=== PATIENT | male | born 1935 | race Caucasian/White ===

== ENCOUNTER 2022-08-14 09:48 | Outpatient (OUT) | payer MEDICARE, SELFPAY ==
[2022-08-14 10:31] LABS: Anion Gap 13.4; BUN Creatinine Ratio 29.7; Calcium 10.1 mg/dL (8.5-10.1); Carbon Dioxide 24.6 mmol/L (21.0-32.0); Chloride 107 mmol/L (98-107); Estimated GFR (African America 59 (>=60); Estimated GFR (Non-African Ame 49 (>=60); Glucose 120 mg/dL (74-106); Sodium 140 mmol/L (136-145)
== END 2022-08-14 09:49 ==
LOC: LAB 09:49
PROVIDERS: PCP Family Medicine; Visit Provider Nurse Practitioner Family
DX: I50.22 Chronic systolic (congestive) heart failure (principal)
CPT/HCPCS: 36415; 80048

== ENCOUNTER 2022-08-29 10:11 | Outpatient (OUT) | payer MEDICARE, SELFPAY ==
[2022-08-29 10:31] LABS: Basophils Percent Auto 0.6 % (0.2-2.0); Eosinophils Absolute Auto 0.1 10^3/uL (0.0-0.7); Eosinophils Percent Auto 1.2 % (0.9-7.0); Hematocrit 44.7 % (42.0-54.0); Immature Granulocytes Abs Auto 0.01 10^3/uL (0.00-0.03); Immature Granulocytes Pct Auto 0.2 % (0.0-0.5); Lymphocytes Absolute Auto 1.3 10^3/uL (1.2-3.8); Lymphocytes Percent Auto 24.6 % (20.5-60.0); Mean Corpuscular HGB Conc 33.6 g/dL (29.9-35.2); Mean Corpuscular Hemoglobin 32.1 pg (25.9-34.0); Mean Corpuscular Volume 95.7 fL (80.0-94.0); Mean Platelet Volume 10.9 fL (9.5-13.5); Monocytes Absolute Auto 0.6 10^3/uL (0.3-0.8); Monocytes Percent Auto 10.6 % (1.7-12.0); Neutrophils Absolute Auto 3.3 10^3/uL (1.4-6.5); Neutrophils Percent Auto 62.8 % (43.0-75.0); Platelet Count 164 10^3/uL (150-450); Red Blood Count 4.67 10^6/uL (4.70-6.10); Red Cell Distribution Width 14.1 % (11.0-15.0); White Blood Count 5.2 10^3/uL (4.0-11.0)
[2022-08-29 12:41] LABS: Alanine Aminotransferase 36 U/L (16-63); Albumin Globulin Ratio 1.1; Albumin Level 3.6 g/dL (3.4-5.0); Alkaline Phosphatase 156 U/L (46-116); Anion Gap 14.7; Aspartate Amino Transferase 44 U/L (15-37); BUN Creatinine Ratio 24.4; Bilirubin Total 1.3 mg/dL (0.2-1.0); Calcium 9.7 mg/dL (8.5-10.1); Carbon Dioxide 24.9 mmol/L (21.0-32.0); Chloride 107 mmol/L (98-107); Estimated GFR (African America >60 (>=60); Estimated GFR (Non-African Ame 58 (>=60); Globulin 3.4 g/dL; Glucose 98 mg/dL (74-106); Potassium 4.6 mmol/L (3.5-5.1); Sodium 142 mmol/L (136-145)
[2022-08-29 12:54] LABS: Chol HDL Ratio 1.7; Cholesterol 132 mg/dL (<=200); HDL Cholesterol 76 mg/dL (40-60); Thyroid Stimulating Hormone 1.418 uIU/mL (0.358-3.740); Triglycerides 50 mg/dL (<=150)
== END 2022-08-29 10:12 | disposition home or self-care (01) ==
LOC: LAB 10:12
PROVIDERS: PCP Family Medicine; Visit Provider Nurse Practitioner Family
DX: Z00.00 Encounter for general adult medical examination without abnormal findings (principal); I50.22 Chronic systolic (congestive) heart failure; I25.10 Atherosclerotic heart disease of native coronary artery without angina pectoris; I48.92 Unspecified atrial flutter; E78.2 Mixed hyperlipidemia
CPT/HCPCS: 36415; 80053; 80061; 84443; 85025

== ENCOUNTER 2022-10-09 07:23 | Outpatient (OUT) | payer MEDICARE, SELFPAY ==
--- NOTE | 2022-10-09 08:23 | CA_ITS ---
Patient: DUKE ESCOBAR Exam Date: 10/09/2022 : 1935 Gender:M Ordering : FABOILA MENDIOLA Admission #: [id number] Family : Order #: [id number] CLICK HERE TO VIEW EXAM ECHOCARDIOGRAM REPORT PROCEDURE: CA ECHO DOPPLER COMPLETE INDICATIONS: Multiple vessel CAD, Ischemic congestive Cardiomyopathy COMPARISON: None. DESCRIPTION: COMPLETE ECHOCARDIOGRAM Real-time transthoracic echocardiography with 2D, M-mode, spectral and color flow Doppler performed. QUALITY: Technical quality was good. LEFT VENTRICLE: Normal chamber size. Severe concentric left ventricular hypertrophy. Systolic function is mildly to moderately reduced. LV EF: Mildly to moderately reduced left ventricular ejection fraction, (40-45%). DIASTOLIC: Not adequately assessed due to heart rhythm. ATRIAL SEPTUM: LEFT ATRIUM: Severe dilatation. RIGHT ATRIUM: Severe dilatation. RIGHT VENTRICLE: Mild dilatation. Mildly reduced right ventricular systolic function. TRICUSPID VALVE: Normal mobility and thickness. No stenosis with mild regurgitation. No evidence of pulmonary hypertension. RVSP 34 mmHg MITRAL VALVE: Normal mobility and thickness. No evidence of mitral valve stenosis. Mild mitral annular calcification. Mild to moderate mitral regurgitation. AORTIC VALVE: Normal trileaflet appearance. No visible sclerosis. Normal leaflet mobility. No evidence of aortic valve stenosis. No aortic regurgitation. AORTIC ROOT: Normal diameter and appearance. PULMONIC VALVE: Normal thickness and mobility. No stenosis. Mild regurgitation. PERICARDIUM: No evidence of pericardial effusion. IVC: Collapses with inspirations. Normal size. PLEURA: CONCLUSION: 1. 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 LVEF is 40 to 45%. 2. Mildly dilated right ventricle with mildly reduced systolic function. 3. Severe biatrial dilatation. 4. Mild to moderate mitral and mild tricuspid regurgitation. 5. Normal right-sided pressures. 6. Cardiac phenotype is suggestive of possible infiltrative cardiomyopathy such as amyloid heart disease. Adult Echocardiography Procedure Report Left Ventricle LVEDD (3.7 - 5.6 cm): 4.31 cm LVESD (2.2 - 4.0 cm): 3.67 cm LVIVS thickness (0.6 - 1.2 cm): 2.00 cm LVPW thickness (0.5 - 1.0 cm): 1.97 cm e': 0.06 m/s E - e': 13.11 LVOT Max Gradient: 2.89 mm[Hg] LVOT Area (cm2): 0.85 m/s Peak Velocity (LVOT): 0.85 m/s Mean Velocity (LVOT): 0.55 m/s LVOT Diameter 1.98 cm Left Ventricular Ejection Fraction: 40-45 % Left Atrium LA Volume Index (2D A2C): 94.44 ml/m2 Left Atrium Systolic Dimension: 5.23 cm Mitral Valve Mitral Valve E-Wave Peak Velocity: 0.81 m/s Right Ventricle RV Internal Diastolic Dimension: 4.05 cm Aorta AO Root Diam: 3.32 cm Ascending Ao Diam: 3.22 cm Aortic Valve AoV Area (Peak Adelso): 2.49 cm2, 2.49 cm2 AoV Area (VTI): 2.75 cm2, 2.75 cm2 Peak Velocity(Antegrade Flow): 1.05 m/s Peak Gradient(Antegrade Flow): 4.39 mm[Hg] Mean Velocity(Antegrade Flow): 0.74 m/s Mean Gradient(Antegrade Flow): 2.51 mm[Hg] Velocity Time Integral: 21.29 cm Tricuspid Valve Peak Velocity (Regurgitant Flow): 2.76 m/s, 2.62 m/s, 2.46 m/s, 2.76 m/s Pulmonic Valve Peak Velocity: 0.95 m/s Peak Gradient: 3.91 mm[Hg], 3.29 mm[Hg] Right Atrium Right Atrium Systolic Pressure: 116.47 ml, 116.47 ml Dictated by: Sebastian Moseley M.D. on 10/09/2022 at 19:19 Approved by: Sebastian Moseley M.D. on 10/09/2022 at 19:24
== END 2022-10-09 07:24 | disposition home or self-care (01) ==
LOC: CARD 07:23
PROVIDERS: PCP Family Medicine; Visit Provider Nurse Practitioner
DX: I25.10 Atherosclerotic heart disease of native coronary artery without angina pectoris (principal); I25.5 Ischemic cardiomyopathy
CPT/HCPCS: 93306

== ENCOUNTER 2023-05-23 09:37 | Outpatient (OUT) | payer MEDICARE, SELFPAY ==
[2023-05-23 11:08] LABS: Anion Gap 14.2; BUN Creatinine Ratio 22.8; Calcium 9.4 mg/dL (8.5-10.1); Carbon Dioxide 25.3 mmol/L (21.0-32.0); Chloride 108 mmol/L (98-107); Estimated GFR (African America >60 (>=60); Estimated GFR (Non-African Ame 50 (>=60); Glucose 98 mg/dL (74-106); Potassium 4.5 mmol/L (3.5-5.1); Sodium 143 mmol/L (136-145)
== END 2023-05-23 09:38 | disposition home or self-care (01) ==
LOC: LAB 09:39
PROVIDERS: PCP Family Medicine; Visit Provider Nurse Practitioner Family
DX: I11.0 Hypertensive heart disease with heart failure (principal)
CPT/HCPCS: 36415; 80048

== ENCOUNTER 2023-10-09 12:12 | Outpatient (OUT) | payer MEDICARE, SELFPAY ==
[2023-10-09 12:35] LABS: Basophils Percent Auto 0.7 % (0.2-2.0); Eosinophils Absolute Auto 0.1 10^3/uL (0.0-0.7); Hematocrit 42.9 % (42.0-54.0); Hemoglobin 14.6 g/dL (14.0-18.0); Immature Granulocytes Abs Auto 0.02 10^3/uL (0.00-0.03); Immature Granulocytes Pct Auto 0.3 % (0.0-0.5); Lymphocytes Absolute Auto 1.2 10^3/uL (1.2-3.8); Lymphocytes Percent Auto 20.9 % (20.5-60.0); Mean Corpuscular Hemoglobin 33.4 pg (25.9-34.0); Mean Corpuscular Volume 98.2 fL (80.0-94.0); Mean Platelet Volume 10.8 fL (9.5-13.5); Monocytes Absolute Auto 0.6 10^3/uL (0.3-0.8); Monocytes Percent Auto 9.6 % (1.7-12.0); Neutrophils Percent Auto 67.5 % (43.0-75.0); Platelet Count 150 10^3/uL (150-450); Red Blood Count 4.37 10^6/uL (4.70-6.10); Red Cell Distribution Width 13.6 % (11.0-15.0); White Blood Count 5.9 10^3/uL (4.0-11.0)
[2023-10-09 12:47] LABS: Estimated Average Glucose 105 mg/dL; Glycohemoglobin A1C 5.3 % (4.5-6.2)
[2023-10-09 12:51] LABS: Alanine Aminotransferase 37 U/L (16-63); Albumin Globulin Ratio 1.4; Albumin Level 3.8 g/dL (3.4-5.0); Alkaline Phosphatase 142 U/L (46-116); Anion Gap 14.3; Aspartate Amino Transferase 40 U/L (15-37); BUN Creatinine Ratio 29.2; Bilirubin Direct 0.4 mg/dL (0.0-0.2); Bilirubin Total 1.2 mg/dL (0.2-1.0); Calcium 9.5 mg/dL (8.5-10.1); Carbon Dioxide 25.2 mmol/L (21.0-32.0); Chloride 107 mmol/L (98-107); Chol HDL Ratio 1.8; Cholesterol 136 mg/dL (<=200); Estimated GFR (African America 56 (>=60); Estimated GFR (Non-African Ame 47 (>=60); Globulin 2.7 g/dL; Glucose 96 mg/dL (74-106); HDL Cholesterol 75 mg/dL (40-60); Potassium 4.5 mmol/L (3.5-5.1); Sodium 142 mmol/L (136-145); Total Protein 6.5 g/dL (6.4-8.2); Triglycerides 35 mg/dL (<=150)
== END 2023-10-09 12:13 | disposition home or self-care (01) ==
LOC: LAB 12:14
PROVIDERS: PCP Family Medicine; Visit Provider Family Medicine
DX: E78.5 Hyperlipidemia, unspecified (principal); R73.03 Prediabetes; Z79.899 Other long term (current) drug therapy
CPT/HCPCS: 36415; 80048; 80061; 80076; 83036; 85025

== ENCOUNTER 2024-02-28 13:20 | Outpatient (OUT) | payer MEDICARE, SELFPAY ==
--- OUTSIDE RECORDS SUMMARY | 2024-02-28 13:25 | XMS_ITS | CCD ---
Author Organization [facility] Care Team Providers Care Psychologist Military Personnel Name Role Phone MD Stefano Rivera Primary Care Provider MD Percy Swan Emergency Provider DO Venus Manjarrez Admit Provider DO Venus Manjarrez Attending Provider SHANA MCCORMICK Admitting Unavailable SHANA MCCORMICK Attending Unavailable KAYLEENERELawrence, DR STEFANO Love Primary Care Unavailable SHANA MCCORMICK Consulting Unavailable MICHELLE MENDOZA Admitting Unavailable MICHELLE MENDOZA Attending Unavailable NADERER, DR STEFANO Love Primary Care Unavailable ZIEBLISA, DR PRISCILA Bravo Consulting Unavailable MICHELLE MENDOZA Consulting Unavailable NINO POWELL Admitting Unavailable NINO POWELL Attending Unavailable NADERER, DR STEFANO Love Primary Care Unavailable NINO POWELL Consulting Unavailable NADERER, DR STEFANO Love Admitting Unavailable NADERER, DR STEFANO Love Attending Unavailable NADERER, DR STEFANO Love Primary Care Unavailable KAYLEENERER, DR STEFANO Love Primary Care Unavailable CACHORRO, DR VICENTE Crawley Admitting Unavailabl e REINECK, DR VICENTE Crawley Attending Unavailabl e REINECK, DR VICENTE Crawley Consulting Unavailabl e NADERER, DR STEFANO Love Primary Care Unavailable TAYLOR ALCANTARA Admitting Unavailable TAYLOR ALCANTARA Attending Unavailable TAYLOR ALCANTARA Consulting Unavailable MAYA MOODY Consulting Unavailable NADERER, DR STEFANO Love Primary Care Unavailable HOY ., DR ESPINOZA Consulting Unavailable NADERER, DR STEFANO Love Admitting Unavailable NADERELawrence, DR STEFANO Love Attending Unavailable NADERELawrence, DR STEFANO Love Consulting Unavailable WILBERT RIVERA Consulting Unavailable BO HURST Consulting Unavailable SHERRY, NINO Admitting Unavailable BARAZI, NINO Attending Unavailable DR STEFANO RIVERA Primary Care Unavailable MICHELLE MENDOZA Admitting Unavailable MICHELLE MENDOZA Attending Unavailable DR STEFANO RIVERA Primary Care Unavailable MICHELLE MENDOZA Consulting Unavailable STEFANO RIVERA Attending Unavailable ANOOP, ELLYN Referring Unavailable ANOOP, ELLYN Referring Unavailable AONOP, ELLYN Referring Unavailable ANOOP, ELLYN Referring Unavailable ANOOP, ELLYN Referring Unavailable ANOOP, ELLYN Referring Unavailable MICHELLE MENDOZA Attending Unavailable MICHELLE MENDOZA Attending Unavailable MISAEL GARCIA Attending Unavailable MICHELLE MENDOZA Attending Unavailable ANOOP, ELLYN Referring Unavailable ANOOP, ELLYN Referring Unavailable ANOOP, ELLYN Referring Unavailable ANOOP, ELLYN Referring Unavailable ANOOP, ELLYN Referring Unavailable ANOOP, ELLYN Referring Unavailable Allergies Allergy Classification Reported Allergen(s) Allergy Type Date of Onset Reaction(s) Facility (4 sources) Penicillins; Translations: [Penicillins] Allergy to substance 10-20-2013 [facility] Medications Current Medications Medication Drug Class(es) Dates Sig (Normalized) Sig (Original) apixaban 5 mg oral tablet (1 source) Factor Xa Inhibitor Start: 09-15-2021 take 1 tablet by mouth twice daily Apixaban (Eliquis) 5 mg Tablet Active 5 MG PO Twice daily September 15, 2021 2:08pm lisinopril 20 mg oral tablet (1 source) Angiotensin Converting Enzyme Inhibitor Start: 09-15-2021 take 20 mg by mouth once daily Lisinopril Active 20 MG PO Daily September 15, 2021 2:08pm Propoxyphene N-Acetaminophen (Darvocet-N 50) 50-325 mg Tablet (1 source) Start: 09-15-2021 Propoxyphene N-Acetaminophen (Darvocet-N 50) 50-325 mg Tablet Active 1 TAB PO Q6H September 15, 2021 2:08pm rosuvastatin calcium 20 mg oral tablet (1 source) HMG-CoA Reductase Inhibitor Start: 09-15-2021 take 1 tablet by mouth once daily Rosuvastatin (Crestor) 20 mg Tablet Active 20 MG PO Daily September 15, 2021 2:08pm traMADol hydrochloride 50 mg oral tablet (1 source) Opioid Agonist Start: 09-15-2021 take 1 tablet by mouth every six hours Tramadol (Ultram) 50 mg Tablet Active 50 MG PO Q6H September 15, 2021 2:08pm Problems Active Problems Problem Classification Problem Date Documented Date Episodic/Chronic Cardiac dysrhythmias (6 sources) Unspecified atrial fibrillation; Translations: [Paroxysmal atrial fibrillation] Onset: 09-14-2021 Chronic Chronic kidney disease (1 source) Chronic kidney disease, unspecified; Translations: [CHRONIC KIDNEY DISEASE UNSPECIFIED] Onset: 09-14-2021 Chronic Chronic kidney disease (3 sources) Chronic kidney disease; Translations: [CHRONIC KIDNEY DISEASE STAGE 3A] Onset: 09-14-2021 Congestive heart failure; nonhypertensive (5 sources) Acute on chronic combined systolic (congestive) and diastolic (congestive) heart failure; Translations: [Acute combined systolic (congestive) and diastolic (congestive) heart failure] Onset: 01-25-2022 Chronic Coronary atherosclerosis and other heart disease (13 sources) Atherosclerotic heart disease of [place] coronary artery without angina pectoris; Translations: [Ischemic cardiomyopathy] Onset: 09-14-2021 Chronic Disorders of lipid metabolism (4 sources) Hyperlipidemia, unspecified; Translations: [Mixed hyperlipidemia] Onset: 10-02-2022 Chronic Essential hypertension (7 sources) Essential (primary) hypertension; Translations: [ESSENTIAL PRIMARY HYPERTENSION] Onset: 07-19-2021 Chronic Heart valve disorders (1 source) Rheumatic disorders of both mitral and tricuspid valves; Translations: [RHEUMATIC D/O MITRAL TRICUSPID VALV] Onset: 11-04-2021 Chronic Hypertension with complications and secondary hypertension (2 sources) Hypertensive heart disease with heart failure; Translations: [Hypertensive heart disease with heart failure] Onset: 06-06-2023 Chronic Osteoarthritis (2 sources) Bilateral primary osteoarthritis of hip; Translations: [Unilateral primary osteoarthritis, right hip] Onset: 09-14-2021 Chronic Other nervous system disorders (1 source) Unable to walk; Translations: [Difficulty in walking, not elsewhere classified] 09-15-2021 Chronic Other nervous system disorders (1 source) Difficulty in walking, not elsewhere classified; Translations: [Difficulty in walking] Chronic Anitha-; endo-; and myocarditis; cardiomyopathy (except that caused by tuberculosis or sexually transmitted disease) (4 sources) Endocarditis, valve unspecified; Translations: [Dilated cardiomyopathy] Onset: 01-02-2022 Chronic Unclassified (1 source) CONTACT W/AND (SUSP) EXPOS COVID-19; Translations: [CONTACT W/AND (SUSP) EXPOS COVID-19] Onset: 09-14-2021 Unclassified (2 sources) Longstanding persistent atrial fibrillation; Translations: [Longstanding persistent atrial fibrillation] Onset: 02-22-2024 Unclassified (2 sources) Other persistent atrial fibrillation; Translations: [Other persistent atrial fibrillation] Onset: 01-02-2022 Past or Other Problems Problem Classification Problem Date Documented Da te Episodic/Chronic Calculus of urinary tract (1 source) Personal history of urinary calculi; Translations: [PERSONAL HISTORY OF URINARY CALCULI] Onset: 09-14-2021 Episodic Cardiac dysrhythmias (2 sources) Palpitations; Translations: [Palpitations] Onset: 08-13-2023 Episodic E Codes: Fall (1 source) Unspecified fall, initial encounter; Translations: [UNSPECIFIED FALL INITIAL ENCOUNTER] Onset: 09-14-2021 Episodic Other aftercare (1 source) Other longterm (current) drug therapy; Translations: [OTH SNF CURRENT DRUG THERAPY] Onset: 09-14-2021 Episodic Other aftercare (1 source) 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; 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 Maryjo [facility] 36 Pharmacy called needing a new scripted for patient Entresto. Patient stated he is taking 0.5mg twice a day, but the order says 4 times a month. Denise Sibley [facility] Office Visiton 12-20-2024 Follow-up visit [id number] Duke Matson 1935 M Date Provider Department Center 02/22/2024 [id number]-WZCKYLMISAEL GARCIA Family History Problem Relation Age of Onset Heart attack Other Family Status - Relation Status Age at Other Level of Service:88953 [place] OFFICE/OUTPATIENT ESTABLISHED MOD MDM 30 MIN Reason for Visit and Comments: Hypertension [687071] - Says BP has been higher than normal for him lately. Coronary Artery Disease [187] Congestive Heart Failure [127] Palpitations [856595] - Occasional palpitations Shortness of Breath [] - Says he can tell he's been having apneic episodes at night and wakes up and has to kick start his breathing again. Edema [[id number]] - He is up 14# since September 2023. Says he weighed 170# last week. Atrial Flutter [101] - Denies bleeding on Eliquis. [facility] 36on 10-17-2023 36 Well we can continue the Entresto if he can tolerate it. Otherwise we can switch it to valsartan. [facility] Office Visiton 09-25-2023 Follow-up visit [id number] Duke Matson 1935 M Date Provider Department Center 09/25/2023 166MICHELLE NUÑEZ Family History Problem Relation Age of Onset Heart attack Other Family Status - Relation Status Age at Other Level of Service:64849 [place] OFFICE/OUTPATIENT ESTABLISHED MOD MDM 30 MIN Reason for Visit and Comments: Congestive Heart Failure [127] [facility] Office Visiton 06-06-2023 Follow-up visit [id number] Duke Matson 1935 M Date Provider Department Center 06/06/2023 166-MICHELLE MENDOZA Family History Problem Relation Age of Onset Heart attack Other Family Status - Relation Status Age at Other Level of Service:27112 [place] OFFICE/OUTPATIENT ESTABLISHED LOW MDM 20 MIN Reason for Visit and Comments: Follow-up [335828] [facility] Office Visiton 03-08-2023 Follow-up visit [id number] Duke Matson 1935 M Date Provider Department Center 03/08/2023 MICHELLE PARKER [facility] Family History Problem Relation Age of Onset Heart attack Other Family Status - Relation Status Age at Other Level of Service:51101 [place] OFFICE/OUTPATIENT ESTABLISHED LOW MDM 20 MIN Reason for Visit and Comments: Coronary Artery Disease [187] Congestive Heart Failure [127] Hypertension [143515] Atrial Fibrillation [80] Normal [facility] PROF CHEM 8 (BAS METB)on Anion gap [Moles/Vol] 13.7 mmol/L Normal [facility] Comment on above: Performed By: #### B MP #### [facility] [address] [place] [address] Dr. Brennan Crooks Calcium [Mass/Vol] 10.0 mg/dL Normal 8.5-10.1 [facility] Comment on above: Performed By: #### B MP #### [facility] [address] [address] [address] Brennan Crooks Chloride [Moles/Vol] 109 mmol/L Critically high 98-107 [facility] Comment on above: Performed By: #### B MP #### [facility] [address] [address] [address] Brennan Crooks CO2 [Moles/Vol] 24.9 mmol/L Normal 21.0-32.0 [facility] Comment on above: Performed By: #### B MP #### [facility] [address] [address] [address] Brennan Crooks Creatinine [Mass/Vol] 1.13 mg/dL Normal 0.70-1.30 [facility] Comment on above: Performed By: #### B MP #### [facility] [address] [address] [address] Brennan Crooks EGFR-AF [place]TSERR[place] >60 Normal >=60 [facility] Comment on above: Performed By: #### B MP #### [facility] [address] [address] [address] Brennan Crooks EGFR-NON AF [place]ERR[place] >60 Normal >=60 [facility] Comment on above: Performed By: #### B MP #### [facility] [address] [address] [address] Brennan Crooks Glucose [Mass/Vol] 102 mg/dL Normal 74-106 [facility] Comment on above: Performed By: #### B MP #### [facility] [address] [place], [place] [address] Dr. Brennan Crooks Potassium [Moles/Vol] 4.6 mmol/L Normal 3.5-5.1 [facility] Comment on above: Performed By: #### B MP #### [facility] [address] [address] [address] Brennan Crooks Sodium [Moles/Vol] 143 mmol/L Normal 136-145 [facility] Comment on above: Performed By: #### B MP #### [facility] [address] [address] [address] Brennan Crooks Urea nitrogen [Mass/Vol] 35.0 mg/dL Critically high 7.0-18.0 [facility] Comment on above: Performed By: #### B MP #### [facility] [address] [address] [address] Brennan Crooks Urea nitrogen/Creatinine [Mass ratio] 31.0 mg/mg Normal [facility] Comment on above: Performed By: #### B MP #### [facility] [address] [address] [address] Brennan Crooks NM STRESS/REST MULTIon 01-23 NM STRESS/REST MULTI Patient: DUKE MATSON Exam Date: 01/23/2022 : 1935 Gender:M Ordering : MICHELLE MENDOZA [facility] Admission #: [id number] Family : Order #: [id number] CLICK HERE TO VIEW EXAM RADIOLOGY REPORT PROCEDURE: RADIONUCLIDE IMAGING STRESS/REST MULTI COMPARISON: NM STRESS/REST MULTI, 12/25/2018. INDICATIONS: Acute on chronic combined systolic and diastolic heart failure TECHNIQUE: Exam Description: Rest/Stress one day protocol gated SPECT Rest Imagin.1 mCi Tc-99m Cardiolite IV on 01/23/2022 Stress Imaging 30.1 mCi Tc-99m Cardiolite IV on 01/23/2022 Exercise Protocol: 0.4 mg Lexiscan given IV Heart Rate (bpm): Rest: 68 Max: 80 PMHR: 59 Blood Pressure: Rest: 140/92 Max: 146/88 Symptoms: Rest and peak stress ECG findings were normal and the exercise portion of the study was normal per attending physician Dr. Moseley . For more details please see separate cardiac stress test report. FINDINGS: QUALITY OF STUDY: Excellent. PERFUSION DEFECT: LOCATION: Basal inferior. Mid-inferior. Apical inferior. SIZE: Medium (3-4 segments). SEVERITY: Mild. TYPE: Persistent. WALL MOTION: Focal akinesis of posterior wall at base of heart. Global marked hypokinesis. LV SIZE: Enlarged; EDV 165 mL. TID / TCD: None; 1.0 LVEF: Abnormal. Calculated EF 31%. SUMMARY: Myocardial perfusion imaging study has ABNORMAL findings. CONCLUSION: 1. No acute or reversible ischemia. 2. Small-moderate fixed inferior wall perfusion defect versus diaphragm attenuation artifact. 3. Left ventriculomegaly (165 mL) and abnormal low ejection fraction (31%). 4. Global hypokinesis with focal akinesis of the posterior wall at base of heart. Dictated by: Priscila Mendoza M.D. on 01/24/2022 at 12:24 Approved by: Priscila Mendoza M.D. on 01/24/2022 at 12:29 Normal [facility] ECHOCARDIO M/2D COMPLETEon 0 11-02-2021 ECHOCARDIO M/2D COMPLETE Patient: DUKE MATSON Exam Date: 11/02/2021 : 1935 Gender:M Ordering : SHANA MCCORMICK Admission #: [id number] Family : DR STEFANO RIVERA . 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 DESCRIPTION: COMPLETE ECHOCARDIOGRAM Real-time transthoracic echocardiography with 2D, M-mode, spectral and color flow Doppler performed. QUALITY: Technical quality was adequate. 68 195# 118/78 HR 79 LEFT VENTRICLE: Normal chamber size. Severe concentric left ventricular hypertrophy [septum 2.0 cm, posterior wall 2.0 cm]. Global left ventricular systolic function is moderately decreased. Calculated left ventricular ejection fraction is 36%. Global left ventricular hypokinesis. LV EF: DIASTOLIC: Grade II diastolic dysfunction. ATRIAL SEPTUM: LEFT ATRIUM: Severe dilatation. RIGHT ATRIUM: Moderate dilatation. RIGHT VENTRICLE: Normal chamber size. Normal right ventricular systolic function. TRICUSPID VALVE: Normal mobility and thickness. No stenosis with mild regurgitation. No evidence of pulmonary hypertension. RVSP 33 mmHg MITRAL VALVE: Mildly thickened with normal mobility. No evidence of mitral valve stenosis. Mild mitral annular calcification. Mild mitral regurgitation. AORTIC VALVE: Normal trileaflet appearance. Mildly calcified aortic valve. No evidence of aortic valve stenosis. Trivial aortic regurgitation. AORTIC ROOT: Ascending aorta is at upper normal limits in size. PULMONIC VALVE: Normal thickness and mobility. No stenosis. Mild regurgitation. PERICARDIUM: No evidence of pericardial effusion. IVC: Collapses with inspirations. IVC is normal in size. PLEURA: CONCLUSION: 1. The left ventricle exhibits severe concentric hypertrophy. There is global hypokinesis with moderately reduced systolic function and a calculated ejection fraction of 36%. 2. Grade 2 diastolic dysfunction. 3. The right ventricle is normal in size and systolic function. 4. Mild mitral and tricuspid regurgitation. 5. Normal right-sided pressures. Adult Echocardiography Procedure Report Left Ventricle Left Atrium Mitral Valve Right Ventricle Aorta Aortic Valve Peak Velocity (Antegrade Flow): 1.20 m/s AoV Area (Peak Adelso): 3.62 cm2, 3.62 cm2 Peak Velocity(Antegrade Flow): 1.20 m/s Peak Gradient(Antegrade Flow): 5.77 mm[Hg] Tricuspid Valve Peak Velocity (Regurgitant Flow): 2.63 m/s, 2.73 m/s Peak Velocity: 0.49 m/s, 0.49 m/s Pulmonic Valve PV Max Adelso (0.6 - 0.9 m per sec): 0.90 m/s PV Max Gradient: 3.22 mm[Hg] Right Atrium Dictated by: Sebastian Moseley M.D. on 11/03/2021 at 20:30 Approved by: Sebastian Moseley M.D. on 11/03/2021 at 20:34 Normal [facility] Hemogram CBC Without Diffon 09-19-2021 Erythrocyte distribution width (RBC) [Ratio] 14.1 % Normal 12.0-14.8 [facility] Comment on above: Performed By: #### C BCNO ####[address] Hematocrit (Bld) [Volume fraction] 24.9 % Low 38.8-50.0 [facility] Comment on above: Performed By: #### C BCNO ####[address] Hemoglobin (Bld) [Mass/Vol] 8.5 g/dL Low 13.0-17.0 [facility] Comment on above: Performed By: #### C BCNO ####[address] MCH (RBC) [Entitic mass] 32.8 pg Normal 27.5-35.2 [facility] Comment on above: Performed By: #### C BCNO ####[address] MCV (RBC) [Entitic vol] 95.6 fL Normal 83.5-101 [facility] Comment on above: Performed By: #### C BCNO ####[address] Mean Corpuscular HGB Conc 34.3 g/dL Normal 32.5-35.6 [facility] Comment on above: Performed By: #### C BCNO ####[address] Platelet mean volume (Bld) [Entitic vol] 7.3 fL Normal 6.6-10.1 [facility] Comment on above: Result Comment: PERF ORMED BY: [facility] [address] [place] [address] PATHOLOGIST BUTTON SAWYER TAMICA DUBOSE M.D. Performed By: #### C BCNO ####[address] Platelets (Bld) [#/Vol] 240 10*3/uL Normal 150-450 [facility] Comment on above: Performed By: #### C BCNO ####[facility] RBC (Bld) [#/Vol] 2.60 10*6/uL Low 3.90-5.60 [facility] [place] [facility] Comment on above: Performed By: #### C BCNO ####[facility] WBC (Bld) [#/Vol] 6.5 10*3/uL Normal 4.1-10.5 [facility] Comment on above: Performed By: #### C BCNO ####[address] Hemogram CBC Without Diffon 09-18-2021 Erythrocyte distribution width (RBC) [Ratio] 13.8 % Normal 12.0-14.8 [facility] Comment on above: Performed By: #### C BCNO #### [address] Hematocrit (Bld) [Volume fraction] 26.6 % Low 38.8-50.0 [facility] Comment on above: Performed By: #### C BCNO #### [address] Hemoglobin (Bld) [Mass/Vol] 9.0 g/dL Low 13.0-17.0 [facility] Comment on above: Performed By: #### C BCNO #### [facility] [address] MCH (RBC) [Entitic mass] 32.4 pg Normal 27.5-35.2 [facility] Comment on above: Performed By: #### C BCNO #### [facility] [address] MCV (RBC) [Entitic vol] 95.5 fL Normal 83.5-101 [facility] Comment on above: Performed By: #### C BCNO #### [facility] [address] Mean Corpuscular HGB Conc 34.0 g/dL Normal 32.5-35.6 [facility] Comment on above: Performed By: #### C BCNO #### [facility] [address] Platelet mean volume (Bld) [Entitic vol] 7.7 fL Normal 6.6-10.1 [facility] Comment on above: Result Comment: PERF ORMED BY: [place] [address] PATHOLOGIST BUTTON SAWYER TAMICA DUBOSE M.D. Performed By: #### C BCNO #### [address] Platelets (Bld) [#/Vol] 232 10*3/uL Normal 150-450 [facility] Comment on above: Performed By: #### C BCNO #### [address] RBC (Bld) [#/Vol] 2.78 10*6/uL Low 3.90-5.60 [facility] [place] [facility] Comment on above: Performed By: #### C BCNO #### [address] WBC (Bld) [#/Vol] 6.9 10*3/uL Normal 4.1-10.5 [facility] Comment on above: Performed By: #### C BCNO #### [address] Ferritinon 09-17-2021 Ferritin [Mass/Vol] 29.0 ng/mL Normal 23.9-336.2 [facility] [place] [facility] Comment on above: Performed By: #### F E and TIBC, [id number], AJ ####[facility] [place] [address] Hemoglobin and Hematocriton 09-17-2021 Hematocrit (Bld) [Volume fraction] 25.6 % Low 38.8-50.0 [facility] Comment on above: Result Comment: PERF ORMED BY: [place] [address] PATHOLOGIST BUTTON SAWYER TAMICA DUBOSE M.D. Performed By: #### H H #### [address] Hemoglobin (Bld) [Mass/Vol] 8.6 g/dL Low 13.0-17.0 [facility] Comment on above: Performed By: #### H H #### [address] Hemogram CBC Without Diffon 09-17-2021 Erythrocyte distribution width (RBC) [Ratio] 13.8 % Normal 12.0-14.8 [facility] Comment on above: Performed By: #### C BCNO #### [address] Hematocrit (Bld) [Volume fraction] 24.6 % Low 38.8-50.0 [facility] Comment on above: Performed By: #### C BCNO #### [address] Hemoglobin (Bld) [Mass/Vol] 8.4 g/dL Low 13.0-17.0 [facility] Comment on above: Performed By: #### C BCNO #### [address] MCH (RBC) [Entitic mass] 32.8 pg Normal 27.5-35.2 [facility] Comment on above: Performed By: #### C BCNO #### [address] MCV (RBC) [Entitic vol] 96.0 fL Normal 83.5-101 [facility] Comment on above: Performed By: #### C BCNO #### [address] Mean Corpuscular HGB Conc 34.2 g/dL Normal 32.5-35.6 [facility] Comment on above: Performed By: #### C BCNO #### [address] Platelet mean volume (Bld) [Entitic vol] 8.3 fL Normal 6.6-10.1 [facility] Comment on above: Result Comment: PERF ORMED BY: [place] [address] PATHOLOGIST BUTTON SAWYER TAMICA DUBOSE M.D. Performed By: #### C BCNO #### [address] Platelets (Bld) [#/Vol] 219 10*3/uL Normal 150-450 [facility] Comment on above: Performed By: #### C BCNO #### [address] RBC (Bld) [#/Vol] 2.57 10*6/uL Low 3.90-5.60 [facility] Comment on above: Performed By: #### C BCNO #### [address] WBC (Bld) [#/Vol] 6.8 10*3/uL Normal 4.1-10.5 [facility] Comment on above: Performed By: #### C BCNO #### [address] Iron and TIBC Profileon 09-02 % Iron Saturation 16.0 % Low 20-50 [facility] Comment on above: Performed By: #### F E and TIBC, [id number], AJ ####[address] Iron [Mass/Vol] 55 ug/dL Normal 40-160 [facility] Comment on above: Performed By: #### F E and TIBC, [id number], AJ ####[address] Total Iron Binding Capacity 337 ug/dL Normal 255-450 [facility] Comment on above: Performed By: #### F E and TIBC, [id number], AJ ####[address] Transferrin [Mass/Vol] 241 mg/dL Normal 180-380 [facility] [facility] Comment on above: Performed By: #### F E and TIBC, [id number], AJ ####[address] Vit. B12/Folate Profileon Cobalamin (Vitamin B12) [Mass/Vol] 892 pg/mL Normal 180-914 [facility] Comment on above: Performed By: #### F E and TIBC, [id number], AJ ####[address] Folate 8.7 ng/mL Normal >5.9 [facility] Comment on above: Result Comment: Ting te reference range: >5.9 ng/ml The WHO technical consultation on folate and vitamin b12 deficiencies has determined that folate concentrations less than 4 ng/ml are considered deficient. PERFORMED BY: [place] [address] PATHOLOGIST BUTTON SAWYER TAMICA DUBOSE M.D. Performed By: #### F E and TIBC, [id number], AJ ####[address] Complete Blood Count Auto Di ffon 09-16-2021 Basophils (Bld) [#/Vol] 0.0 10*3/uL Normal 0.0-0.2 [facility] Comment on above: Result Comment: PERF ORMED BY: [place] [address] PATHOLOGIST BUTTON SAWYER TAMICA DUBOSE M.D. Performed By: #### C BC #### [address] Basophils/100 WBC (Bld) 0.4 % Normal . [facility] Comment on above: Performed By: #### C BC #### [address] Eosinophils (Bld) [#/Vol] 0.0 10*3/uL Normal 0.0-0.45 [facility] Comment on above: Performed By: #### C BC #### [address] Eosinophils/100 WBC (Bld) 0.5 % Normal . [facility] Comment on above: Performed By: #### C BC #### [address] Erythrocyte distribution width (RBC) [Ratio] 13.8 % Normal 12.0-14.8 [facility] Comment on above: Performed By: #### C BC #### [address] Hematocrit (Bld) [Volume fraction] 27.5 % Low 38.8-50.0 [facility] Comment on above: Performed By: #### C BC #### [address] Hemoglobin (Bld) [Mass/Vol] 9.3 g/dL Low 13.0-17.0 [facility] Comment on above: Performed By: #### C BC #### [address] Lymphocytes (Bld) [#/Vol] 0.9 10*3/uL Low 1.00-4.8 [facility] Comment on above: Performed By: #### C BC #### [address] Lymphocytes/100 WBC (Bld) 12.6 % Normal . [facility] Comment on above: Performed By: #### C BC #### [address] MCH (RBC) [Entitic mass] 32.5 pg Normal 27.5-35.2 [facility] Comment on above: Performed By: #### C BC #### [address] MCV (RBC) [Entitic vol] 95.9 fL Normal 83.5-101 [facility] Comment on above: Performed By: #### C BC #### [place] [address] Mean Corpuscular HGB Conc 33.8 g/dL Normal 32.5-35.6 [facility] Comment on above: Performed By: #### C BC #### [address] Monocytes (Bld) [#/Vol] 0.9 10*3/uL High 0.0-0.8 [facility] Comment on above: Performed By: #### C BC #### [address] Monocytes/100 WBC (Bld) 13.5 % Normal . [facility] Comment on above: Performed By: #### C BC #### [address] Neutrophils (Bld) [#/Vol] 5.0 10*3/uL Normal 1.8-7.7 [facility] Comment on above: Performed By: #### C BC #### [address] Neutrophils/100 WBC (Bld) 73.0 % Normal . [facility] Comment on above: Performed By: #### C BC #### [address] Nucleated RBC/100 WBC (Bld) [Ratio] 0.0 % Normal 0-0.5 [facility] Comment on above: Performed By: #### C BC #### [address] Platelet mean volume (Bld) [Entitic vol] 8.0 fL Normal 6.6-10.1 [facility] Comment on above: Performed By: #### C BC #### [place] [address] [place] Platelets (Bld) [#/Vol] 218 10*3/uL Normal 150-450 [facility] Comment on above: Performed By: #### C BC #### [place] [address] [place] RBC (Bld) [#/Vol] 2.86 10*6/uL Low 3.90-5.60 [facility] Comment on above: Performed By: #### C BC #### [address] WBC (Bld) [#/Vol] 6.9 10*3/uL Normal 4.5-11.0 [facility] Comment on above: Performed By: #### C BC #### [address] Activated partial thrombopla stin time (aPTT) in platelet poor plasma by coagulation aOrdered By: Ilana Martínez on 09-15-2021 aPTT Coag (PPP) [Time] 34.4 s 25.1-36.5 [facility] Basic Metabolic Panelon 09-02 Calcium [Mass/Vol] 9.0 mg/dL Normal 8.2-10.2 [facility] Comment on above: Performed By: #### B MP, CBC #### [address] Chloride [Moles/Vol] 102 mmol/L Normal 95-114 [facility] Comment on above: Performed By: #### B MP, CBC #### [address] CO2 [Moles/Vol] 24.1 mmol/L Normal 22.0-30.0 [facility] Comment on above: Performed By: #### B MP, CBC #### [address] Creatinine [Mass/Vol] 1.21 mg/dL Normal 0.64-1.27 [facility] Comment on above: Performed By: #### B MP, CBC #### [address] Creatinine Clr Calc Pharmacy 50.41 Normal [facility] Comment on above: Result Comment: PERF ORMED BY: [address] [place] [address] PATHOLOGIST BUTTON SAWYER TAMICA DUBOSE M.D. Performed By: #### B MP, CBC #### [facility] [address] [place] [address] [place] Estimated GFR ( Nasima > 60 [facility] Comment on above: Result Comment: GFR estimated reference range: According to KDOQI guidelines, <60 ml/min/1.73m2 is sufficient to diagnose a patient with chronic kidney disease. Performed By: #### B MP, CBC #### [facility] [address] [place] [address] [place] Estimated GFR (Non- Am 57 [facility] Comment on above: Performed By: #### B MP, CBC #### [facility] [address] Glucose [Mass/Vol] 126 mg/dL High 70-100 [facility] Comment on above: Result Comment: [place] Glucose Reference Range is dependent on time and content of last meal. Glucose of more than 200 mg/dL in a nonstressed, ambulatory subject supports the diagnosis of Diabetes Mellitus. ADA recommended reference range Performed By: #### B MP, CBC #### [address] Potassium [Moles/Vol] 4.7 mmol/L Normal 3.5-5.1 [facility] Comment on above: Performed By: #### B MP, CBC #### [address] Sodium [Moles/Vol] 135 mmol/L Low 136-146 [facility] Comment on above: Performed By: #### B MP, CBC #### [place] [address] [place] Urea nitrogen [Mass/Vol] 28 mg/dL High 9-23 [facility] Comment on above: Performed By: #### B MP, CBC #### [place] [address] [place] Basophils Auto (Bld) [#/Vol] Ordered By: Ilana Martínez on 09-15-2021 Basophils (Bld) [#/Vol] 0.0 10*3/uL 0.0-0.2 [facility] Basophils/100 WBC Auto (Bld) Ordered By: Ilana Martínez on 09-15-2021 Basophils/100 WBC (Bld) 0.2 % [facility] Blood hemoglobin measurement (mass/volume)Ordered By: Ilana Martínez on 09-15-2021 Hemoglobin (Bld) [Mass/Vol] 10.0 g/dL 13.0-17.0 [facility] Blood leukocytes automated c ount (number/volume)Ordered By: Ilana Washingtoncarmelo on 09-15-2021 WBC (Bld) [#/Vol] 9.6 10*3/uL 4.5-11.0 [facility] COVID-19 Antigenon COVID-19 Antigen Healthcare Worker?: N Reference Range: Negative Negative results, from patients with symptom onset beyond five days, should be treated as presumptive and confirmation with a molecular assay, if necessary, for patient management, may be performed. Negative results do not rule out COVID-19 and should not be used as the sole basis for treatment or patient management decisions, including infection control decisions. Negative results should be considered in the context of a patient's recent exposures, history and the presence of clinical signs and symptoms consistent with COVID-19. The Maisha SARS Antigen CONNIE does not differentiate between SARS-CoV and SARS-CoV-2. This test was developed and its performance characteristic determined by [employer] and validated at [facility]. This test has not been FDA cleared or approved. This test has been authorized by FDA under an Emergency Use Authorization (EUA). This test has been validated in accordance with the FDA's Guidance Document (Policy for Diagnostics Testing in Laboratories Certified to Perform High Complexity Testing under CLIA prior to Emergency Use Authorization for Coronavirus Disease-2019 during the Public Health Emergency) issued on June 05, 2019. This test is only authorized for the duration of time the declaration that circumstances exist justifying the authorization of the emergency use of in vitro diagnostic tests for detection of SARS-CoV-2 virus and/or diagnosis of COVID-19 infection under section 564(b)(1) of the Act, 21 U.S.C. 360bbb-3(b)(1), unless the authorization is terminated or revoked sooner. SARS-CoV+SARS-CoV-2 (COVID-19) Ag [Presence] in Respiratory specimen by Rapid immunoassay Negative for SARS Antigen by CONNIE PERFORMED BY: [place] [address] PATHOLOGIST BUTTON SAWYER TAMICA DUBOSE M.D. Normal [facility] Comment on above: Performed By: #### S OFIANEG, COVID-19 MAISHA #### [address] COVID-19 FRon 09-15-2021 SARS-CoV-2 (COVID-19) RNA NADIR+probe Ql (Unsp spec) Negative Normal Negative [facility] Comment on above: Order Comment: Healt hcare Worker?: N Result Comment: Testing for SARS-CoV-2 by RT-PCR This test was developed and its performance characteristics determined by [employer]) and validated at the [facility]. This test has not been FDA cleared or approved. This test has been authorized by FDA under an Emergency Use Authorization (EUA). This test has been validated in accordance with the FDA's Guidance Document (Policy for Diagnostics Testing in Laboratories Certified to Perform High Complexity Testing under CLIA prior to Emergency Use Authorization for Coronavirus Disease-2019 during the Public Health Emergency) issued on June 05, 2019. This test is only authorized for the duration of time the declaration that circumstances exist justifying the authorization of the emergency use of in vitro diagnostic tests for detection of SARS-CoV-2 virus and/or diagnosis of COVID-19 infection under section 564(b)(1) of the Act, 21 U.S.C. 360bbb-3(b)(1), unless the authorization is terminated or revoked sooner. PERFORMED BY: [place] [address] PATHOLOGIST BUTTON SAWYER TAMICA DUBOSE M.D. Performed By: #### C OVID 19 [facility] #### [place] [id number] [facility] COVID-19 SOFIAOrdered By: Nakia Martínez on 09-15-2021 SARS-CoV+SARS-CoV-2 (COVID-19) Ag IA.rapid Ql (Resp) Negative Negative [facility] Comment on above: This is a duplicate Maisha SARS Antigen (CONNIE) result to be used for statistical tracking purpose only. CT hip RT wo conon CT hip RT wo con [facility] Main [place] [address] [place] [address] CT Scan Report Signed Patient: Duke Matson MR#: [id number] : 1935 Acct:[id number] Age/Sex: 85 / M ADM Date: 09/15/21 Loc: ER Room: Type: PRE ER Attending Dr: Copies to: Ilana Martínez APRN Ordering Provider: Ilana Martínez APRN Date of Service: 09/15/21 CT/CT hip RT wo con: injury CT hip RT wo con 09/15/2021 1:12 PM SIGNS AND SYMPTOMS: Right hip pain with swelling and bruising after fall TECHNIQUE: Multidetector CT axial slices of the right hip without IV contrast. Multiplanar reformats were performed and viewed on a separate workstation and reviewed to further define anatomy and possible pathology. CT was performed with one or more of the following dose reduction techniques: Automated exposure control, adjustment of the mA and/or kV according to patient size, or use of iterative reconstruction technique. COMPARISON: None. FINDINGS: There is moderate narrowing of the joint spaces of the hips. There is subcortical cystic change along the acetabular roofs. There is chondrocalcinosis along the labrum. There is no evidence of fracture or dislocation. Mild degenerative changes are noted in the symphysis pubis. There is no fracture or dislocation. There is partial visualization of mild right-sided sacroiliac joint degenerative change. There is soft tissue swelling in the subcutaneous soft tissues of the proximal thigh and overlying the gluteal musculature. There is partial visualization of a large heterogeneous hematoma predomi nantly localizing to the gluteal musculature posterior and laterally along the right hip. This measures approximately 14.2 x 7.1 by at least 16.4 cm in greatest dimension. CT/CT hip RT wo con IMPRESSION: There is soft tissue swelling in the subcutaneous soft tissues of the proximal thigh and overlying the gluteal musculature. There is partial visualization of a large heterogeneous hematoma predominantly localizing to the gluteal musculature posterior and laterally along the right hip. This measures approximately 14.2 x 7.1 by at least 16.4 cm in greatest dimension. No fracture or dislocation. Degenerative changes are noted, as above. Impression dictated by: Teofilo Ennis M.D.09/15/2021 2:05 PM Dictation Location: [place] [address] Transcribed By: [facility] 09/15/21 1405 Dictated By: Teofilo Ennis II, MD 09/15/21 1400 Signed By: 09/15/21 1405 Normal [facility] Complete Blood Count Auto Di ffon 09-15-2021 Basophils (Bld) [#/Vol] 0.0 10*3/uL Normal 0.0-0.2 [facility] Comment on above: Result Comment: PERF ORMED BY: [place] [address] PATHOLOGIST BUTTON SAWYER TAMICA DUBOSE M.D. Performed By: #### B MP, CBC #### [address] Basophils/100 WBC (Bld) 0.2 % Normal . [facility] Comment on above: Performed By: #### B MP, CBC #### [address] Eosinophils (Bld) [#/Vol] 0.0 10*3/uL Normal 0.0-0.45 [facility] Comment on above: Performed By: #### B MP, CBC #### [address] Eosinophils/100 WBC (Bld) 0.0 % Normal . [facility] Comment on above: Performed By: #### B MP, CBC #### [address] Erythrocyte distribution width (RBC) [Ratio] 13.8 % Normal 12.0-14.8 [facility] Comment on above: Performed By: #### B MP, CBC #### [address] Hematocrit (Bld) [Volume fraction] 30.0 % Low 38.8-50.0 [facility] Comment on above: Performed By: #### B MP, CBC #### [address] Hemoglobin (Bld) [Mass/Vol] 10.0 g/dL Low 13.0-17.0 [facility] Comment on above: Performed By: #### B MP, CBC #### [address] Lymphocytes (Bld) [#/Vol] 0.6 10*3/uL Low 1.00-4.8 [facility] Comment on above: Performed By: #### B MP, CBC #### [address] Lymphocytes/100 WBC (Bld) 6.3 % Normal . [facility] Comment on above: Performed By: #### B MP, CBC #### [address] MCH (RBC) [Entitic mass] 31.9 pg Normal 27.5-35.2 [facility] Comment on above: Performed By: #### B MP, CBC #### [address] MCV (RBC) [Entitic vol] 95.7 fL Normal 83.5-101 [facility] Comment on above: Performed By: #### B MP, CBC #### [address] Mean Corpuscular HGB Conc 33.3 g/dL Normal 32.5-35.6 [facility] Comment on above: Performed By: #### B MP, CBC #### [address] Monocytes (Bld) [#/Vol] 0.9 10*3/uL High 0.0-0.8 [facility] Comment on above: Performed By: #### B MP, CBC #### [address] Monocytes/100 WBC (Bld) 9.1 % Normal . [facility] Comment on above: Performed By: #### B MP, CBC #### [facility] [address] Neutrophils (Bld) [#/Vol] 8.1 10*3/uL High 1.8-7.7 [facility] Comment on above: Performed By: #### B MP, CBC #### [facility] [address] Neutrophils/100 WBC (Bld) 84.4 % Normal . [facility] Comment on above: Performed By: #### B MP, CBC #### [facility] [address] Nucleated RBC/100 WBC (Bld) [Ratio] 0.1 % Normal 0-0.5 [facility] Comment on above: Performed By: #### B MP, CBC #### [facility] [address] Platelet mean volume (Bld) [Entitic vol] 8.5 fL Normal 6.6-10.1 [facility] Comment on above: Performed By: #### B MP, CBC #### [facility] [address] Platelets (Bld) [#/Vol] 222 10*3/uL Normal 150-450 [facility] Comment on above: Performed By: #### B MP, CBC #### [facility] [address] RBC (Bld) [#/Vol] 3.14 10*6/uL Low 3.90-5.60 [facility] Comment on above: Performed By: #### B MP, CBC #### [facility] [address] [place] [address] [place] WBC (Bld) [#/Vol] 9.6 10*3/uL Normal 4.5-11.0 [facility] Comment on above: Performed By: #### B MP, CBC #### [facility] [address] [place] [id number] [place] Creatine Kinaseon 09-15-2021 CK [Catalytic activity/Vol] 143 U/L Normal 22-269 [facility] Comment on above: Result Comment: PERF ORMED BY: [address] [place] [address] PATHOLOGIST BUTTON SAWYER TAMICA DUBOSE M.D. Performed By: #### C K #### [facility] [address] Creatinine and Glomerular fi ltration rate.predicted panel (S/P/Bld)Ordered By: Ilana Martínez on 09-15-2021 Creatinine [Mass/Vol] 1.21 mg/dL 0.64-1.27 [facility] Eosinophils Auto (Bld) [#/Vo l]Ordered By: Ilana Martínez on 09-15-2021 Eosinophils (Bld) [#/Vol] 0.0 10*3/uL 0.0-0.45 [facility] Eosinophils/100 WBC Auto (Bl d)Ordered By: Ilana Martínez on 09-15-2021 Eosinophils/100 WBC (Bld) 0.0 % [facility] Erythrocyte distribution wid th Auto (RBC) [Ratio]Ordered By: Ilana Martínez on 09-15-2021 Erythrocyte distribution width (RBC) [Ratio] 13.8 % 12.0-14.8 [facility] Estimated glomerular filtrat ion rate (GFR) non- AmericanOrdered By: Ilana Martínez on 09-15-2021 GFR/1.73 sq M.predicted among non-blacks MDRD (S/P/Bld) [Vol rate/Area] 57 mL/Min [facility] Hematocrit Auto (Bld) [Volum e fraction]Ordered By: Ilana Martínez on 09-15-2021 Hematocrit (Bld) [Volume fraction] 30.0 % 38.8-50.0 [facility] Laboratory - CoagulationOrde red By: Ilana Martínez on 09-15-2021 PT Coag (PPP) [Time] 17.4 s 9.0-12.9 [facility] Laboratory - Hematology and Cell countsOrdered By: Ilana Martínez on 09-15-2021 Nucleated RBC/100 WBC (Bld) [Ratio] 0.1 % 0-0.5 [facility] Lymphocytes Auto (Bld) [#/Vo l]Ordered By: Ilana Martínez on 09-15-2021 Lymphocytes (Bld) [#/Vol] 0.6 10*3/uL 1.00-4.8 [facility] Lymphocytes/100 WBC Auto (Bl d)Ordered By: Ilana Martínez on 09-15-2021 Lymphocytes/100 WBC (Bld) 6.3 % [facility] MCH Auto (RBC) [Entitic mass ]Ordered By: Ilana Martínez on 09-15-2021 MCH (RBC) [Entitic mass] 31.9 pg 27.5-35.2 [facility] MCHC Auto (RBC) [Mass/Vol]Or dered By: Ilana Martínez on 09-15-2021 MCHC (RBC) [Mass/Vol] 33.3 g/dL 32.5-35.6 [facility] MCV Auto (RBC) [Entitic vol] Ordered By: Ilana Martínez on 09-15-2021 MCV (RBC) [Entitic vol] 95.7 fL 83.5-101 [facility] Monocytes Auto (Bld) [#/Vol] Ordered By: Ilana Martínez on 09-15-2021 Monocytes (Bld) [#/Vol] 0.9 10*3/uL 0.0-0.8 [facility] Monocytes/100 WBC Auto (Bld) Ordered By: Ilana Martínez on 09-15-2021 Monocytes/100 WBC (Bld) 9.1 % [facility] Neutrophils Auto (Bld) [#/Vo l]Ordered By: Ilana Martínez on 09-15-2021 Neutrophils (Bld) [#/Vol] 8.1 10*3/uL 1.8-7.7 [facility] Neutrophils/100 WBC Auto (Bl d)Ordered By: Ilana Martínez on 09-15-2021 Neutrophils/100 WBC (Bld) 84.4 % [facility] No Panel InformationOrdered By: Ilana Martínez on 09-15-2021 Estimated GFR () > 60 mL/Min [facility] Comment on above: GFR estimated refere nce range: According to KDOQI guidelines, <60 ml/min/1.73m2 is sufficient to diagnose a patient with chronic kidney disease. Pharmacy Creatinine Clearance (Chem 50.41 [facility] SARS Antigen (LFIA) [facility] Partial Thromboplastin Timeo n 09-15-2021 aPTT Coag (Bld) [Time] 34.4 s Normal 25.1-36.5 [facility] Comment on above: Result Comment: PERF ORMED BY: [facility] [address] [place] [address] PATHOLOGIST BUTTON SAWYER TAMICA DUBOSE M.D. Performed By: #### P TT, PT ####[facility] [id number] [place] [id number] [facility] Platelet mean volume Auto (B ld) [Entitic vol]Ordered By: Ilana Martínez on 09-15-2021 Platelet mean volume (Bld) [Entitic vol] 8.5 fL 6.6-10.1 [facility] Platelet poor plasma interna tional normalized ratio (INR) by coagulation assay (relatOrdered By: Ilana Martínez on 09-15-2021 INR Coag (PPP) [Relative time] 1.5 {INR} [facility] Comment on above: INR Therapeutic Rang e A) Pre- and Peroperative OAT started two weeks before surgery. NOT HIP SURGERY: 1.5 - 2.5 HIP SURGERY: 2 - 3 B) Primary and secondary prevention of venous THROMBOSIS: 2 - 3 C) Active venous thrombosis, pulmonary embolism and prevention of recurrent venous thrombosis: 2 - 3 D) Prevention of arterial thromboembolism including patients with mechanical heart valves: 3 - 4.5 Platelets Auto (Bld) [#/Vol] Ordered By: Ilana Martínez on 09-15-2021 Platelets (Bld) [#/Vol] 222 10*3/uL 150-450 [facility] Prothrombin Time INRon 09-15 INR Coag (PPP) [Relative time] 1.5 {INR} Normal [facility] Comment on above: Result Comment: INR Therapeutic Range A) Pre- and Peroperative OAT started two weeks before surgery. NOT HIP SURGERY: 1.5 - 2.5 HIP SURGERY: 2 - 3 B) Primary and secondary prevention of venous THROMBOSIS: 2 - 3 C) Active venous thrombosis, pulmonary embolism and prevention of recurrent venous thrombosis: 2 - 3 D) Prevention of arterial thromboembolism including patients with mechanical heart valves: 3 - 4.5 Performed By: #### P TT, PT ####[facility] [id number] [place] [address] [facility] PT Coag (PPP) [Time] 17.4 s High 9.0-12.9 [facility] Comment on above: Performed By: #### P TT, PT ####[facility] [id number] [place] [id number] [facility] RBC Auto (Bld) [#/Vol]Ordere d By: Ilana Martínez on 09-15-2021 RBC (Bld) [#/Vol] 3.14 10*6/uL 3.90-5.60 [facility] Serum or plasma calcium gillian urement (mass/volume)Ordered By: Ilana Martínez on 09-15-2021 Calcium [Mass/Vol] 9.0 mg/dL 8.2-10.2 [facility] Serum or plasma chloride dinorah surement (moles/volume)Ordered By: Ilana Martínez on 09-15-2021 Chloride [Moles/Vol] 102 mmol/L 95-114 [facility] Serum or plasma glucose gillian urement (mass/volume)Ordered By: Ilana Martínez on 09-15-2021 Glucose [Mass/Vol] 126 mg/dL 70-100 [facility] Comment on above: ADA recommended refe rence range Random Glucose Reference Range is dependent on time and content of last meal. Glucose of more than 200 mg/dL in a nonstressed, ambulatory subject supports the diagnosis of Diabetes Mellitus. Serum or plasma potassium me asurement (moles/volume)Ordered By: Ilana Martínez on 09-15-2021 Potassium [Moles/Vol] 4.7 mmol/L 3.5-5.1 [facility] Serum or plasma sodium measu rement (moles/volume)Ordered By: Ilana Martínez on 09-15-2021 Sodium [Moles/Vol] 135 mmol/L 136-146 [facility] Serum or plasma total carbon dioxide measurement (moles/volume)Ordered By: Ilana Soraidaelza on 09-15-2021 CO2 [Moles/Vol] 24.1 mmol/L 22.0-30.0 [facility] Serum or plasma urea nitroge n measurement (mass/volume)Ordered By: Ilana Martínez on 09-15-2021 Urea nitrogen [Mass/Vol] 28 mg/dL 11-25 [facility] Maisha Ag Negativeon 09-16-19 Maisha Ag Negative Negative Normal Negative [facility] Comment on above: Result Comment: This is a duplicate Maisha SARS Antigen (CONNIE) result to be used for statistical tracking purpose only. PERFORMED BY: [facility] [address] [place] [address] PATHOLOGIST BUTTON SAWYER TAMICA DUBOSE M.D. Performed By: #### S ANN BELCHERID-19 MAISHA ####[facility] [id number] [place] [address] [facility] BNPon 09-12-2021 Natriuretic peptide B (Bld) [Mass/Vol] 5766.0 pg/mL Critically high <=1,800.0 [facility] Comment on above: Result Comment: repe ated Performed By: #### U RCX #### [facility] [address] [place] [address] [address] Brennan Crooks CBC AUTO DIFFon 09-12-2021 BASO # 0.0 103/ul Normal 0.0-0.1 [facility] Comment on above: Performed By: #### C BC #### [facility] [address] [address] [address] Brennan Crooks Basophils/100 WBC (Bld) 0.2 % Normal 0.2-2.0 [facility] Comment on above: Performed By: #### C BC #### [facility] [address] [address] [address] Brennan Crooks EO # 0.0 103/ul Normal 0.0-0.7 [facility] Comment on above: Performed By: #### C BC #### [facility] [address] [place] [address] Dr. Brennan Crooks Eosinophils/100 WBC (Bld) 0.2 % Critically low 0.9-7.0 [facility] Comment on above: Performed By: #### C BC #### [facility] [address] [place] [address] Dr. Brennan Crooks Erythrocyte distribution width (RBC) [Ratio] 13.3 % Normal 11.0-15.0 [facility] Comment on above: Performed By: #### C BC #### [facility] [address] [place] [address] Dr. Brennan Crooks Hematocrit (Bld) [Volume fraction] 35.2 % Critically low 42.0-54.0 [facility] Comment on above: Performed By: #### C BC #### [facility] [address] [place] [address] Dr. Brennan Crooks Hemoglobin (Bld) [Mass/Vol] 11.4 g/dL Critically low 14.0-18.0 [facility] Comment on above: Performed By: #### C BC #### [facility] [address] [place] [address] Dr. Brennan Crooks IG # 0.04 10e3/ul Critically high 0.00-0.03 [facility] Comment on above: Performed By: #### C BC #### [facility] [address] [place] [address] Dr. Brennan Crooks IG % 0.4 % Normal 0.0-0.5 [facility] Comment on above: Performed By: #### C BC #### [facility] [address] [place] [address] Dr. Brennan Crooks LYMPH # 1.3 103/ul Normal 1.2-3.8 [facility] Comment on above: Performed By: #### C BC #### [facility] [address] [place] [address] Dr. Brennan Crooks Lymphocytes/100 WBC (Bld) 13.7 % Critically low 20.5-60.0 [facility] Comment on above: Performed By: #### C BC #### [facility] [address] [place] [address] Dr. Brennan Crooks MANUAL DIFF REQ NO Normal [facility] Comment on above: Performed By: #### C BC #### [facility] [address] [place] [address] Dr. Brennan Crooks MCH (RBC) [Entitic mass] 31.5 pg Normal 25.9-34.0 [facility] Comment on above: Performed By: #### C BC #### [facility] [address] [place] [address] Dr. Brennan Crooks MCHC (RBC) [Mass/Vol] 32.4 g/dL Normal 29.9-35.2 [facility] Comment on above: Performed By: #### C BC #### [facility] [address] [place] [address] Dr. Brennan Crooks MCV (RBC) [Entitic vol] 97.2 fL Critically high 80.0-94.0 [facility] Comment on above: Performed By: #### C BC #### [facility] [address] [place] [address] Dr. Brennan Crooks MONO # 0.9 103/ul Critically high 0.3-0.8 [facility] Comment on above: Performed By: #### C BC #### [facility] [address] [place] [address] Dr. Brennan Crooks Monocytes/100 WBC (Bld) 10.1 % Normal 1.7-12.0 [facility] Comment on above: Performed By: #### C BC #### [facility] [address] [place] [address] Dr. Brennan Crooks NEUT # 7.0 103/ul Critically high 1.4-6.5 [facility] Comment on above: Performed By: #### C BC #### [facility] [address] [place] [address] Dr. Brennan Crooks Neutrophils/100 WBC (Bld) 75.4 % Critically high 43.0-75.0 [facility] Comment on above: Performed By: #### C BC #### [facility] [address] [address] [address] Brennan Crooks Platelet mean volume (Bld) [Entitic vol] 10.7 fL Normal 9.5-13.5 [facility] Comment on above: Performed By: #### C BC #### [facility] [address] [address] [address] Brennan Crooks PLT 170 103/ul Normal 150-450 [facility] Comment on above: Performed By: #### C BC #### [facility] [address] [address] [address] Brennan Crooks RBC 3.62 106/ul Critically low 4.70-6.10 [facility] Comment on above: Performed By: #### C BC #### [facility] [address] [address] [address] Brennan Crooks WBC 9.3 103/ul Normal 4.0-11.0 [facility] Comment on above: Performed By: #### C BC #### [facility] [address] [address] [address] Brennan Crooks CULTURE URINEon 09-12-2021 CULTURE URINE Culture Observations : NO GROWTH. Normal [facility] Comment on above: Performed By: #### U RCX #### [facility] [address] [place] [address] Dr. Brennan Crooks PROF 14(COMP METB)on 022 Albumin [Mass/Vol] 3.3 g/dL Critically low 3.4-5.0 [facility] Comment on above: Performed By: #### U RCX #### [facility] [address] [address] [address] Brennan Crooks Albumin/Globulin [Mass ratio] 1.1 {ratio} Normal [facility] Comment on above: Performed By: #### U RCX #### [facility] [address] [address] [address] Brennan Crooks ALP [Catalytic activity/Vol] 108 U/L Normal 46-116 [facility] Comment on above: Performed By: #### U RCX #### [facility] [address] [address] [address] Brennan Crooks ALT [Catalytic activity/Vol] 28 U/L Normal 16-63 [facility] Comment on above: Performed By: #### U RCX #### [facility] [address] [address] [address] Brennan Crooks Anion gap [Moles/Vol] 14.7 mmol/L Normal [facility] Comment on above: Performed By: #### U RCX #### [facility] [address] [address] [address] Brennan Crooks AST [Catalytic activity/Vol] 31 U/L Normal 15-37 [facility] Comment on above: Performed By: #### U RCX #### [facility] [address] [address] [address] Brennan Crooks Bilirubin [Mass/Vol] 1.5 mg/dL Critically high 0.2-1.0 [facility] Comment on above: Performed By: #### U RCX #### [facility] [address] [address] [address] Brennan Crooks Calcium [Mass/Vol] 9.1 mg/dL Normal 8.5-10.1 [facility] Comment on above: Performed By: #### U RCX #### [facility] [address] [address] [address] Brennan Crooks Chloride [Moles/Vol] 106 mmol/L Normal 98-107 [facility] Comment on above: Performed By: #### U RCX #### [facility] [address] [address] [address] Brennan Crooks CO2 [Moles/Vol] 24.4 mmol/L Normal 21.0-32.0 [facility] Comment on above: Performed By: #### U RCX #### [facility] [address] [address] [address] Brennan Crooks Creatinine [Mass/Vol] 1.23 mg/dL Normal 0.70-1.30 [facility] Comment on above: Performed By: #### U RCX #### [facility] [address] [address] [address] Brennan Crooks EGFR-AF MONTSERRATIAN >60 Normal >=60 [facility] Comment on above: Performed By: #### U RCX #### [facility] [address] [address] [address] Brennan Crooks EGFR-NON AF MONTSERRATIAN 56 mL/min/1.73m2 Critically low >=60 [facility] Comment on above: Performed By: #### U RCX #### [facility] [address] [address] [address] Brennan Crooks Globulin (S) [Mass/Vol] 3.0 g/dL Normal [facility] Comment on above: Performed By: #### U RCX #### [facility] [address] [address] [address] Brennan Crooks Glucose [Mass/Vol] 125 mg/dL Critically high 74-106 [facility] Comment on above: Performed By: #### U RCX #### [facility] [address] [address] [address] Brennan Crooks Potassium [Moles/Vol] 4.1 mmol/L Normal 3.5-5.1 [facility] Comment on above: Performed By: #### U RCX #### [facility] [address] [address] [address] Brennan Crooks Protein [Mass/Vol] 6.3 g/dL Critically low 6.4-8.2 [facility] Comment on above: Performed By: #### U RCX #### [facility] [address] [address] [address] Brennan Crooks Sodium [Moles/Vol] 141 mmol/L Normal 136-145 [facility] Comment on above: Performed By: #### U RCX #### [facility] [address] [address] [address] Brennan Crooks Urea nitrogen [Mass/Vol] 29.0 mg/dL Critically high 7.0-18.0 [facility] Comment on above: Performed By: #### U RCX #### [facility] [address] [address] [address] Brennan Crooks Urea nitrogen/Creatinine [Mass ratio] 23.6 mg/mg Normal [facility] Comment on above: Performed By: #### U RCX #### [facility] [address] [address] [address] Brennan Crooks UA RANDOM W/MICROSCOPICon BACTERIA NONE SEEN Normal NONE SEEN [facility] Comment on above: Performed By: #### U AMIC #### [facility] [address] [address] [address] Brennan Crooks Bilirubin Ql (U) Negative Normal NEGATIVE [facility] Comment on above: Performed By: #### U AMIC #### [facility] [address] [place] [address] Dr. Brennan Crooks CAST SEEN Abnormal NONE SEEN [facility] Comment on above: Performed By: #### U AMIC #### [facility] [address] [address] [address] Brennan Croosk Clarity (U) CLEAR Normal CLEAR [facility] Comment on above: Performed By: #### U AMIC #### [facility] [address] [place] [address] Dr. Brennan Crooks Color (U) YELLOW Normal YELLOW [facility] Comment on above: Performed By: #### U AMIC #### [facility] [address] [address] [address] Brennan Crooks Crystals LM Nom (Urine sed) NONE SEEN Normal NONE SEEN [facility] Comment on above: Performed By: #### U AMIC #### [facility] [address] [address] [address] Brennan Crooks Epithelial cells LM Ql (Urine sed) RARE Normal NONE SEEN /RARE [facility] Comment on above: Performed By: #### U AMIC #### [facility] [address] [address] [address] Brennan Crooks Glucose Ql (U) Negative Normal NEGATIVE [facility] Comment on above: Performed By: #### U AMIC #### [facility] [address] [address] [address] Brennan Crooks Hemoglobin Ql (U) Negative Normal NEGATIVE [facility] Comment on above: Performed By: #### U AMIC #### [facility] [address] [address] [address] Brennan Crooks Ketones Ql (U) Negative Normal NEGATIVE [facility] Comment on above: Performed By: #### U AMIC #### [facility] [address] [address] [address] Brennan Crooks LEUKOCYTES Negative Normal NEGATIVE [facility] Comment on above: Performed By: #### U AMIC #### [facility] [address] [address] [address] Brennan Crooks MUCOUS TRACE Abnormal NONE SEEN [facility] Comment on above: Performed By: #### U AMIC #### [facility] [address] [place] [address] Dr. Brennan Crooks Nitrite Ql (U) Negative Normal NEGATIVE [facility] Comment on above: Performed By: #### U AMIC #### [facility] [address] [place] [address] Dr. Brennan Crooks pH (U) 5.5 [pH] Normal 5-9 [facility] Comment on above: Performed By: #### U AMIC #### [facility] [address] [place] [address] Dr. Brennan Crooks RBC NONE SEEN Abnormal 0-2 [facility] Comment on above: Performed By: #### U AMIC #### [facility] [address] [place] [address] Dr. Brennan Crooks SPEC GRAVITY 1.020 Normal 1.005-<=1.02 5 [facility] Comment on above: Performed By: #### U AMIC #### [facility] [address] [place] [address] Dr. Brennan Crooks UA PROTEIN Negative Normal NEGATIVE/ TRACE [facility] Comment on above: Performed By: #### U AMIC #### [facility] [address] [place] [address] Dr. Brennan Crooks Urobilinogen Qn (U) 0.2 {Janes'U}/dL Normal 0.2 - 1. 0 [facility] Comment on above: Performed By: #### U AMIC #### [facility] [address] [place] [address] Dr. Brennan Crooks WBC NONE SEEN Normal NONE SEEN [facility] Comment on above: Performed By: #### U AMIC #### [facility] [address] [place] [address] Dr. Brennan Crooks CBC W MANUAL DIFFon 09-12-19 22 ATYPICAL LYMPH # Normal [facility] Comment on above: Performed By: #### C BCMAN #### [facility] [address] [place] [address] Dr. Brennan Crooks ATYPICAL LYMPH % Normal [facility] Comment on above: Performed By: #### C BCMAN #### [facility] [address] [place] [address] Dr. Brennan Crooks BAND # 0.1 103/ul Normal 0.0-0.3 [facility] Comment on above: Performed By: #### C BCMAN #### [facility] [address] [place] [address] Dr. Brennan Crooks BAND % 1 % Normal 0-5 [facility] Comment on above: Performed By: #### C BCMAN #### [facility] [address] [place] [address] Dr. Brennan Crooks BASOM # 0.00 103/ul Normal 0.00-0.10 [facility] Comment on above: Performed By: #### C BCMAN #### [facility] [address] [place] [address] Dr. Brennan Crooks BASOM % 0.0 % Critically low 0.2-2.0 [facility] Comment on above: Performed By: #### C BCMAN #### [facility] [address] [place] [address] Dr. Brennan Crooks BLAST # Normal [facility] Comment on above: Performed By: #### C BCMAN #### [facility] [address] [place] [address] Dr. Brennan Crooks BLAST % Normal [facility] Comment on above: Performed By: #### C BCANGELO #### [facility] [address] [address] [address] Brennan Crooks CORRECTED WBC Normal 4.0-11.0 [facility] Comment on above: Performed By: #### C BCANGELO #### [facility] [address] [address] [address] Brennan Crooks EOS # 0.00 103/ul Normal 0.00-0.70 [facility] Comment on above: Performed By: #### C BCANGELO #### [facility] [address] [address] [address] Brennan Crooks EOS% 0.0 % Critically low 0.9-7.0 [facility] Comment on above: Performed By: #### C CHING #### [facility] [address] [address] [address] Brennan Crooks HCT 35.0 % Critically low 42.0-54.0 [facility] Comment on above: Performed By: #### C CHING #### [facility] [address] [address] [address] Brennan Crooks HGB 11.6 g/dl Critically low 14.0-18.0 [facility] Comment on above: Performed By: #### C CHING #### [facility] [address] [address] [address] Brennan Crooks LYMPHM # 0.83 103/ul Critically low 1.20-3.80 [facility] Comment on above: Performed By: #### C BCANGELO #### [facility] [address] [address] [address] Brennan Crooks LYMPHM% 9.0 % Critically low 20.5-60.0 [facility] Comment on above: Performed By: #### C BCANGELO #### [facility] [address] [address] [address] Brennan Crooks MCH 32.0 pg Normal 25.9-34.0 [facility] Comment on above: Performed By: #### C BCANGELO #### [facility] [address] [place] [address] Dr. Brennan Crooks MCHC 33.1 g/dl Normal 29.9-35.2 [facility] Comment on above: Performed By: #### C CHING #### [facility] [address] [place] [address] Dr. Brennan Crooks MCV 96.4 fL Critically high 80.0-94.0 [facility] Comment on above: Performed By: #### C CHING #### [facility] [address] [place] [address] Dr. Brennan Crooks METAMYELOCYTE # Normal [facility] Comment on above: Performed By: #### C CHING #### [facility] [address] [place] [address] Dr. Brennan Crooks METAMYELOCYTE % Normal [facility] Comment on above: Performed By: #### C CHING #### [facility] [address] [place] [address] Dr. Brennan Crooks MONOM# 0.37 103/ul Normal 0.30-0.80 [facility] Comment on above: Performed By: #### C CHING #### [facility] [address] [place] [address] Dr. Brennan Crooks MONOM% 4.0 % Normal 1.7-12.0 [facility] Comment on above: Performed By: #### C CHING #### [facility] [address] [place] [address] Dr. Brennan Crooks MPV 10.2 fL Normal 9.5-13.5 [facility] Comment on above: Performed By: #### C CHING #### [facility] [address] [place] [address] Dr. Brennan Crooks MYELOCYTE # Normal [facility] Comment on above: Performed By: #### C CHING #### [facility] [address] [place] [address] Dr. Brennan Crooks MYELOCYTE % Normal [facility] Comment on above: Performed By: #### C CHING #### [facility] [address] [address] [address] Brennan Crooks NRBC Normal [facility] Comment on above: Performed By: #### C CHING #### [facility] [address] [place] [address] Dr. Brennan Crooks PLT 153 103/ul Normal 150-450 [facility] Comment on above: Performed By: #### C CHING #### [facility] [address] [place] [address] Dr. Brennan Crooks RBC 3.63 106/ul Critically low 4.70-6.10 [facility] Comment on above: Performed By: #### C CHING #### [facility] [address] [place] [address] Dr. Brennan Crooks RDW 13.2 % Normal 11.0-15.0 [facility] Comment on above: Performed By: #### C CHING #### [facility] [address] [place] [address] Dr. Brennan Crooks SEG # 7.91 103/ul Critically high 1.40-6.50 [facility] Comment on above: Performed By: #### C CHING #### [facility] [address] [place] [address] Dr. Brennan Crooks SEG % 86.0 % Critically high 43.0-75.0 [facility] Comment on above: Performed By: #### C CHING #### [facility] [address] [place] [address] Dr. Brennan Crooks WBC 9.2 103/ul Normal 4.0-11.0 [facility] Comment on above: Performed By: #### C CHING #### [facility] [address] [place] [address] PELVIS WO CONon 2 CT PELVIS WO CON EXAMINATION: CT PELV IS WO CON HISTORY: The patient is an 85-year-old male with right hip pain after falling. COMPARISON: Radiographs from earlier today and a CT scan of the abdomen and pelvis from 10/16/2019. TECHNIQUE: CT images were obtained through the bony pelvis and both hips without intravenous contrast and reformatted in 2 dimensions. Dose reduction techniques were achieved by using automated exposure control and/or adjustment of mA and/or kV according to patient size and/or use of iterative reconstruction technique. FINDINGS: The bone images demonstrate no fractures or cortical discontinuities within either proximal femur or elsewhere throughout the bony pelvis. Specifically, no fractures are seen within or around the right hip. If there is a continued clinical concern for an occult hip fracture, MRI would be a more sensitive and specific imaging modality. There is osteoarthritic narrowing of both hip joints, more advanced on the right. Osteophytes arise from the right femoral head. The alignment of the sacroiliac joints are maintained. Bridging osteophytes are seen across the left sacroiliac joint. The pubic symphysis is maintained. Chondrocalcinosis is seen within the pubic symphysis. This is a nonspecific finding. The soft tissue images demonstrate no abnormal fluid collections or focal soft tissue masses on this non-contrast enhanced study. There is asymmetric fullness of the muscles around the right hip, perhaps representing an intramuscular hematoma. IMPRESSION: 1. No fractures seen within the right hip or elsewhere throughout the bony pelvis. 2. 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 3. Fullness of the muscles around the right hip, perhaps representing an intramuscular hematoma. Electronically authenticated by: BO HURST Date: 2021-09-11 21:13 Normal [facility]02 SARS-CoV-2 (COVID-19) RNA NADIR+probe Ql (Unsp spec) Not detected Normal NOT DETECTED [facility] Comment on above: Result Comment: When diagnostic testing is negative, the possibility of a false negative should be considered in the context of a patient's recent exposures and the presence of clinical signs and symptoms consistent with SARS-CoV-2. This test is not yet approved or cleared by the [place] FDA. When there are no FDA-approved or cleared tests available, and other criteria are met, FDA can make tests available under an emergency access mechanism called an Emergency Use Authorization (EUA). The EUA for this test is supported by the [place] of Health and Human Service's declaration that circumstances exist to justify the emergency use of in vitro diagnostics for the detection and/or diagnosis of the virus that causes COVID-19. This EUA will remain in effect for the duration of the COVID-19 declaration justifying emergency of IVDs, unless it is terminated or revoked by the FDA (after which the test may no longer be used). Performed By: #### C VDTB #### [facility] [address] [place] [address] Dr. Brennan Crooks PROF CHEM 8 (BAS METB)on Anion gap [Moles/Vol] 13.3 mmol/L Normal [facility] Comment on above: Performed By: #### B MP #### [facility] [address] [place] [address] Dr. Brennan Crooks Calcium [Mass/Vol] 8.9 mg/dL Normal 8.5-10.1 [facility] Comment on above: Performed By: #### B MP #### [facility] [address] [place] [address] Dr. Brennan Crooks Chloride [Moles/Vol] 107 mmol/L Normal 98-107 [facility] Comment on above: Performed By: #### B MP #### [facility] [address] [place] [address] Dr. Brennan Crooks CO2 [Moles/Vol] 22.3 mmol/L Normal 21.0-32.0 [facility] Comment on above: Performed By: #### B MP #### [facility] [address] [place] [address] Dr. Brennan Crooks Creatinine [Mass/Vol] 1.37 mg/dL Critically high 0.70-1.30 [facility] Comment on above: Performed By: #### B MP #### [facility] [address] [place] [address] Dr. Brennan Crooks EGFR-AF MONTSERRATIAN 60 mL/min/1.73m2 Normal >=60 [facility] Comment on above: Performed By: #### B MP #### [facility] [address] [place] [address] Dr. Brennan Crooks EGFR-NON AF MONTSERRATIAN 50 mL/min/1.73m2 Critically low >=60 [facility] Comment on above: Performed By: #### B MP #### [facility] [address] [address] [address] Brennan Crooks Glucose [Mass/Vol] 165 mg/dL Critically high 74-106 T [facility] Comment on above: Performed By: #### B MP #### [facility] [address] [place], [place] [address] Dr. Brennan Crooks Potassium [Moles/Vol] 4.6 mmol/L Normal 3.5-5.1 [facility] Comment on above: Performed By: #### B MP #### [facility] [address] [address] [address] Brennan Crooks Sodium [Moles/Vol] 138 mmol/L Normal 136-145 [facility] Comment on above: Performed By: #### B MP #### [facility] [address] [address] [address] Brennan Crooks Urea nitrogen [Mass/Vol] 33.0 mg/dL Critically high 7.0-18.0 [facility] Comment on above: Performed By: #### B MP #### [facility] [address] [address] [address] Brennan Crooks Urea nitrogen/Creatinine [Mass ratio] 24.1 mg/mg Normal [facility] Comment on above: Performed By: #### B MP #### [facility] [address] [address] [address] Brennan Crooks XR HIP RT 2 3V W PELVISon XR HIP RT 2 3V W PELVIS EXAM: XR HIP RT 2 3V W PELVIS HISTORY: Unspecified fall COMPARISON: None. TECHNIQUE: 3 views of the right hip FINDINGS: No acute displaced fracture seen. Joint alignment is normal. Mild degenerative changes of the right hip joint is seen with mild joint space narrowing and acetabular subchondral sclerosis. The soft tissues appear grossly unremarkable. Degenerative changes of the visualized lower lumbar spine is seen. IMPRESSION: No radiographic evidence for acute displaced acute right hip fracture. Electronically authenticated by: MAYA MOODY Date: 2021-09-11 13:47 Normal [facility] LIPID PROFILEon 07-13-2021 CHOL-HDL RATIO NORM SEE BELOW Normal [facility] Comment on above: Result Comment: 3.3 - 4.4 LOW RISK 4.4 - 7.1 AVERAGE RISK 7.1 - 11.0 MODERATE RISK >11.0 HIGH RISK Performed By: #### L IPID, CMP #### [facility] [address] [address] [address] Brennan Crooks Cholesterol [Mass/Vol] 111 mg/dL Normal <=200 [facility] Comment on above: Performed By: #### L IPID, CMP #### [facility] [address] [address] [address] Brennan Crooks Cholesterol in HDL [Mass/Vol] 62 mg/dL Critically high 40-60 [facility] Comment on above: Performed By: #### L IPID, CMP #### [facility] [address] [address] [address] Brennan Crooks Cholesterol in LDL [Mass/Vol] 41.2 mg/dL Normal [facility] Comment on above: Performed By: #### L IPID, CMP #### [facility] [address] [address] [address] Brennan Crooks Cholesterol.total/Chol esterol in HDL [Mass ratio] 1.8 {ratio} Normal [facility] Comment on above: Performed By: #### L IPID, CMP #### [facility] [address] [address] [address] Brennan Crooks HDL NORMAL > or = 60 mg/dl - LO W CARDIOVASCULAR RISK <40 mg/dl - HIGH CARDIOVASCULAR RISK Normal [facility] Comment on above: Performed By: #### L IPID, CMP #### [facility] [address] [address] [address] Brennan Crooks LDL CALC NORMAL SEE BELOW Normal [facility] Comment on above: Result Comment: <100 mg/dl OPTIMAL 100 - 129 mg/dl NEAR OR ABOVE OPTIMAL 130 - 159 mg/dl BORDERLINE HIGH 160 - 189 mg/dl HIGH >190 mg/dl VERY HIGH Performed By: #### L IPID, CMP #### [facility] [address] [address] [address] Brennan Crooks Triglyceride [Mass/Vol] 39 mg/dL Normal <=150 [facility] Comment on above: Performed By: #### L IPID, CMP #### [facility] [address] [place] [address] Dr. Brennan Crooks VLDL CALC 7.8 mg/dL Normal [facility] Comment on above: Performed By: #### L IPID, CMP #### [facility] [address] [place] [address] Dr. Brennan Crooks PROF 14(COMP METB)on 022 Albumin [Mass/Vol] 3.6 g/dL Normal 3.4-5.0 [facility] Comment on above: Performed By: #### L IPID, CMP #### [facility] [address] [place] [address] Dr. Brennan Crooks Albumin/Globulin [Mass ratio] 1.2 {ratio} Normal [facility] Comment on above: Performed By: #### L IPID, CMP #### [facility] [address] [place] [address] Dr. Brennan Crooks ALP [Catalytic activity/Vol] 111 U/L Normal 46-116 [facility] Comment on above: Performed By: #### L IPID, CMP #### [facility] [address] [place] [address] Dr. Brennan Crooks ALT [Catalytic activity/Vol] 39 U/L Normal 16-63 [facility] Comment on above: Performed By: #### L IPID, CMP #### [facility] [address] [place] [address] Dr. Brennan Crooks Anion gap [Moles/Vol] 12.4 mmol/L Normal [facility] Comment on above: Performed By: #### L IPID, CMP #### [facility] [address] [place] [address] Dr. Brennan Crooks AST [Catalytic activity/Vol] 39 U/L Critically high 15-37 [facility] Comment on above: Performed By: #### L IPID, CMP #### [facility] [address] [place] [address] Dr. Brennan Crooks Bilirubin [Mass/Vol] 1.6 mg/dL Critically high 0.2-1.0 [facility] Comment on above: Performed By: #### L IPID, CMP #### [facility] [address] [place] [address] Dr. Brennan Crooks Calcium [Mass/Vol] 9.3 mg/dL Normal 8.5-10.1 [facility] Comment on above: Performed By: #### L IPID, CMP #### [facility] [address] [address] [address] Brennan Crooks Chloride [Moles/Vol] 107 mmol/L Normal 98-107 [facility] Comment on above: Performed By: #### L IPID, CMP #### [facility] [address] [place] [address] Dr. Brennan Crooks CO2 [Moles/Vol] 24.9 mmol/L Normal 21.0-32.0 [facility] Comment on above: Performed By: #### L IPID, CMP #### [facility] [address] [place] [address] Dr. Brennan Crooks Creatinine [Mass/Vol] 1.34 mg/dL Critically high 0.70-1.30 [facility] Comment on above: Performed By: #### L IPID, CMP #### [facility] [address] [place] [address] Dr. Brennan Crooks EGFR-AF MONTSERRATIAN >60 Normal >=60 [facility] Comment on above: Performed By: #### L IPID, CMP #### [facility] [address] [place] [address] Dr. Brennan Crooks EGFR-NON AF MONTSERRATIAN 51 mL/min/1.73m2 Critically low >=60 [facility] Comment on above: Performed By: #### L IPID, CMP #### [facility] [address] [place] [address] Dr. Brennan Crooks Globulin (S) [Mass/Vol] 2.9 g/dL Normal [facility] Comment on above: Performed By: #### L IPID, CMP #### [facility] [address] [place] [address] Dr. Brennan Crooks Glucose [Mass/Vol] 95 mg/dL Normal 74-106 [facility] Comment on above: Performed By: #### L IPID, CMP #### [facility] [address] [address] [address] Brennan Crooks Potassium [Moles/Vol] 4.3 mmol/L Normal 3.5-5.1 [facility] Comment on above: Performed By: #### L IPID, CMP #### [facility] [address] [address] [address] Brennan Crooks Protein [Mass/Vol] 6.5 g/dL Normal 6.4-8.2 [facility] Comment on above: Performed By: #### L IPID, CMP #### [facility] [address] [place] [address] Dr. Brennan Crooks Sodium [Moles/Vol] 140 mmol/L Normal 136-145 [facility] Comment on above: Performed By: #### L IPID, CMP #### [facility] [address] [place] [address] Dr. Brennan Crooks Urea nitrogen [Mass/Vol] 31.0 mg/dL Critically high 7.0-18.0 [facility] Comment on above: Performed By: #### L IPID, CMP #### [facility] [address] [place] [address] Dr. Brennan Crooks Urea nitrogen/Creatinine [Mass ratio] 23.1 mg/mg Normal [facility] Comment on above: Performed By: #### L IPID, CMP #### [facility] [address] [place] [address] Dr. Brennan Crooks Ambulatory Clinical Summaryo n 12-31-2020 Ambulatory Clinical Summary {[id number] }[id number] Normal [facility] Patient Educationon 01-01-20 21 Patient Education Urology Benign Prostatic Hyperplasia Benign prostatic hyperplasia (BPH) is an enlarged prostate gland that is caused by the normal aging process and not by cancer. The prostate is a walnut-sized gland that is involved in the production of semen. It is located in front of the rectum and below the bladder. The bladder stores urine and the urethra is the tube that carries the urine out of the body. The prostate may get bigger as a man gets older. An enlarged prostate can press on the urethra. This can make it harder to pass urine. The build-up of urine in the bladder can cause infection. Back pressure and infection may progress to bladder damage and kidney (renal) failure. What are the causes? This condition is part of a normal aging process. However, not all men develop problems from this condition. If the prostate enlarges away from the urethra, urine flow will not be blocked. If it enlarges toward the urethra and compresses it, there will be problems passing urine. What increases the risk? This condition is more likely to develop in men over the age of 50 years. What are the signs or symptoms? Symptoms of this condition include: ? Getting up often during the night to urinate. ? Needing to urinate frequently during the day. ? Difficulty starting urine flow. ? Decrease in size and strength of your urine stream. ? Leaking (dribbling) after urinating. ? Inability to pass urine. This needs immediate treatment. ? Inability to completely empty your bladder. ? Pain when you pass urine. This is more common if there is also an infection. ? Urinary tract infection (UTI). How is this diagnosed? This condition is diagnosed based on your medical history, a physical exam, and your symptoms. Tests will also be done, such as: ? A post-void bladder scan. This measures any amount of urine that may remain in your bladder after you finish urinating. ? A digital rectal exam. In a rectal exam, your health care provider checks your prostate by putting a lubricated, gloved finger into your rectum to feel the back of your prostate gland. This exam detects the size of your gland and any abnormal lumps or growths. ? An exam of your urine (urinalysis). ? A prostate specific antigen (PSA) screening. This is a blood test used to screen for prostate cancer. ? An ultrasound. This test uses sound waves to electronically produce a picture of your prostate gland. Your health care provider may refer you to a specialist in kidney and prostate diseases (urologist). How is this treated? Once symptoms begin, your health care provider will monitor your condition (active surveillance or watchful waiting). Treatment for this condition will depend on the severity of your condition. Treatment may include: ? Observation and yearly exams. This may be the only treatment needed if your condition and symptoms are mild. ? Medicines to relieve your symptoms, including: ? Medicines to shrink the prostate. ? Medicines to relax the muscle of the prostate. ? Surgery in severe cases. Surgery may include: ? Prostatectomy. In this procedure, the prostate tissue is removed completely through an open incision or with a laparoscope or robotics. ? Transurethral resection of the prostate (TURP). In this procedure, a tool is inserted through the opening at the tip of the penis (urethra). It is used to cut away tissue of the inner core of the prostate. The pieces are removed through the same opening of the penis. This removes the blockage. ? Transurethral incision (TUIP). In this procedure, small cuts are made in the prostate. This lessens the prostate's pressure on the urethra. ? Transurethral microwave thermotherapy (TUMT). This procedure uses microwaves to create heat. The heat destroys and removes a small amount of prostate tissue. ? Transurethral needle ablation (TUNA). This procedure uses radio frequencies to destroy and remove a small amount of prostate tissue. ? Interstitial laser coagulation (ILC). This procedure uses a laser to destroy and remove a small amount of prostate tissue. ? Transurethral electrovaporization (TUVP). This procedure uses electrodes to destroy and remove a small amount of prostate tissue. ? Prostatic urethral lift. This procedure inserts an implant to push the lobes of the prostate away from the urethra. Follow these instructions at home: ? Take irad-kql-wsdwwty and prescription medicines only as told by your health care provider. ? Monitor your symptoms for any changes. Contact your health care provider with any changes. ? Avoid drinking large amounts of liquid before going to bed or out in public. ? Avoid or reduce how much caffeine or alcohol you drink. ? Give yourself time when you urinate. ? Keep all follow-up visits as told by your health care provider. This is important. Contact a health care provider if: ? You have unexplained back pain. ? Your symptoms do not get better with treatment. ? You d (more content not included)... Normal [facility] Urology Office/Clinic Noteon 12-31-2020 Urology Office/Clinic Note Chief Complaint 6 month f/u HPI Staff Pt is here for a 6 month f/u. S/P 01/20/2020. S/P Cysto/UD 09/29/20. Pt is currently not taking any BPH medications at this time. Pt state that he is not having any urinary issues throughout the day, its at night that his stream feels weaker with, hesitation, intermittent stream and some mild straining to start his stream. He denies seeing any blood in urine since the last encounter. Dysuria: no pain or burning Incomplete bladder emptying: he feels like he is emptying during the day, at night it is questionable Hematuria: Denies seeing any blood in urine, UA shows TRACE Frequency: 2-3 hours in between voids Urgency: mild sx, nothing bothersome Nocturia: 1-2x a night Stream: average stream during the day and weaker stream at night, this has been going on for a while- mild intermittent hesitation at night, mild intermittent stream, mild straining to start stream at night Post void dripping: yes at night- nothing bothersome Wearing pads/ Depends: none worn Urge incontinence: none Stress incontinence: none Incontinence without Sensory Awareness: none Abdominal pain: no pain or pressure History of Present Illness Reviewed UA. There have been no associated fever, chills, flank pain or blood in the urine. Pt. denies any pain/burning with urination at this time. Review of Systems PHQ Score Initial Depression Screen Score: 0 ROS - Provider Constitutional: denies weight loss, denies hot flashes. Eyes: denies eye problems. Gastrointestinal: denies nausea, denies vomiting. Cardiovascular: denies chest pain or angina. Integumentary: no dryness Musculoskeletal: denies musculoskeletal symptoms. ENMT: denies otolaryngeal symptoms. Respiratory: no shortness of breath. Heme/Lymph: denies easy bleeding tendency, denies easy bruising tendency. Psychiatric: no confusion, no anxiety. Genitourinary: denies dysuria, denies hematuria, denies discharge, denies urinary frequency, denies urinary hesitancy, denies nocturia, denies incontinence, denies genital sores, denies decreased libido, and denies erectile dysfunction. Physical Exam Vitals & Measurements HR: 76(Peripheral) RR: 18 BP: 124/79 HT: 172.0 cm HT: 172 cm WT: 88.0 kg WT: 88 kg BMI: 29.75 General Appearance: alert, no distress, well nourished, well developed male. Genitourinary: normal scrotum, normal testes, normal urethra, normal epididymis, normal vas deferens/spermatic cord. Flank Pain: none. Bladder: nonpalpable. Assessment/Plan 1. BPH with obstruction/lower urinary tract symptoms (N40.1: Benign prostatic hyperplasia with lower urinary tract symptoms) S/p TURP 2009. UA shows no signs of infection. Urinary sxs are worse at night. Weak stream, hesitancy, and straining to void. no problems during the day. Pt. is not bothered by this. UA shows no signs of infection. All questions/concerns were discussed. Pt. to call the office if heencounters any issues prior. Pt. acknowledges understanding. 2. Gross hematuria (R31.0: Gross hematuria) Chronic. Ongoing intermittently. minimal. UA today - neg. 3. History of kidney stones (Z87.442: Personal history of urinary calculi) Pt. denies any stone issues at this time. No recent imaging. 4. Urethral stricture in male (N35.919: Unspecified urethral stricture, male, unspecified site) S/p Cysto/UD 09/30/2019. Left renal atrophy (N26.1: Atrophy of kidney (terminal)) I have reviewed the previous health record information and history for this pt. from Dr. Mcallister. Follow-up With When Contact Information DMITRY HURD, Dixon Bravo, URL [address] [place] [address]- [phone] Additional Instructions: prn Patient Education Benign Prostatic Hyperplasia IBibiana , personally scribed for Dr. Mcallister on 12/31/2020 09:30:50. . Documentation recorded by the scribe, Bibiana Valadez, accurately reflects the services(s) I performed and decisions made by me. Authenticated by Dr. Mcallister on 12/31/2020 09:32:14. 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 Medications amiodarone 200 mg Tab, 200 mg= 1 tab(s), Oral, Daily aspirin, 81 mg, Oral, Daily Crestor, 20 mg, Oral, Daily Eliquis, 5 mg, Oral, BID lisinopril, 5 mg, Oral, Daily Pantoprazole [address] Tab, 40 mg= 1 tab(s), Oral, Daily Allergies pe (more content not included)... Normal [facility] Comment on above: Result Comment: Elec tronically Signed By: DMITRY HURD, Dixon Bravo\.br\Date and Time Signed: 12/31/20 09:32 EDT\.br\Electronically Co-Signed By: Bibiana Valadez MA\.br\Date and Time Co-Signed: 12/31/20 09:31 EDT US art pvr/post Nic 021 US art pvr/post LE [facility] [place] [address] Ultrasound Report Signed Patient: Duke Matson MR#: [id number] : 1935 Acct:[id number] Age/Sex: 84 / M ADM Date: 10/06/20 Loc: Room: Type: [facility] Attending Dr: Jeff Lucio MD Ordering Provider: Jeff Lucio MD Date of Service: 10/06/20 US/US art pvr/post LE: I70.213 Copies to: Jeff Lucio MD Pre and post exercise segmental arterial Doppler examination Indication for study: Bilateral lower extremity claudication PROCEDURE: The right arm blood pressure is 141 and the left arm blood pressure is 144 mmHg. Pressures throughout the right lower extremity at rest are 187 at the high thigh, 173 at the calf, 148 mmHg at the ankle and the posterior tibial, and 150 mmHg at the ankle and the dorsalis pedis. This gives a highest right ankle-brachial index at rest of 1.04. Pressures throughout the left lower extremity are 169 at the high thigh, 161 at the calf, 141 mmHg at the ankle in the posterior tibial, and 160 mmHg at the ankle and the dorsalis pedis. This gives a highest left ankle-brachial index of 1.1 at rest. Waveforms by plethysmography are normal. The patient then exercised 7 minutes on the treadmill until there was significant discomfort in the limbs. The post exercise ankle-brachial index remains normal at greater than 1 bilaterally after exercise. US/US art pvr/post LE IMPRESSION: Normal pre and post exercise segmental arterial Doppler examination. Impression dictated by: Jeff Lucio M.D.10/06/2020 4:30 PM Dictation Location: [place] [address] Tech: Mireille Gomes Transcribed By: JUSTINO 10/06/20 1630 Dictated By: Jeff Lucio MD 10/06/20 1627 Signed By: 10/06/20 1630 Normal [facility] Ambulatory Clinical Summaryo n 04-12-2020 Ambulatory Clinical Summary {[id number] Normal [facility] Patient Educationon 04-12-19 Patient Education Benign Prostatic Hyperplasia You have an enlarged prostate. This is common in elderly males. It is called BPH. This stands for benign prostate hyperplasia. The prostate gland is located in base of the bladder. When it grows, the prostate blocks the urethra. This is the tube which drains urine from the bladder. SYMPTOMS ? Weak urine stream. ? Dribbling. ? Feeling like the bladder has not emptied completely. ? Difficulty starting urination. ? Getting up frequently at night to urinate. ? Urinating more frequently during the day. Complete urinary blockage or severe pain with urination requires immediate attention. DIAGNOSIS ? Your caregiver often has a good idea what is wrong by taking a history and doing a physical exam. ? Special x-rays may be done. TREATMENT ? For mild problems, no treatment may be necessary. ? If the problems are moderate, medications may provide relief. Some of these work by making the prostate gland smaller. The herb saw palmetto is commonly used. ? If complete blockage occurs, a Leon catheter is usually left in place for a few days. ? Surgery is often needed for more severe problems. TURP is the prostate surgery for BPH which is done through the urethra. TURP stands for transurethral resection of the prostate. It involves cutting away chips from the prostate. It is done by removing chips so that they can come out through the penis. ? Techniques using heat, microwave and laser to remove the prostate blockage are also being used. HOME CARE INSTRUCTIONS ? Give yourself time when you urinate. ? Stay away from alcohol. ? Beverages containing caffeine such as coffee, tea and wili can make the problems worse. ? Decongestants, antihistamines, and some prescription medicines can also make the problem worse. ? Follow up with your caregiver for further treatment as recommended. SEEK IMMEDIATE MEDICAL CARE IF: ? You develop increased pain with urination or are unable to pass your water. ? You develop severe abdominal pain, vomiting, a high fever, or fainting. ? You develop back pain or blood in your urine. MAKE SURE YOU: ? Understand these instructions. ? Will watch your condition. ? Will get help right away if you are not doing well or get worse. Document Released: 02/19/2006 Document Revised: 05/13/2012 Document Reviewed: 10/25/2007 ExitCare? Patient Information ?2013 [employer] [facility] Urology Office/Clinic Noteon 04-12-2020 Urology Office/Clinic Note Chief Complaint 6 month f/u HPI Staff Pt is here for 6 month f/u. Previous dx of BPH with obstruction (TURP done 01/19/2010), left renal atrophy, nocturia and gross hematuria. Dysuria: no Incomplete bladder emptying: pt states he empties during the day but is unsure at night because he has to get up at the least 2x Hematuria: pt states he has a little pink color to his urine sometimes Frequency: no Urgency: no Nocturia: 2x Stream: stream seems weaker at night Leaking: no Post void dripping: yes Wearing pads/ Depends: no Urge incontinence: no Stress incontinence: only if his bladder is completely full and he sneezes Incontinence without Sensory Awareness: no Abdominal pain: no Flank pain: no Sexual complaints: no History of Present Illness States at night he feels like he has to urinate when he's laying down, weaker stream at night steady and strong during the day. Voices occasional visible pink tinge w/ urine.. States he only gets up 2x a night, with little output, states it's not very bothersome to him at this time. Frequency during the day is every 2-3 hours. Tests Reviewed: Reviewed UA, Reviewed CT report and film, Reviewed Renal US I have reviewed the previous health record information and history for this patient from Dr. Mcallister I have reviewed and verified the staff HPI to be accurate for this encounter. There have been no associated fever, chills, flank pain, or blood in the urine. Denies any urinary infections since last encounter. Review of Systems PHQ Score Initial Depression Screen Score: 0 ROS - Provider Constitutional: denies weight loss, denies hot flashes. Eyes: denies eye problems. Gastrointestinal: denies nausea, denies vomiting. Cardiovascular: denies chest pain or angina. Integumentary: no dryness Musculoskeletal: denies musculoskeletal symptoms. ENMT: denies otolaryngeal symptoms. Respiratory: no shortness of breath. Heme/Lymph: denies easy bleeding tendency, denies easy bruising tendency. Psychiatric: no confusion, no anxiety. Genitourinary: denies dysuria, denies hematuria, denies discharge, denies urinary frequency, denies urinary hesitancy, denies nocturia, denies incontinence, denies genital sores, denies decreased libido, and denies erectile dysfunction. Physical Exam Vitals & Measurements HR: 64(Peripheral) RR: 16 BP: 116/70 HT: 172 cm HT: 172.0 cm WT: 88 kg WT: 88.0 kg BMI: 29.75 General Appearance: alert, no distress, well nourished, well developed male. Head: normocephalic . Eyes: normal orbit and globe. ENMT: normal examination of external ears. Chest: Lungs CTA, respirations non labored. Cardiovascular: regular rate and rhythm. Abdomen: soft, non distended, no tenderness, no mass or organomegaly, no hernia. Genitourinary: Flank Pain: none. Bladder: nonpalpable. Lymph Nodes: unremarkable palpation of the cervical area. Skin: warm, dry, no bruising. Psychiatric: cooperative, affect appropriate for age, normal judgement, euthymic mood. Assessment/Plan 1. Gross hematuria (R31.0: Gross hematuria) when he dabs his penis after voiding he will see some pink at times. 2. Left renal atrophy (N26.1: Atrophy of kidney (terminal)) 3. BPH with obstruction/lower urinary tract symptoms (N40.1: Benign prostatic hyperplasia with lower urinary tract symptoms) S/p TURP 01/19/2010. good stream. empties well. slightly worse at night. Discussed if he would like to start medication therapy for his BPH symptoms, states he doesn't think his symptoms are bad enough for a medication at this time. Advised pt to call the office if he decides he would like to try medication therapy in the future. Will f/u in 6 months. 4. 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 Mcallister on 04/12/2020 09:19:57. . Documentation recorded by the scribe, Shanell Liu, accurately reflects the services(s) I performed and decisions made by me. Authenticated by Dr. Mcallister on 04/12/2020 09:22:17. 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 Medications amiodaro (more content not included)... Normal [facility] Comment on above: Result Comment: Elec tronically Signed By: Dixon MCALLISTER MD R\.br\Date and Time Signed: 04/12/20 09:22 EST\.br\Electronically Co-Signed By: Micheline Liu MA\.br\Date and Time Co-Signed: 04/12/20 09:20 EST Cardiovascular Lab Reporton 12-29-2019 Cardiovascular Lab Report [facility] Patient Name: [facility] MR #: [id number] Department of Physician: Juan Bhatt MD Medicine Service Date: 12/29/2019 Division of Birthdate: 1935 Cardiology Room #: Adult Cardiovascular Services [place] [address] Cardiovascular Laboratory Report COMPREHENSIVE EP STUDY AND LOOP IMPLANT PROCEDURE NOTE DATE OF PROCEDURE: 12/29/2019 PERFORMING PHYSICIAN: Dr. Juan Bhatt INDICATIONS FOR PROCEDURE: 1. History of atrial tachycardia with EKG evidence suggestive of atrial flutter CONSENT: Patient LOCATION: EP Lab PROCEDURAL SEDATION: Versed and Fentanyl. Monitoring: Cardiac telemetry, Blood pressure, continuous pulse oxymetry. Moderate sedation was administered by the sedation nurse under my supervision. Intraprocedural face to face sedation time:144min. FLUOROSCOPY TIME: 0min PREPARATION: Preoperative antibiotics (Ancef) was administered. PROCEDURES PERFORMED: 1. Ultrasound guided vascular access for venous sheaths as documented below in procedure note. 2. Comprehensive EP study which includes right atrial recording and pacing, His bundle recording and right and left ventricular recording and pacing. 3. Abtation of typical CTI flutter. 4. LA pacing and recording. 5. LOOP implant PROCEDURE NOTE: The risks, benefits and alternatives of the procedure were discussed with the patient and family who agreed to proceed. Please refer to my consult note for details of the discussion and of indications. Patient was brought to the EP lab in the post absorptive state. A procedural pause was performed verifying the patient, the procedure. The right and left groins were prepped and draped in the usual sterile fashion. Preoperative antibiotics IV Ancef was administered. Ultrasound was used to image the right and left femoral veins and it was noted to be patent and this was used for vessel entry as noted below. After infiltration with 1% lidocaine, 3 venous sheaths were placed in the right femoral vein. 5000U Heparin bolus was given. Details of catheters placed as follows. RFV: 8Fx3: ThermoCool ST/SF Bi-Directional over Vizigo sheath, ICE Catheter, CS Catheter (EZ Steer). Once catheters were in position in, we decided to proceed with EP study. Patient was noted to be in organized Afib. ICE imaging ruled out AALIYAH and LA thrombus. There was significant subeustachian pouch with a significant eustachian valve. RA was moderately dilated. I decided to perform ablation using an irrigated catheter. Using ICE, the His and IVC junctions were marked with 3D CARTO mapping software. Vizigo sheath was exchanged for a short 8F sheath. Ablation was performed on the CTI line starting at the tricuspid valve aspect. 30W was utilized and I extended the ablation to the IVC aspect following which bidirectional block was not evident. Synchronized DCCV converted to SR with 200J shock. With repeat ablation near the sub Eustachian puch, CTI block was intermittent. Pacing from the proximal CS was utilized to identify the leak and this was noted to be in the pouch location. Repeated ablation was performed and still the transithumus conduction time was 118-120ms but differential pacing could not confirm bidirectional block. EP study was then performed. AH 122ms HV 59ms Baseline right ventricular programmed stimulation showed no VA conduction at 600ms pacing. VERP was noted at 600/260ms. Atrial pacing was performed from CS poles. Patient was noted to have AV block at the AV node level at 400ms. AERP noted at 600/270ms. Burst atrial pacing down to 300ms did not induce any tachycardia. Repeat EP study could no longer demonstrate any tachycardia. EP study and ablation were then stopped at this time. ICE imaging confirmed no effusion. I decided to proceed with a LOOP monitor to monitor for arrythmia as I am concerned about AVN disease as well as AF occurrence. As per prior discussion, I decided to proceed with LOOP implant. All the catheters were removed, sheaths were pulled and hemostasis achieved. We prepared the patient for LOOP implant. Sterile prep and drape was performed over the left precordium and anesthesia with 1% lidocaine was followed by a small incision was made in the 3rd intercostal space near the sternum on the left using the Medtronic tool. The loop recorder was then injected subcutaneously. Interrogation of the device noted good sensing parameters. Technical details of the device as noted below. The skin was then closed with 3-0 absorbable monofilament suture and glue applied to hold the edges together. Tegaderm was applied to cover the wound. The patient appeared to tolerate the procedure well and was returned to her room in stable condition. No complications were immediately observed. LOOP details: Device Model: Medtronic [id number] Seri (more content not included)... Normal [facility] BASIC METABOLIC PANELon 10-2 Calcium [Mass/Vol] 9.6 mg/dL Normal 8.6-10.3 [facility] Comment on above: Performed By: #### 0 0071 #### [facility] [address] [facility] [place] [address], [facility] Chloride [Moles/Vol] 109 mmol/L High 98-107 [facility] Comment on above: Performed By: #### 0 0071 #### [facility] [address] [facility] [place] [address], [facility] CO2 [Moles/Vol] 25 mmol/L Normal 21-31 [facility] Comment on above: Performed By: #### 0 0071 #### [facility] [address] [facility] [place] [address], [facility] Creatinine [Mass/Vol] 1.36 mg/dL High 0.70-1.30 [facility] Comment on above: Performed By: #### 0 0071 #### [facility] [address] [place] [address], [facility] eGFR- non- 50 ml/min/1.73sq m Abnormal >60 [facility] Comment on above: Result Comment: Calc ulation may not be valid for patients over 70 years Performed By: #### 0 0071 #### [facility] [address] [place] [address], [facility] GFR/1.73 sq M.predicted among blacks MDRD (S/P/Bld) [Vol rate/Area] mL/min/{1.73_m2} Normal >60 [facility] Comment on above: Result Comment: Calc ulation may not be valid for patients over 70 years Performed By: #### 0 0071 #### [facility] [address] [place] [address], [facility] Glucose [Mass/Vol] 85 mg/dL Normal 70-100 [facility] Comment on above: Performed By: #### 0 0071 #### [facility] [address] [place] [address], [facility] Potassium [Moles/Vol] 4.5 mmol/L Normal 3.5-5.1 [facility] Comment on above: Performed By: #### 0 0071 #### [facility] [address] [place] [address], [facility] Sodium [Moles/Vol] 140 mmol/L Normal 136-145 [facility] Comment on above: Performed By: #### 0 0071 #### [facility] [address] [facility] [place] [address], [facility] Urea nitrogen [Mass/Vol] 29 mg/dL High 7-25 [facility] Comment on above: Performed By: #### 0 0071 #### [facility] [address] [facility] [place] [address], [facility] CBC W/DIFFon 12-26-2019 ABS IMM GRANS 0.0 10*3/uL Normal 0.0-0.2 [facility] Comment on above: Performed By: #### 5 0103 #### [facility] [address] [place] [address], [facility] ABS NEUTROPHILS 3.9 10*3/uL Normal 1.6-7.6 [facility] Comment on above: Performed By: #### 5 0103 #### [facility] [address] [place] [id number], [facility] Basophils (Bld) [#/Vol] 0.0 10*3/uL Normal 0.0-0.2 [facility] Comment on above: Performed By: #### 5 0103 #### [facility] [address] [place] [address], [facility] Basophils/100 WBC (Bld) 0.5 % Normal 0.0-1.0 [facility] Comment on above: Performed By: #### 5 0103 #### [facility] [address] [facility] [place] [address], [facility] Eosinophils (Bld) [#/Vol] 0.1 10*3/uL Normal 0.0-0.5 [facility] Comment on above: Performed By: #### 5 0103 #### [facility] [address] [facility] [place] [address], [facility] Eosinophils/100 WBC (Bld) 2.2 % Normal 0.0-6.0 [facility] Comment on above: Performed By: #### 5 0103 #### [facility] [address] [facility] [place] [address], [facility] Erythrocyte distribution width (RBC) [Ratio] 14.5 % Normal 11.5-15.0 [facility] Comment on above: Performed By: #### 5 0103 #### [facility] [address] [facility] [place] [address], [facility] Hematocrit (Bld) [Volume fraction] 42.2 % Normal 39.0-50.0 [facility] Comment on above: Performed By: #### 5 0103 #### [facility] [address] [facility] [place] [address], [facility] Hemoglobin (Bld) [Mass/Vol] 13.6 g/dL Normal 13.0-17.0 [facility] Comment on above: Performed By: #### 5 0103 #### [facility] [address] [place] [id number], [facility] IMMATURE GRANS 0.5 % Normal 0.0-1.0 [facility] Comment on above: Performed By: #### 5 0103 #### [facility] [address] [facility] [place] [address], [facility] Lymphocytes (Bld) [#/Vol] 1.2 10*3/uL Normal 1.2-4.0 [facility] Comment on above: Performed By: #### 5 0103 #### [facility] [address] [facility] [place] [address], [facility] Lymphocytes/100 WBC (Bld) 20.7 % Normal 20.0-45.0 [facility] Comment on above: Performed By: #### 5 0103 #### [facility] [address] [facility] [place] [address], [facility] MCH (RBC) [Entitic mass] 31.9 pg Normal 27.0-33.0 [facility] Comment on above: Performed By: #### 5 0103 #### [facility] [address] [facility] [address] MCHC (RBC) [Mass/Vol] 32.2 g/dL Normal 32.0-35.0 [facility] Comment on above: Performed By: #### 5 3 #### [facility] [address] [facility] [place] [address], [facility] MCV (RBC) [Entitic vol] 98.8 fL High 82.0-98.0 [facility] Comment on above: Performed By: #### 5 0103 #### [facility] [address] [facility] [place] [address], [facility] Monocytes (Bld) [#/Vol] 0.6 10*3/uL Normal 0.1-1.0 [facility] Comment on above: Performed By: #### 5 3 #### [facility] [address] [place] [address], [facility] MONOS 9.8 % Normal 5.0-12.0 [facility] Comment on above: Performed By: #### 5 0103 #### [facility] [address] [place] [address], [facility] Neutrophils/100 WBC (Bld) 66.3 % Normal 40.0-72.0 [facility] Comment on above: Performed By: #### 5 0103 #### [facility] [address] [place] [address], [facility] Nucleated RBC/100 WBC (Bld) [Ratio] 0 % Normal 0-0 [facility] Comment on above: Performed By: #### 5 0103 #### [facility] [address] [place] [address], [facility] PLAT CNT 165 10*3/uL Normal 150-400 [facility] Comment on above: Performed By: #### 5 0103 #### [facility] [address] [place] [address], [facility] RBC (Bld) [#/Vol] 4.27 10*6/uL Normal 4.20-5.70 [facility] Comment on above: Performed By: #### 5 0103 #### [facility] [address] [place] [address], [facility] WBC (Bld) [#/Vol] 5.89 10*3/uL Normal 4.00-10.60 [facility] Comment on above: Performed By: #### 5 0103 #### [facility] [address] Vital Signs Date Time Vital Sign Value Performing Clinician Emilioi flower 09-15-2021 17:50-0400 Body temperature 98 [degF] MD Stefano Rivera Work Phone: [facility] 09-15-2021 17:50-0400 Diastolic blood pressure 68 mm[Hg] MD Stefano Rivera Work Phone: [facility] 07-14-2022 17:50-0400 Heart rate 82 /min MD Stefano Rivera Work Phone: [facility] 09-15-2021 17:50-0400 Respiratory rate 17 /min MD Stefano Rivera Work Phone: [facility] 09-15-2021 17:50-0400 SaO2% (BldA) [Mass fraction] 99 % MD Stefano Rivera Work Phone: [facility] 09-15-2021 17:50-0400 Systolic blood pressure 116 mm[Hg] MD Stefano Rivera Work Phone: [facility] 09-15-2021 13:06-0400 Body height 170.18 cm MD Stefano Rivera Work Phone: [facility] 09-15-2021 13:06-0400 Body mass index (BMI) [Ratio] 33.4 kg/m2 MD Stefano Rivera Work Phone: [facility] 09-15-2021 13:06-0400 Body weight 96.9 kg MD Stefano Rivera Work Phone: [facility] Encounters Encounter Date Encounter Type Care Provider Facility Start: 02-22-2024 End: 02-22-2024 ambulatory [facility] Start: 10-09-2023 End: 10-09-2023 ambulatory STEFANO RIVERA Not Available Start: 09-25-2023 End: 09-25-2023 ambulatory [facility] Start: 08-13-2023 ambulatory ELLYN DAVALOS [facility] Start: 06-06-2023 End: 06-06-2023 ambulatory [facility] Start: 03-08-2023 End: 03-08-2023 ambulatory [facility] Start: 05-08-2022 End: 05-09-2022 [facility] Start: 01-23-2022 End: 01-24-2022 ambulatory MICHELLE MENDOZA Facility:[facility] Start: 11-02-2021 End: 11-03-2021 ambulatory SHANA MCCORMICK Facility:[facility] Start: 09-20-[address] STEFANO RIVERA Facil ity:[facility]1 Start: 09-15-2021 Evaluation and management of inpatient MD Stefano Rivera Work Phone: [facility] Start: 09-13-2021 End: 09-13-[address] STEFANO RIVERA Facility:[facility] Start: 09-12-2021 End: 09-12-[address] STEFANO RIVERA Facility:[facility] Start: 09-11-2021 End: 09-11-[address] STEFANO RIVERA Facility:[facility] Start: 07-13-2021 End: 07-14-2021 ambulatory MICHELLE MENDOZA Facility:[facility] Procedures Date Procedure Procedure Detail Performing Clinician Start: 09-15-2021 SARS Antigen (LFIA) MD Stefano Rivera Work Phone: Start: 09-15-2021 CT of right hip MD Stefano Rivera Work Phone: Plan of Treatment Date Care Activity Detail Author Creatine kinase [Enz ymatic activity/volume] in Serum or Plasma [facility] Work Phone: Payers Date Payer Category Payer Medicare [id number] 1958 Private Health Insurance [id number] 1958 Self-pay [id number] 1935 Unknown [id number] 1935 Unknown [id number] 1936 Unknown [id number] 1936 Unknown [id number] 1936 Unknown [id number] 1936 Unknown [id number] 1936 Unknown [id number] 1936 Unknown [id number] 1936 Unknown [id number] 1935 Unknown [id number] Medicare Medicare [id number] Self-pay Self Pay [id number] Unknown Gopal BC/BS [id number] Social History Date Type Detail Facility Start: [facility]15[facility] Start: 1935 Sex Assigned At Male F 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 (CMS/HCC) Benign hypertension Persistent atrial fibrillation (CMS/HCC) Stage 3 chronic kidney disease (CMS/HCC) Atrial flutter (CMS/HCC) Coronary artery disease involving [place] coronary artery of [place] heart without angina pectoris Anemia, unspecified Carpal tunnel syndrome, unspecified upper limb Encounter for other specified aftercare Erectile dysfunction following simple prostatectomy Mixed hyperlipidemia Muscle weakness (generalized) Other abnormalities of gait and mobility History of myocardial infarction Chronic combined systolic and diastolic congestive heart failure, NYHA class 2 (CMS/HCC) Hematoma of right hip Unable to ambulate Dyslipidemia Encounter for long-term (current) use of medications Ischemic cardiomyopathy Prediabetes Primary osteoarthritis of right knee Sinus congestion HPI Patient has history of coronary artery disease and CABG 2 grafts in January 2019, history of heart failure with reduced ejection fraction with good recovery of systolic function from ejection fraction 36% to 40 to 45%, paroxysmal atrial fibrillation/flutter, status post ablation and loop recorder placement in 2019, bradycardia while on beta-crescencio, hypertension, hyperlipidemia, and chronic kidney disease He is here today because for the last week he noticed that his blood pressure has been climbing up associated with increased heart rate and occasional palpitations. Also he has been shortness of breath with exertion and sometimes during the night when he will wake up short of breath. Blood pressure has been up to 160s to 170s and heart rate on his log in the 80 to 90s. He denies any chest discomfort. He admits legs edema. He denies excessive salt or water intake. He denies any cough or fever or chills. He reports weight gain about 10 pounds over the last 1 and half weeks ROS All systems were reviewed and they were negative except for the positive findings noted above in the history Past Medical History: Diagnosis Date Abnormal ECG Arrhythmia Atrial flutter (CMS/HCC) Chronic kidney disease Coronary artery disease Hyperlipidemia Hypertension Past Surgical History: Procedure Laterality Date ABLATION OF DYSRHYTHMIC FOCUS 12/29/2019 atrial flutter ablation CARDIAC CATHETERIZATION CARDIOVERSION CARPAL TUNNEL RELEASE CORONARY ARTERY BYPASS GRAFT TOTAL KNEE ARTHROPLASTY Family History Problem Relation Name Age of Onset Heart attack Other Social History Tobacco Use Smoking status: Former Types: Cigarettes Smokeless tobacco: Never Substance Use Topics Alcohol use: Not Currently Drug use: Never Allergies Allergies Allergen Reactions Penicillins Rash Medications Current Outpatient Medications: Eliquis 5 mg tablet, take 1 tablet by mouth twice a day, Disp: 180 tablet, Rfl: 3 pantoprazole (ProtoNix) 40 mg EC tablet, Take 1 tablet (40 mg) by mouth in the morning. Do not crush, chew, or split., Disp: 90 tablet, Rfl: 3 rosuvastatin (Crestor) 10 mg tablet, Take 1 tablet (10 mg) by mouth every other day., Disp: 45 tablet, Rfl: 3 sacubitril-valsartan (Entresto) 24-26 mg tablet, Take 1 tablet by mouth 4 (four) times a week., Disp: 180 tablet, Rfl: 3 Objective Visit Vitals BP 138/82 (BP Location: Left arm, Patient Position: Sitting) Pulse 81 Ht 1.727 m (5' 8 ) Wt 83.9 kg (185 lb) SpO2 95% BMI 28.13 kg/m??? Smoking Status Former BSA 2.01 m??? Physical exam: GENERAL: alert and oriented x3, well developed, in no acute distress. HEAD: atraumatic, normocephalic. EYES: ELY, EOMI. NECK: trachea midline, no JVD present, no carotid bruits present. CARDIAC: Irregular irregularity, S1, S2 present. No murmur, rubs, or gallops. RESPIRATORY: CTAB, no increased effort of breathing, no rales, rhonchi, or wheezing. ABDOMEN: soft, nontender, nondistended. EXTREMITIES: no lower extremity edema, peripheral pulses are 2+ bilaterally. No rash/skin discoloration present. NEURO: strength/sensation equal and symmetric in bilateral upper and lower extremities. PSYCH: appropriate mood, affect, and judgement. Recent Labs 10/09/2023 White blood count 5.9, hemoglobin 14.6, hematocrit 42.9, platelets 150 Sodium 142, potassium 4.5, BUN 42, creatinine 1.44, GFR 56, glucose 96, HbA1c 5.3% Calcium 9.5 Total bilirubin 1.2, direct bilirubin 0.4, AST 40, ALT 37, alk phos 142, total protein 6.5, albumin 3.8 Triglyceride 35, cholesterol 136, HDL 75, LDL 54 Imaging and other tests EKG today 02/22/2024 showed atrial fibrillation, ventricular rate 84 bpm, right bundle branch block, old inferior infarct, possible old anterolateral infarct EK09/25/2023 showed atrial fibrillation with ventricul (more content not included)... [facility] Progress note 09-25-2023 Note Date & Type Note Facility 09-25-2023 Note Patient here for 3 m o follow up chronic systolic and diastolic heart failure, CAD, hypertension, and persistent afib. Says he has only been taking Entresto 1 tablet about 3-4 times a week due to lightheadedness. He denies chest pain and bleeding on Eliquis. Review of Systems Cardiovascular: Positive for dyspnea on exertion ( slightly better ) and palpitations ( very little ). Musculoskeletal: Positive for back pain and joint pain. Neurological: Positive for dizziness and light-headedness. All other systems reviewed and are negative. [facility] Progress note 09-25-2023 Note Date & Type Note Facility 09-25-2023 Note Cardiovascular Medic [facility] SUBJECTIVE Chief Complaint Patient presents with Congestive Heart Failure Duke Matson is a 87 y.o. male here for routine follow-up. HPI PMHx: CAD s/p CABG x2 (01/2019), HFrEF (hx recovered to 50%, newly reduced again to 36%), ICMP, HTN, a.fib s/p ablation and loop recorder placement 12/2019, a.flutter, CKD stage 3 (he only has 1 functioning kidney), bradycardia while on BB. 09/25/23 About 1 month ago he started getting dizziness. He has cut down on how often he takes Entresto, he is taking maybe 4 tablets a week for the past month. This has helped some but he still has the dizziness. Dizziness occurs from lay to sitting or when he goes to lay down. His SHARPE is unchanged. He is down 9# in the past 6 months. His BP has been well controlled, typically 110s-130s/70-80s. Denies CP, orthopnea, PND, LE edema, palpitations. 06/06/2023 He has been having issues with diarrhea for the past 4 days. His BP has been running low since then, today 100/70. He does also c/o having a dry mouth. Other than this, he denies any change in his sx's. He continues to routinely exercise. He gets SOB with exertion - this is unchanged. His BP cuff tells him his erratic heart rate is less often since starting Entresto. Denies CP, worsened SHARPE, orthopnea, PND, LE edema, dizziness/LH, palpitations. 03/08/2023 No changes since last seen. BP is running 120-140s/70-80s. HR reading in the 70s. He continues to routinely exercise. He feels like his breathing is doing better. He has some SHARPE with heavier exertion - he feels like his breathing is a little better than before. He denies CP, dyspnea at rest, orthopnea, PND, LE edema, dizziness/LH, palpitations. He contiues to exercise almost every day. About 10 hours a week he will do resistance bands. He will typically walk 2 miles a few days a week. Last time I spoke with device RN Bo who notes that his loop recorder has been reading persistent a.fib. 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 (CMS/HCC) Benign hypertension Persistent atrial fibrillation (CMS/HCC) Stage 3 chronic kidney disease (CMS/HCC) Atrial flutter (CMS/HCC) Coronary artery disease involving [place] coronary artery of [place] heart without angina pectoris Anemia, unspecified Carpal tunnel syndrome, unspecified upper limb Encounter for other specified aftercare Erectile dysfunction following simple prostatectomy Mixed hyperlipidemia Muscle weakness (generalized) Other abnormalities of gait and mobility History of myocardial infarction Chronic combined systolic and diastolic congestive heart failure, NYHA class 2 (CMS/HCC) Hematoma of right hip Unable to ambulate Past Medical History: Diagnosis Date Abnormal ECG Arrhythmia Atrial flutter (CMS/HCC) Chronic kidney disease Coronary artery disease Hyperlipidemia Hypertension Family History Problem Relation Name Age of Onset Heart attack Other Social History Tobacco Use Smoking status: Former Types: Cigarettes Smokeless tobacco: Never Substance Use Topics Alcohol use: Not Currently Drug use: Never Allergies Allergen Reactions Penicillins Rash Review of Systems Cardiovascular: Positive for dyspnea on exertion ( slightly better ) and palpitations ( very little ). Musculoskeletal: Positive for back pain and joint pain. Neurological: Positive for dizziness and light-headedness. All other systems reviewed and are negative. OBJECTIVE Visit Vitals BP 128/82 (BP Location: Left arm, Patient Position: Sitting) Pulse 82 Ht 1.727 m (5' 8 ) Wt 77.6 kg (171 lb) SpO2 98% BMI 26.00 kg/m??? Smoking Status Former BSA 1.93 m??? Medications: Current Outpatient Medications: Eliquis 5 mg tablet, take 1 tablet by mouth twice a day, Disp: 180 tablet, Rfl: 3 pantoprazole (ProtoNix) 40 mg EC tablet, Take 1 tablet (40 mg) by mouth in the morning. Do not crush, chew, or split., Disp: 90 tablet, Rfl: 3 rosuvastatin (Crestor) 10 mg tablet, Take 1 tablet (10 mg) by mouth every other day., Disp: 45 tablet, Rfl: 3 sacubitriL-valsartan (Entresto) 24-26 mg tablet, Take 1 tablet by mouth in the morning and at bedtime. Discontinue lisinopril. Hold lisinopril for 2 days then start Entresto. (Patient taking differently: Take 1 tablet by mouth 4 (four) times a week.), Disp: 60 tablet, Rfl: 12 Physical Exam Vitals reviewed. Constitutional: Appearance: Normal appearance. He is normal weight. HENT: Head: Normocephalic and atraumatic. Right Ear: External ear normal. Left Ear: External ear normal. Eyes: Extraocular Movements: Extraocular movements intact. Pupils: Pupils are equal, round, and reactive to light. Neck: Vascular: No carotid bruit. Cardiovascular: Rate and Rhythm: Normal rate and regular rhythm. Pulses: Normal pulses. Heart sounds: Normal heart sounds (more content not included)... [facility] Progress note 06-06-2023 Note Date & Type Note Facility 06-06-2023 Note Cardiovascular Medic [facility] SUBJECTIVE Chief Complaint Patient presents with Follow-up Duke Matson is a 87 y.o. male here for routine follow-up. HPI PMHx: CAD s/p CABG x2 (01/2019), HFrEF (hx recovered to 50%, newly reduced again to 36%), ICMP, HTN, a.fib s/p ablation and loop recorder placement 12/2019, a.flutter, CKD stage 3 (he only has 1 functioning kidney), bradycardia while on BB. 06/06/2023 He has been having issues with diarrhea for the past 4 days. His BP has been running low since then, today 100/70. He does also c/o having a dry mouth. Other than this, he denies any change in his sx's. He continues to routinely exercise. He gets SOB with exertion - this is unchanged. His BP cuff tells him his erratic heart rate is less often since starting Entresto. Denies CP, worsened SHARPE, orthopnea, PND, LE edema, dizziness/LH, palpitations. 03/08/2023 No changes since last seen. BP is running 120-140s/70-80s. HR reading in the 70s. He continues to routinely exercise. He feels like his breathing is doing better. He has some SHARPE with heavier exertion - he feels like his breathing is a little better than before. He denies CP, dyspnea at rest, orthopnea, PND, LE edema, dizziness/LH, palpitations. He contiues to exercise almost every day. About 10 hours a week he will do resistance bands. He will typically walk 2 miles a few days a week. Last time I spoke with device RN oB who notes that his loop recorder has been reading persistent a.fib. 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 (CMS/HCC) Benign hypertension Persistent atrial fibrillation (CMS/HCC) Stage 3 chronic kidney disease (CMS/HCC) Atrial flutter (CMS/HCC) Coronary artery disease involving [place] coronary artery of [place] heart without angina pectoris Anemia, unspecified Carpal tunnel syndrome, unspecified upper limb Encounter for other specified aftercare Erectile dysfunction following simple prostatectomy Mixed hyperlipidemia Muscle weakness (generalized) Other abnormalities of gait and mobility History of myocardial infarction Chronic combined systolic and diastolic congestive heart failure, NYHA class 2 (CMS/HCC) Past Medical History: Diagnosis Date Abnormal ECG Arrhythmia Atrial flutter (CMS/HCC) Chronic kidney disease Coronary artery disease Hyperlipidemia Hypertension Family History Problem Relation Name Age of Onset Heart attack Other Social History Tobacco Use Smoking status: Former Types: Cigarettes Smokeless tobacco: Never Substance Use Topics Alcohol use: Not Currently Drug use: Never Allergies Allergen Reactions Penicillins Rash Review of Systems Cardiovascular: Positive for dyspnea on exertion. Musculoskeletal: Positive for back pain and joint pain. GI: positive for diarrhea All other systems reviewed and are negative. OBJECTIVE Visit Vitals BP 100/70 (BP Location: Left arm, Patient Position: Sitting, BP Cuff Size: Adult) Pulse 73 Resp 11 Ht 1.727 m (5' 8 ) Wt 78.9 kg (174 lb) SpO2 98% BMI 26.46 kg/m??? Smoking Status Former BSA 1.95 m??? Medications: Current Outpatient Medications: Eliquis 5 mg tablet, take 1 tablet by mouth twice a day, Disp: 180 tablet, Rfl: 3 pantoprazole (ProtoNix) 40 mg EC tablet, Take 1 tablet (40 mg) by mouth in the morning. Do not crush, chew, or split., Disp: 90 tablet, Rfl: 3 rosuvastatin (Crestor) 10 mg tablet, Take 1 tablet (10 mg) by mouth every other day., Disp: 45 tablet, Rfl: 3 sacubitriL-valsartan (Entresto) 24-26 mg tablet, Take 1 tablet by mouth in the morning and at bedtime. Discontinue lisinopril. Hold lisinopril for 2 days then start Entresto. (Patient taking differently: Take 1 tablet by mouth in the morning and at bedtime.), Disp: 60 tablet, Rfl: 12 Physical Exam Vitals reviewed. Constitutional: Appearance: Normal appearance. He is normal weight. HENT: Head: Normocephalic and atraumatic. Right Ear: External ear normal. Left Ear: External ear normal. Eyes: Extraocular Movements: Extraocular movements intact. Pupils: Pupils are equal, round, and reactive to light. Neck: Vascular: No carotid bruit. Cardiovascular: Rate and Rhythm: Normal rate and regular rhythm. Pulses: Normal pulses. Heart sounds: Normal heart sounds. Pulmonary: Effort: Pulmonary effort is normal. Breath sounds: Normal breath sounds. Abdominal: General: Bowel sounds are normal. Palpations: Abdomen is soft. Musculoskeletal: General: Normal range of motion. Cervical back: Neck supple. Right lower leg: No edema. Left lower leg: No edema. Skin: General: Skin is warm and dry. Neurological: General: No focal deficit present. Mental Status: He is alert and oriented to person, place, and time. Psychiatric: Mood and Affect: Mood normal. Behavior: Behavior normal. Thought Content: Th (more content not included)... [facility] Progress note 03-08-2023 Note Date & Type Note Facility 03-08-2023 Note Cardiovascular Medic [facility] SUBJECTIVE Chief Complaint Patient presents with Coronary Artery Disease Congestive Heart Failure Hypertension Atrial Fibrillation Duke Matson is a 87 y.o. male here for routine follow-up. HPI PMHx: CAD s/p CABG x2 (01/2019), HFrEF (hx recovered to 50%, newly reduced again to 36%), ICMP, HTN, a.fib s/p ablation and loop recorder placement 12/2019, CKD stage 3 (he only has 1 functioning kidney), bradycardia while on BB. 03/08/2023 No changes since last seen. BP is running 120-140s/70-80s. HR reading in the 70s. He continues to routinely exercise. He feels like his breathing is doing better. He has some SHARPE with heavier exertion - he feels like his breathing is a little better than before. He denies CP, dyspnea at rest, orthopnea, PND, LE edema, dizziness/LH, palpitations. He contiues to exercise almost every day. About 10 hours a week he will do resistance bands. He will typically walk 2 miles a few days a week. Last time I spoke with device RN Bo who notes that his loop recorder has been reading persistent a.fib. 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 (CMS/HCC) Benign hypertension Persistent atrial fibrillation (CMS/HCC) Stage 3 chronic kidney disease (CMS/HCC) Atrial flutter (CMS/HCC) Coronary artery disease involving [place] coronary artery of [place] heart without angina pectoris Anemia, unspecified Carpal tunnel syndrome, unspecified upper limb Encounter for other specified aftercare Erectile dysfunction following simple prostatectomy Mixed hyperlipidemia Muscle weakness (generalized) Other abnormalities of gait and mobility History of myocardial infarction Chronic combined systolic and diastolic congestive heart failure, NYHA class 2 (CMS/HCC) Past Medical History: Diagnosis Date Abnormal ECG Arrhythmia Atrial flutter (CMS/HCC) Chronic kidney disease Coronary artery disease Hyperlipidemia Hypertension Family History Problem Relation Name Age of Onset Heart attack Other Social History Tobacco Use Smoking status: Former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
[2024-02-28 14:11] LABS: Anion Gap 10.6; BUN Creatinine Ratio 29.2; Calcium 9.5 mg/dL (8.5-10.1); Carbon Dioxide 31.4 mmol/L (21.0-32.0); Chloride 108 mmol/L (98-107); Estimated GFR (African America 60 (>=60 mL/min/1.73m^2); Estimated GFR (Non-African Ame 49 (>=60 mL/min/1.73m^2); Glucose 110 mg/dL (74-106); Sodium 146 mmol/L (136-145)
== END 2024-02-28 13:21 | disposition home or self-care (01) ==
LOC: LAB 13:22
PROVIDERS: PCP Family Medicine; Visit Provider Internal Medicine Cardiovascular Disease
DX: I50.41 Acute combined systolic (congestive) and diastolic (congestive) heart failure (principal)
CPT/HCPCS: 36415; 80048

== ENCOUNTER 2024-03-11 08:41 | Outpatient (OUT) | payer MEDICARE, SELFPAY ==
--- NOTE | 2024-03-11 09:00 | CA_ITS ---
Patient Name: DUKE ESCOBAR MR#: [id number] : 1935 Exam Date: 03/11/2024 Ordering Doctor: DR. Ghanshyam Pryor M.D. ECHOCARDIOGRAM REPORT PROCEDURE: CA ECHO DOPPLER COMPLETE INDICATIONS: Congestive heart failure with low ejection fraction COMPARISON: None. DESCRIPTION: COMPLETE ECHOCARDIOGRAM Real-time transthoracic echocardiography with 2D, M-mode, spectral and color flow Doppler performed. QUALITY: Technical quality was good. LEFT VENTRICLE: Normal chamber size. Severe concentric left ventricular hypertrophy. LV EF: Global left ventricular systolic function is severely reduced; visually estimated ejection fraction is 20 to 25%. Calculated ejection fraction is 34%. Global hypokinesis. DIASTOLIC: Not adequately assessed due to heart rhythm. ATRIAL SEPTUM: Inadequately seen. LEFT ATRIUM: Severe dilatation. RIGHT ATRIUM: Severe dilatation. RIGHT VENTRICLE: Mild dilatation. Decreased right ventricular systolic function. TRICUSPID VALVE: Normal mobility and thickness. No stenosis with moderate regurgitation. No evidence of pulmonary hypertension. RVSP 32mmHg MITRAL VALVE: Normal mobility and thickness. No evidence of mitral valve stenosis. There is no mitral annular calcification. Moderate mitral regurgitation. AORTIC VALVE: Normal trileaflet appearance. No visible sclerosis. Normal leaflet mobility. No evidence of aortic valve stenosis. Trivial aortic regurgitation. AORTIC ROOT: Normal diameter and appearance. PULMONIC VALVE: Normal thickness and mobility. No stenosis. Mild regurgitation. PERICARDIUM: No evidence of pericardial effusion. IVC: Collapses with inspirations. Normal size. CONCLUSION: 1. Global left ventricular systolic function is severely reduced; visually estimated ejection fraction is 20 to 25% 2. The right ventricle is mildly dilated with reduced systolic function 3. Biatrial dilatation 4. Severe left ventricular hypertrophy 5. Moderate tricuspid regurgitation 6. Moderate mitral regurgitation 7. Mild pulmonic regurgitation Adult Echocardiography Procedure Report Left Ventricle LVEDD (3.7 - 5.6 cm): 4.47 cm LVESD (2.2 - 4.0 cm): 3.77 cm LVIVS thickness (0.6 - 1.2 cm): 1.95 cm LVPW thickness (0.5 - 1.0 cm): 2.10 cm e': 0.07 m/s E - e': 10.67 LVOT Max Gradient: 3.34 mm[Hg] LVOT Area (cm2): 0.91 m/s Peak Velocity (LVOT): 0.91 m/s Mean Velocity (LVOT): 0.66 m/s LVOT Diameter 2.15 cm Left Atrium LA Volume Index (2D A2C): 90.97 ml/m2 Left Atrium Systolic Dimension: 5.64 cm Mitral Valve Mitral Valve E-Wave Peak Velocity: 0.75 m/s Right Ventricle RV Internal Diastolic Dimension: 3.90 cm Aorta AO Root Diam: 3.26 cm Ascending Ao Diam: 3.42 cm Aortic Valve AoV Area (Peak Adelso): 3.32 cm2, 3.32 cm2 AoV Area (VTI): 3.06 cm2, 3.06 cm2 Peak Velocity(Antegrade Flow): 1.00 m/s Peak Gradient(Antegrade Flow): 3.97 mm[Hg] Mean Velocity(Antegrade Flow): 0.67 m/s Mean Gradient(Antegrade Flow): 2.14 mm[Hg] Velocity Time Integral: 19.29 cm Tricuspid Valve Peak Velocity (Regurgitant Flow): 2.71 m/s, 2.64 m/s, 2.47 m/s Pulmonic Valve Peak Velocity: 0.74 m/s Peak Gradient: 1.77 mm[Hg], 2.68 mm[Hg] Right Atrium Right Atrium Systolic Pressure: 97.03 ml, 97.03 ml Dictated by: Mirlande Uribe M.D. on 03/12/2024 at 09:59 Approved by: Mirlande Uribe M.D. on 03/12/2024 at 10:05
== END 2024-03-11 08:42 | disposition home or self-care (01) ==
LOC: CARD 08:42
PROVIDERS: PCP Family Medicine; Visit Provider Internal Medicine Cardiovascular Disease
DX: I50.41 Acute combined systolic (congestive) and diastolic (congestive) heart failure (principal)
CPT/HCPCS: 93306; 93356

== ENCOUNTER 2024-04-15 09:20 | Outpatient (OUT) | payer MEDICARE, SELFPAY ==
[2024-04-15 09:54] LABS: Anion Gap 13.7; BUN Creatinine Ratio 24.1; Calcium 9.5 mg/dL (8.5-10.1); Carbon Dioxide 26.9 mmol/L (21.0-32.0); Chloride 106 mmol/L (98-107); Estimated GFR (African America 48 (>=60 mL/min/1.73m^2); Estimated GFR (Non-African Ame 39 (>=60 mL/min/1.73m^2); Glucose 96 mg/dL (74-106); Potassium 4.6 mmol/L (3.5-5.1); Sodium 142 mmol/L (136-145)
== END 2024-04-15 09:21 | disposition home or self-care (01) ==
LOC: LAB 09:21
PROVIDERS: PCP Family Medicine; Visit Provider Internal Medicine Cardiovascular Disease
DX: I50.22 Chronic systolic (congestive) heart failure (principal)
CPT/HCPCS: 36415; 80048

== ENCOUNTER 2024-05-02 09:43 | Outpatient (OUT) | payer MEDICARE, SELFPAY ==
[2024-05-02 10:25] LABS: Anion Gap 13.7; BUN Creatinine Ratio 29.3; Calcium 9.8 mg/dL (8.5-10.1); Chloride 107 mmol/L (98-107); Estimated GFR (African America 55 (>=60 mL/min/1.73m^2); Estimated GFR (Non-African Ame 45 (>=60 mL/min/1.73m^2); Glucose 105 mg/dL (74-106); Potassium 4.7 mmol/L (3.5-5.1); Sodium 142 mmol/L (136-145)
== END 2024-05-02 09:44 | disposition home or self-care (01) ==
LOC: LAB 09:44
PROVIDERS: PCP Family Medicine; Visit Provider Internal Medicine Cardiovascular Disease
DX: I11.0 Hypertensive heart disease with heart failure (principal)
CPT/HCPCS: 36415; 80048

== ENCOUNTER 2024-08-08 08:55 | Outpatient (OUT) | payer MEDICARE, SELFPAY ==
--- NOTE | 2024-08-08 09:00 | CA_ITS ---
Patient Name: DUKE ESCOBAR MR#: [id number] : 1935 Exam Date: 08/08/2024 Ordering Doctor: DR. MISAEL GARCIA M.D. ECHOCARDIOGRAM REPORT PROCEDURE: CA ECHO DOPPLER COMPLETE INDICATIONS: Chronic systolic heart failure, CABG COMPARISON: None. DESCRIPTION: COMPLETE ECHOCARDIOGRAM Real-time transthoracic echocardiography with 2D, M-mode, spectral and color flow Doppler performed. QUALITY: Technical quality was good. LEFT VENTRICLE: Normal chamber size. Severe concentric left ventricular hypertrophy. Systolic function is moderately reduced. Calculated left ventricular ejection fraction is 36%. Severely reduced longitudinal strain measurements. LV EF: Moderately reduced left ventricular ejection fraction, (35-40%). DIASTOLIC: ATRIAL SEPTUM: Visually appears intact. LEFT ATRIUM: Severe dilatation. RIGHT ATRIUM: Severe dilatation. RIGHT VENTRICLE: Moderate dilatation. The right ventricular wall appears hypertrophied. Moderately decreased right ventricular systolic function. TRICUSPID VALVE: Normal mobility and thickness. No stenosis with mild to moderate regurgitation. Doppler studies reveal mildly (35-45) elevated right sided pressures. RVSP 44 mmHg MITRAL VALVE: Mildly thickened with normal mobility. No evidence of mitral valve stenosis. There is no mitral annular calcification. Mild mitral regurgitation. AORTIC VALVE: Normal trileaflet appearance. No visible sclerosis. Normal leaflet mobility. No evidence of aortic valve stenosis. No aortic regurgitation. AORTIC ROOT: Normal diameter and appearance, measuring 3.4 cm. Ascending aorta is normal in size (3.6 cm). PULMONIC VALVE: Normal thickness and mobility. No stenosis. Mild regurgitation. PERICARDIUM: No evidence of pericardial effusion. IVC: IVC is dilated (2.8 cm), does not collapse. PLEURA: CONCLUSION: 1. Severe concentric left ventricular hypertrophy with moderately reduced systolic function. LVEF is estimated at 35 to 40%. 2. Moderately dilated right ventricle with moderately reduced systolic function. 3. Severe biatrial dilatation. 4. Mild mitral and pulmonic regurgitation. 5. Mild to moderate tricuspid regurgitation. 6. Mildly elevated right-sided pressures. RVSP is 44 mmHg. 7. Some echocardiographic features raise the suspicion of infiltrative myocardial disease such as cardiac amyloidosis. Adult Echocardiography Procedure Report Left Ventricle LVEDD (3.7 - 5.6 cm): 4.27 cm LVESD (2.2 - 4.0 cm): 3.91 cm LVIVS thickness (0.6 - 1.2 cm): 2.57 cm LVPW thickness (0.5 - 1.0 cm): 2.10 cm e': 0.05 m/s E - e': 10.46 LVOT Max Gradient: 1.17 mm[Hg] LVOT Area (cm2): 0.54 m/s Peak Velocity (LVOT): 0.54 m/s Mean Velocity (LVOT): 0.36 m/s LVOT Diameter 2.53 cm Left Atrium LA Volume Index (2D A2C): 60.97 ml/m2 Left Atrium Systolic Dimension: 5.71 cm Mitral Valve MV E to A Ratio: 2.57 Mitral Valve A-Wave Peak Velocity: 0.22 m/s Mitral Valve E-Wave Peak Velocity: 0.57 m/s Right Ventricle Aorta AO Root Diam: 3.42 cm Ascending Ao Diam: 3.59 cm Aortic Valve AoV Area (Peak Adelso): 3.55 cm2, 3.55 cm2 AoV Area (VTI): 3.83 cm2, 3.83 cm2 Peak Velocity(Antegrade Flow): 0.76 m/s Peak Gradient(Antegrade Flow): 2.32 mm[Hg] Mean Velocity(Antegrade Flow): 0.47 m/s Mean Gradient(Antegrade Flow): 1.09 mm[Hg] Velocity Time Integral: 14.00 cm Tricuspid Valve Peak Velocity (Regurgitant Flow): 2.50 m/s, 2.63 m/s, 2.69 m/s Pulmonic Valve Peak Velocity: 0.87 m/s Peak Gradient: 2.55 mm[Hg], 3.48 mm[Hg] Right Atrium Right Atrium Systolic Pressure: 107.27 ml, 107.27 ml Dictated by: Sebastian Moseley M.D. on 08/08/2024 at 17:33 Approved by: Sebastian Moseley M.D. on 08/08/2024 at 17:42
--- OUTSIDE RECORDS SUMMARY | 2024-08-08 09:08 | XMS_ITS | CCD ---
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 Name Role Phone MD Stefano Rivera Primary Care Provider MD Percy Swan Emergency Provider DO Venus Manjarrez Admit Provider DO Venus Manjarrez Attending Provider SHANA MCCORMICK Admitting Unavailable SHANA MCCORMICK Attending Unavailable KAYLEENERELawrence, DR STEFANO Love Primary Care Unavailable SHANA MCCORMICK Consulting Unavailable MICHELLE MENDOZA Admitting Unavailable MICHELLE MENDOZA Attending Unavailable NADERELawrence, DR STEFANO Love Primary Care Unavailable ZIEBLISA, [...] MENDOZA Consulting Unavailable STEFANO RIVERA Attending Unavailable Stefano Rivera MD Primary Care Provider ANOOP, ELLYN Referring Unavailable ANOOP, ELLYN Referring Unavailable ANOOP, ELLYN Referring Unavailable ANOOP, ELLYN Referring Unavailable ANOOP, ELLYN Referring Unavailable ANOOP, ELLYN Referring Unavailable MICHELLE MENDOZA Attending Unavailable JOSE, MISAEL Attending Unavailable JOSE, MISAEL Attending Unavailable KELLY, MICHELLE Attending Unavailable JOSE, SAMMIA Attending Unavailable ANOOP, ELLYN Referring Unavailable JOSE, SAMAR Attending Unavailable ANOOP, ELLYN Referring Unavailable ANOOP, ELLYN Referring Unavailable ANOOP, ELLYN Referring Unavailable ANOOP, ELLYN Referring Unavailable ANOOP, ELLYN Referring Unavailable Allergies Allergy Classification Reported Allergen(s) Allergy Type Date of Onset Reaction(s) Facility (7 sources) Penicillins; Translations: [Penicillins] Allergy to substance 10-20-2013 [facility] Medications Current Medications Medication Drug Class(es) Dates Sig (Normalized) Sig (Original) apixaban 5 mg oral tablet (4 sources) Factor Xa Inhibitor Start: 09-15-2021 take 1 tablet by mouth twice daily Apixaban (Eliquis) 5 mg Tablet Active 5 MG PO Twice daily September 15, 2021 2:08pm lisinopril 20 mg oral tablet (1 source) Angiotensin Converting Enzyme Inhibitor Start: 09-15-2021 take 20 mg by mouth once daily Lisinopril Active 20 MG PO Daily September 15, 2021 2:08pm pantoprazole 40 mg delayed release oral tablet (3 sources) Proton Pump Inhibitor Start: 12-13-2022 take 1 tablet by mouth in the morning pantoprazole (ProtoNix) 40 MG EC tablet Take 1 tablet by mouth in the morning. 12/13/2022 Active Propoxyphene N-Acetaminophen (Darvocet-N 50) 50-325 mg Tablet (1 source) Start: 09-15-2021 Propoxyphene N-Acetaminophen (Darvocet-N 50) 50-325 mg Tablet Active 1 TAB PO Q6H September 15, 2021 2:08pm rosuvastatin calcium 20 mg oral tablet (4 sources) HMG-CoA Reductase Inhibitor Start: 09-15-2021 take 1 tablet by mouth once daily Rosuvastatin (Crestor) 20 mg Tablet Active 20 MG PO Daily September 15, 2021 2:08pm take 1 tablet by mouth once talib y rosuvastatin (Crestor) 10 MG tablet Take 1 tablet by mouth Daily Active sacubitril 24 mg / valsartan 26 mg oral tablet (3 sources) Angiotensin 2 Receptor Crescencio Start: 08-15-2022 End: 06-05-2025 take 1 tablet by mouth in the morning Entresto 24-26 MG tablet Take 1 tablet by mouth in the morning and 1 tablet in the evening. 08/15/2022 06/05/2025 Active traMADol hydrochloride 50 mg oral tablet (1 source) Opioid Agonist Start: 09-15-2021 take 1 tablet by mouth every six hours Tramadol (Ultram) 50 mg Tablet Active 50 MG PO Q6H September 15, 2021 2:08pm Problems Active Problems Problem Classification Problem Date Documented Date Episodic/Chronic Cardiac dysrhythmias (11 sources) Unspecified atrial fibrillation; Translations: [Paroxysmal atrial fibrillation] Onset: 09-14-2021 10-09-2023 Chronic Chronic kidney disease (1 source) Chronic kidney disease, unspecified; Translations: [CHRONIC KIDNEY DISEASE UNSPECIFIED] Onset: 09-14-2021 Chronic Chronic kidney disease (3 sources) Chronic kidney disease; Translations: [CHRONIC KIDNEY DISEASE STAGE 3A] Onset: 09-14-2021 Congestive heart failure; nonhypertensive (12 sources) Acute on chronic combined systolic (congestive) and diastolic (congestive) heart failure; Translations: [Chronic systolic heart failure] Onset: 01-25-2022 10-09-2023 Chronic Coronary atherosclerosis and other heart disease (20 sources) Atherosclerotic heart disease of [place] coronary artery without angina pectoris; Translations: [Ischemic cardiomyopathy] Onset: 09-14-2021 Resolved: 10-09-2023 Chronic Disorders of lipid metabolism (9 sources) Dyslipidemia; Translations: [Hyperlipidemia, unspecified] Onset: 10-02-2022 10-09-2023 Chronic Essential hypertension (10 sources) Essential (primary) hypertension; Translations: [Benign essential hypertension] Onset: 07-19-2021 Chronic Heart valve disorders (1 source) Rheumatic disorders of both mitral and tricuspid valves; Translations: [RHEUMATIC D/O MITRAL TRICUSPID VALV] Onset: 11-04-2021 Chronic Hypertension with complications and secondary hypertension (2 sources) Hypertensive heart disease with heart failure; Translations: [Hypertensive heart disease with heart failure] Onset: 06-06-2023 Chronic Osteoarthritis (5 sources) Bilateral primary osteoarthritis of hip; Translations: [Unilateral primary osteoarthritis, right hip] Onset: 09-14-2021 10-09-2023 Chronic Other nervous system disorders (1 source) Unable to walk; Translations: [Difficulty in walking, not elsewhere classified] 09-15-2021 Chronic Other nervous system disorders (1 source) Difficulty in walking, not elsewhere classified; Translations: [Difficulty in walking] Chronic Anitha-; endo-; and myocarditis; cardiomyopathy (except that caused by tuberculosis or sexually transmitted disease) (4 sources) Endocarditis, valve unspecified; Translations: [Dilated cardiomyopathy] Onset: 01-02-2022 Chronic Residual codes; unclassified (2 sources) Edema; Translations: [Edema] Onset: 03-03-2024 Episodic Unclassified (1 source) CONTACT W/AND (SUSP) EXPOS COVID-19; Translations: [CONTACT W/AND (SUSP) EXPOS COVID-19] Onset: 09-14-2021 Unclassified (2 sources) Other persistent atrial fibrillation; Translations: [Other persistent atrial fibrillation] Onset: 04-08-2024 Unclassified (2 sources) Valve Disorder; Translations: [Valve Disorder] Onset: 03-03-2024 Unclassified (2 sources) Longstanding persistent atrial fibrillation; Translations: [Longstanding persistent atrial fibrillation] Onset: 02-22-2024 Past or Other Problems Problem Classification Problem Date Documented Da te Episodic/Chronic Calculus of urinary tract (1 source) Personal history of urinary calculi; Translations: [PERSONAL HISTORY OF URINARY CALCULI] Onset: 09-14-2021 Episodic Cardiac dysrhythmias (2 sources) Palpitations; Translations: [Palpitations] Onset: 08-13-2023 Episodic Diabetes mellitus without complication (3 sources) Prediabetes; Translations: [Prediabetes] Onset: 10-09-2023 10-09-2023 Episodic E Codes: Fall (1 source) Unspecified fall, initial encounter; Translations: [UNSPECIFIED FALL INITIAL ENCOUNTER] Onset: 09-14-2021 Episodic Mood disorders (3 sources) Mood disorders Onset: 10-09-2023 10-09-2023 Other aftercare (1 source) Other half-way (current) drug therapy; Translations: [OTH LEARNING AND DEVELOPMENT COORDINATOR CURRENT DRUG THERAPY] Onset: 09-14-2021 Episodic Other aftercare (1 source) buttermaker (current) use of anticoagulants; Translations: [LEARNING AND DEVELOPMENT COORDINATOR CURRNT USE ANTICOAGULANTS] Onset: 09-14-2021 Episodic Other aftercare (3 sources) Long-term current use of drug therapy; Translations: [Other half-way (current) drug therapy] Onset: 10-09-2023 10-09-2023 Episodic Other injuries and conditions due to external causes (1 source) History of falling; Translations: [HISTORY OF FALLING] Onset: 09-14-2021 Episodic Other non-traumatic joint disorders (4 sources) Pain in right hip; Translations: [PAIN IN RIGHT HIP] Onset: 09-12-2021 Episodic Other upper respiratory disease (3 sources) Congestion of nasal sinus; Translations: [Nasal congestion] Onset: 10-09-2023 10-09-2023 Episodic Peripheral and visceral atherosclerosis (3 sources) Intermittent claudication; Translations: [Peripheral vascular disease, unspecified] Onset: 10-09-2023 Resolved: 10-09-2023 10-09-2023 Chronic Superficial injury; contusion (3 sources) Hematoma of right hip region; Translations: [Contusion of right hip, initial encounter] Onset: 09-14-2021 09-15-2021 Episodic Results Test Name Value Interpretation Reference Range Facility Office Visiton 05-05-2024 Follow-up visit [id number] [facility] 1935 M Date Provider Department Center 05/05/2024 [id number] GARCIA Family History Problem Relation Age of Onset Heart attack Other Family Status - Relation Status Age at Other Level of Service:57064 [place] OFFICE/OUTPATIENT ESTABLISHED MOD MDM 30 MIN Reason for Visit and Comments: Congestive Heart Failure [127] - He had repeat labs last week. Only taking lasix PRN, which has only been on 1 occasion. Valve Disorder [3372] Cardiomyopathy [104] Atrial Fibrillation [80] - Denies bleeding on Eliquis. Normal [facility] ALL BASIC METABOLIC PANELon 05-02-2024 Anion gap [Moles/Vol] 13.7 mmol/L [facility] Calcium [Mass/Vol] 9.8 mg/dL 8.5 - 10. 1 mg/dL [facility] Chloride [Moles/Vol] 107 mmol/L 98 - 10 7 mmol/L [facility] CO2 [Moles/Vol] 26 mmol/L 21.0 - 32.0 mmol/L [facility] Creatinine [Mass/Vol] 1.47 mg/dL High 0.70 - 1.30 mg/dL [facility] GFR/1.73 sq M.predicted CKD-EPI (S/P/Bld) [Vol rate/Area] 55 Low >=60 mL/min/1.73m 2 [facility] Glucose [Mass/Vol] 105 mg/dL 74 - 106 mg/dL [facility] Interpretation and review of laboratory results Abnormal [facility] Potassium [Moles/Vol] 4.7 mmol/L 3.5 - 5.1 mmol/L [facility] Sodium [Moles/Vol] 142 mmol/L 136 - 145 mmol/L [facility] EGFR-NON AF TUNISIAN 45 Low >=60 mL/min/1.73m 2 [facility] Urea nitrogen [Mass/Vol] 43 mg/dL High 7.0 - 18.0 mg/dL [facility] Urea nitrogen/Creatinine [Mass ratio] 29.3 mg/mg [facility] 36on 04-18-2024 36 Regarding lab result s from 04/15/2024: MD Tata Kumar MA His creatinine is higher than before. For now continue to take Toprol-XL, Entresto, and Lasix on daily basis. Recheck BMP in 2 weeks. Spoke with patient. He will have repeat labs in 2 weeks. Order faxed to [facility] and also printed for him. Normal [facility] ALL BASIC METABOLIC PANELon 04-15-2024 Anion gap [Moles/Vol] 13.7 mmol/L [facility] Calcium [Mass/Vol] 9.5 mg/dL 8.5 - 10. 1 mg/dL [facility] Chloride [Moles/Vol] 106 mmol/L 98 - 10 7 mmol/L [facility] CO2 [Moles/Vol] 26.9 mmol/L 21.0 - 32.0 mmol/L [facility] Creatinine [Mass/Vol] 1.66 mg/dL High 0.70 - 1.30 mg/dL [facility] GFR/1.73 sq M.predicted CKD-EPI (S/P/Bld) [Vol rate/Area] 48 Low >=60 mL/min/1.73m 2 [facility] Glucose [Mass/Vol] 96 mg/dL 74 - 106 mg/dL [facility] Interpretation and review of laboratory results Abnormal [facility] Potassium [Moles/Vol] 4.6 mmol/L 3.5 - 5.1 mmol/L [facility] Sodium [Moles/Vol] 142 mmol/L 136 - 145 mmol/L [facility] EGFR-NON AF TUNISIAN 39 Low >=60 mL/min/1.73m 2 [facility] Urea nitrogen [Mass/Vol] 40 mg/dL High 7.0 - 18.0 mg/dL [facility] Urea nitrogen/Creatinine [Mass ratio] 24.1 mg/mg [facility] Office Visiton 04-08-2024 Follow-up visit [id number] [facility] 1935 M Date Provider Department Center 04/08/2024 [id number] GARCIA TOSHIA Lopez Family History Problem Relation Age of Onset Heart attack Other Family Status - Relation Status Age at Other Level of Service:90010 AL OFFICE/OUTPATIENT ESTABLISHED MOD MDM 30 MIN Reason for Visit and Comments: Atrial Fibrillation [80] - Says he's only taking metoprolol PRN for SPB > 140, about 25% of the time he says. Coronary Artery Disease [187] Congestive Heart Failure [127] - Had echo last month. Valve Disorder [3372] Hyperlipidemia [182] Edema [[id number]] - Edema has been much better. Patient states he's getting back towards normal . Shortness of Breath [744301] Normal [facility] 36on 03-27-2024 36 Regarding echo resul t from 03/11/2024: MD Tata Kumar MA Notify patient that his left ventricular systolic function appears to be weaker than it used to be therefore will obtain Lexiscan nuclear stress test to evaluate for ischemia. Please put an order for that make sure he has follow-up with me within 2 weeks of the stress test. Felicia tried to call patient on 03/19: NO VM. I tried to call patient on 03/27: NO VM. I LM on his brother Arnulfo's VM. Normal [facility] Office Visiton 03-03-2024 Follow-up visit [id number] [facility] 1935 M Date Provider Department Center 03/03/2024 [id number] GARCIA TOSHIA [facility] Family History Problem Relation Age of Onset Heart attack Other Family Status - Relation Status Age at Other Level of Service:96614 AL OFFICE/OUTPATIENT ESTABLISHED MOD MDM 30 MIN Reason for Visit and Comments: Congestive Heart Failure [127] - He was started on lasix at last apt, and had follow up BMP 02/28/2024. He is down 9# from last visit. Says LE edema has resolved so he stopped taking lasix after about 4-5 days after starting it. Atrial Fibrillation [80] - Started on Toprol XL at last visit. Denies bleeding on Eliquis. Coronary Artery Disease [187] Hyperlipidemia [182] Valve Disorder [3372] Edema [[id number]] [facility] ALL BASIC METABOLIC PANELon 02-28-2024 Anion gap [Moles/Vol] 10.6 mmol/L [facility] Calcium [Mass/Vol] 9.5 mg/dL 8.5 - 10. 1 mg/dL [facility] Chloride [Moles/Vol] 108 mmol/L High 98 - 10 7 mmol/L [facility] CO2 [Moles/Vol] 31.4 mmol/L 21.0 - 32.0 mmol/L [facility] Creatinine [Mass/Vol] 1.37 mg/dL High 0.70 - 1.30 mg/dL [facility] GFR/1.73 sq M.predicted CKD-EPI (S/P/Bld) [Vol rate/Area] 60 >=60 mL/min/1.73m 2 [facility] Glucose [Mass/Vol] 110 mg/dL High 74 - 106 mg/dL [facility] Interpretation and review of laboratory results Abnormal [facility] Potassium [Moles/Vol] 4 mmol/L 3.5 - 5.1 mmol/L [facility] Sodium [Moles/Vol] 146 mmol/L High 136 - 145 mmol/L [facility] EGFR-NON AF TUNISIAN 49 Low >=60 mL/min/1.73m 2 [facility] Urea nitrogen [Mass/Vol] 40 mg/dL High 7.0 - 18.0 mg/dL [facility] Urea nitrogen/Creatinine [Mass ratio] 29.2 mg/mg [facility] 36on 02-25-2024 36 Entresto RX faxed in. [facility] 36 Pharmacy called needing a new scripted for patient Entresto. Patient stated he is taking 0.5mg twice a day, but the order says 4 times a month. Denise PRATHER [facility] Office Visiton 02-22-2024 Follow-up visit [id number] [facility] Matson 1935 [facility] Provider Department Center 02/22/2024 [id number] GARCIA TOSHIA [facility] Family History Problem Relation Age of Onset Heart attack Other Family Status - Relation Status Age at Other Level of Service:29550 AL OFFICE/OUTPATIENT ESTABLISHED MOD MDM 30 MIN Reason for Visit and Comments: Hypertension [773449] - Says BP has been higher than normal for him lately. Coronary Artery Disease [187] Congestive Heart Failure [127] Palpitations [296034] - Occasional palpitations Shortness of Breath [064081] - Says he can tell he's been having apneic episodes at night and wakes up and has to kick start his breathing again. Edema [[id number]] - He is up 14# since September 2023. Says he weighed 170# last week. Atrial Flutter [101] - Denies bleeding on Eliquis. [facility] 36on 10-17-2023 36 Well we can continue the Entresto if he can tolerate it. Otherwise we can switch it to valsartan. Normal [facility] Office Visiton 09-25-2023 Follow-up visit [id number] [facility] Matson 1935 [facility] Provider Department Center 09/25/2023 MICHELLE PARKER TOSHIA [facility] Family History Problem Relation Age of Onset Heart attack Other Family Status - Relation Status Age at Other Level of Service:17631 AL OFFICE/OUTPATIENT ESTABLISHED MOD MDM 30 MIN Reason for Visit and Comments: Congestive Heart Failure [127] Normal [facility] Office Visiton 06-06-2023 Follow-up visit [id number] [facility]uyenDuke Bhumika 1935 M Date Provider Department Center 06/06/2023 MICHELLE PARKER [facility] Family History Problem Relation Age of Onset Heart attack Other Family Status - Relation Status Age at Other Level of Service:09915 AL OFFICE/OUTPATIENT ESTABLISHED LOW MDM 20 MIN Reason for Visit and Comments: Follow-up [996501] Normal [facility] PROF CHEM 8 (BAS METB)on Anion gap [Moles/Vol] 13.7 mmol/L Normal [facility] Comment on above: Performed By: #### B MP #### [facility] [address] [place] [address] Dr. Brennan Crooks Calcium [Mass/Vol] 10.0 mg/dL Normal 8.5-10.1 [facility] Comment on above: Performed By: #### B MP #### [facility] [address] [address] [address] Brennan Crooks Chloride [Moles/Vol] 109 mmol/L Critically high 98-[address] [facility] Comment on above: Performed By: #### B MP #### [facility] [address] [address] [address] Brennan Crooks CO2 [Moles/Vol] 24.9 mmol/L Normal 21.0-32.0 [facility] Comment on above: Performed By: #### B MP #### [facility] [address] [address] [address] Brennan Crooks Creatinine [Mass/Vol] 1.13 mg/dL Normal 0.70-1.[address] [facility] Comment on above: Performed By: #### B MP #### [facility] [address] [address] [address] Brennan Crooks EGFR-AF TUNISIAN >60 Normal >=60 [facility] Comment on above: Performed By: #### B MP #### [facility] [address] [address] [address] Brennan Crooks EGFR-NON AF TUNISIAN >60 Normal >=[address] [facility] Comment on above: Performed By: #### B MP #### [facility] [address] [address] [address] Brennan Crooks Glucose [Mass/Vol] 102 mg/dL Normal 74-106 [facility] Comment on above: Performed By: #### B MP #### [facility] [address] [address] [address] Brennan Crooks Potassium [Moles/Vol] 4.6 mmol/L Normal 3.5-5.[address] [facility] Comment on above: Performed By: #### B MP #### [facility] [address] [address] [address] Brennan Crooks Sodium [Moles/Vol] 143 mmol/L Normal 136-145 [facility] Comment on above: Performed By: #### B MP #### [facility] [address] [address] [address] Brennan Crooks Urea nitrogen [Mass/Vol] 35.0 mg/dL Critically high 7.0-18.[address] [facility] Comment on above: Performed By: #### B MP #### [facility] [address] [address] [address] Brennan Crooks Urea nitrogen/Creatinine [Mass ratio] 31.0 mg/mg Normal [facility] Comment on above: Performed By: #### B MP #### [facility] [address] [address] [address] Brennan Crooks NM STRESS/REST MULTIon 01-23 NM STRESS/REST MULTI Patient: DUKE MATSON Exam Date: 01/23/2022 : 1935 Gender:M Ordering : MICHELLE MENDOZA [facility] Admission #: [id number] Family : Order #: [id number] CLICK HERE TO VIEW EXAM RADIOLOGY REPORT [...] Mendoza M.D. on 01/24/2022 at 12:[address] [facility] ECHOCARDIO M/2D COMPLETEon 0 11-02-2021 ECHOCARDIO M/2D COMPLETE Patient: DUKE MATSON Exam Date: 11/02/2021 : 1935 Gender:M Ordering : SHANA MCCORMICK Admission #: [id number] Family : DR STEFANO RIVERA . Order #: [id number] CLICK HERE TO VIEW EXAM ECHOCARDIOGRAM REPORT [...] M.D. on 11/03/2021 at 20:34 Normal [facility] Hemogram CBC Without Diffon 09-19-2021 Erythrocyte distribution width (RBC) [Ratio] 14.1 % Normal 12.0-14.8 [facility] Comment on above: Performed By: #### C BCNO ####[place] [id number] [facility] Hematocrit (Bld) [Volume fraction] 24.9 % Low 38.8-50.0 [facility] Comment on above: Performed By: #### C BCNO ####[place] [id number] [facility] Hemoglobin (Bld) [Mass/Vol] 8.5 g/dL Low 13.0-17.0 [facility] Comment on above: Performed By: #### C BCNO ####[place] [id number] [facility] MCH (RBC) [Entitic mass] 32.8 pg Normal 27.5-35.2 [facility] Comment on above: Performed By: #### C BCNO ####[place] [id number] [facility] MCV (RBC) [Entitic vol] 95.6 fL Normal 83.5-101 [facility] Comment on above: Performed By: #### C BCNO ####[place] [id number] [facility] Mean Corpuscular HGB Conc 34.3 g/dL Normal 32.5-35.6 [facility] Comment on above: Performed By: #### C BCNO ####[place] [id number] [facility] Platelet mean volume (Bld) [Entitic vol] 7.3 fL Normal 6.6-10.1 [facility] Comment on above: Result Comment: PERF ORMED BY: [facility] [address] [place] [address] PATHOLOGIST REHAB NURSE TAMICA DUBOSE M.D. Performed By: #### C BCNO ####[address] Platelets (Bld) [#/Vol] 240 10*3/uL Normal 150-450 [facility] Comment on above: Performed By: #### C BCNO ####[address] RBC (Bld) [#/Vol] 2.60 10*6/uL Low 3.90-5.60 [facility] Comment on above: Performed By: #### C BCNO ####[address] WBC (Bld) [#/Vol] 6.5 10*3/uL Normal 4.1-10.5 [facility] Comment on above: Performed By: #### C BCNO ####[address] Hemogram CBC Without Diffon 09-18-2021 Erythrocyte distribution width (RBC) [Ratio] 13.8 % Normal 12.0-14.8 [facility] Comment on above: Performed By: #### C BCNO #### [address] Hematocrit (Bld) [Volume fraction] 26.6 % Low 38.8-50.0 [facility] Comment on above: Performed By: #### C BCNO #### [address] Hemoglobin (Bld) [Mass/Vol] 9.0 g/dL Low 13.0-17.0 [facility] Comment on above: Performed By: #### C BCNO #### [address] MCH (RBC) [Entitic mass] 32.4 pg Normal 27.5-35.2 [facility] Comment on above: Performed By: #### C BCNO #### [address] MCV (RBC) [Entitic vol] 95.5 fL Normal 83.5-101 [facility] Comment on above: Performed By: #### C BCNO #### [address] Mean Corpuscular HGB Conc 34.0 g/dL Normal 32.5-35.6 [facility] Comment on above: Performed By: #### C BCNO #### [address] Platelet mean volume (Bld) [Entitic vol] 7.7 fL Normal 6.6-10.1 [facility] Comment on above: Result Comment: PERF ORMED BY: [place] [address] PATHOLOGIST REHAB NURSE TAMICA DUBOSE M.D. Performed By: #### C BCNO #### [address] Platelets (Bld) [#/Vol] 232 10*3/uL Normal 150-450 [facility] Comment on above: Performed By: #### C BCNO #### [address] RBC (Bld) [#/Vol] 2.78 10*6/uL Low 3.90-5.60 [facility] Comment on above: Performed By: #### C BCNO #### [address] WBC (Bld) [#/Vol] 6.9 10*3/uL Normal 4.1-10.5 [facility] Comment on above: Performed By: #### C BCNO #### [address] Ferritinon 09-17-2021 Ferritin [Mass/Vol] 29.0 ng/mL Normal 23.9-336.2 [facility] Comment on above: Performed By: #### F E and TIBC, [id number], AJ ####[facility] Hemoglobin and Hematocriton 09-17-2021 Hematocrit (Bld) [Volume fraction] 25.6 % Low 38.8-50.0 [facility] Comment on above: Result Comment: PERF ORMED BY: [place] [address] PATHOLOGIST REHAB NURSE TAMICA DUBOSE M.D. Performed By: #### H H #### [address] Hemoglobin (Bld) [Mass/Vol] 8.6 g/dL Low 13.0-17.0 [facility] Comment on above: Performed By: #### H H #### [address] Hemogram CBC Without Diffon 09-17-2021 Erythrocyte distribution width (RBC) [Ratio] 13.8 % Normal 12.0-14.8 [facility] Comment on above: Performed By: #### C BCNO #### [address] Hematocrit (Bld) [Volume fraction] 24.6 % Low 38.8-50.0 [facility] Comment on above: Performed By: #### C BCNO #### [address] Hemoglobin (Bld) [Mass/Vol] 8.4 g/dL Low 13.0-17.0 [facility] Comment on above: Performed By: #### C BCNO #### [address] MCH (RBC) [Entitic mass] 32.8 pg Normal 27.5-35.2 [facility] Comment on above: Performed By: #### C BCNO #### [address] MCV (RBC) [Entitic vol] 96.0 fL Normal 83.5-101 [facility] Comment on above: Performed By: #### C BCNO #### [address] Mean Corpuscular HGB Conc 34.2 g/dL Normal 32.5-35.6 [facility] Comment on above: Performed By: #### C BCNO #### [address] Platelet mean volume (Bld) [Entitic vol] 8.3 fL Normal 6.6-10.1 [facility] Comment on above: Result Comment: PERF ORMED BY: [place] [address] PATHOLOGIST REHAB NURSE TAMICA DUBOSE M.D. Performed By: #### C BCNO #### [address] Platelets (Bld) [#/Vol] 219 10*3/uL Normal 150-450 [facility] Comment on above: Performed By: #### C BCNO #### [address] RBC (Bld) [#/Vol] 2.57 10*6/uL Low 3.90-5.60 [facility] Comment on above: Performed By: #### C BCNO #### [address] WBC (Bld) [#/Vol] 6.8 10*3/uL Normal 4.1-10.5 [facility] Comment on above: Performed By: #### C BCNO #### [address] Iron and TIBC Profileon 09-02-2021 % Iron Saturation 16.0 % Low 20-50 [facility] Comment on above: Performed By: #### F E and TIBC, [id number], AJ ####[address] Iron [Mass/Vol] 55 ug/dL Normal 40-160 [facility] Comment on above: Performed By: #### F E and TIBC, [id number], AJ ####[place] [id number] [address] Total Iron Binding Capacity 337 ug/dL Normal 255-450 [facility] Comment on above: Performed By: #### F E and TIBC, [id number], AJ ####[place] [id number] [address] Transferrin [Mass/Vol] 241 mg/dL Normal 180-380 [facility] Comment on above: Performed By: #### F E and TIBC, [id number], AJ ####[address] Vit. B12/Folate Profileon Cobalamin (Vitamin B12) [Mass/Vol] 892 pg/mL Normal 180-914 [facility] Comment on above: Performed By: #### F E and TIBC, [id number], AJ ####[address] Folate 8.7 ng/mL Normal >5.9 [facility] Comment on above: Result Comment: Ting te reference range: >5.9 ng/ml The WHO technical consultation on folate and vitamin b12 deficiencies has determined that folate concentrations less than 4 ng/ml are considered deficient. PERFORMED BY: [place] [address] PATHOLOGIST REHAB NURSE TAMICA DUBOSE M.D. Performed By: #### F E and TIBC, [id number], AJ ####[address] Complete Blood Count Auto Di ffon 09-16-2021 Basophils (Bld) [#/Vol] 0.0 10*3/uL Normal 0.0-0.2 [facility] Comment on above: Result Comment: PERF ORMED BY: [place] [address] PATHOLOGIST REHAB NURSE TAMICA DUBOSE M.D. Performed By: #### C BC #### [address] Basophils/100 WBC (Bld) 0.4 % Normal . [facility] Comment on above: Performed By: #### C BC #### [facility] [address] Eosinophils (Bld) [#/Vol] 0.0 10*3/uL Normal 0.0-0.45 [facility] Comment on above: Performed By: #### C BC #### [facility] [address] Eosinophils/100 WBC (Bld) 0.5 % Normal . [facility] Comment on above: Performed By: #### C BC #### [address] Erythrocyte distribution width (RBC) [Ratio] 13.8 % Normal 12.0-14.8 [facility] Comment on above: Performed By: #### C BC #### [address] Hematocrit (Bld) [Volume fraction] 27.5 % Low 38.8-50.0 [facility] Comment on above: Performed By: #### C BC #### [address] Hemoglobin (Bld) [Mass/Vol] 9.3 g/dL Low 13.0-17.0 [facility] Comment on above: Performed By: #### C BC #### [address] Lymphocytes (Bld) [#/Vol] 0.9 10*3/uL Low 1.00-4.8 [facility] Comment on above: Performed By: #### C BC #### [address] Lymphocytes/100 WBC (Bld) 12.6 % Normal . [facility] Comment on above: Performed By: #### C BC #### [address] MCH (RBC) [Entitic mass] 32.5 pg Normal 27.5-35.2 [facility] Comment on above: Performed By: #### C BC #### [facility] [address] MCV (RBC) [Entitic vol] 95.9 fL Normal 83.5-101 [facility] Comment on above: Performed By: #### C BC #### [facility] [address] Mean Corpuscular HGB Conc 33.8 g/dL Normal 32.5-35.6 [facility] Comment on above: Performed By: #### C BC #### [facility] [address] Monocytes (Bld) [#/Vol] 0.9 10*3/uL High 0.0-0.8 [facility] Comment on above: Performed By: #### C BC #### [address] Monocytes/100 WBC (Bld) 13.5 % Normal . [facility] Comment on above: Performed By: #### C BC #### [address] Neutrophils (Bld) [#/Vol] 5.0 10*3/uL Normal 1.8-7.7 [facility] Comment on above: Performed By: #### C BC #### [address] Neutrophils/100 WBC (Bld) 73.0 % Normal . [facility] Comment on above: Performed By: #### C BC #### [address] Nucleated RBC/100 WBC (Bld) [Ratio] 0.0 % Normal 0-0.5 [facility] Comment on above: Performed By: #### C BC #### [address] Platelet mean volume (Bld) [Entitic vol] 8.0 fL Normal 6.6-10.1 [facility] Comment on above: Performed By: #### C BC #### [address] [place] [address] [place] Platelets (Bld) [#/Vol] 218 10*3/uL Normal 150-450 [facility] Comment on above: Performed By: #### C BC #### [facility] [address] RBC (Bld) [#/Vol] 2.86 10*6/uL Low 3.90-5.60 [facility] Comment on above: Performed By: #### C BC #### [facility] [address] WBC (Bld) [#/Vol] 6.9 10*3/uL Normal 4.5-11.0 [facility] Comment on above: Performed By: #### C BC #### [address] Activated partial thrombopla stin time (aPTT) in platelet poor plasma by coagulation aOrdered By: Ilana Martínez on 09-15-2021 aPTT Coag (PPP) [Time] 34.4 s 25.1-36.5 [facility] Basic Metabolic Panelon 09-02 Calcium [Mass/Vol] 9.0 mg/dL Normal 8.2-10.2 [facility] Comment on above: Performed By: #### B MP, CBC #### [facility] [address] Chloride [Moles/Vol] 102 mmol/L Normal 95-114 [facility] Comment on above: Performed By: #### B MP, CBC #### [facility] [address] CO2 [Moles/Vol] 24.1 mmol/L Normal 22.0-30.[address] [facility] Comment on above: Performed By: #### B MP, CBC #### [facility] [address] Creatinine [Mass/Vol] 1.21 mg/dL Normal 0.64-1.27 [facility] Comment on above: Performed By: #### B MP, CBC #### [place] [address] [place] Creatinine Clr Calc [facility] [address] [facility] Comment on above: Result Comment: PERF ORMED BY: [place] [address] PATHOLOGIST REHAB NURSE TAMICA DUBOSE M.D. Performed By: #### B MP, CBC #### [address] Estimated GFR ( Nasima > [address] [facility] Comment on above: Result Comment: GFR estimated reference range: According to KDOQI guidelines, <60 ml/min/1.73m2 is sufficient to diagnose a patient with chronic kidney disease. Performed By: #### B MP, CBC #### [address] Estimated GFR (Non- Am [address] [facility] Comment on above: Performed By: #### B MP, CBC #### [address] Glucose [Mass/Vol] 126 mg/dL High 70-100 [facility] Comment on above: Result Comment: [place] om Glucose Reference Range is dependent on time and content of last meal. Glucose of more than 200 mg/dL in a nonstressed, ambulatory subject supports the diagnosis of Diabetes Mellitus. ADA recommended reference range Performed By: #### B MP, CBC #### [address] Potassium [Moles/Vol] 4.7 mmol/L Normal 3.5-5.1 [facility] Comment on above: Performed By: #### B MP, CBC #### [place] [address] [place] Sodium [Moles/Vol] 135 mmol/L Low 136-146 [facility] Comment on above: Performed By: #### B MP, CBC #### [address] Urea nitrogen [Mass/Vol] 28 mg/dL High 9-23 [facility] Comment on above: Performed By: #### B MP, CBC #### [facility] [address] Basophils Auto (Bld) [#/Vol] Ordered By: Ilana Martínez on 09-15-2021 Basophils (Bld) [#/Vol] 0.0 10*3/uL 0.0-0.2 [facility] Basophils/100 WBC Auto (Bld) Ordered By: Ilana Martínez on 09-15-2021 Basophils/100 WBC (Bld) 0.2 % [facility] Blood hemoglobin measurement (mass/volume)Ordered By: [facility] 09-[facility]21 Hemoglobin (Bld) [Mass/Vol] 10.0 g/dL 13.0-17.0 [facility] Blood leukocytes automated c ount (number/volume)Ordered By: Ilana Martínez on 09-15-2021 WBC (Bld) [#/Vol] 9.6 10*3/uL 4.5-11.0 [facility] COVID-19 Antigenon COVID-19 Antigen Healthcare Worker?: [...] developed and its performance characteristic determined by [employer] and validated at [facility]. This test has not been FDA cleared [...] for SARS Antigen by CONNIE PERFORMED BY: [place] [address] PATHOLOGIST REHAB NURSE TAMICA DUBOSE M.D. Normal [facility] Comment on above: Performed By: #### S OFIANEG, COVID-19 MAISHA #### [place] [id number] [facility] COVID-19 [facility] 09-15-2021 SARS-CoV-2 (COVID-19) RNA NADIR+probe Ql (Unsp spec) Negative Normal Negative [facility] Comment on above: Order Comment: Healt hcare Worker?: N Result Comment: Testing for SARS-CoV-2 by RT-PCR This test was developed and its performance characteristics determined by [employer] and validated at the [facility]. This test has not been FDA cleared [...] is terminated or revoked sooner. PERFORMED BY: [address] [address] PATHOLOGIST REHAB NURSE TAMICA DUBOSE M.D. Performed By: #### C OVID 19 [facility] #### [facility] [address] [place] [id number] [facility] COVID-19 SOFIAOrdered By: Nakia Martínez on 09-15-2021 SARS-CoV+SARS-CoV-2 (COVID-19) Ag IA.rapid Ql (Resp) Negative Negative [facility] Comment on above: This is a duplicate Maisha SARS Antigen (CONNIE) result to be used for statistical tracking purpose only. CT hip RT wo conon CT hip RT wo con [facility] [address] [place] [address] [place] [address] CT Scan Report Signed Patient: Duke Matson MR#: [id number] : 1935 Acct:[id number] Age/Sex: 85 / M ADM Date: 09/15/21 [...] Teofilo Ennis M.D.09/15/2021 2:05 PM Dictation Location: [place] [address] Transcribed By: JUSTINO 09/15/21 1405 Dictated By: Teofilo Ennis II, MD 09/15/21 1400 Signed By: 09/15/21 1402 Normal [facility] Complete Blood Count Auto Di ffon 09-15-2021 Basophils (Bld) [#/Vol] 0.0 10*3/uL Normal 0.0-0.2 [facility] Comment on above: Result Comment: PERF ORMED BY: [place] [address] PATHOLOGIST REHAB NURSE TAMICA DUBOSE M.D. Performed By: #### B MP, CBC #### [facility] [address] [place] [address] [place] Basophils/100 WBC (Bld) 0.2 % Normal . [facility] Comment on above: Performed By: #### B MP, CBC #### [facility] [address] [place] [address] [place] Eosinophils (Bld) [#/Vol] 0.0 10*3/uL Normal 0.0-0.45 [facility] Comment on above: Performed By: #### B MP, CBC #### [facility] [address] [place] [address] [place] Eosinophils/100 WBC (Bld) 0.0 % Normal . [facility] Comment on above: Performed By: #### B MP, CBC #### [facility] [address] Erythrocyte distribution width (RBC) [Ratio] 13.8 % Normal 12.0-14.8 [facility] Comment on above: Performed By: #### B MP, CBC #### [facility] [address] Hematocrit (Bld) [Volume fraction] 30.0 % Low 38.8-50.0 [facility] Comment on above: Performed By: #### B MP, CBC #### [facility] [address] Hemoglobin (Bld) [Mass/Vol] 10.0 g/dL Low 13.0-17.0 [facility] Comment on above: Performed By: #### B MP, CBC #### [facility] [address] Lymphocytes (Bld) [#/Vol] 0.6 10*3/uL Low 1.00-4.8 [facility] Comment on above: Performed By: #### B MP, CBC #### [facility] [address] Lymphocytes/100 WBC (Bld) 6.3 % Normal . [facility] Comment on above: Performed By: #### B MP, CBC #### [facility] [address] MCH (RBC) [Entitic mass] 31.9 pg Normal 27.5-35.2 [facility] Comment on above: Performed By: #### B MP, CBC #### [facility] [address] MCV (RBC) [Entitic vol] 95.7 fL Normal 83.5-101 [facility] Comment on above: Performed By: #### B MP, CBC #### [facility] [address] Mean Corpuscular HGB Conc 33.3 g/dL Normal 32.5-35.6 [facility] Comment on above: Performed By: #### B MP, CBC #### [facility] [address] [place] [address] [place] Monocytes (Bld) [#/Vol] 0.9 10*3/uL High 0.0-0.8 [facility] Comment on above: Performed By: #### B MP, CBC #### [facility] [address] [place] [id number] [place] Monocytes/100 WBC (Bld) 9.1 % Normal . [facility] Comment on above: Performed By: #### B MP, CBC #### [facility] [address] [place] [address] [place] Neutrophils (Bld) [#/Vol] 8.1 10*3/uL High 1.8-7.7 [facility] Comment on above: Performed By: #### B MP, CBC #### [facility] [address] [place] [address] [place] Neutrophils/100 WBC (Bld) 84.4 % Normal . [facility] Comment on above: Performed By: #### B MP, CBC #### [facility] [address] [place] [address] [place] Nucleated RBC/100 WBC (Bld) [Ratio] 0.1 % Normal 0-0.5 [facility] Comment on above: Performed By: #### B MP, CBC #### [facility] [address] [place] [address] [place] Platelet mean volume (Bld) [Entitic vol] 8.5 fL Normal 6.6-10.1 [facility] Comment on above: Performed By: #### B MP, CBC #### [facility] [address] [place] [address] [place] Platelets (Bld) [#/Vol] 222 10*3/uL Normal 150-450 [facility] Comment on above: Performed By: #### B MP, CBC #### [facility] [address] [place] [address] [place] RBC (Bld) [#/Vol] 3.14 10*6/uL Low 3.90-5.60 [facility] Comment on above: Performed By: #### B MP, CBC #### [facility] [address] [place] [address] [place] WBC (Bld) [#/Vol] 9.6 10*3/uL Normal 4.5-11.0 [facility] Comment on above: Performed By: #### B MP, CBC #### [facility] [address] [place] [address] [place] Creatine Kinaseon 09-15-2021 CK [Catalytic activity/Vol] 143 U/L Normal 22-269 [facility] Comment on above: Result Comment: PERF ORMED BY: [facility] [address] [place] [address] PATHOLOGIST REHAB NURSE TAMICA DUBOSE M.D. Performed By: #### C K #### [facility] [address] Creatinine and Glomerular fi ltration rate.predicted panel (S/P/Bld)Ordered By: Ilana Martínez on 09-15-2021 Creatinine [Mass/Vol] 1.21 mg/dL 0.64-1.27 [facility] Eosinophils Auto (Bld) [#/Vo l]Ordered By: Ilana Martínez on 09-15-2021 Eosinophils (Bld) [#/Vol] 0.0 10*3/uL 0.0-0.45 [facility] Eosinophils/100 WBC Auto (Bl d)Ordered By: Ilana Martínez on 09-15-2021 Eosinophils/100 WBC (Bld) 0.0 % [facility] Erythrocyte distribution wid th Auto (RBC) [Ratio]Ordered By: Ilana Martínez on 09-15-2021 Erythrocyte distribution width (RBC) [Ratio] 13.8 % 12.0-14.8 [facility] Estimated glomerular filtrat ion rate (GFR) non- AmericanOrdered By: Ilana Martínez on 09-15-2021 GFR/1.73 sq M.predicted among non-blacks MDRD (S/P/Bld) [Vol rate/Area] 57 mL/Min [facility] Hematocrit Auto (Bld) [Volum e fraction]Ordered By: Ilana Martínez on 09-15-2021 Hematocrit (Bld) [Volume fraction] 30.0 % 38.8-50.0 [facility] Laboratory - CoagulationOrde red By: Ilana Martínez on 09-15-2021 PT Coag (PPP) [Time] 17.4 s 9.0-12.9 [facility] - Hematology and Cell countsOrdered By: Ilana Martínez on 09-15-2021 Nucleated RBC/100 WBC (Bld) [Ratio] 0.1 % 0-0.5 [facility] Lymphocytes Auto (Bld) [#/Vo l]Ordered By: Ilana Martínez on 09-15-2021 Lymphocytes (Bld) [#/Vol] 0.6 10*3/uL 1.00-4.8 [facility] Lymphocytes/100 WBC Auto (Bl d)Ordered By: Ilana Martínez on 09-15-2021 Lymphocytes/100 WBC (Bld) 6.3 % [facility] MCH Auto (RBC) [Entitic mass ]Ordered By: Ilana Martínez on 09-15-2021 MCH (RBC) [Entitic mass] 31.9 pg 27.5-35.2 [facility] MCHC Auto (RBC) [Mass/Vol]Or dered By: Ilana Martínez on 09-15-2021 MCHC (RBC) [Mass/Vol] 33.3 g/dL 32.5-35.6 [facility] MCV Auto (RBC) [Entitic vol] Ordered By: Ilana Martínez on 09-15-2021 MCV (RBC) [Entitic vol] 95.7 fL 83.5-101 [facility] Monocytes Auto (Bld) [#/Vol] Ordered By: Ilana Martínez on 09-15-2021 Monocytes (Bld) [#/Vol] 0.9 10*3/uL 0.0-0.8 [facility] Monocytes/100 WBC Auto (Bld) Ordered By: Ilana Martínez on 09-15-2021 Monocytes/100 WBC (Bld) 9.1 % [facility] Neutrophils Auto (Bld) [#/Vo l]Ordered By: Ilana Martínez on 09-15-2021 Neutrophils (Bld) [#/Vol] 8.1 10*3/uL 1.8-7.7 [facility] Neutrophils/100 WBC Auto (Bl d)Ordered By: Ilana Martínez on 09-15-2021 Neutrophils/100 WBC (Bld) 84.4 % [facility] No Panel InformationOrdered By: Ilana Martínez on 09-15-2021 Estimated GFR () > 60 mL/Min [facility] Comment on above: GFR estimated refere nce range: According to KDOQI guidelines, <60 ml/min/1.73m2 is sufficient to diagnose a patient with chronic kidney disease. Pharmacy Creatinine Clearance (Chem 50.41 [facility] SARS Antigen (LFIA) [facility] Partial Thromboplastin Timeo n 09-15-2021 aPTT Coag (Bld) [Time] 34.4 s Normal 25.1-36.5 [facility] Comment on above: Result Comment: PERF ORMED BY: [facility] [address] [place] [address] PATHOLOGIST REHAB NURSE TAMICA DUBOSE M.D. Performed By: #### P TT, PT ####[facility] [id number] Platelet mean volume Auto (B ld) [Entitic vol]Ordered By: Ilana Martínez on 09-15-2021 Platelet mean volume (Bld) [Entitic vol] 8.5 fL 6.6-10.1 [facility] Platelet poor plasma interna tional normalized ratio (INR) by coagulation assay (relatOrdered By: Ilana Martínez on 09-15-2021 INR Coag (PPP) [Relative time] 1.5 {INR} [facility] Comment on above: INR Therapeutic Rang e [...] 09-15-2021 Platelets (Bld) [#/Vol] 222 10*3/uL 150-450 [facility] Prothrombin Time INRon 09-15 INR Coag (PPP) [Relative time] 1.5 {INR} Normal [facility] Comment on above: Result Comment: INR Therapeutic [...] 4.5 Performed By: #### P TT, PT ####[facility] [id number] PT Coag (PPP) [Time] 17.4 s High 9.0-12.9 [facility] Comment on above: Performed By: #### P TT, PT ####[facility] [id number] RBC Auto (Bld) [#/Vol]Ordere d By: Ilana Martínez on 09-15-2021 RBC (Bld) [#/Vol] 3.14 10*6/uL 3.90-5.60 [facility] Serum or plasma calcium gillian urement (mass/volume)Ordered By: Ilana Martínez on 09-15-2021 Calcium [Mass/Vol] 9.0 mg/dL 8.2-10.2 [facility] Serum or plasma chloride dinorah surement (moles/volume)Ordered By: Ilana Martínez on 09-15-2021 Chloride [Moles/Vol] 102 mmol/L 95-114 [facility] Serum or plasma glucose gillian urement (mass/volume)Ordered By: Ilana Martínez on 09-15-2021 Glucose [Mass/Vol] 126 mg/dL 70-100 [facility] Comment on above: ADA recommended refe rence range Random Glucose Reference Range is dependent on time and content of last meal. Glucose of more than 200 mg/dL in a nonstressed, ambulatory subject supports the diagnosis of Diabetes Mellitus. Serum or plasma potassium me asurement (moles/volume)Ordered By: Ilana Martínez on 09-15-2021 Potassium [Moles/Vol] 4.7 mmol/L 3.5-5.1 [facility] Serum or plasma sodium measu rement (moles/volume)Ordered By: Ilana [facility] on 09-15-2021 Sodium [Moles/Vol] 135 mmol/L 136-146 [facility] Serum or plasma total carbon dioxide measurement (moles/volume)Ordered By: Ilana [facility] on 09-15-2021 CO2 [Moles/Vol] 24.1 mmol/L 22.0-30.[address] [facility] Serum or plasma urea nitroge n measurement (mass/volume)[facility]: [facility] Urea nitrogen [Mass/Vol] 28 mg/dL 9-23 [facility] Maisha Ag Negativeon 09-16-19 22 Maisha Ag Negative Negative Normal Negative [facility] Comment on above: Result Comment: This is a duplicate Maisha SARS Antigen (CONNIE) result to be used for statistical tracking purpose only. PERFORMED BY: [facility] [address] [place] [address] PATHOLOGIST REHAB NURSE TAMICA DUBOSE M.D. Performed By: #### S SIMI COVID-19 MAISHA ####[facility] [id number] [place] [address] [facility] BNPon 09-12-2021 Natriuretic peptide B (Bld) [Mass/Vol] 5766.0 pg/mL Critically high <=1,800.[address] [facility] Comment on above: Result Comment: repe ated Performed By: #### U RCX #### [facility] [address] [place] [address] [address] Brennan Crooks CBC AUTO DIFFon 09-12-2021 BASO # 0.0 103/ul Normal 0.0-0.[address] [facility] Comment on above: Performed By: #### C BC #### [facility] [address] [place] [address] [address] Brennan Crooks Basophils/100 WBC (Bld) 0.2 % Normal 0.2-2.[address] [facility] Comment on above: Performed By: #### C BC #### [facility] [address] [place] [address] Dr. Brennan Crooks EO # 0.0 103/ul Normal 0.0-0.[address] [facility] Comment on above: Performed By: #### C BC #### [facility] [address] [place] [address] Dr. Brennan Crooks Eosinophils/100 WBC (Bld) 0.2 % Critically low 0.9-7.[address] [facility] Comment on above: Performed By: #### C BC #### [facility] [address] [place] [address] Dr. Brennan Crooks Erythrocyte distribution width (RBC) [Ratio] 13.3 % Normal 11.0-15.[address] [facility] Comment on above: Performed By: #### C BC #### [facility] [address] [place] [address] Dr. Brennan Crooks Hematocrit (Bld) [Volume fraction] 35.2 % Critically low 42.0-54.[address] [facility] Comment on above: Performed By: #### C BC #### [facility] [address] [place] [address] Dr. Brennan Crooks Hemoglobin (Bld) [Mass/Vol] 11.4 g/dL Critically low 14.0-18.[address] [facility] Comment on above: Performed By: #### C BC #### [facility] [address] [place] [address] Dr. Brennan Crooks IG # 0.04 10e3/ul Critically high 0.00-0.03 [facility] Comment on above: Performed By: #### C BC #### [facility] [address] [place] [address] Dr. Brennan rCooks IG % 0.4 % Normal 0.0-0.[address] [facility] Comment on above: Performed By: #### C BC #### [facility] [address] [place] [address] Dr. Brennan Crooks LYMPH # 1.3 103/ul Normal 1.2-3.[address] [facility] Comment on above: Performed By: #### C BC #### [facility] [address] [place] [address] Dr. Brennan Crooks Lymphocytes/100 WBC (Bld) 13.7 % Critically low 20.5-60.[address] [facility] Comment on above: Performed By: #### C BC #### [facility] [address] [place] [address] Dr. Brennan Crooks MANUAL DIFF REQ NO Normal [facility] Comment on above: Performed By: #### C BC #### [facility] [address] [place] [address] Dr. Brennan Crooks MCH (RBC) [Entitic mass] 31.5 pg Normal 25.9-34.[address] [facility] Comment on above: Performed By: #### C BC #### [facility] [address] [place] [address] Dr. Brennan Crooks MCHC (RBC) [Mass/Vol] 32.4 g/dL Normal 29.9-35.[address] [facility] Comment on above: Performed By: #### C BC #### [facility] [address] [place] [address] Dr. Brennan Crooks MCV (RBC) [Entitic vol] 97.2 fL Critically high 80.0-94.[address] [facility] Comment on above: Performed By: #### C BC #### [facility] [address] [place] [address] Dr. Brennan Crooks MONO # 0.9 103/ul Critically high 0.3-0.8 [facility] Comment on above: Performed By: #### C BC #### [facility] [address] [place] [address] Dr. Brennan Crooks Monocytes/100 WBC (Bld) 10.1 % Normal 1.7-12.[address] [facility] Comment on above: Performed By: #### C BC #### [facility] [address] [place] [address] Dr. Brennan Crooks NEUT # 7.0 103/ul Critically high 1.4-6.5 [facility] Comment on above: Performed By: #### C BC #### [facility] [address] [place] [address] Dr. Brennan Crooks Neutrophils/100 WBC (Bld) 75.4 % Critically high 43.0-75.[address] [facility] Comment on above: Performed By: #### C BC #### [facility] [address] [place] [address] Dr. Brennan Crooks Platelet mean volume (Bld) [Entitic vol] 10.7 fL Normal 9.5-13.[address] [facility] Comment on above: Performed By: #### C BC #### [facility] [address] [place] [address] Dr. Brennan Crooks PLT 170 103/ul Normal 150-[address] [facility] Comment on above: Performed By: #### C BC #### [facility] [address] [place] [address] Dr. Brennan Crooks RBC 3.62 106/ul Critically low 4.70-6.10 [facility] Comment on above: Performed By: #### C BC #### [facility] [address] [place] [address] Dr. Brennan Crooks WBC 9.3 103/ul Normal 4.0-11.[address] [facility] Comment on above: Performed By: #### C BC #### [facility] [address] [place] [address] Dr. Brennan Crooks CULTURE URINEon 09-12-2021 CULTURE URINE Culture Observations : NO GROWTH. Normal [facility] Comment on above: Performed By: #### U RCX #### [facility] [address] [place] [address] Dr. Brennan Crooks PROF 14(COMP METB)on 022 Albumin [Mass/Vol] 3.3 g/dL Critically low 3.4-5.0 [facility] Comment on above: Performed By: #### U RCX #### [facility] [address] [place] [address] Dr. Brennan Crooks Albumin/Globulin [Mass ratio] 1.1 {ratio} Normal [facility] Comment on above: Performed By: #### U RCX #### [facility] [address] [place] [address] Dr. Brennan Crooks ALP [Catalytic activity/Vol] 108 U/L Normal 46-[address] [facility] Comment on above: Performed By: #### U RCX #### [facility] [address] [address] [address] Brennan Crooks ALT [Catalytic activity/Vol] 28 U/L Normal 16-[address] [facility] Comment on above: Performed By: #### U RCX #### [facility] [address] [address] [address] Brennan Crooks Anion gap [Moles/Vol] 14.7 mmol/L Normal [facility] Comment on above: Performed By: #### U RCX #### [facility] [address] [place] [address] Dr. Brennan Crooks AST [Catalytic activity/Vol] 31 U/L Normal 15-[address] [facility] Comment on above: Performed By: #### U RCX #### [facility] [address] [address] [address] Brennan Crooks Bilirubin [Mass/Vol] 1.5 mg/dL Critically high 0.2-1.[address] [facility] Comment on above: Performed By: #### U RCX #### [facility] [address] [address] [address] Brennan Crooks Calcium [Mass/Vol] 9.1 mg/dL Normal 8.5-10.1 [facility] Comment on above: Performed By: #### U RCX #### [facility] [address] [address] [address] Brennan Crooks Chloride [Moles/Vol] 106 mmol/L Normal 98-[address] [facility] Comment on above: Performed By: #### U RCX #### [facility] [address] [address] [address] Brennan Crooks CO2 [Moles/Vol] 24.4 mmol/L Normal 21.0-32.0 [facility] Comment on above: Performed By: #### U RCX #### [facility] [address] [address] [address] Brennan Crooks Creatinine [Mass/Vol] 1.23 mg/dL Normal 0.70-1.[address] [facility] Comment on above: Performed By: #### U RCX #### [facility] [address] [address] [address] Brennan Crooks EGFR-AF TUNISIAN >60 Normal >=60 [facility] Comment on above: Performed By: #### U RCX #### [facility] [address] [address] [address] Brennan Crooks EGFR-NON AF TUNISIAN 56 mL/min/1.73m2 Critically low >=[address] [facility] Comment on above: Performed By: #### U RCX #### [facility] [address] [address] [address] Brennan Crooks Globulin (S) [Mass/Vol] 3.0 g/dL Normal [facility] Comment on above: Performed By: #### U RCX #### [facility] [address] [address] [address] Brennan Crooks Glucose [Mass/Vol] 125 mg/dL Critically high 74-106 [facility] Comment on above: Performed By: #### U RCX #### [facility] [address] [address] [address] Brennan Crooks Potassium [Moles/Vol] 4.1 mmol/L Normal 3.5-5.[address] [facility] Comment on above: Performed By: #### U RCX #### [facility] [address] [address] [address] Brennan Crooks Protein [Mass/Vol] 6.3 g/dL Critically low 6.4-8.2 Th [facility] Comment on above: Performed By: #### U RCX #### [facility] [address] [address] [address] Brennan Crooks Sodium [Moles/Vol] 141 mmol/L Normal 136-145 [facility] Comment on above: Performed By: #### U RCX #### [facility] [address] [address] [address] Brennan Crooks Urea nitrogen [Mass/Vol] 29.0 mg/dL Critically high 7.0-18.[address] [facility] Comment on above: Performed By: #### U RCX #### [facility] [address] [address] [address] Brennan Crooks Urea nitrogen/Creatinine [Mass ratio] 23.6 mg/mg Normal [facility] Comment on above: Performed By: #### U RCX #### [facility] [address] [address] [address] Brennan Crooks UA RANDOM W/MICROSCOPICon BACTERIA NONE SEEN Normal NONE SEEN [facility] Comment on above: Performed By: #### U AMIC #### [facility] [address] [place] [address] Dr. Brennan Crooks Bilirubin Ql (U) Negative Normal NEGATIVE [facility] Comment on above: Performed By: #### U AMIC #### [facility] [address] [place] [address] Dr. Brennan Crooks CAST SEEN Abnormal NONE SEEN [facility] Comment on above: Performed By: #### U AMIC #### [facility] [address] [address] [address] Brennan Crooks Clarity (U) CLEAR Normal CLEAR [facility] Comment on above: Performed By: #### U AMIC #### [facility] [address] [address] [address] Brennan Crooks Color (U) YELLOW Normal YELLOW [facility] Comment on above: Performed By: #### U AMIC #### [facility] [address] [place] [address] Dr. Brennan Crooks Crystals LM Nom (Urine sed) NONE SEEN Normal NONE SEEN [facility] Comment on above: Performed By: #### U AMIC #### [facility] [address] [place] [address] Dr. Brennan Crooks Epithelial cells LM Ql (Urine sed) RARE Normal NONE SEEN /RARE [facility] Comment on above: Performed By: #### U AMIC #### [facility] [address] [address] [address] Brennan Crooks Glucose Ql (U) Negative Normal NEGATIVE [facility] Comment on above: Performed By: #### U AMIC #### [facility] [address] [address] [address] Brennan Crooks Hemoglobin Ql (U) Negative Normal NEGATIVE [facility] Comment on above: Performed By: #### U AMIC #### [facility] [address] [address] [address] Brennan Crooks Ketones Ql (U) Negative Normal NEGATIVE [facility] Comment on above: Performed By: #### U AMIC #### [facility] [address] [address] [address] Brennan Crooks LEUKOCYTES Negative Normal NEGATIVE [facility] Comment on above: Performed By: #### U AMIC #### [facility] [address] [address] [address] Brennan Crooks MUCOUS TRACE Abnormal NONE SEEN [facility] Comment on above: Performed By: #### U AMIC #### [facility] [address] [address] [address] Brennan Crooks Nitrite Ql (U) Negative Normal NEGATIVE [facility] Comment on above: Performed By: #### U AMIC #### [facility] [address] [address] [address] Brennan Crooks pH (U) 5.5 [pH] Normal 5-[address] [facility] Comment on above: Performed By: #### U AMIC #### [facility] [address] [address] [address] Brennan Crooks RBC NONE SEEN Abnormal 0-2 [facility] Comment on above: Performed By: #### U AMIC #### [facility] [address] [place] [address] Dr. Brennan Crooks SPEC GRAVITY 1.020 Normal 1.005-<=1.[address] [facility] Comment on above: Performed By: #### U AMIC #### [facility] [address] [place] [address] Dr. Brennan Crooks UA PROTEIN Negative Normal NEGATIVE/ TRACE [facility] Comment on above: Performed By: #### U AMIC #### [facility] [address] [place] [address] Dr. Brennan Crooks Urobilinogen Qn (U) 0.2 {Janes'U}/dL Normal 0.2 - 1. 0 [facility] Comment on above: Performed By: #### U AMIC #### [facility] [address] [place] [address] Dr. Brennan Crooks WBC NONE SEEN Normal NONE SEEN [facility] Comment on above: Performed By: #### U AMIC #### [facility] [address] [place] [address] Dr. Brennan Crooks CBC W MANUAL DIFFon 09-12-19 22 ATYPICAL LYMPH # Normal [facility] Comment on above: Performed By: #### C BCMAN #### [facility] [address] [place] [address] Dr. Brennan Crooks ATYPICAL LYMPH % Normal [facility] Comment on above: Performed By: #### C BCMAN #### [facility] [address] [place] [address] Dr. Brennan Crooks BAND # 0.1 103/ul Normal 0.0-0.3 [facility] Comment on above: Performed By: #### C BCMAN #### [facility] [address] [place] [address] Dr. Brennan Crooks BAND % 1 % Normal 0-5 [facility] Comment on above: Performed By: #### C BCMAN #### [facility] [address] [place] [address] Dr. Brennan Crooks BASOM # 0.00 103/ul Normal 0.00-0.10 [facility] Comment on above: Performed By: #### C BCANGELO #### [facility] [address] [place] [address] Dr. Brennan Crooks BASOM % 0.0 % Critically low 0.2-2.0 [facility] Comment on above: Performed By: #### C BCANGELO #### [facility] [address] [address] [address] Brennan Crooks BLAST # Normal [facility] Comment on above: Performed By: #### C BCANGELO #### [facility] [address] [address] [address] Brennan Crooks BLAST % Normal [facility] Comment on above: Performed By: #### C BCANGELO #### [facility] [address] [address] [address] Brennan Crooks CORRECTED WBC Normal 4.0-11.0 [facility] Comment on above: Performed By: #### C CHING #### [facility] [address] [address] [address] Brennan Crooks EOS # 0.00 103/ul Normal 0.00-0.[address] [facility] Comment on above: Performed By: #### C CHING #### [facility] [address] [address] [address] Brennan Crooks EOS% 0.0 % Critically low 0.9-7.0 [facility] Comment on above: Performed By: #### C CHING #### [facility] [address] [place] [address] Dr. Brennan Crooks HCT 35.0 % Critically low 42.0-54.0 [facility] Comment on above: Performed By: #### C CHING #### [facility] [address] [address] [address] Brennan Crooks HGB 11.6 g/dl Critically low 14.0-18.0 [facility] Comment on above: Performed By: #### C BCANGELO #### [facility] [address] [place] [address] Dr. Brennan Crooks LYMPHM # 0.83 103/ul Critically low 1.20-3.80 [facility] Comment on above: Performed By: #### C CHING #### [facility] [address] [address] [address] Brennan Crooks LYMPHM% 9.0 % Critically low 20.5-60.0 [facility] Comment on above: Performed By: #### C CHING #### [facility] [address] [place] [address] Dr. Brennan Crooks MCH 32.0 pg Normal 25.9-34.[address] [facility] Comment on above: Performed By: #### C CHING #### [facility] [address] [place] [address] Dr. Brennan Crooks MCHC 33.1 g/dl Normal 29.9-35.[address] [facility] Comment on above: Performed By: #### C CHING #### [facility] [address] [place] [address] Dr. Brennan Crooks MCV 96.4 fL Critically high 80.0-94.0 [facility] Comment on above: Performed By: #### C CHING #### [facility] [address] [place] [address] Dr. Brennan Crooks METAMYELOCYTE # Normal [facility] Comment on above: Performed By: #### C CHING #### [facility] [address] [place] [address] Dr. Brennan Crooks METAMYELOCYTE % Normal [facility] Comment on above: Performed By: #### C CHING #### [facility] [address] [place] [address] Dr. Brennan Crooks MONOM# 0.37 103/ul Normal 0.30-0.[address] [facility] Comment on above: Performed By: #### C CHING #### [facility] [address] [place] [address] Dr. Brennan Crooks MONOM% 4.0 % Normal 1.7-12.[address] [facility] Comment on above: Performed By: #### C CHING #### [facility] [address] [place] [address] Dr. Brennan Crooks MPV 10.2 fL Normal 9.5-13.[address] [facility] Comment on above: Performed By: #### C CHING #### [facility] [address] [place] [address] Dr. Brennan Crooks MYELOCYTE # Normal [facility] Comment on above: Performed By: #### C CHING #### [facility] [address] [place] [address] Dr. Brennan Crooks MYELOCYTE % Normal [facility] Comment on above: Performed By: #### C CHING #### [facility] [address] [place] [address] Dr. Brennan Crooks NRBC Normal [facility] Comment on above: Performed By: #### C CHING #### [facility] [address] [address] [address] Brennan rCooks PLT 153 103/ul Normal 150-[address] [facility] Comment on above: Performed By: #### C CHING #### [facility] [address] [place] [address] Dr. Brennan Crooks RBC 3.63 106/ul Critically low 4.70-6.10 [facility] Comment on above: Performed By: #### C CHING #### [facility] [address] [place] [address] Dr. Brennan Crooks RDW 13.2 % Normal 11.0-15.[address] [facility] Comment on above: Performed By: #### C CHING #### [facility] [address] [place] [address] Dr. Brennan Crooks SEG # 7.91 103/ul Critically high 1.40-6.50 [facility] Comment on above: Performed By: #### C CHING #### [facility] [address] [place] [address] Dr. Brennan Crooks SEG % 86.0 % Critically high 43.0-75.0 [facility] Comment on above: Performed By: #### C CHING #### [facility] [address] [place] [address] Dr. Brennan Crooks WBC 9.2 103/ul Normal 4.0-11.[address] [facility] Comment on above: Performed By: #### C CHING #### [facility] [address] [place] [address] PELVIS WO CONon [...] BO HURST Date: 2021-09-11 21:13 Normal [facility] Covid-19 PCR (CVDTB)on 09-02 SARS-CoV-2 (COVID-19) RNA NADIR+probe Ql (Unsp spec) Not detected Normal NOT DETECTED [facility] Comment on above: Result Comment: When [...] for this test is supported by the [place] of Health and Human Service's declaration that [...] used). Performed By: #### C VDTB #### [facility] [address] [place] [address] Dr. Brennan Crooks PROF CHEM 8 (BAS METB)on Anion gap [Moles/Vol] 13.3 mmol/L Normal [facility] Comment on above: Performed By: #### B MP #### [facility] [address] [place] [address] Dr. Brennan Crooks Calcium [Mass/Vol] 8.9 mg/dL Normal 8.5-10.1 [facility] Comment on above: Performed By: #### B MP #### [facility] [address] [place] [address] Dr. Brennan Crooks Chloride [Moles/Vol] 107 mmol/L Normal 98-[address] [facility] Comment on above: Performed By: #### B MP #### [facility] [address] [place] [address] Dr. Brennan Crooks CO2 [Moles/Vol] 22.3 mmol/L Normal 21.0-32.0 [facility] Comment on above: Performed By: #### B MP #### [facility] [address] [place] [address] Dr. Brennan Crooks Creatinine [Mass/Vol] 1.37 mg/dL Critically high 0.70-1.[address] [facility] Comment on above: Performed By: #### B MP #### [facility] [address] [place] [address] Dr. Brennan Crooks EGFR-AF TUNISIAN 60 mL/min/1.73m2 Normal >=60 [facility] Comment on above: Performed By: #### B MP #### [facility] [address] [address] [address] Brennan Crooks EGFR-NON AF TUNISIAN 50 mL/min/1.73m2 Critically low >=[address] [facility] Comment on above: Performed By: #### B MP #### [facility] [address] [address] [address] Brennan Crooks Glucose [Mass/Vol] 165 mg/dL Critically high 74-106 [facility] Comment on above: Performed By: #### B MP #### [facility] [address] [address] [address] Brennan Crooks Potassium [Moles/Vol] 4.6 mmol/L Normal 3.5-5.[address] [facility] Comment on above: Performed By: #### B MP #### [facility] [address] [address] [address] Brennan Crooks Sodium [Moles/Vol] 138 mmol/L Normal 136-145 [facility] Comment on above: Performed By: #### B MP #### [facility] [address] [address] [address] Brennan Crooks Urea nitrogen [Mass/Vol] 33.0 mg/dL Critically high 7.0-18.[address] [facility] Comment on above: Performed By: #### B MP #### [facility] [address] [address] [address] Brennan Crooks Urea nitrogen/Creatinine [Mass ratio] 24.1 mg/mg Normal [facility] Comment on above: Performed By: #### B MP #### [facility] [id number] Brennan Crooks XR HIP RT 2 [...] by: MAYA MOODY Date: 2021-09-11 13:[address] [facility] LIPID PROFILEon 07-13-2021 CHOL-HDL RATIO NORM SEE BELOW Normal [facility] Comment on above: Result Comment: 3.3 - 4.4 LOW RISK 4.4 - 7.1 AVERAGE RISK 7.1 - 11.0 MODERATE RISK >11.0 HIGH RISK Performed By: #### L IPID, CMP #### [facility] [address] [address] [address] Brennan Crooks Cholesterol [Mass/Vol] 111 mg/dL Normal <=200 [facility] Comment on above: Performed By: #### L IPID, CMP #### [facility] [address] [address] [address] Brennan Crooks Cholesterol in HDL [Mass/Vol] 62 mg/dL Critically high 40-[address] [facility] Comment on above: Performed By: #### L IPID, CMP #### [facility] [address] [address] [address] Brennan Crooks Cholesterol in LDL [Mass/Vol] 41.2 mg/dL Normal [facility] Comment on above: Performed By: #### L IPID, CMP #### [facility] [address] [address] [address] Brennan Crooks Cholesterol.total/Chol esterol in HDL [Mass ratio] 1.8 {ratio} Normal [facility] Comment on above: Performed By: #### L IPID, CMP #### [facility] [address] [address] [address] Brennan Crooks HDL NORMAL > or = 60 mg/dl - LO W CARDIOVASCULAR RISK <40 mg/dl - HIGH CARDIOVASCULAR RISK Normal [facility] Comment on above: Performed By: #### L IPID, CMP #### [facility] [address] [address] [address] Brennan Crooks LDL CALC NORMAL SEE BELOW Normal [facility] Comment on above: Result Comment: <100 mg/dl OPTIMAL 100 - 129 mg/dl NEAR OR ABOVE OPTIMAL 130 - 159 mg/dl BORDERLINE HIGH 160 - 189 mg/dl HIGH >190 mg/dl VERY HIGH Performed By: #### L IPID, CMP #### [facility] [address] [place] [address] Dr. Brennan Crooks Triglyceride [Mass/Vol] 39 mg/dL Normal <=[address] [facility] Comment on above: Performed By: #### L IPID, CMP #### [facility] [address] [place] [address] Dr. Brennan Crooks VLDL CALC 7.8 mg/dL Normal [facility] Comment on above: Performed By: #### L IPID, CMP #### [facility] [address] [place] [address] Dr. Brennan Crooks PROF 14(COMP METB)on 022 Albumin [Mass/Vol] 3.6 g/dL Normal 3.4-5.0 [facility] Comment on above: Performed By: #### L IPID, CMP #### [facility] [address] [place] [address] Dr. Brennan Crooks Albumin/Globulin [Mass ratio] 1.2 {ratio} Normal [facility] Comment on above: Performed By: #### L IPID, CMP #### [facility] [address] [place] [address] Dr. Brennan Crooks ALP [Catalytic activity/Vol] 111 U/L Normal 46-[address] [facility] Comment on above: Performed By: #### L IPID, CMP #### [facility] [address] [place] [address] Dr. Brennan Crooks ALT [Catalytic activity/Vol] 39 U/L Normal 16-[address] [facility] Comment on above: Performed By: #### L IPID, CMP #### [facility] [address] [place] [address] Dr. Brennan Crooks Anion gap [Moles/Vol] 12.4 mmol/L Normal [facility] Comment on above: Performed By: #### L IPID, CMP #### [facility] [address] [address] [address] Brennan Crooks AST [Catalytic activity/Vol] 39 U/L Critically high 15-[address] [facility] Comment on above: Performed By: #### L IPID, CMP #### [facility] [address] [place] [address] Dr. Brennan Crooks Bilirubin [Mass/Vol] 1.6 mg/dL Critically high 0.2-1.[address] [facility] Comment on above: Performed By: #### L IPID, CMP #### [facility] [address] [place] [address] Dr. Brennan Crooks Calcium [Mass/Vol] 9.3 mg/dL Normal 8.5-10.1 [facility] Comment on above: Performed By: #### L IPID, CMP #### [facility] [address] [place] [address] Dr. rBennan Crooks Chloride [Moles/Vol] 107 mmol/L Normal 98-[address] [facility] Comment on above: Performed By: #### L IPID, CMP #### [facility] [address] [place] [address] Dr. Brennan Crooks CO2 [Moles/Vol] 24.9 mmol/L Normal 21.0-32.0 [facility] Comment on above: Performed By: #### L IPID, CMP #### [facility] [address] [place] [address] Dr. Brennan Crooks Creatinine [Mass/Vol] 1.34 mg/dL Critically high 0.70-1.[address] [facility] Comment on above: Performed By: #### L IPID, CMP #### [facility] [address] [place] [address] Dr. Brennan Crooks EGFR-AF TUNISIAN >60 Normal >=60 [facility] Comment on above: Performed By: #### L IPID, CMP #### [facility] [address] [place] [address] Dr. Brennan Crooks EGFR-NON AF TUNISIAN 51 mL/min/1.73m2 Critically low >=[address] [facility] Comment on above: Performed By: #### L IPID, CMP #### [facility] [address] [address] [address] Brennan Crooks Globulin (S) [Mass/Vol] 2.9 g/dL Normal [facility] Comment on above: Performed By: #### L IPID, CMP #### [facility] [address] [address] [address] Brennan Crooks Glucose [Mass/Vol] 95 mg/dL Normal 74-106 [facility] Comment on above: Performed By: #### L IPID, CMP #### [facility] [address] [address] [address] Brennan Crooks Potassium [Moles/Vol] 4.3 mmol/L Normal 3.5-5.[address] [facility] Comment on above: Performed By: #### L IPID, CMP #### [facility] [address] [place] [address] Dr. Brennan Crooks Protein [Mass/Vol] 6.5 g/dL Normal 6.4-8.2 [facility] Comment on above: Performed By: #### L IPID, CMP #### [facility] [address] [place] [address] Dr. Brennan Crooks Sodium [Moles/Vol] 140 mmol/L Normal 136-145 [facility] Comment on above: Performed By: #### L IPID, CMP #### [facility] [address] [place] [address] Dr. Brennan Crooks Urea nitrogen [Mass/Vol] 31.0 mg/dL Critically high 7.0-18.[address] [facility] Comment on above: Performed By: #### L IPID, CMP #### [facility] [address] [place] [address] Dr. Brennan Crooks Urea nitrogen/Creatinine [Mass ratio] 23.1 mg/mg Normal [facility] Comment on above: Performed By: #### L IPID, CMP #### [facility] [address] [place] [address] Dr. Brennan Crooks Ambulatory Clinical Summaryo n 12-31-2020 Ambulatory Clinical Summary {[id number]}CD:[id number] Maryjo Fink [facility] Patient Educationon 12-31- Patient Education Urology Benign Prostatic Hyperplasia Benign [...] Follow these instructions at home: ? Take fnvp-cmz-lwvfcaf and prescription medicines only as told by [...] You d (more content not included)... Normal Fink [facility] Urology Office/Clinic Noteon 12-31-2020 Urology Office/Clinic Note [...] Information DMITRY HURD, Dixon Bravo, URL [address] [place] [address]- [phone] Additional Instructions: prn Patient Education Benign Prostatic Hyperplasia I, Bibiana Valadez , personally scribed for Dr. Mcallister on [...] Allergies pe (more content not included)... Normal [facility] Comment on above: Result Comment: Elec tronically Signed By: Dixon MCALLISTER MD\.br\Date and Time Signed: 12/31/20 09:32 EDT\.br\Electronically Co-Signed By: Rory PRATHER, Bibiana Fierro\.br\Date and Time Co-Signed: 12/31/20 09:31 EDT US art pvr/post Nic 021 US art pvr/post [facility] [place] [address] Ultrasound Report Signed Patient: Duke Matson MR#: [id number] : 1935 Acct:[id number] Age/Sex: 84 / M ADM Date: 10/06/20 Loc: Room: Type: [facility] Attending Dr: Jeff Lucio MD Ordering Provider: [...] Jeff Lucio M.D.10/06/2020 4:30 PM Dictation Location: [place] [address] Tech: Mireille Gomes Transcribed By: JUSTINO 10/06/20 1630 Dictated By: Jeff Lucio MD 10/06/20 1627 Signed By: 10/06/[address] [facility] Ambulatory Clinical Summaryo n 04-12-2020 Ambulatory Clinical Summary {[id number]}CD:[id number] [facility] Patient Educationon 04-12-19 Patient Education Benign [...] Document Reviewed: 10/25/2007 ExitCare? Patient Information ?[address] [employer] [address] [facility] Urology Office/Clinic Noteon 04-12-2020 Urology Office/Clinic [...] In 6 months [facility] [address] [place] [address]- [phone] Additional Instructions: Patient Education Benign Prostatic Hyperplasia Micheline Cooper personally scribed for Dr. Mcallister on 04/12/2020 09:19:57. . Documentation recorded by the Shanell phelps, accurately reflects the services(s) I performed and [...] Medications amiodaro (more content not included)... Normal [facility] Comment on above: Result Comment: Elec tronically Signed By: Dixon MCALLISTER MD R\.br\Date and Time Signed: 04/12/20 09:22 EST\.br\Electronically Co-Signed By: Micheline Liu MA R\.br\Date and Time Co-Signed: 04/12/20 09:20 EST Cardiovascular Lab Reporton 12-29-2019 Cardiovascular Lab Report [facility] Patient Name: [facility] Duke Bai MR #: [id number] Department of Physician: Juan Bhatt MD Medicine Service Date: 12/29/2019 Division of Birthdate: 1935 Cardiology Room #: [facility] Cardiovascular Services [place] [address] Cardiovascular Laboratory Report COMPREHENSIVE EP STUDY AND [...] the sternum on the left using the [employer] tool. The loop recorder was then injected [...] were immediately observed. LOOP details: Device Model: [place] [id number] Seri (more content not included)... Normal [facility] BASIC METABOLIC PANELon 10-2 -2019 Calcium [Mass/Vol] 9.6 mg/dL Normal 8.6-10.[address] [facility] Comment on above: Performed By: #### 0 0071 #### [facility] [address] [place] [address], [facility] Chloride [Moles/Vol] 109 mmol/L High 98-[address] [facility] Comment on above: Performed By: #### 0 0071 #### [facility] [address] [place] [address], [facility] CO2 [Moles/Vol] 25 mmol/L Normal 21-[address] [facility] Comment on above: Performed By: #### 0 0071 #### [facility] [address] [place] [address], [facility] Creatinine [Mass/Vol] 1.36 mg/dL High 0.70-1.[address] [facility] Comment on above: Performed By: #### 0 0071 #### [facility] [address] [place] [address], [facility] eGFR- non- 50 ml/min/1.73sq m Abnormal >[address] [facility] Comment on above: Result Comment: Calc ulation may not be valid for patients over 70 years Performed By: #### 0 0071 #### [facility] [address] [place] [address], [facility] GFR/1.73 sq M.predicted among blacks MDRD (S/P/Bld) [Vol rate/Area] mL/min/{1.73_m2} Normal >[address] [facility] Comment on above: Result Comment: Calc ulation may not be valid for patients over 70 years Performed By: #### 0 0071 #### [facility] [address] [place] [address], [facility] Glucose [Mass/Vol] 85 mg/dL Normal 70-[address] [facility] Comment on above: Performed By: #### 0 0071 #### [facility] [address] [facility] [place] [address], [facility] Potassium [Moles/Vol] 4.5 mmol/L Normal 3.5-5.[address] [facility] Comment on above: Performed By: #### 0 0071 #### [facility] [address] [place] [address], [facility] Sodium [Moles/Vol] 140 mmol/L Normal 136-[address] [facility] Comment on above: Performed By: #### 0 0071 #### [facility] [address] [place] [address], [facility] Urea nitrogen [Mass/Vol] 29 mg/dL High 7-[address] [facility] Comment on above: Performed By: #### 0 0071 #### [facility] [address] [place] [address], [facility] CBC W/DIFFon 12-26-2019 ABS IMM GRANS 0.0 10*3/uL Normal 0.0-0.[address] [facility] Comment on above: Performed By: #### 5 0103 #### [facility] [address] [place] [address], [facility] ABS NEUTROPHILS 3.9 10*3/uL Normal 1.6-7.[address] [facility] Comment on above: Performed By: #### 5 0103 #### [facility] [address] [place] [address], [facility] Basophils (Bld) [#/Vol] 0.0 10*3/uL Normal 0.0-0.[address] [facility] Comment on above: Performed By: #### 5 0103 #### [facility] [address] [place] [address], [facility] Basophils/100 WBC (Bld) 0.5 % Normal 0.0-1.[address] [facility] Comment on above: Performed By: #### 5 0103 #### [facility] [address] [place] [address], [facility] Eosinophils (Bld) [#/Vol] 0.1 10*3/uL Normal 0.0-0.[address] [facility] Comment on above: Performed By: #### 5 0103 #### [facility] [address] [place] [address], [facility] Eosinophils/100 WBC (Bld) 2.2 % Normal 0.0-6.[address] [facility] Comment on above: Performed By: #### 5 0103 #### [facility] [address] [place] [address], [facility] Erythrocyte distribution width (RBC) [Ratio] 14.5 % Normal 11.5-15.[address] [facility] Comment on above: Performed By: #### 5 0103 #### [facility] [address] [place] [address], [facility] Hematocrit (Bld) [Volume fraction] 42.2 % Normal 39.0-50.[address] [facility] Comment on above: Performed By: #### 5 0103 #### [facility] [address] [place] [address], [facility] Hemoglobin (Bld) [Mass/Vol] 13.6 g/dL Normal 13.0-17.[address] [facility] Comment on above: Performed By: #### 5 0103 #### [facility] [address] [place] [address], [facility] IMMATURE GRANS 0.5 % Normal 0.0-1.[address] [facility] Comment on above: Performed By: #### 5 0103 #### [facility] [address] [place] [address], [facility] Lymphocytes (Bld) [#/Vol] 1.2 10*3/uL Normal 1.2-4.[address] [facility] Comment on above: Performed By: #### 5 0103 #### [facility] [address] [facility] [place] [address], [facility] Lymphocytes/100 WBC (Bld) 20.7 % Normal 20.0-45.[address] [facility] Comment on above: Performed By: #### 5 0103 #### [facility] [address] [place] [address], [facility] MCH (RBC) [Entitic mass] 31.9 pg Normal 27.0-33.[address] [facility] Comment on above: Performed By: #### 5 0103 #### [facility] [address] [place] [address], [facility] MCHC (RBC) [Mass/Vol] 32.2 g/dL Normal 32.0-35.[address] [facility] Comment on above: Performed By: #### 5 0103 #### [facility] [address] [place] [address], [facility] MCV (RBC) [Entitic vol] 98.8 fL High 82.0-98.[address] [facility] Comment on above: Performed By: #### 5 3 #### [facility] [address] [place] [place] [address], [facility] Monocytes (Bld) [#/Vol] 0.6 10*3/uL Normal 0.1-1.[address] [facility] Comment on above: Performed By: #### 5 0103 #### [facility] [address] [place] [address], [facility] MONOS 9.8 % Normal 5.0-12.[address] [facility] Comment on above: Performed By: #### 5 0103 #### [facility] [address] [place] [address], [facility] Neutrophils/100 WBC (Bld) 66.3 % Normal 40.0-72.[address] [facility] Comment on above: Performed By: #### 5 0103 #### [facility] [address] [place] [address], [facility] Nucleated RBC/100 WBC (Bld) [Ratio] 0 % Normal 0-[address] [facility] Comment on above: Performed By: #### 5 0103 #### [facility] [address] [place] [address], [facility] PLAT CNT 165 10*3/uL Normal 150-[address] [facility] Comment on above: Performed By: #### 5 0103 #### [facility] [address] [place] [address], [facility] RBC (Bld) [#/Vol] 4.27 10*6/uL Normal 4.20-5.[address] [facility] Comment on above: Performed By: #### 5 0103 #### [facility] [address] [place] [address], [facility] WBC (Bld) [#/Vol] 5.89 10*3/uL Normal 4.00-10.[address] [facility] Comment on above: Performed By: #### 5 3 #### [facility] [address] Vital Signs Date Time Vital Sign Value Performing Clinician Orin crenshaw 09-15-2021 17:50-0400 Body temperature 98 [degF] MD Stefano Rivera Work Phone: [facility] 09-15-2021 17:50-0400 Diastolic blood pressure 68 mm[Hg] MD Stefano Rivera Work Phone: [facility] 09-15-2021 17:50-0400 Heart rate 82 /min MD Stefano Rivera Work Phone: [facility] 09-15-2021 17:50-0400 Respiratory rate 17 /min MD Stefano Rivera Work Phone: [facility] 09-15-2021 17:50-0400 SaO2% (BldA) [Mass fraction] 99 % MD Stefano Rivera Work Phone: [facility] 09-15-2021 17:50-0400 Systolic blood pressure 116 mm[Hg] MD Stefano Rivera Work Phone: [facility] 09-15-2021 13:06-0400 Body height 170.18 cm MD Stefano Rivera Work Phone: [facility] 09-15-2021 13:06-0400 Body mass index (BMI) [Ratio] 33.4 kg/m2 MD Stefano Rivera Work Phone: [facility] 09-15-2021 13:06-0400 Body weight 96.9 kg MD Stefano Rivera Work Phone: [facility] Encounters Encounter Date Encounter Type Care Provider Facility Start: 05-05-2024 End: 05-05-2024 [facility] Start: 05-02-2024 End: 05-02-2024 Clinis[facility] Result Encounter Generic External Data Provider [facility] Unsolicited Start: 05-02-2024 End: 05-02-2024 [facility] Result Encounter Generic External Data Provider [facility] Unsolicited Start: 04-15-2024 End: 04-15-2024 [facility] Result Encounter Generic External Data Provider [facility] Unsolicited Start: 04-15-2024 End: 04-15-2024 [facility]inis[facility] Result Encounter Generic External Data Provider [facility] Unsolicited Start: 04-08-2024 End: 04-08-2024 ambulatory [facility] Start: 03-03-2024 End: 03-03-2024 ambulatory [facility] Start: 02-28-2024 End: 02-28-2024 Clinisync Result Encounter Generic External Data Provider [facility] Unsolicited Start: 02-28-2024 End: 02-28-2024 Clinisync Result Encounter Generic External Data Provider [facility] Unsolicited Start: 02-22-2024 End: 02-22-2024 ambulatory [facility] Start: 10-09-2023 Patient encounter procedure Generic Provider [facility] Start: 10-09-2023 End: 10-09-2023 ambulatory STEFANO RIVERA Not Available Start: 09-25-2023 End: 09-25-2023 ambulatory [facility] Start: [facility]13[facility]20[facility]: 06-06-2023 End: 06-06-2023 ambulatory [facility] Start: 05-08-2022 End: 05-09-2022 ambulatory NINOPHILLIP ROGERSANTOINEI Facility:H1 Start: 03-06-2022 ambulatory NINO KENANTOINEI Facility:H 1 Start: 01-23-2022 End: 01-24-2022 ambulatory [facility] Facility:[facility] Start: 11-02-2021 End: 11-03-2021 ambulatory SHANA MCCORMICK Facility:[facility] Start: 09-20-[address] STEFANO RIVERA [facility] ity:H1 Start: 09-15-2021 Evaluation and management of inpatient MD Stefano Rivera Work Phone: [facility] Start: 09-13-2021 End: 09-13-[address] STEFANO RIVERA Facility:[facility]1 Start: 09-12-2021 End: 09-12-[address] STEFANO RIVERA Facility:[facility] Start: 09-11-2021 End: 09-11-[address] STEFANO RIVERA Facility:[facility] Start: 07-13-2021 End: 07-14-2021 ambulatory MICHELLE MENDOZA Facility:[facility]1 Procedures Date Procedure Procedure Detail Performing Clinician Start: 05-02-2024 ALL BASIC METABOLIC PANEL Generic External Data Provider Start: 04-15-2024 ALL BASIC METABOLIC PANEL Generic External Data Provider Start: 02-28-2024 ALL BASIC METABOLIC PANEL Generic External Data Provider Start: 09-15-2021 SARS Antigen (LFIA) MD Stefano Rivera Work Phone: Start: 09-15-2021 CT of right hip MD Stefano Rivera Work Phone: Plan of Treatment Date Care Activity Detail Author Start: 10-08-2024 Medicare Annual Wellness (AWV) Medicare Annual Wellness (AWV) [facility] Start: 11-04-2023 Influenza vaccination Influenza Vaccine (#1) [facility] Start: 1941 Pneumococcal Vaccine: 65+ Years (1 of 2 - PCV) Pneumococcal Vaccine: 65+ Years (1 of 2 - PCV) [facility] Creatine kinase [Enzymatic activity/volume] in Serum or Plasma [facility] Work Phone: Immunizations Immunization Date Immunization Notes Care Provider [facility] 01-16-2023 influenza virus vacc ine, unspecified formulation Generic Provider [facility] Payers Date Payer Category Payer Medicare (Managed Care) [facility] MEDICARE [id number] 1958 Medicare [id number] 1958 Private Health Insurance [facility] [id number] 1958 Self-pay [id number] 1935 Unknown [id number] [id number]. 593 1936 Unknown [id number] [id number]. 593 1936 Unknown [id number] 2.16.840.1.965685.3.579.2. 593 1936 Unknown [id number] 2.16.840.1.134961.3.579.2. 593 1935 Unknown [id number] 2.16.840.1.136277.3.579.2. 593 1936 Unknown [id number] 2.16.840.1.573081.3.579.2. 593 1936 Unknown [id number] 2.16.840.1.835910.3.579.2. 593 1936 Unknown [id number] 2.16.840.1.611736.3.579.2. 593 1936 Unknown [id number] 2.16.840.1.206222.3.579.2. 593 1936 Unknown [id number] 2.16.840.1.370028.3.579.2. 1259 Medicare Medicare [id number] Self-pay Self Pay [id number] Unknown Gopal BC/SOMMER [id number] Social History Date Type Detail Facility Start: 09-15-2021 [facility] Start: 1935 Sex Assigned At Male F [facility] Start: 10-09-2023 Tobacco smoking stat us NHIS Never smoked tobacco [facility] Start: 10-09-2023 Tobacco use and exposure Smokeless tobacco non-user [facility] Start: 10-09-2023 History of Social function [facility] Start: 10-09-2023 Tobacco use panel [facility] Start: 1935 Sex assigned at Not on file [facility] Progress note 05-05-2024 Note Date & Type Note Facility 05-05-2024 Note [place] [facility] - [facility] Subjective Is here today for follow-up visit on chronic systolic heart failure, coronary artery disease, and atrial fibrillation 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 (CMS/HCC) Benign hypertension Persistent atrial fibrillation (CMS/HCC) Stage 3 chronic kidney disease (CMS/HCC) Atrial flutter (CMS/HCC) Coronary artery disease involving [place] coronary artery of [place] heart without angina pectoris Anemia, unspecified Carpal tunnel syndrome, unspecified upper limb Encounter for other specified aftercare Erectile dysfunction following simple prostatectomy Mixed hyperlipidemia Muscle weakness (generalized) Other abnormalities of gait and mobility History of myocardial infarction Chronic systolic heart failure (CMS/HCC) Hematoma of right hip Unable to ambulate Dyslipidemia Encounter for long-term (current) use of medications Ischemic cardiomyopathy Prediabetes Primary osteoarthritis of right knee Sinus congestion 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 He states that he feels very good. His shortness of breath is back to his baseline which is mild exertional dyspnea since he had the open heart surgery. Denies orthopnea or paroxysmal nocturnal dyspnea. He denies chest pain at rest or with exertion. He denies dizziness or palpitations or legs edema He has not been taking his Lasix because he feels good. Also he takes Toprol-XL only when his blood pressure is above 140 despite my instruction last time that he has to take it on daily basis. I explained to him in details that he has to take all his medications daily to help to improve his cardiac function 04/08/2024 Patient is here today for follow-up visit. He states that he continues to do well except having shortness of breath with exertion which she claims is chronic since he had the open heart surgery. He denies any chest pain at rest or with exertion. Denies orthopnea or paroxysmal nocturnal dyspnea or dizziness or palpitations. He reports occasional left lower extremity edema for which she takes Lasix. He has been taking Lasix only when he has left lower extremity edema and Toprol-XL only when his systolic blood pressure above 140. He reports that he exercises on a daily basis doing arm exercises and walking on treadmill and he feels shortness of breath only when he walks. He had his home blood pressure log with him and his blood pressure is always in the 130s to 140s over 80s to 90s 03/03/2024 The patient is here today for follow-up visit. He states that he has been doing well. Denies any chest pain or shortness of breath at rest or with exertion. Denies orthopnea or paroxysmal nocturnal dyspnea or dizziness or palpitations. He states that he diuresed very well therefore he stopped taking his Lasix. He lost about 10 pounds of weight 02/22/2024 patient has history of coronary artery disease and [...] Date Abnormal ECG Arrhythmia Atrial flutter (CMS/HCC) CHF (congestive heart failure) (CMS/HCC) Chronic kidney disease Coronary artery disease Heart valve disease Hyperlipidemia Hypertension Past Surgical History: Procedure Laterality Date ABLATION OF DYSRHYTHMIC FOCUS 12/29/2019 atrial flutter ablation CARDIAC CATHETERIZATION CARDIOVERSION CARPAL TUNNEL RELEASE CORONARY ARTERY BYPASS GRAFT TOTAL KNEE ARTHROPLASTY Family History Problem Relation Name Age of Onset Heart attack Other Social History Tobacco Use Smoking status: Former Types: Cigarettes Smokeless tobacco: Never Substance Use Topics Alcohol use: Not Currently Drug use: Never A (more content not included)... 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 He states that he continues to do well except having shortness of breath with exertion which she claims is chronic since he had the open heart surgery. He denies any chest pain at rest or with exertion. Denies orthopnea or paroxysmal nocturnal dyspnea or dizziness or palpitations. He reports occasional left lower extremity edema for which she takes Lasix. He has been taking Lasix only when he has left lower extremity edema and Toprol-XL only when his systolic blood pressure above 140. He reports that he exercises on a daily basis doing arm exercises and walking on treadmill and he feels shortness of breath only when he walks. He had his home blood pressure log with him and his blood pressure is always in the 130s to 140s over 80s to 90s 03/03/2024 The patient is here today for follow-up visit. He states that he has been doing well. Denies any chest pain or shortness of breath at rest or with exertion. Denies orthopnea or paroxysmal nocturnal dyspnea or dizziness or palpitations. He states that he diuresed very well therefore he stopped taking his Lasix. He lost about 10 pounds of weight 02/22/2024 patient has history of coronary artery disease and [...] Date Abnormal ECG Arrhythmia Atrial flutter (CMS/HCC) CHF (congestive heart failure) (CMS/HCC) Chronic kidney disease Coronary artery disease Heart valve disease Hyperlipidemia Hypertension Past Surgical History: Procedure [...] Reactions Penicillins Rash Medications Current Outpatient Medications: apixaban (Eliquis) 5 mg tablet, Take 1 tablet (5 mg) by mouth in the morning and at bedtime., Disp: 180 tablet, Rfl: 3 furosemide (Lasix) 20 mg tablet, Take 2 tablets for 3 days only. Then take 1 tablet daily in the morning. (Patient taking differently: Take 20 mg by mouth if needed.), Disp: 93 tablet, Rfl: 3 metoprolol succinate XL (Toprol-XL) 25 mg 24 hr tablet, Take 1 tablet (25 mg) by mouth once daily as directed. Do not crush or chew. (Patient taking differently: Take 25 mg by mouth if needed. Do not crush or chew.), Disp: 90 tablet, Rfl: 3 pantoprazole (more content not included)... [facility] Progress note 03-03-2024 Note Date & Type Note Facility 03-03-2024 Note [place] [facility] - [facility] Subjective Is here today for follow-up visit on shortness of breath, tiredness, palpitation, and elevated blood pressure 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 (CMS/HCC) Benign hypertension Longstanding persistent atrial fibrillation (CMS/HCC) Stage 3 chronic kidney disease (CMS/HCC) Atrial flutter (CMS/HCC) Coronary artery disease involving [place] coronary artery of [place] heart without angina pectoris Anemia, unspecified Carpal [...] Primary osteoarthritis of right knee Sinus congestion Acute combined systolic and diastolic heart failure (CMS/HCC) Paroxysmal atrial fibrillation (CMS/HCC) HPI 03/03/2024 The patient is here today for follow-up visit. He states that he has been doing well. Denies any chest pain or shortness of breath at rest or with exertion. Denies orthopnea or paroxysmal nocturnal dyspnea or dizziness or palpitations. He states that he diuresed very well therefore he stopped taking his Lasix. He lost about 10 pounds of weight 02/22/2024 patient has history of coronary artery disease and [...] a day, Disp: 180 tablet, Rfl: 3 metoprolol succinate XL (Toprol-XL) 25 mg 24 hr tablet, Take 1 tablet (25 mg) by mouth once daily as directed. Do not crush or chew., Disp: 90 tablet, Rfl: 3 pantoprazole (ProtoNix) 40 mg EC tablet, Take 1 tablet (40 mg) by mouth in the morning. Do not crush, chew, or split., Disp: 90 tablet, Rfl: 3 rosuvastatin (Crestor) 10 mg tablet, Take 1 tablet (10 mg) by mouth every other day., Disp: 45 tablet, Rfl: 3 sacubitril-valsartan (Entresto) 24-26 mg tablet, Take 0.5 tablets by mouth two times daily., Disp: 90 tablet, Rfl: 3 furosemide (Lasix) 20 mg tablet, Take 2 tablets for 3 days only. Then take 1 tablet daily in the morning. (Patient not taking: Reported on 03/03/2024), Disp: 93 tablet, Rfl: 3 Objective Visit Vitals BP 140/84 (BP Location: Left arm, Patient Position: Sitting) Pulse 80 Ht 1.727 m (5' 8 ) Wt 79.8 kg (176 lb) SpO2 98% BMI 26.76 kg/m??? Smoking Status Former BSA 1.96 m??? Physical exam: GENERAL: alert and oriented x3, well developed, in no acute distress. HEAD: atraumatic, normocephalic. EYES: ELY, EOMI. NECK: trachea midline, no JVD present, no carotid bruits present. CARDIAC: Irregular irregularity, S1, S2 present. No murmur, rubs, or gallops. RESPIRATORY: CTAB, no increased effort of breathing, no rales, rhonchi, or wheezing. ABDOMEN: soft, nonten (more content not included)... 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 [facility] Progress note 09-25-2023 Note Date & [...] All other systems reviewed and are negative. [facility] Progress note 09-25-2023 Note Date & Type Note Facility 09-25-2023 Note Cardiovascular Medic [facility] SUBJECTIVE Chief Complaint Patient presents with Congestive [...] Atrial flutter (CMS/HCC) Coronary artery disease involving [place] coronary artery of [place] heart without angina pectoris Anemia, unspecified Carpal [...] Normal heart sounds (more content not included)... [facility] Progress note 06-06-2023 Note Date & Type Note Facility 06-06-2023 Note Cardiovascular Medic [facility] SUBJECTIVE Chief Complaint Patient [...] Atrial flutter (CMS/HCC) Coronary artery disease involving [place] coronary artery of [place] heart without angina pectoris Anemia, unspecified Carpal [...] Thought Content: Th (more content not included)... [facility] Clinical Note 01-23-2022 Note Date & Type Note Facility 01-23-2022 Note CARDIAC STRESS TEST Requesting Physician: Procedure Date:01/23/2022 This was a Lexiscan Stress Test with myocardial perfusion imaging, performed at the [facility]. Informed consent was obtained. Intravenous line [...] perfusion images will be reported separately. [facility] Evaluation note Note Date & Type Note Facility Evaluation note Diagnosis Onset Date Hematoma of right hip acute Unable to ambulate acute [facility] Work Phone: History and physical note Note Date & Type Note Facility History and physical note Note Date/Time September 15, 2021 6:33pm [facility] [address] [place] [address] Hospitalist H&P Signed Patient: Duke Matson MR#: [id number] : 1935 Acct:[id number] Age/Sex: 85 / M Adm Date: 2 Loc: 4N Room: 4X5386-0 Type : ADM INOo Attending Dr: Venus Manjarrez DO Copies to: MD Venus Giron, ~ HPI DATE OF EXAMINATION: 09/15/21 CHIEF COMPLAINT: Right hip pain HISTORY OF PRESENT ILLNESS: 85-year-old male with past medical history of coronary artery disease status post CABG, atrial fibrillation anticoagulated on Eliquis, hypertension presenting with right hip and gluteal pain. Patient had a mechanical fall on Sunday, was [facility]. He had continued pain and be presented to [facility] where he was admitted with overnight observation [...] get in the car and came to [facility] ED. He denies new sensory deficit or [...] % (Auto) 6.3 % (.) 09/15/21 17:07 Jennings % (Auto) 9.1 % (.) 09/15/21 17:07 Eos % (Auto) 0.0 % (.) 09/15/21 17:07 Baso % (Auto) 0.2 % (.) 09/15/21 17:07 Neut # (Auto) 8.1 x10E3/uL (1.8-7.7) H 09/15/21 17:07 Lymph # (Auto) 0.6 x10E3/uL (1.00-4.8) L 09/15/21 17:07 Jennings # (Auto) 0.9 x10E3/uL (0.0-0.8) H 09/15/21 [...] fall on Sunday and was seen at [facility] 2 times and discharged home with [...] appears similar to the last draw from [facility] -Given physical exam findings, rule out compartment syndrome of the right lower extremity. Orthopedics consult was requested and case was discussed with Dr. Bond states he will evaluate the patient in the a.m. and consider an MRI -Continue pain control with [place] and Dilaudid for breakthrough pain Permanent atrial fib -Not on rate control medications, continue Eliquis for now Hyperlipidemia: Continue statin Hypertension: Continue lisinopril CODE STATUS was confirmed in the ED as DNR Comfort Care arrest no intubation PT OT Case management consulted for placement Time Spent With Patient (min): 35 Documented By: Venus Manjarrez DO 09/15/219 Signed By: <Electronically signed by Venus Manjarrez DO> 09/15/21 [address] [facility] Work Phone: Summary Purpose Family History No [...] and content) DATE CREATED AUTHOR 11/16/2020 [facility] DATE CREATED AUTHOR AUTHOR'S ORGANIZ ATION 01/01/2021 [facility] DATE CREATED AUTHOR AUTHOR'S ORGANIZ ATION 09/28/2021 [facility] DATE CREATED AUTHOR AUTHOR'S ORGANIZ ATION 05/10/2022 [facility] DATE CREATED AUTHOR AUTHOR'S ORGANIZ ATION 10/11/2023 [facility] EPIC DATE CREATED AUTHOR AUTHOR'S ORGANIZ ATION 05/06/2024 [facility] Teams (unrecognized sec tion and content) Team Status: Active Member Role Status Dates Stefano Rivera MD Primary Care Provider Active Benjy Gates DO RES Active Percy Swan MD Emergency Provider Active Venus Manjarrez DO Admit Provider, Attending Provider Ac tive Team Status: Active Member Role Status Dates Stefano Rivera MD Primary Care Provider Active [employer] Relationship Specialty Start Date End Date Stefano Rivera MD [address] [place] [id number] PCP - General Family Medicine 10/02/23 Goals (unrecognized section and content) Goals may [...] BE BASED ON THE PRIMARY CLINICAL RECORDS. [facility] provides no warranty or guarantee of the accuracy or completeness of information in this document.
== END 2024-08-08 08:56 | disposition home or self-care (01) ==
LOC: CARD 08:56
PROVIDERS: PCP Family Medicine; Visit Provider Internal Medicine Cardiovascular Disease
DX: I50.22 Chronic systolic (congestive) heart failure (principal)
CPT/HCPCS: 93306; 93356

== ENCOUNTER 2024-09-18 08:53 | Outpatient (OUT) | payer MEDICARE, SELFPAY ==
--- OUTSIDE RECORDS SUMMARY | 2024-09-18 08:56 | XMS_ITS ---
Author Organization [facility] Care Team Providers Care Evaporator Supervisor Name Role Phone Ariel Pandey Unavailable Unavailable Jane Dawkins Unavailable Unavailable Allergies and adverse reactions Code CodeSystem Substance Reaction Severity StartDate Concern Status 7984 RXNORM Penicillin Moderate 09/19/2021 active Care Team Name Role Address Phone Organization Dates Ariel Dannie PCP [address], [place], [address], [place] (Office): : [facility] 09/19/2021 - 09/26/2021 Jane Dawkins [address], [place], [address], [place] (Office): : : [facility] 09/19/2021 - 09/26/2021 Mental Status Section Date Assessment Total Score Description 09/26/2021 BIMS 13 cognitively int act CAM 0 No delirium ind icated PHQ-9 00 09/26/2021 BIMS 13 cognitively int act CAM 0 No delirium ind icated PHQ-9 00 Problems Problem # Description Date of onset Resolved Date Code CodeSystem Concern Status 1 ANEMIA, UNSPECIFIED [address] active 2 CARPAL TUNNEL SYNDROME, UNSPECIFIED UPPER LIMB [address] active 3 ENCOUNTER FOR OTHER SPECIFIED AFTERCARE [address] active 4 ERECTILE DYSFUNCTION FOLLOWING SIMPLE PROSTATECTOMY [address] active 5 ESSENTIAL (PRIMARY) HYPERTENSION [address] active 6 HYPERLIPIDEMIA, UNSPECIFIED [address] active 7 MUSCLE WEAKNESS (GENERALIZED) [address] active 8 OTHER ABNORMALITIES OF GAIT AND MOBILITY [address] active 9 UNSPECIFIED ATRIAL FIBRILLATION [address] active Reason for Referral No Reasons for Referral Entered Social History Social History Observation Description Start Date End Date Code Code System Current Smoking Status Tobacco smoking consumption unknown 537828114 SNOMED CT Sex Assigned At Male 1935 67317-2 [facility] Gender Identity Vital Signs Code Code System Vitals Name Values and Units Timing Information 9279-1 [facility] Respiratory Rate Value=18.0 Units=/m in 09/26/2021 8462-4 [facility] Blood Pressure-Diastolic Value=70 Un its=mmHg 09/26/2021 8480-6 [facility] Blood Pressure-Systolic Cubff=157 Un its=mmHg 09/26/2021 8310-5 [facility] Body Temperature Value=97.8 Units= F 09/26/2021 8867-4 [facility] Heart rate Value=76.0 Units=/min 03593-5 [facility] Weight Rqjcx=961.0 Units=Lbs 8302-2 [facility] Height Value=69.0 Units=Inches 09/20/2021 27308-6 [facility] O2 % BldC Oximetry Value=98.0 Units= % 09/19/2021 74739-3 [facility] Pain Level Value=2.0 09/19/2021
--- OUTSIDE RECORDS SUMMARY | 2024-09-18 08:56 | XMS_ITS | Clinical Summary ---
Author Organization [facility] Address [address] [place] [address] Care Team Providers Care Metal Slitter Name Role Phone Stefano Castellanos MD Primary Care Provider Allergies Active Allergy Reactions Criticality Noted Date Comments Penicillins Rash Medium 09/15/2021 Medications apixaban (Eliquis) 5 MG tablet Take 1 tablet by mouth in the morning and 1 tablet before bedtime. Active rosuvastatin (Crestor) 10 MG tablet Take 1 tablet by mouth Daily Active Entresto 24-26 MG tablet Take 1 tablet by mouth in the morning and 1 tablet in the evening. 08/15/2022 Active pantoprazole (ProtoNix) 40 MG EC tablet Take 1 tablet by mouth in the morning. 12/13/2022 Active Active Problems Problem Noted Date Diagnosed Date Essential hypertension, benign 10/09/2023 Chronic systolic heart failure 10/09/2023 Assessment & Plan (10/09/2023 11:47 AM EDT): Stable and follow with cardiology. Dyslipidemia 10/09/2023 Ischemic cardiomyopathy 10/09/2023 Paroxysmal atrial fibrillation 10/09/2023 Assessment & Plan (10/09/2023 11:47 AM EDT): Stable and follow with cardiology. Primary osteoarthritis of right knee 10/09/2023 Sinus congestion 10/09/2023 Medicare annual wellness visit, subsequent 10/08 Assessment & Plan (10/09/2023 11:47 AM EDT): Due for labs. Discussed proper diet and regular aerobic exercise. Need aerobic exercise 5-6 days a week for 30 minutes at a time. Smaller portions and limit total calories. Tetanus every 10 years. Advised not to smoke. Discussed daily Aspirin therapy. Prediabetes 10/09/2023 Encounter for long-term (current) use of medicat ions 10/09/2023 Resolved Problems Problem Noted Date Diagnosed Date Resolved Date Coronary atherosclerosis of [place] coronary artery 10/09/2023 10/09/2023 Claudication, intermittent 10/09/2023 0 10/09/2023 Encounters Date Type Department Care Team Description 08/08/2024 Clinisync Result Encounter [facility] External Department Unsolicited Provider, Generic External Data from Last 3 Months Social History Tobacco Use Types Packs/Day Years Used Date Smoking Tobacco: Never Smokeless Tobacco: Never Tobacco Cessation:Counseling Given: Not Answered PHQ-2 Answer Date Recorded Patient Health Questionnaire-2 Score 0 10/09/2023 Sex and Gender Information Value Date Recorded Sex Assigned at Not on file Legal Sex Male 6:53 PM EDT Gender Identity Not on file Sexual Orientation Not on file Last Filed Vital Signs Vital Sign Reading Time Taken Comments Blood Pressure 130/70 10/09/2023 11:16 AM EDT Pulse 29 10/09/2023 11:16 AM EDT Temperature 36.4 C (97.5 F) 10/09/2023 11:16 AM EDT Respiratory Rate 18 10/09/2023 11:16 AM EDT Oxygen Saturation 98% 10/09/2023 11:16 AM EDT Inhaled Oxygen Concentration - - Weight 78.9 kg (174 lb) 10/09/2023 11:16 AM EDT Height 168.9 cm (5' 6.5 ) 10/09/2023 11:16 AM ED T Body Mass Index 27.66 10/09/2023 11:16 AM EDT Plan of Treatment Health Maintenance Due Date Last Done Comments Pneumococcal Vaccine: 65+ Ye ars (1 of 2 - PCV) 11/07/1954 Medicare Annual Wellness (AWV) 10/08/2024 10/09/2023 Influenza Vaccine (#1) 2024 3, 12/08/2020, 12/16/2019 Procedures Procedure Name Priority Date/Time Associated Diagnosis Comments CA ECHO DOPPLER COMPLETE 08/08/2024 5:42 PM EDT from Last 3 Months Results * CA ECHO DOPPLER COMPLETE (08/08/2024 5:42 PM EDT) Anatomical Region Laterality Modality Other 08/08/2024 5:42 PM EDT Narrative 08/08/2024 5:44 PM EDT [address] [address] Cardiology Report Signed Patient: CHAD MATSON MR#: [id number] : 1935 Acct:[id number] Age/Sex: 88 / M ADM Date: 08/08/24 Loc: CARD Attending Dr: Misael Pryor M.D. Ordering Physician: Misael Pryor M.D. Date of Service: 08/08/24 Procedure(s): CA echo doppler complete Accession Number(s): [id number] cc: Misael Pryor M.D.; Stefano Castellanos M.D. Patient Name: CHAD MATSON MR#: [id number] : 1935 Exam Date: 08/08/2024 Ordering Doctor: DR. MISAEL PRYOR M.D. ECHOCARDIOGRAM REPORT PROCEDURE: CA ECHO DOPPLER COMPLETE INDICATIONS: Chronic systolic heart failure, CABG COMPARISON: None. DESCRIPTION: COMPLETE ECHOCARDIOGRAM Real-time transthoracic echocardiography with 2D, M-mode, spectral and color flow Doppler performed. QUALITY: Technical quality was good. LEFT VENTRICLE: Normal chamber size. Severe concentric left ventricular hypertrophy. Systolic function is moderately reduced. Calculated left ventricular ejection fraction is 36%. Severely reduced longitudinal strain measurements. LV EF: Moderately reduced left ventricular ejection fraction, (35-40%). DIASTOLIC: ATRIAL SEPTUM: Visually appears intact. LEFT ATRIUM: Severe dilatation. RIGHT ATRIUM: Severe dilatation. RIGHT VENTRICLE: Moderate dilatation. The right ventricular wall appears hypertrophied. Moderately decreased right ventricular systolic function. TRICUSPID VALVE: Normal mobility and thickness. No stenosis with mild to moderate regurgitation. Doppler studies reveal mildly (35-45) elevated right sided pressures. RVSP 44 mmHg MITRAL VALVE: Mildly thickened with normal mobility. No evidence of mitral valve stenosis. There is no mitral annular calcification. Mild mitral regurgitation. AORTIC VALVE: Normal trileaflet appearance. No visible sclerosis. Normal leaflet mobility. No evidence of aortic valve stenosis. No aortic regurgitation. AORTIC ROOT: Normal diameter and appearance, measuring 3.4 cm. Ascending aorta is normal in size (3.6 cm). PULMONIC VALVE: Normal thickness and mobility. No stenosis. Mild regurgitation. PERICARDIUM: No evidence of pericardial effusion. IVC: IVC is dilated (2.8 cm), does not collapse. PLEURA: CONCLUSION: 1. Severe concentric left ventricular hypertrophy with moderately reduced systolic function. LVEF is estimated at 35 to 40%. 2. Moderately dilated right ventricle with moderately reduced systolic function. 3. Severe biatrial dilatation. 4. Mild mitral and pulmonic regurgitation. 5. Mild to moderate tricuspid regurgitation. 6. Mildly elevated right-sided pressures. RVSP is 44 mmHg. 7. Some echocardiographic features raise the suspicion of infiltrative myocardial disease such as cardiac amyloidosis. Adult Echocardiography Procedure Report Left Ventricle LVEDD (3.7 - 5.6 cm): 4.27 cm LVESD (2.2 - 4.0 cm): 3.91 cm LVIVS thickness (0.6 - 1.2 cm): 2.57 cm LVPW thickness (0.5 - 1.0 cm): 2.10 cm e': 0.05 m/s E - e': 10.46 LVOT Max Gradient: 1.17 mm[Hg] LVOT Area (cm2): 0.54 m/s Peak Velocity (LVOT): 0.54 m/s Mean Velocity (LVOT): 0.36 m/s LVOT Diameter 2.53 cm Left Atrium LA Volume Index (2D A2C): 60.97 ml/m2 Left Atrium Systolic Dimension: 5.71 cm Mitral Valve MV E to A Ratio: 2.57 Mitral Valve A-Wave Peak Velocity: 0.22 m/s Mitral Valve E-Wave Peak Velocity: 0.57 m/s Right Ventricle Aorta AO Root Diam: 3.42 cm Ascending Ao Diam: 3.59 cm Aortic Valve AoV Area (Peak Adelso): 3.55 cm2, 3.55 cm2 AoV Area (VTI): 3.83 cm2, 3.83 cm2 Peak Velocity(Antegrade Flow): 0.76 m/s Peak Gradient(Antegrade Flow): 2.32 mm[Hg] Mean Velocity(Antegrade Flow): 0.47 m/s Mean Gradient(Antegrade Flow): 1.09 mm[Hg] Velocity Time Integral: 14.00 cm Tricuspid Valve Peak Velocity (Regurgitant Flow): 2.50 m/s, 2.63 m/s, 2.69 m/s Pulmonic Valve Peak Velocity: 0.87 m/s Peak Gradient: 2.55 mm[Hg], 3.48 mm[Hg] Right Atrium Right Atrium Systolic Pressure: 107.27 ml, 107.27 ml Dictated by: Yenny Moseley M.D. on 08/08/2024 at 17:33 Approved by: Yenny Moseley M.D. on 08/08/2024 at 17:42 Dictated By: YENNY MOSELEY Signed By: 08/08/241743 DD/ 41 TD/TT: Stereoptician: Procedure Note Radiology, Radiologist, - 08/08/2024 [place] [address] Cardiology Report Signed Patient: CHAD MATSON CMR#: [id number] : 1935cct:[id number] Age/Sex: 88 / MADM Date: 08/08/24 Loc: CARD Attending Dr: Misael Pryor M.D. Ordering Physician: Misael Pryor M.D. Date of Service: 08/08/24 Procedure(s): CA echo doppler complete Accession Number(s): [id number] cc: Misael Pryor M.D.; Stefano Castellanos M.D. Patient Name: CHAD MATSON MR#: [id number] : 1935 Exam Date: 08/08/2024 Ordering Doctor: DR. MISAEL PRYOR M.D. ECHOCARDIOGRAM REPORT PROCEDURE: CA ECHO DOPPLER COMPLETE INDICATIONS: Chronic systolic heart failure, CABG COMPARISON: None. DESCRIPTION: COMPLETE ECHOCARDIOGRAM Real-time transthoracic echocardiography with 2D, M-mode, spectral and color flow Dopplerperformed. QUALITY: Technical quality was good. LEFT VENTRICLE: Normal chamber size. Severe concentric leftventricular hypertrophy. Systolic function is moderately reduced. Calculated left ventricular ejection fraction is 36%. Severely reduced longitudinalstrain measurements. LV EF: Moderately reduced left ventricular ejection fraction,(35-40%). DIASTOLIC: ATRIAL SEPTUM: Visually appears intact. LEFT ATRIUM: Severe dilatation. RIGHT ATRIUM: Severe dilatation. RIGHT VENTRICLE: Moderate dilatation. The right ventricular wallappears hypertrophied. Moderately decreased right ventricular systolic function. TRICUSPID VALVE: Normal mobility and thickness. No stenosis with mildto moderate regurgitation. Doppler studies reveal mildly (35-45) elevatedright sided pressures. RVSP 44 mmHg MITRAL VALVE: Mildly thickened with normal mobility. No evidence of mitral valve stenosis. There is no mitral annular calcification. Mildmitral regurgitation. AORTIC VALVE: Normal trileaflet appearance. No visible sclerosis.Normal leaflet mobility. No evidence of aortic valve stenosis. No aortic regurgitation. AORTIC ROOT: Normal diameter and appearance, measuring 3.4 cm.Ascending aorta is normal in size (3.6 cm). PULMONIC VALVE: Normal thickness and mobility. No stenosis. Mild regurgitation. PERICARDIUM: No evidence of pericardial effusion. IVC: IVC is dilated (2.8 cm), does not collapse. PLEURA: CONCLUSION: 1. Severe concentric left ventricular hypertrophy with moderately reduced systolic function. LVEF is estimated at 35 to 40%. 2. Moderately dilated right ventricle with moderately reduced systolic function. 3. Severe biatrial dilatation. 4. Mild mitral and pulmonic regurgitation. 5. Mild to moderate tricuspid regurgitation. 6. Mildly elevated right-sided pressures. RVSP is 44 mmHg. 7. Some echocardiographic features raise the suspicion of infiltrative myocardial disease such as cardiac amyloidosis. Adult Echocardiography Procedure Report Left Ventricle LVEDD (3.7 - 5.6 cm): 4.27 cm LVESD (2.2 - 4.0 cm): 3.91 cm LVIVS thickness (0.6 - 1.2 cm): 2.57 cm LVPW thickness (0.5 - 1.0 cm): 2.10 cm e': 0.05 m/s E - e': 10.46 LVOT Max Gradient: 1.17 mm[Hg] LVOT Area (cm2): 0.54 m/s Peak Velocity (LVOT): 0.54 m/s Mean Velocity (LVOT): 0.36 m/s LVOT Diameter 2.53 cm Left Atrium LA Volume Index (2D A2C): 60.97 ml/m2 Left Atrium Systolic Dimension: 5.71 cm Mitral Valve MV E to A Ratio: 2.57 Mitral Valve A-Wave Peak Velocity: 0.22 m/s Mitral Valve E-Wave Peak Velocity: 0.57 m/s Right Ventricle Aorta AO Root Diam: 3.42 cm Ascending Ao Diam: 3.59 cm Aortic Valve AoV Area (Peak Adelso): 3.55 cm2, 3.55 cm2 AoV Area (VTI): 3.83 cm2, 3.83 cm2 Peak Velocity(Antegrade Flow): 0.76 m/s Peak Gradient(Antegrade Flow): 2.32 mm[Hg] Mean Velocity(Antegrade Flow): 0.47 m/s Mean Gradient(Antegrade Flow): 1.09 mm[Hg] Velocity Time Integral: 14.00 cm Tricuspid Valve Peak Velocity (Regurgitant Flow): 2.50 m/s, 2.63 m/s, 2.69 m/s Pulmonic Valve Peak Velocity: 0.87 m/s Peak Gradient: 2.55 mm[Hg], 3.48 mm[Hg] Right Atrium Right Atrium Systolic Pressure: 107.27 ml, 107.27 ml Dictated by: Yenny Moseley M.D. on 08/08/2024 at 17:33 Approved by: Yenny Moseley M.D. on 08/08/2024 at 17:42 Dictated By: YENNY MOSELEY Signed By:08/08/241743 DD/ 41 TD/TT: Stereoptician: Generic External Data Provider [facility] Final Result from Last 3 Months Insurance [employer] MEDICARE Care Teams Metal Slitter Relationship Specialty Start Date End Date Stefano Castellanos MD [address] [place] [address] PCP - General Family Medicine 10/02/23
--- OUTSIDE RECORDS SUMMARY | 2024-09-18 08:56 | XMS_ITS | Clinical Summary ---
Author Organization [facility] Address [address] [place] [address] Care Team Providers Care Vascular Technologist Sonographer Name Role Phone Stefano Castellanos MD Primary Care Provider [phone] Allergies Active Allergy Reactions Criticality Noted Date Comments Penicillins Rash Low 01/02/2022 Medications rosuvastatin (Crestor) 10 mg tabletIndications :Coronary artery disease involving [place] coronary artery of [place] heart without angina pectoris Take 1 tablet (10 mg) by mouth every other day. 45 tablet 3 4 12/26/19 25 Active pantoprazole (ProtoNix) 40 mg EC tabletIndications :Coronary artery disease involving [place] coronary artery of [place] heart without angina pectoris Take 1 tablet (40 mg) by mouth in the morning. Do not crush, chew, or split. 90 tablet 3 4 Active sacubitril-valsar ibrahim (Entresto) 24-26 mg tabletIndications :Chronic systolic heart failure (CMS/HCC) Take 0.5 tablets by mouth two times daily. 90 tablet 3 4 02/20/20 25 Active apixaban (Eliquis) 5 mg tabletIndications :Paroxysmal atrial fibrillation (CMS/HCC) Take 1 tablet (5 mg) by mouth in the morning and at bedtime. 180 tablet 3 5 Active metoprolol succinate XL (Toprol-XL) 25 mg 24 hr tabletIndications :Chronic systolic heart failure (CMS/HCC) Take 1 tablet (25 mg) by mouth in the morning. Do not crush or chew. 5 05/06/19 26 Active dapagliflozin propanediol (Farxiga) 10 mgIndications:Chr onic systolic heart failure (CMS/HCC) Take 1 tablet (10 mg) by mouth in the morning. 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 Continue crestor- no beta crescencio r/t bradycardia Diuretic therapy- farxiga stopped r/t expense- currently euvolemic and only has 1 kidney with h/o CKD 3- D/w pt to call office for any concerns of water retention symptoms, weight gain, leg swelling, shortness of breath, orthopnea and he voiced understanding. Will order echocardiogram to assess cardiac function and EF for any improvement from noted EF 36% on 10/2021 Monitor daily weights, I&O, fluid restriction 1.5-2L/day, renal function and electrolytes- Coronary artery disease invo lving [place] coronary artery of [place] heart without angina pectoris 01/02/2022 Assessment & Plan (03/06/2022 5:05 PM EST): Coronary artery disease is stable -continue crestor Anemia, unspecified 09/19/2021 Carpal tunnel syndrome, unspecified upper limb 0 09/19/2021 Encounter for other specified aftercare 09/20/19 22 Erectile dysfunction following simple prostatect ja 09/19/2021 Mixed hyperlipidemia 09/19/2021 Assessment & Plan (10/02/2022 12:19 PM EDT): Lipid abnormalities are well controlled Continue LDL Reviewed lab results with pt Muscle weakness (generalized) 09/19/2021 Other abnormalities of gait and mobility 022 Abnormal gait 09/19/2021 Persistent atrial fibrillation 10/01/2020 Assessment & Plan (10/02/2022 12:25 PM EDT): [id number] Age, CAD, CHF, HTN Continue eliquis anticoagulation, denied any bleeding tendencies. Heart rate stable today Ischemic congestive cardiomyopathy 03/19/2019 Assessment & Plan (10/02/2022 12:20 PM EDT): As above Assessment & Plan (03/06/2022 5:06 PM EST): Congestive heart failure worsening likely due to a-flutter -continue lisinopril, recommend adding farxiga despite reluctance Benign hypertension 02/05/2019 Assessment & Plan (03/06/2022 5:05 PM EST): Hypertension is stable -continue lisinopril, recommending increase to 10mg daily Stage 3 chronic kidney disease 02/05/2019 Assessment & Plan (10/02/2022 12:34 PM EDT): Renal condition is stable, CR reviewed with pt History of myocardial infarction 02/05/2019 09/28/2022 Multiple vessel coronary artery disease 01/08/20 19 Assessment & Plan (10/02/2022 12:19 PM EDT): Coronary artery disease is stable without any concerning symptoms Continue GDMT- crestor, no ASA with eliquis anticoagulation and no beta crescencio r/t noted bradycardia on beta crescencio continue risk factor modifications- heart healthy diet, regular exercise as tolerated and continue all medications. Resolved Problems Problem Noted Date Diagnosed Date Resolved Date Paroxysmal atrial fibrillation 10/09/2023 03/06/2024 Atrial flutter 01/02/2022 05/05/2024 Assessment & Plan (03/06/2022 5:04 PM EST): -he is rate controlled -he would benefit from an ablation but does not want to proceed with any interventions at this time -continue eliqius -[id number]: 4 Encounters Date Type Department Care Team Description 08/20/2024 9:40 AM EDT Office Visit [address] [address] Keily Blakely CNP Abnormal echocardiogram (Primary Dx); Chronic systolic heart failure (CMS/HCC); Coronary artery disease involving [place] coronary artery of [place] heart without angina pectoris; Persistent atrial fibrillation (CMS/HCC); Dyslipidemia; Stage 3a chronic kidney disease (CMS/HCC); Benign hypertensive heart disease with heart failure (CMS/HCC); S/P CABG (coronary artery bypass graft); LVH (left ventricular hypertrophy) 08/20/[address] [address] Tata Berry MA 08/20/2024 Orders Only [address] [address] Felicia Asif MA Claudication (Primary Dx) 08/18/[address] [address] Tata Berry MA 08/17/2024 Orders Only [facility] [address] [place] [address] Ghanshyam Pryor MD Cardiac amyloidosis (CMS/HCC) (Primary Dx) from Last 3 Months Immunizations Immunization Administration Dates Next Due Influenza, High Dose Seasonal, Preservative Free 12/16/2019 Influenza, Seasonal, Quadrivalent, Adjuvanted Moderna 12 YR UP Vaccine BiValent Booster 2021 Family History Medical History Relation Name Comments Heart attack Other Relation Name Status Comments Father Mother Other Social History Tobacco Use Types Packs/Day Years Used Date Smoking Tobacco: Former Cigarettes Smokeless Tobacco: Never Tobacco Cessation:Counseling Given: Not Answered Alcohol Use Standard Drinks/Week Comments Not Currently 0 (1 standard drink = 0.6 oz pur e alcohol) [place] Safety & Environment Answer Date Rec orded Fear of Current or Ex-Partner Not on file Emotionally Abused Not on file 04/26/2023 Physically Abused Not on file 04/26/2023 Sexually Abused Not on file 04/26/2023 Physically or Sexually Abused Not on file Sex and Gender Information Value Date Recorded Sex Assigned at Male 09/28/2022 8:02 PM EDT Legal Sex Male 12:20 AM EDT Gender Identity Male 09/28/2022 8:02 PM EDT Sexual Orientation Heterosexual or Straight 09/03 8:02 PM EDT Last Filed Vital Signs Vital Sign Reading Time Taken Comments Blood Pressure 143/89 08/20/2024 9:42 AM EDT Pulse 76 08/20/2024 9:42 AM EDT Temperature 36.6 C (97.8 F) 02/10/2019 9:41 AM EST Respiratory Rate 11 06/06/2023 9:18 AM EDT Oxygen Saturation 97% 08/20/2024 9:42 AM EDT Inhaled Oxygen Concentration - - Weight 79.8 kg (176 lb) 08/20/2024 9:42 AM EDT Height 172.7 cm (5' 8 ) 08/20/2024 9:42 AM EDT Body Mass Index 26.76 08/20/2024 9:42 AM EDT Plan of Treatment Health Maintenance Due Date Last Done Comments Diabetes: Hemoglobin A1C 1935 Medicare Annual Wellness (AWV) 1935 Depression Screening 1947 Adult Tetanus 1958 Fall Risk Screening 2001 COVID-19 Vaccine ( season) 2024 01/02/2024, 12/21/2022, 11/16/2021, Additional history exists Influenza Vaccine (#1) 2024 , 01/16/2023, 12/08/2020, Additional history exists Zoster Vaccines Completed 02/19/2023, 10/17/2022 Pneumococcal Vaccine: 50+ Years Completed 07/03/2024, 12/13/2016 HIB Vaccines Aged Out No longer eligi ble based on patient's age to complete this topic HPV Vaccines Aged Out No longer eligi ble based on patient's age to complete this topic IPV Vaccines Aged Out No longer eligi ble based on patient's age to complete this topic Meningococcal B Vaccine Aged Out No l onger eligible based on patient's age to complete this topic Meningococcal Vaccine Aged Out No garth peri eligible based on patient's age to complete this topic Rotavirus Vaccines Aged Out No longer eligible based on patient's age to complete this topic Medical Devices Implanted Type Area Merchandise Clerk Device Identifier Shelf Expiration Date Model / Serial / Lot [id number] Reveal Linq [id number] Implanted:12/04 (Quantity not on file) Implantable Loop Recorder [id number] REVEAL LINQ / [id number] / Insurance [employer] MEDICARE Member Subscriber Plan / Payer (Ef fective 2022-Present) Name:Chad Matson Relation to Subscriber:Self Name:Chad Matson Payer ID:[id number] (NAIC) Type:Not on file Address: [place] [id number] Care Teams Vascular Technologist Sonographer Relationship Specialty Start Date End Date Stefano Castellanos MD [address] [place] [address] PCP - General 02/28/22
--- OUTSIDE RECORDS SUMMARY | 2024-09-18 08:56 | XMS_ITS | Encounter Summary ---
Author Organization [facility] Address [address] [place] [address] Care Team Providers Care Labor And Delivery Registered Nurse Name Role Phone Stefano Castellanos MD Primary Care Provider [phone] Encounter Details Date Type Department Care Team (Late st Contact Info) Description 03/12/2024 Clinisync Result Encounter [facility] External Department Unsolicited Provider, Generic External Data Social History Tobacco Use Types Packs/Day Years Used Date Smoking Tobacco: Never Smokeless Tobacco: Never PHQ-2 Answer Date Recorded Patient Health Questionnaire-2 Score 0 10/09/2023 Sex and Gender Information Value Date Recorded Sex Assigned at Not on file Legal Sex Male 6:53 PM EDT Gender Identity Not on file Sexual Orientation Not on file documented as of this encounter Plan of Treatment Not on file documented as of this encounter Procedures Procedure Name Priority Date/Time Associated Diagnosis Comments CA ECHO DOPPLER COMPLETE 03/12/2024 10:05 AM EST documented in this encounter Results * CA ECHO DOPPLER COMPLETE (03/12/2024 10:05 AM EST) Anatomical Region Laterality Modality Other 03/12/2024 10:0 5 AM EST Narrative 03/12/2024 10:06 AM EST The [address] [address] Cardiology Report Signed Patient: CHAD MATSON MR#: [id number] : 1935 Acct:[id number] Age/Sex: 88 / M ADM Date: 03/11/24 Loc: CARD Attending Dr: Ghanshyam Pryor M.D. Ordering Physician: Ghanshyam Pryor M.D. Date of Service: 03/11/24 Procedure(s): CA echo doppler complete Accession Number(s): [id number] cc: Ghanshyam Pryor M.D.; Stefano Castellanos M.D. Patient Name: CHAD MATSON MR#: [id number] : 1935 Exam Date: 03/11/2024 Ordering Doctor: DR. Ghanshyam Pryor M.D. ECHOCARDIOGRAM REPORT PROCEDURE: CA ECHO DOPPLER COMPLETE INDICATIONS: Congestive heart failure with low ejection fraction COMPARISON: None. DESCRIPTION: COMPLETE ECHOCARDIOGRAM Real-time transthoracic echocardiography with 2D, M-mode, spectral and color flow Doppler performed. QUALITY: Technical quality was good. LEFT VENTRICLE: Normal chamber size. Severe concentric left ventricular hypertrophy. LV EF: Global left ventricular systolic function is severely reduced; visually estimated ejection fraction is 20 to 25%. Calculated ejection fraction is 34%. Global hypokinesis. DIASTOLIC: Not adequately assessed due to heart rhythm. ATRIAL SEPTUM: Inadequately seen. LEFT ATRIUM: Severe dilatation. RIGHT ATRIUM: Severe dilatation. RIGHT VENTRICLE: Mild dilatation. Decreased right ventricular systolic function. TRICUSPID VALVE: Normal mobility and thickness. No stenosis with moderate regurgitation. No evidence of pulmonary hypertension. RVSP 32mmHg MITRAL VALVE: Normal mobility and thickness. No evidence of mitral valve stenosis. There is no mitral annular calcification. Moderate mitral regurgitation. AORTIC VALVE: Normal trileaflet appearance. No visible sclerosis. Normal leaflet mobility. No evidence of aortic valve stenosis. Trivial aortic regurgitation. AORTIC ROOT: Normal diameter and appearance. PULMONIC VALVE: Normal thickness and mobility. No stenosis. Mild regurgitation. PERICARDIUM: No evidence of pericardial effusion. IVC: Collapses with inspirations. Normal size. CONCLUSION: 1. Global left ventricular systolic function is severely reduced; visually estimated ejection fraction is 20 to 25% 2. The right ventricle is mildly dilated with reduced systolic function 3. Biatrial dilatation 4. Severe left ventricular hypertrophy 5. Moderate tricuspid regurgitation 6. Moderate mitral regurgitation 7. Mild pulmonic regurgitation Adult Echocardiography Procedure Report Left Ventricle LVEDD (3.7 - 5.6 cm): 4.47 cm LVESD (2.2 - 4.0 cm): 3.77 cm LVIVS thickness (0.6 - 1.2 cm): 1.95 cm LVPW thickness (0.5 - 1.0 cm): 2.10 cm e': 0.07 m/s E - e': 10.67 LVOT Max Gradient: 3.34 mm[Hg] LVOT Area (cm2): 0.91 m/s Peak Velocity (LVOT): 0.91 m/s Mean Velocity (LVOT): 0.66 m/s LVOT Diameter 2.15 cm Left Atrium LA Volume Index (2D A2C): 90.97 ml/m2 Left Atrium Systolic Dimension: 5.64 cm Mitral Valve Mitral Valve E-Wave Peak Velocity: 0.75 m/s Right Ventricle RV Internal Diastolic Dimension: 3.90 cm Aorta AO Root Diam: 3.26 cm Ascending Ao Diam: 3.42 cm Aortic Valve AoV Area (Peak Adelso): 3.32 cm2, 3.32 cm2 AoV Area (VTI): 3.06 cm2, 3.06 cm2 Peak Velocity(Antegrade Flow): 1.00 m/s Peak Gradient(Antegrade Flow): 3.97 mm[Hg] Mean Velocity(Antegrade Flow): 0.67 m/s Mean Gradient(Antegrade Flow): 2.14 mm[Hg] Velocity Time Integral: 19.29 cm Tricuspid Valve Peak Velocity (Regurgitant Flow): 2.71 m/s, 2.64 m/s, 2.47 m/s Pulmonic Valve Peak Velocity: 0.74 m/s Peak Gradient: 1.77 mm[Hg], 2.68 mm[Hg] Right Atrium Right Atrium Systolic Pressure: 97.03 ml, 97.03 ml Dictated by: Mirlande Uribe M.D. on 03/12/2024 at 09:59 Approved by: Mirlande Uribe M.D. on 03/12/2024 at 10:05 Dictated By: Mirlande Uribe M.D. Signed By: 03/12/24 1006 DD/ 1005 TD/TT: Health Sciences Department Chair: Procedure Note Radiology, Radiologist, MD - 03/12/2024 The [place] [id number] Cardiology Report Signed Patient: CHAD MATSON CMR#: [id number] : 7Acct:[id number] Age/Sex: 88 / MADM Date: 03/11/24 Loc: CARD Attending Dr: Ghanshyam Pryor M.D. Ordering Physician: Ghanshyam Pryro M.D. Date of Service: 03/11/24 Procedure(s): CA echo doppler complete Accession Number(s): [id number] cc: Ghanshyam Pryor M.D.; Stefano Castellanos M.D. Patient Name: CHAD MATSON MR#: [id number] : 1935 Exam Date: 03/11/2024 Ordering Doctor: DR. Ghanshyam Pryor M.D. ECHOCARDIOGRAM REPORT PROCEDURE: CA ECHO DOPPLER COMPLETE INDICATIONS: Congestive heart failure with low ejection fraction COMPARISON: None. DESCRIPTION: COMPLETE ECHOCARDIOGRAM Real-time transthoracic echocardiography with 2D, M-mode, spectral and color flow Dopplerperformed. QUALITY: Technical quality was good. LEFT VENTRICLE: Normal chamber size. Severe concentric leftventricular hypertrophy. LV EF: Global left ventricular systolic function is severely reduced; visually estimated ejection fraction is 20 to 25%. Calculated ejection fraction is 34%. Global hypokinesis. DIASTOLIC: Not adequately assessed due to heart rhythm. ATRIAL SEPTUM: Inadequately seen. LEFT ATRIUM: Severe dilatation. RIGHT ATRIUM: Severe dilatation. RIGHT VENTRICLE: Mild dilatation. Decreased right ventricular systolic function. TRICUSPID VALVE: Normal mobility and thickness. No stenosis withmoderate regurgitation. No evidence of pulmonary hypertension. RVSP 32mmHg MITRAL VALVE: Normal mobility and thickness. No evidence of mitralvalve stenosis. There is no mitral annular calcification. Moderate mitral regurgitation. AORTIC VALVE: Normal trileaflet appearance. No visible sclerosis.Normal leaflet mobility. No evidence of aortic valve stenosis. Trivial aortic regurgitation. AORTIC ROOT: Normal diameter and appearance. PULMONIC VALVE: Normal thickness and mobility. No stenosis. Mild regurgitation. PERICARDIUM: No evidence of pericardial effusion. IVC: Collapses with inspirations. Normal size. CONCLUSION: 1. Global left ventricular systolic function is severely reduced; visually estimated ejection fraction is 20 to 25% 2. The right ventricle is mildly dilated with reduced systolic function 3. Biatrial dilatation 4. Severe left ventricular hypertrophy 5. Moderate tricuspid regurgitation 6. Moderate mitral regurgitation 7. Mild pulmonic regurgitation Adult Echocardiography Procedure Report Left Ventricle LVEDD (3.7 - 5.6 cm): 4.47 cm LVESD (2.2 - 4.0 cm): 3.77 cm LVIVS thickness (0.6 - 1.2 cm): 1.95 cm LVPW thickness (0.5 - 1.0 cm): 2.10 cm e': 0.07 m/s E - e': 10.67 LVOT Max Gradient: 3.34 mm[Hg] LVOT Area (cm2): 0.91 m/s Peak Velocity (LVOT): 0.91 m/s Mean Velocity (LVOT): 0.66 m/s LVOT Diameter 2.15 cm Left Atrium LA Volume Index (2D A2C): 90.97 ml/m2 Left Atrium Systolic Dimension: 5.64 cm Mitral Valve Mitral Valve E-Wave Peak Velocity: 0.75 m/s Right Ventricle RV Internal Diastolic Dimension: 3.90 cm Aorta AO Root Diam: 3.26 cm Ascending Ao Diam: 3.42 cm Aortic Valve AoV Area (Peak Adelso): 3.32 cm2, 3.32 cm2 AoV Area (VTI): 3.06 cm2, 3.06 cm2 Peak Velocity(Antegrade Flow): 1.00 m/s Peak Gradient(Antegrade Flow): 3.97 mm[Hg] Mean Velocity(Antegrade Flow): 0.67 m/s Mean Gradient(Antegrade Flow): 2.14 mm[Hg] Velocity Time Integral: 19.29 cm Tricuspid Valve Peak Velocity (Regurgitant Flow): 2.71 m/s, 2.64 m/s, 2.47 m/s Pulmonic Valve Peak Velocity: 0.74 m/s Peak Gradient: 1.77 mm[Hg], 2.68 mm[Hg] Right Atrium Right Atrium Systolic Pressure: 97.03 ml, 97.03 ml Dictated by: Mirlande Uribe M.D. on 03/12/2024 at 09:59 Approved by: Mirlande Uribe M.D. on 03/12/2024 at 10:05 Dictated By: Mirlande Uribe M.D. Signed By:03/12/246 DD/ 04 TD/TT: Health Sciences Department Chair: us Generic External Data Provider [facility] Final Result documented in this encounter Visit Diagnoses Not on filedocumented in this encounter Additional Health Concerns Assessment Noted Time PHQ-9 Depression Total Score: 5 10/09/19 24 11:00 AM EDT documented as of this encounter Care Teams Labor And Delivery Registered Nurse Relationship Specialty Start Date End Date Stefano Castellanos MD [address] [place] [address] PCP - General Family Medicine 10/02/23 documented as of this encounter
--- NOTE | 2024-09-18 09:00 | CA_ITS ---
[facility] Test Date: 2024-09-18 Pat Name: DUKE ESCOBAR Department: Room: - Gender: Male Applications Sales Representative: KIMBERLY SARKAR : 1935 Requested By: Keily Blakely Order Number: [id number] Reading MD: YENNY XAVIER M.D. Interpretive Statements Summary of the findings: Right leg: MASON= 1.09; TBI= 0.56. Doppler waveforms demonstrate biphasic flow at the posterior tibial and dorsalis pedis arteries. Left leg: MASON= 1.11; TBI= 0.74. Doppler waveforms demonstrate multiphasic flow at the posterior tibial artery, and biphasic flow at the dorsalis pedis artery. Segmental pressures: Segmental pressures show calcified left femoral artery. Pulse volume recordings: PVRs at the high thigh, below knee, and ankle levels show normal waveforms. Conclusion: Right and left ankle-brachial indices are suggestive of normal overall arterial flow at rest. Toe-brachial indices are suggestive of possible right sided PAD. Segmental pressures show no significant segmental disease. Pulse volume recordings indicate good overall resting arterial flow. The study shows no evidence of significant PAD with normal overall arterial flow at rest. Electronically Signed On 09-21-2024 16:12:06 EDT by YENNY XAVIER M.D.
== END 2024-09-18 08:54 | disposition home or self-care (01) ==
PROVIDERS: PCP Family Medicine; Visit Provider Nurse Practitioner Family
DX: I73.9 Peripheral vascular disease, unspecified (principal)
CPT/HCPCS: 93923

== ENCOUNTER 2024-11-21 08:18 | Outpatient (OUT) | payer MEDICARE, SELFPAY ==
--- OUTSIDE RECORDS SUMMARY | 2024-11-21 08:27 | XMS_ITS | CCD ---
Author Organization [facility] Care Team Providers Care Supervisor Fusing Room Name Role Phone MD Stefano Rivera Primary Care Provider [phone] MD Percy Swan Emergency Provider DO Venus Manjarrez Admit Provider DO Venus Manjarrez Attending Provider SHANA MCCORMICK Admitting Unavailable SHANA MCCORMICK Attending Unavailable KAYLEENERELawrence, DR STEFANO Love Primary Care Unavailable SHANA MCCORMICK Consulting Unavailable MICHELLE BLAKELY Admitting Unavailable MICHELLE BLAKELY Attending Unavailable NADERER, DR STEFANO Love Primary Care Unavailable ZIEBLISA, DR PRISCILA Bravo Consulting Unavailable MICHELLE BLAKELY Consulting Unavailable NINO POWELL Admitting Unavailable NINO POWELL Attending Unavailable NADERER, DR STEFANO Love Primary Care Unavailable SHERRY NINO Consulting Unavailable NADERER, DR STEFANO Love Admitting [...] DR STEFANO RIVERA Primary Care Unavailable MICHELLE BLAKELY Admitting Unavailable MICHELLE BLAKELY Attending Unavailable DR STEFANO RIVERA Primary Care Unavailable MICHELLE BLAKELY Consulting Unavailable STEFANO RIVERA Attending Unavailable Stefano Rivera MD Primary Care Provider [phone] MISAEL GARCIA Attending Unavailable MICHELLE BLAKELY Attending Unavailable MISAEL GARCIA Attending Unavailable MISAEL GARCIA Attending Unavailable MISAEL GARCIA Attending Unavailable MISAEL GARCIA Attending Unavailable Allergies Allergy Classification Reported Allergen(s) Allergy Type Date of Onset Reaction(s) Facility (9 sources) Penicillins; Translations: [Penicillins] Allergy to substance 10-20-2013 [facility] Medications Current Medications Medication Drug Class(es) Dates Sig (Normalized) Sig (Original) apixaban 5 mg oral tablet (6 sources) Factor Xa Inhibitor Start: 09-15-2021 take [...] pantoprazole 40 mg delayed release oral tablet (5 sources) Proton Pump Inhibitor Start: 12-13-2022 take 1 tablet by mouth in the morning pantoprazole (ProtoNix) 40 MG EC tablet Take 1 tablet by mouth in the morning. 12/13/2022 Active Propoxyphene N-Acetaminophen (Darvocet-N 50) 50-325 mg Tablet (1 source) Start: 09-15-2021 Propoxyphene N-Acetaminophen (Darvocet-N 50) 50-325 mg Tablet Active 1 TAB PO Q6H September 15, 2021 2:08pm rosuvastatin calcium 20 mg oral tablet (6 sources) HMG-CoA Reductase Inhibitor Start: 09-15-2021 take 1 tablet by mouth once daily Rosuvastatin (Crestor) 20 mg Tablet Active 20 MG PO Daily September 15, 2021 2:08pm take 1 tablet by mouth once talib y rosuvastatin (Crestor) 10 MG tablet Take 1 tablet by mouth Daily Active sacubitril 24 mg / valsartan 26 mg oral tablet (5 sources) Angiotensin 2 Receptor Crescencio Start: 08-15-2022 [...] UNSPECIFIED] Onset: 09-14-2021 Chronic Chronic kidney disease (5 sources) Chronic kidney disease; Translations: [CHRONIC KIDNEY DISEASE STAGE 3A] Onset: 09-14-2021 Congestive heart failure; nonhypertensive (12 sources) Acute on chronic combined systolic (congestive) and diastolic (congestive) heart failure; Translations: [Chronic systolic heart failure] Onset: 01-25-2022 10-09-2023 Chronic Coronary atherosclerosis and other heart disease (20 sources) Atherosclerotic heart disease of [place] coronary artery without angina pectoris; Translations: [Ischemic cardiomyopathy] Onset: 09-14-2021 Resolved: 10-09-2023 Chronic Coronary atherosclerosis and other heart disease (2 sources) Presence of aortocoronary bypass graft; Translations: [Presence of aortocoronary bypass graft] Onset: 04-08-2024 Episodic Disorders of lipid metabolism (11 sources) Dyslipidemia; Translations: [Hyperlipidemia, unspecified] Onset: 10-09-2023 10-09-2023 Chronic Essential hypertension (12 sources) Essential (primary) hypertension; Translations: [Benign essential hypertension] Onset: 07-19-2021 Chronic Heart valve disorders (1 source) Rheumatic disorders of both mitral and tricuspid valves; Translations: [RHEUMATIC D/O MITRAL TRICUSPID VALV] Onset: 11-04-2021 Chronic Osteoarthritis (7 sources) Bilateral primary osteoarthritis of hip; Translations: [Unilateral primary osteoarthritis, right hip] Onset: 09-14-2021 10-09-2023 Chronic Other and ill-defined heart disease (2 sources) Cardiomegaly; Translations: [Cardiomegaly] Onset: 08-20-2024 Chronic Other nervous system disorders (1 source) Unable to walk; Translations: [Difficulty in walking, not elsewhere classified] 09-15-2021 Chronic Other nervous system disorders (1 source) Difficulty in walking, not elsewhere classified; Translations: [Difficulty in walking] Chronic Anitha-; endo-; and myocarditis; cardiomyopathy (except that caused by tuberculosis or sexually transmitted disease) (2 sources) Endocarditis, valve unspecified; Translations: [Endocarditis, valve unspecified] Onset: 04-08-2024 Chronic Unclassified (1 source) CONTACT W/AND (SUSP) [...] HISTORY OF URINARY CALCULI] Onset: 09-14-2021 Episodic Diabetes mellitus without complication (5 sources) Prediabetes; Translations: [Prediabetes] Onset: 10-09-2023 10-09-2023 Episodic E Codes: Fall (1 source) Unspecified fall, initial encounter; Translations: [UNSPECIFIED FALL INITIAL ENCOUNTER] Onset: 09-14-2021 Episodic Mood disorders (5 sources) Mood disorders Onset: 10-09-2023 10-09-2023 Other aftercare (1 source) Other care home (current) drug therapy; Translations: [OTH LINES TENDER CURRENT DRUG THERAPY] Onset: 09-14-2021 Episodic Other aftercare (1 source) exterminator helper (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) use of anticoagulants; Translations: [LINES TENDER CURRNT USE ANTICOAGULANTS] Onset: 09-14-2021 Episodic Other aftercare (5 sources) Long-term current use of drug therapy; Translations: [Other care home (current) drug therapy] Onset: 10-09-2023 10-09-2023 Episodic Other injuries and conditions due to external causes (1 source) History of falling; Translations: [HISTORY OF FALLING] Onset: 09-14-2021 Episodic Other non-traumatic joint disorders (4 sources) Pain in right hip; Translations: [PAIN IN RIGHT HIP] Onset: 09-12-2021 Episodic Other upper respiratory disease (5 sources) Congestion of nasal sinus; Translations: [Nasal congestion] Onset: 10-09-2023 10-09-2023 Episodic Peripheral and visceral atherosclerosis (5 sources) Intermittent claudication; Translations: [Peripheral vascular disease, unspecified] Onset: 10-09-2023 Resolved: 10-09-2023 10-09-2023 Chronic Residual codes; unclassified (2 sources) Edema; Translations: [Edema] Onset: 03-03-2024 Episodic Superficial injury; contusion (3 sources) Hematoma of right hip region; Translations: [Contusion of right hip, initial encounter] Onset: 09-14-2021 09-15-2021 Episodic Results Test Name Value Interpretation Reference Range Facility Office Visiton 11-14-2024 Follow-up visit [id number] [facility] 1935 M Date Provider Department Center 11/14/2024 MISAEL AMADOR [facility] Family History Problem Relation Age of Onset Heart attack Other Family Status - Relation Status Age at Mother Father Other Level of Service:66736 NC OFFICE/OUTPATIENT ESTABLISHED MOD MDM 30 MIN Reason for Visit and Comments: Follow-up [775532] - Patient is here per Juliann Blakely CNP to discuss Amyloid testing Multiple vessel coronary artery disease [Other] Ischemic congestive cardiomyopathy [Other] Hypertension [063665] Atrial Fibrillation [80] Coronary Artery Disease [187] Hyperlipidemia [182] Congestive Heart Failure [127] Valve Disorder [3372] LVH [Other] Stage 3 kindney disease [Other] Cardiomyopathy [104] - Previous NM [Other] Normal [facility] Orders Onlyon 11-14-2024 Orders Only [id number] [facility] Matson 1935 M Date Provider Department Center 11/14/2024 895-YESSENIA MENJIVAR [facility] Family History Problem Relation Age of Onset Heart attack Other Family Status - Relation Status Age at Mother Father Other [facility] 36on 10-08-2024 37 Per the patient he h as not had the amyloid testing. Michelle Blakely CNP to Tata Berry MA (Selected Message) [place] 09/25/24 5:25 PM Note Please let him know his MASON's were normal. Please follow-up with him regarding amyloid testing. Thanks! Per the patient he has not had the amyloid testing. Advised patient his MASON's were normal per Juliann Blakely. Me to Michelle Blakely CNP [place] 10/10/24 1:48 PM Spoke to patient, patient states at this time he doesn't think he is interested in doing the test. Patient states he will speak with Dr. Garcia about this at his appointment in November. Michelle Blakely CNP to [place] (Selected Message) [place] 10/09/24 4:25 PM Is he willing to come to [place] to have it done? Me to Michelle Blakely CNP [place] 10/08/24 2:36 PM Per the patient he has not had the amyloid testing. View older events [facility] Telephoneon 10-08-2024 Telephone [id number] [facility] Matson 1935 M Date Provider Department Center 10/08/2024 [id number] GARRETT [facility] Family History Problem Relation Age of Onset Heart attack Other Family Status - Relation Status Age at Mother Father Other [facility] Orders Onlyon 09-22-2024 Orders Only [id number] [facility]son 1935 M Date Provider Department Center 09/22/2024 [id number], HISTORICAL TOSHIA [facility] Family History Problem Relation Age of Onset Heart attack Other Family Status - Relation Status Age at Mother Father Other [facility] SEGMENTAL BLOOD PRESSUREon 0 09-21-2024 [facility] [address] [place] [address] Cardiology Report Signed Patient: DUKE MATSON MR#: [id number] : 1935 Acct:[id number] Age/Sex: 88 / M ADM Date: 09/18/24 Loc: CARD Attending Dr: MICHELLE BLAKELY APRN Ordering Physician: MICHELLE BLAKELY APRN Date of Service: 09/18/24 Procedure(s): CA segmental UE or LE VERENA Accession Number(s): [id number] cc: Stefano Rivera M.D.; MICHELLE BLAKELY APRN [facility] Test Date: 2024-09-18 Pat Name: DUKE MATSON Department: Room: - Gender: Male Enterprise Resource Planning Consultant: KIMBERLY SARKAR : 1935 Requested By: Michelle Blakely Order Number: [id number] Reading MD: YENNY XAVIER M.D. Interpretive Statements Summary of the findings: Right leg: MASON= 1.09; TBI= 0.56. Doppler waveforms demonstrate biphasic flow at the posterior tibial and dorsalis pedis arteries. Left leg: MASON= 1.11; TBI= 0.74. Doppler waveforms demonstrate multiphasic flow at the posterior tibial artery, and biphasic flow at the dorsalis pedis artery. Segmental pressures: Segmental pressures show calcified left femoral artery. Pulse volume recordings: PVRs at the high thigh, below knee, and ankle levels show normal waveforms. Conclusion: Right and left ankle-brachial indices are suggestive of normal overall arterial flow at rest. Toe-brachial indices are suggestive of possible right sided PAD. Segmental pressures show no significant segmental disease. Pulse volume recordings indicate good overall resting arterial flow. The study shows no evidence of significant PAD with normal overall arterial flow at rest. Electronically Signed On 09-21-2024 16:12:06 EDT by YENNY XAVIER M.D. Dictated By: YENNY XAVIER Signed By: 09/21/24 1612 09/21/24 1612 DD/ 1000 TD/TT: Gift Shop Manager: [facility] Radiology, Radiologist, MD - 09/21/[address] [address] Cardiology Report Signed Patient: DUKE MATSON MR#: [id number] : 1935 Acct:[id number] Age/Sex: 88 / M ADM Date: 09/18/24 Loc: CARD Attending Dr: MICHELLE BLAKELY APRN Ordering Physician: MICHELLE BLAKELY APRN Date of Service: 09/18/24 Procedure(s): CA segmental UE or LE VERENA Accession Number(s): [id number] cc: Stefano Rivera M.D.; MICHELLE BLAKELY APRN [facility] Test Date: 2024-09-18 Pat Name: DUKE MATSON Department: Room: - Gender: Male Enterprise Resource Planning Consultant: KIMBERLY SARKAR : 1935 Requested By: Michelle Blakely Order Number: [id number] Reading MD: YENNY XAVIER M.D. Interpretive Statements Summary of the findings: Right leg: MASON= 1.09; TBI= 0.56. Doppler waveforms demonstrate biphasic flow at the posterior tibial and dorsalis pedis arteries. Left leg: MASON= 1.11; TBI= 0.74. Doppler waveforms demonstrate multiphasic flow at the posterior tibial artery, and biphasic flow at the dorsalis pedis artery. Segmental pressures: Segmental pressures show calcified left femoral artery. Pulse volume recordings: PVRs at the high thigh, below knee, and ankle levels show normal waveforms. Conclusion: Right and left ankle-brachial indices are suggestive of normal overall arterial flow at rest. Toe-brachial indices are suggestive of possible right sided PAD. Segmental pressures show no significant segmental disease. Pulse volume recordings indicate good overall resting arterial flow. The study shows no evidence of significant PAD with normal overall arterial flow at rest. Electronically Signed On 09-21-2024 16:12:06 EDT by YENNY XAVIER M.D. Dictated By: YENNY XAVIER Signed By: 09/21/24 1612 09/21/24 1612 DD/ 1000 TD/TT: Gift Shop Manager: [facility] SEGMENTAL BLOOD PRESSUREOrde red By: Radiologist Radiology on 09-21-2024 [facility] [employer] Work Phone: SEGMENTAL BLOOD PRESSUREon 0 09-18-2024 Radiology Study observation (narrative) [facility] 36on 08-20-2024 36 Called patient to gi ve him info about [employer] for transportation to [facility] for amyloid testing. He would prefer to wait until after he has result of MASON's first. Advised patient we'd call him with results and can rediscuss amyloid testing at that time. The number for [employer] is [phone]. He verbalized understanding. [facility] Office Visiton 08-20-2024 Follow-up visit [id number] Duke Matson 1935 Date Provider Department Center 08/20/2024 MICHELLE PARKER Family History Problem Relation Age of Onset Heart attack Other Family Status - Relation Status Age at Mother Father Other Level of Service:61329 NC OFFICE/OUTPATIENT ESTABLISHED MOD MDM 30 MIN Reason for Visit and Comments: Coronary Artery Disease [187] Congestive Heart Failure [127] Atrial Fibrillation [80] [facility] 36on 08-19-2024 36 Tried to contact patient. His home number does not have a voicemail. His cell number does not have a voicemail set up either. Will try again tomorrow. [facility] 36on 08-18-2024 36 Regarding echo performed on 08/08/2024: MD Tata Kumar MA Inform patient that his ejection fraction has improved but not totally back to normal. There was suggestion of possible amyloidosis which is an infiltrative disease, I recommend to obtain PYP amyloid nuclear images to be performed at [facility] Telephoneon 08-18-2024 Telephone [id number] Duke Matson 1935 Date Provider Department Center 08/18/2024 TATA JOHN Family History Problem Relation Age of Onset Heart attack Other Family Status - Relation Status Age at Other [facility] Orders Onlyon 08-17-2024 Orders Only [id number] Duke Matson 1935 Date Provider Department Center 08/17/2024 [id number] AVINAAR CARD Sabrina Pepper Family History Problem Relation Age of Onset Heart attack Other Family Status - Relation Status Age at Other Normal [facility] CA ECHO DOPPLER COMPLETEon 0 08-08-[address] [address] Cardiology Report Signed Patient: DUKE MATSON MR#: [id number] : 1935 Acct:[id number] Age/Sex: 88 / M ADM Date: 08/08/24 Loc: CARD Attending Dr: Misael Garcia M.D. Ordering Physician: Misael Garcia M.D. Date of Service: 08/08/24 Procedure(s): CA echo doppler complete Accession Number(s): [id number] cc: Misael Garcia M.D.; Stefano Rivera M.D. Patient Name: DUKE MATSON MR#: [id number] : 1935 Exam Date: 08/08/2024 Ordering Doctor: DR. MISAEL GARCIA M.D. ECHOCARDIOGRAM REPORT PROCEDURE: CA ECHO DOPPLER [...] 2.50 m/s, 2.63 m/s, 2.69 m/s Pulmonic (more content not included)... [facility] Radiology, Radiologist, - 08/08/2024 [place] [address] Cardiology Report Signed Patient: DUKE MATSON MR#: [id number] : 1935 Acct:[id number] Age/Sex: 88 / M ADM Date: 08/08/24 Loc: CARD Attending Dr: Misael Garcia M.D. Ordering Physician: Misael Garcia M.D. Date of Service: 08/08/24 Procedure(s): CA echo doppler complete Accession Number(s): [id number] cc: Misael Garcia M.D.; Stefano Rivera M.D. Patient Name: DUKE MATSON MR#: [id number] : 1935 Exam Date: 08/08/2024 Ordering Doctor: DR. MISAEL GARCIA M.D. ECHOCARDIOGRAM REPORT PROCEDURE: CA ECHO DOPPLER [...] 107.27 ml, 107.27 ml Dictated by: Yenny Xavier M.D. on 08/08/2024 at 17:33 Approved by: Yenny Xavier M.D. on 08/08/2024 at 17:42 Dictated By: YENNY XAVIER Signed By: 08/08/241743 DD/ 41 TD/TT: Gift Shop Manager: [facility] Radiology Study observation (narrative) [facility] CA ECHO DOPPLER COMPLETEOrde red By: Radiologist Radiology on 08-08-2024 [facility] Work Phone: Office Visiton 05-05-2024 Follow-up visit [id number] Duke Matson 1935 M Date Provider Department Center 05/05/2024 [id number]-RUNNRSMISAEL GARCIA [facility] Family History Problem Relation Age of Onset Heart attack Other Family Status - Relation Status Age at Other Level of Service:73621 NC OFFICE/OUTPATIENT ESTABLISHED MOD [facility] 30 MIN Reason for Visit and Comments: Congestive Heart Failure [127] - He had repeat labs last week. Only taking lasix PRN, which has only been on 1 occasion. Valve Disorder [3372] Cardiomyopathy [104] Atrial Fibrillation [80] - Denies bleeding on Eliquis. Normal [facility] ALL BASIC METABOLIC PANELon 05-02-2024 Anion gap [Moles/Vol] 13.7 mmol/L [facility] Calcium [Mass/Vol] 9.8 mg/dL 8.5 - 10. 1 mg/dL [facility] Chloride [Moles/Vol] 107 mmol/L 98 - 10 7 mmol/L [facility] CO2 [Moles/Vol] 26 mmol/L 21.0 - 32.0 mmol/L [facility] Creatinine [Mass/Vol] 1.47 mg/dL High 0.70 - 1.30 mg/dL [facility] GFR/1.73 sq M.predicted CKD-EPI (S/P/Bld) [Vol rate/Area] 55 Low >=60 mL/min/1.73m 2 [facility] Glucose [Mass/Vol] 105 mg/dL 74 - 106 mg/dL [facility] Interpretation and review of laboratory results Abnormal [facility] Potassium [Moles/Vol] 4.7 mmol/L 3.5 - 5.1 mmol/L [facility] Sodium [Moles/Vol] 142 mmol/L 136 - 145 mmol/L [facility] EGFR-NON AF [place]IZ[place] 45 Low >=60 mL/min/1.73m 2 [facility] Urea nitrogen [Mass/Vol] 43 mg/dL High 7.0 - 18.0 mg/dL [facility] Urea nitrogen/Creatinine [Mass ratio] 29.3 mg/mg [facility] 36on 04-18-2024 36 Regarding lab result s from 04/15/2024: MD Tata Kumar MA His creatinine is higher than before. For now continue to take Toprol-XL, Entresto, and Lasix on daily basis. Recheck BMP in 2 weeks. Spoke with patient. He will have repeat labs in 2 weeks. Order faxed to [facility] and also printed for him. Normal [facility] ALL BASIC METABOLIC PANELon 04-15-2024 Anion gap [Moles/Vol] 13.7 mmol/L [facility] Calcium [Mass/Vol] 9.5 mg/dL 8.5 - 10. 1 mg/dL [facility] Chloride [Moles/Vol] 106 mmol/L 98 - 10 7 mmol/L [facility] CO2 [Moles/Vol] 26.9 mmol/L 21.0 - 32.0 mmol/L [facility] Creatinine [Mass/Vol] 1.66 mg/dL High 0.70 - 1.30 mg/dL [facility] GFR/1.73 sq M.predicted CKD-EPI (S/P/Bld) [Vol rate/Area] 48 Low >=60 mL/min/1.73m 2 [facility] Glucose [Mass/Vol] 96 mg/dL 74 - 106 mg/dL [facility] Interpretation and review of laboratory results Abnormal [facility] Potassium [Moles/Vol] 4.6 mmol/L 3.5 - 5.1 mmol/L [facility] Sodium [Moles/Vol] 142 mmol/L 136 - 145 mmol/L [facility] EGFR-NON AF [place] 39 Low >=60 mL/min/1.73m 2 [facility] Urea nitrogen [Mass/Vol] 40 mg/dL High 7.0 - 18.0 mg/dL [facility] Urea nitrogen/Creatinine [Mass ratio] 24.1 mg/mg [facility] Healthcare Office Visiton 04-08-2024 Follow-up visit [id number] [facility] Matson 1935 M Date Provider Department Center 04/08/2024 MISAEL AMADOR Family History Problem Relation Age of Onset Heart attack Other Family Status - Relation Status Age at Other Level of Service:05579 NC OFFICE/OUTPATIENT ESTABLISHED MOD MDM 30 MIN Reason for Visit and Comments: Atrial Fibrillation [80] - Says he's only taking metoprolol PRN for SPB > 140, about 25% of the time he says. Coronary Artery Disease [187] Congestive Heart Failure [127] - Had echo last month. Valve Disorder [3372] Hyperlipidemia [182] Edema [[id number]] - Edema has been much better. Patient states he's getting back towards normal . Shortness of Breath [072955] [facility] 36on 03-27-2024 36 Regarding echo resul t from 03/11/2024: MD Tata Kumar MA Notify patient that his left ventricular systolic function appears to be weaker than it used to be therefore will obtain Lexiscan nuclear stress test to evaluate for ischemia. Please put an order for that make sure he has follow-up with me within 2 weeks of the stress test. Yessenia tried to call patient on 03/19: NO VM. I tried to call patient on 03/27: NO VM. I LM on his brother Arnulfo's VM. Normal [facility] Office Visiton 03-03-2024 Follow-up visit [id number] Duke Matson 1935 Date Provider Department Center 03/03/2024 [id number], SAMAR BH CARD [facility] Family History Problem Relation Age of Onset Heart attack Other Family Status - Relation Status Age at Other Level of Service:46159 NC OFFICE/OUTPATIENT ESTABLISHED MOD MDM 30 MIN Reason [...] [187] Hyperlipidemia [182] Valve Disorder [3372] Edema [[id number]] Normal [facility] ALL BASIC METABOLIC PANELon 02-28-2024 Anion gap [Moles/Vol] 10.6 mmol/L NO [facility] Calcium [Mass/Vol] 9.5 mg/dL 8.5 - 10. 1 mg/dL [facility] Chloride [Moles/Vol] 108 mmol/L High 98 - 10 7 mmol/L [facility] CO2 [Moles/Vol] 31.4 mmol/L 21.0 - 32.0 mmol/L [facility] Creatinine [Mass/Vol] 1.37 mg/dL High 0.70 - 1.30 mg/dL [facility] GFR/1.73 sq M.predicted CKD-EPI (S/P/Bld) [Vol rate/Area] 60 >=60 mL/min/1.73m 2 [facility] Glucose [Mass/Vol] 110 mg/dL High 74 - 106 mg/dL [facility] Interpretation and review of laboratory results Abnormal [facility] Potassium [Moles/Vol] 4 mmol/L 3.5 - 5.1 mmol/L [facility] Sodium [Moles/Vol] 146 mmol/L High 136 - 145 mmol/L [facility] EGFR-NON AF [place] 49 Low >=60 mL/min/1.73m 2 [facility] Urea nitrogen [Mass/Vol] 40 mg/dL High 7.0 - 18.0 mg/dL [facility] Urea nitrogen/Creatinine [Mass ratio] 29.2 mg/mg [facility] 36on 02-25-2024 36 Entresto RX faxed in. [facility] Pharm[facility] called needing a new scripted for patient Bruna. Patient stated he is taking 0.5mg twice a day, but the order says 4 times a month. Denise PRATHER Normal [facility] Office Visiton 02-22-2024 Follow-up visit [id number] Duke Matson 1935 M Date Provider Department Center 02/22/2024 [id number]-NFLTMQMISAEL GARCIA [facility] Family History Problem Relation Age of Onset Heart attack Other Family Status - Relation Status Age at Other Level of Service:03616 [place] OFFICE/OUTPATIENT ESTABLISHED MOD MDM 30 MIN Reason for Visit and Comments: Hypertension [013777] - Says BP has been higher than normal for him lately. Coronary Artery Disease [187] Congestive Heart Failure [127] Palpitations [] - Occasional palpitations Shortness of Breath [] - Says he can tell he's been having apneic episodes at night and wakes up and has to kick start his breathing again. Edema [[id number]] - He is up 14# since September 2023. Says he weighed 170# last week. Atrial Flutter [101] - Denies bleeding on Eliquis. Normal [facility] PROF CHEM 8 (BAS METB)on Anion gap [Moles/Vol] 13.7 mmol/L Normal [facility] Comment on above: Performed By: #### B MP #### [facility] [address] [address] [address] Brennan Crooks Calcium [Mass/Vol] 10.0 mg/dL Normal 8.5-10.1 [facility] Comment on above: Performed By: #### B MP #### [facility] [address] [address] [address] Brennan Crooks Chloride [Moles/Vol] 109 mmol/L Critically high 98-107 [facility] Comment on above: Performed By: #### B MP #### [facility] [address] [address] [address] Brennan Crooks CO2 [Moles/Vol] 24.9 mmol/L Normal 21.0-32.0 [facility] Comment on above: Performed By: #### B MP #### [facility] [address] [address] [address] Brennan Crooks Creatinine [Mass/Vol] 1.13 mg/dL Normal 0.70-1.30 [facility] Comment on above: Performed By: #### B MP #### [facility] [address] [address] [address] Brennan Crooks EGFR-AF [place]IZ[place] >60 Normal >=60 [facility] Comment on above: Performed By: #### B MP #### [facility] [address] [address] [address] Brennan Crooks EGFR-NON AF CITIZEN OF [place] >60 Normal >=60 [facility] Comment on above: Performed By: #### B MP #### [facility] [address] [place] [address] Dr. Brennan Crooks Glucose [Mass/Vol] 102 mg/dL Normal 74-106 [facility] Comment on above: Performed By: #### B MP #### [facility] [address] [place] [address] Dr. Brennan Crooks Potassium [Moles/Vol] 4.6 mmol/L Normal 3.5-5.1 [facility] Comment on above: Performed By: #### B MP #### [facility] [address] [place] [address] Dr. Brennan Crooks Sodium [Moles/Vol] 143 mmol/L Normal 136-145 [facility] Comment on above: Performed By: #### B MP #### [facility] [address] [address] [address] Brennan Crooks Urea nitrogen [Mass/Vol] 35.0 mg/dL Critically high 7.0-18.0 [facility] Comment on above: Performed By: #### B MP #### [facility] [address] [place] [address] Dr. Brennan Crooks Urea nitrogen/Creatinine [Mass ratio] 31.0 mg/mg Normal [facility] Comment on above: Performed By: #### B MP #### [facility] [address] [place] [address] Dr. Brennan Crooks NM STRESS/REST MULTIon 01-23 NM STRESS/REST MULTI Patient: DUKE MATSON Exam Date: 01/23/2022 : 1935 Gender:M Ordering : MICHELLE BLAKELY [facility] Admission #: [id number] Family : Order #: [id number] CLICK HERE TO VIEW EXAM RADIOLOGY REPORT [...] study was normal per attending physician Dr. Xavier . For more details please see separate [...] Mendoza M.D. on 01/24/2022 at 12:29 Normal [facility] ECHOCARDIO M/2D COMPLETEon 0 11-02-2021 ECHOCARDIO M/2D COMPLETE Patient: DUKE MATSON Exam Date: 11/02/2021 : 1935 Gender:M Ordering : SHANA MCCORMICK Admission #: [id number] Family : DR STEFANO RIVERA . Order #: [id number] CLICK HERE TO VIEW EXAM ECHOCARDIOGRAM REPORT [...] Gradient: 3.22 mm[Hg] Right Atrium Dictated by: Yenny Xavier M.D. on 11/03/2021 at 20:30 Approved by: Yenny Xavier M.D. on 11/03/2021 at 20:34 Normal [facility] Hemogram CBC Without Diffon 09-19-2021 Erythrocyte distribution width (RBC) [Ratio] 14.1 % Normal 12.0-14.8 [facility] Comment on above: Performed By: #### C BCNO ####[address] Hematocrit (Bld) [Volume fraction] 24.9 % Low 38.8-50.0 [facility] Comment on above: Performed By: #### C BCNO ####[address] [address] [facility] Hemoglobin (Bld) [Mass/Vol] 8.5 g/dL Low 13.0-17.0 [facility] Comment on above: Performed By: #### C BCNO ####[id number] [facility] MCH (RBC) [Entitic mass] 32.8 pg Normal 27.5-35.2 [facility] Comment on above: Performed By: #### C BCNO ####[id number] [facility] MCV (RBC) [Entitic vol] 95.6 fL Normal 83.5-101 [facility] Comment on above: Performed By: #### C BCNO ####[id number] [facility] Mean Corpuscular HGB Conc 34.3 g/dL Normal 32.5-35.6 [facility] Comment on above: Performed By: #### C BCNO ####[address] [address] [facility] Platelet mean volume (Bld) [Entitic vol] 7.3 fL Normal 6.6-10.1 [facility] Comment on above: Result Comment: PERF ORMED BY: [facility] [address] [facility] [place] [address] PATHOLOGIST SKEINS YARN EXAMINER TAMICA DUBOSE M.D. Performed By: #### C BCNO ####[id number] [facility] Platelets (Bld) [#/Vol] 240 10*3/uL Normal 150-450 [facility] Comment on above: Performed By: #### C BCNO ####[id number] [facility] RBC (Bld) [#/Vol] 2.60 10*6/uL Low 3.90-5.60 [facility] Comment on above: Performed By: #### C BCNO ####[address] WBC (Bld) [#/Vol] 6.5 10*3/uL Normal 4.1-10.5 [facility] Comment on above: Performed By: #### C BCNO ####[id number] [facility] Hemogram CBC Without Diffon 09-18-2021 Erythrocyte distribution width (RBC) [Ratio] 13.8 % Normal 12.0-14.8 [facility] Comment on above: Performed By: #### C BCNO #### [facility] [address] Hematocrit (Bld) [Volume fraction] 26.6 % Low 38.8-50.0 [facility] Comment on above: Performed By: #### C BCNO #### [facility] [address] [id number] [facility] Hemoglobin (Bld) [Mass/Vol] 9.0 g/dL Low 13.0-17.0 [facility] Comment on above: Performed By: #### C BCNO #### [facility] [address] MCH (RBC) [Entitic mass] 32.4 pg Normal 27.5-35.2 [facility] Comment on above: Performed By: #### C BCNO #### [address] MCV (RBC) [Entitic vol] 95.5 fL Normal 83.5-101 [facility] Comment on above: Performed By: #### C BCNO #### [address] Mean Corpuscular HGB Conc 34.0 g/dL Normal 32.5-35.6 [facility] Comment on above: Performed By: #### C BCNO #### [address] Platelet mean volume (Bld) [Entitic vol] 7.7 fL Normal 6.6-10.1 [facility] Comment on above: Result Comment: PERF ORMED BY: [place] [address] PATHOLOGIST SKEINS YARN EXAMINER TAMICA DUBOSE M.D. Performed By: #### C BCNO #### [address] Platelets (Bld) [#/Vol] 232 10*3/uL Normal 150-450 [facility] Comment on above: Performed By: #### C BCNO #### [address] RBC (Bld) [#/Vol] 2.78 10*6/uL Low 3.90-5.60 [facility] Comment on above: Performed By: #### C BCNO #### [address] WBC (Bld) [#/Vol] 6.9 10*3/uL Normal 4.1-10.5 [facility] Comment on above: Performed By: #### C BCNO #### [facility] [address] Ferritinon 09-17-2021 Ferritin [Mass/Vol] 29.0 ng/mL Normal 23.9-336.2 [facility] Comment on above: Performed By: #### F E and TIBC, [id number], AJ ####[facility] [id number] [id number] [facility] Hemoglobin and Hematocriton 09-17-2021 Hematocrit (Bld) [Volume fraction] 25.6 % Low 38.8-50.0 [facility] Comment on above: Result Comment: PERF ORMED BY: [place] [address] PATHOLOGIST SKEINS YARN EXAMINER TAMICA DUBOSE M.D. Performed By: #### H H #### [address] Hemoglobin (Bld) [Mass/Vol] 8.6 g/dL Low 13.0-17.0 [facility] Comment on above: Performed By: #### H H #### [address] Hemogram CBC Without Diffon 09-17-2021 Erythrocyte distribution width (RBC) [Ratio] 13.8 % Normal 12.0-14.8 [facility] Comment on above: Performed By: #### C BCNO #### [address] Hematocrit (Bld) [Volume fraction] 24.6 % Low 38.8-50.0 [facility] Comment on above: Performed By: #### C BCNO #### [address] Hemoglobin (Bld) [Mass/Vol] 8.4 g/dL Low 13.0-17.0 [facility] Comment on above: Performed By: #### C BCNO #### [address] MCH (RBC) [Entitic mass] 32.8 pg Normal 27.5-35.2 [facility] Comment on above: Performed By: #### C BCNO #### [address] MCV (RBC) [Entitic vol] 96.0 fL Normal 83.5-101 [facility] Comment on above: Performed By: #### C BCNO #### [address] Mean Corpuscular HGB Conc 34.2 g/dL Normal 32.5-35.6 [facility] Comment on above: Performed By: #### C BCNO #### [address] Platelet mean volume (Bld) [Entitic vol] 8.3 fL Normal 6.6-10.1 [facility] Comment on above: Result Comment: PERF ORMED BY: [place] [address] PATHOLOGIST SKEINS YARN EXAMINER TAMICA DUBOSE M.D. Performed By: #### C BCNO #### [address] Platelets (Bld) [#/Vol] 219 10*3/uL Normal 150-450 [facility] Comment on above: Performed By: #### C BCNO #### [address] RBC (Bld) [#/Vol] 2.57 10*6/uL Low 3.90-5.60 [facility] Comment on above: Performed By: #### C BCNO #### [address] WBC (Bld) [#/Vol] 6.8 10*3/uL Normal 4.1-10.5 [facility] Comment on above: Performed By: #### C BCNO #### [address] Iron and TIBC Profileon 09-02 6 % Iron Saturation 16.0 % Low 20-50 [facility] Comment on above: Performed By: #### F E and TIBC, [id number], AJ ####[address] [address] [facility] Iron [Mass/Vol] 55 ug/dL Normal 40-160 [facility] Comment on above: Performed By: #### F E and TIBC, [id number], AJ ####[id number] [facility] Total Iron Binding Capacity 337 ug/dL Normal 255-450 [facility] Comment on above: Performed By: #### F E and TIBC, [id number], AJ ####[id number] [facility] Transferrin [Mass/Vol] 241 mg/dL Normal 180-380 [facility] Comment on above: Performed By: #### F E and TIBC, [id number], AJ ####[id number] [facility] Vit. B12/Folate Profileon Cobalamin (Vitamin B12) [Mass/Vol] 892 pg/mL Normal 180-914 [facility] Comment on above: Performed By: #### F E and TIBC, [id number], AJ ####[id number] [facility] Folate 8.7 ng/mL Normal >5.9 [facility] Comment on above: Result Comment: Ting te reference range: >5.9 ng/ml The WHO technical consultation on folate and vitamin b12 deficiencies has determined that folate concentrations less than 4 ng/ml are considered deficient. PERFORMED BY: [facility] [address] [place] [address] PATHOLOGIST SKEINS YARN EXAMINER TAMICA DUBOSE M.D. Performed By: #### F E and TIBC, [id number], AJ ####[id number] [facility] Complete Blood Count Auto Di ffon 09-16-2021 Basophils (Bld) [#/Vol] 0.0 10*3/uL Normal 0.0-0.2 [facility] Comment on above: Result Comment: PERF ORMED BY: [place] [address] PATHOLOGIST SKEINS YARN EXAMINER TAMICA DUBOSE M.D. Performed By: #### C BC #### [address] Basophils/100 WBC (Bld) 0.4 % Normal . [facility] Comment on above: Performed By: #### C BC #### [address] Eosinophils (Bld) [#/Vol] 0.0 10*3/uL Normal 0.0-0.45 [facility] Comment on above: Performed By: #### C BC #### [address] Eosinophils/100 WBC (Bld) 0.5 % Normal . [facility] Comment on above: Performed By: #### C BC #### [address] Erythrocyte distribution width (RBC) [Ratio] 13.8 % Normal 12.0-14.8 [facility] Comment on above: Performed By: #### C BC #### [address] Hematocrit (Bld) [Volume fraction] 27.5 % Low 38.8-50.0 [facility] Comment on above: Performed By: #### C BC #### [address] Hemoglobin (Bld) [Mass/Vol] 9.3 g/dL Low 13.0-17.0 [facility] Comment on above: Performed By: #### C BC #### [address] Lymphocytes (Bld) [#/Vol] 0.9 10*3/uL Low 1.00-4.8 [facility] Comment on above: Performed By: #### C BC #### [place] [address] [place] Lymphocytes/100 WBC (Bld) 12.6 % Normal . [facility] Comment on above: Performed By: #### C BC #### [facility] [address] MCH (RBC) [Entitic mass] 32.5 pg Normal 27.5-35.2 [facility] Comment on above: Performed By: #### C BC #### [facility] [address] MCV (RBC) [Entitic vol] 95.9 fL Normal 83.5-101 [facility] Comment on above: Performed By: #### C BC #### [facility] [address] Mean Corpuscular HGB Conc 33.8 g/dL Normal 32.5-35.6 [facility] Comment on above: Performed By: #### C BC #### [facility] [address] Monocytes (Bld) [#/Vol] 0.9 10*3/uL High 0.0-0.8 [facility] Comment on above: Performed By: #### C BC #### [facility] [address] Monocytes/100 WBC (Bld) 13.5 % Normal . [facility] Comment on above: Performed By: #### C BC #### [address] Neutrophils (Bld) [#/Vol] 5.0 10*3/uL Normal 1.8-7.7 [facility] Comment on above: Performed By: #### C BC #### [facility] [address] Neutrophils/100 WBC (Bld) 73.0 % Normal . [facility] Comment on above: Performed By: #### C BC #### [address] Nucleated RBC/100 WBC (Bld) [Ratio] 0.0 % Normal 0-0.5 [facility] Comment on above: Performed By: #### C BC #### [facility] [address] Platelet mean volume (Bld) [Entitic vol] 8.0 fL Normal 6.6-10.1 [facility] Comment on above: Performed By: #### C BC #### [facility] [address] Platelets (Bld) [#/Vol] 218 10*3/uL Normal 150-450 [facility] Comment on above: Performed By: #### C BC #### [facility] [address] RBC (Bld) [#/Vol] 2.86 10*6/uL Low 3.90-5.60 [facility] Comment on above: Performed By: #### C BC #### [facility] [address] WBC (Bld) [#/Vol] 6.9 10*3/uL Normal 4.5-11.0 [facility] Comment on above: Performed By: #### C BC #### [facility] [address] Activated partial thrombopla stin time (aPTT) in platelet poor plasma by coagulation aOrdered By: Ilana Martínez on 09-15-2021 aPTT Coag (PPP) [Time] 34.4 s 25.1-36.5 [facility] Basic Metabolic Panelon 09-02 Calcium [Mass/Vol] 9.0 mg/dL Normal 8.2-10.2 [facility] Comment on above: Performed By: #### B MP, CBC #### [facility] [address] [place] [address] [place] Chloride [Moles/Vol] 102 mmol/L Normal 95-114 [facility] Comment on above: Performed By: #### B MP, CBC #### [facility] [address] [place] [address] [place] CO2 [Moles/Vol] 24.1 mmol/L Normal 22.0-30.0 [facility] Comment on above: Performed By: #### B MP, CBC #### [facility] [address] [place] [address] [place] Creatinine [Mass/Vol] 1.21 mg/dL Normal 0.64-1.27 [facility] Comment on above: Performed By: #### B MP, CBC #### [facility] [address] [place] [address] [place] Creatinine Clr Calc Pharmacy 50.41 [facility] Comment on above: Result Comment: PERF ORMED BY: [place] [address] PATHOLOGIST SKEINS YARN EXAMINER TAMICA DUBOSE M.D. Performed By: #### B MP, CBC #### [address] Estimated GFR ( Nasima > 60 [facility] Comment on above: Result Comment: GFR estimated reference range: According to KDOQI guidelines, <60 ml/min/1.73m2 is sufficient to diagnose a patient with chronic kidney disease. Performed By: #### B MP, CBC #### [facility] [address] [place] [address] [place] Estimated GFR (Non- Am 57 [facility] Comment on above: Performed By: #### B MP, CBC #### [place] [address] [place] Glucose [Mass/Vol] 126 mg/dL High 70-100 [facility] Comment on above: Result Comment: Damon Glucose Reference Range is dependent on time and content of last meal. Glucose of more than 200 mg/dL in a nonstressed, ambulatory subject supports the diagnosis of Diabetes Mellitus. ADA recommended reference range Performed By: #### B MP, CBC #### [facility] [address] [place] [address] [place] Potassium [Moles/Vol] 4.7 mmol/L Normal 3.5-5.1 [facility] Comment on above: Performed By: #### B MP, CBC #### [facility] [address] [place] [address] [place] Sodium [Moles/Vol] 135 mmol/L Low 136-146 [facility] Comment on above: Performed By: #### B MP, CBC #### [facility] [address] Urea nitrogen [Mass/Vol] 28 mg/dL High 9-23 [facility] Comment on above: Performed By: #### B MP, CBC #### [facility] [address] Basophils Auto (Bld) [#/Vol] Ordered By: Ilana Martínez on 09-15-2021 Basophils (Bld) [#/Vol] 0.0 10*3/uL 0.0-0.2 [facility] Basophils/100 WBC Auto (Bld) Ordered By: Ilana Soraidaelza on 09-15-2021 Basophils/100 WBC (Bld) 0.2 % [facility] Blood hemoglobin measurement (mass/volume)Ordered By: Ilana Soraidaelza on 09-15-2021 Hemoglobin (Bld) [Mass/Vol] 10.0 g/dL 13.0-17.0 [facility] Blood leukocytes automated c ount (number/volume)Ordered By: Ilana Soraidaelza on 09-15-2021 WBC (Bld) [#/Vol] 9.6 10*3/uL 4.5-11.0 [facility] COVID-19 Antigenon 2 COVID-19 Antigen Healthcare Worker?: N Reference Range: [...] developed and its performance characteristic determined by [employer] and validated at [facility]. This test has not been FDA [...] for SARS Antigen by CONNIE PERFORMED BY: [place] [address] PATHOLOGIST SKEINS YARN EXAMINER TAMICA DUBOSE M.D. Normal [facility] Comment on above: Performed By: #### S OFIANEG, COVID-19 MAISHA #### [address] COVID-19 [facility] 09-15-2021 SARS-CoV-2 (COVID-19) RNA NADIR+probe Ql (Unsp spec) Negative Normal Negative [facility] Comment on above: Order Comment: Healt hcare Worker?: N Result Comment: Testing for SARS-CoV-2 by RT-PCR This test was developed and its performance characteristics determined by [employer] and validated at the [facility]. This test has not been FDA [...] is terminated or revoked sooner. PERFORMED BY: [place] [address] PATHOLOGIST SKEINS YARN EXAMINER TAMICA DUBOSE M.D. Performed By: #### C OVID 19 [facility] #### [address] COVID-19 SOFIAOrdered By: Nkaia Martínez on 09-15-2021 SARS-CoV+SARS-CoV-2 (COVID-19) Ag IA.rapid Ql (Resp) Negative Negative [facility] Comment on above: This is a duplicate Maisha SARS Antigen (CONNIE) result to be used for statistical tracking purpose only. CT hip RT wo conon 2 CT hip RT wo con [facility] Main [place] [address] [place], [place] [id number] CT Scan Report Signed Patient: Duke Matson MR#: [id number] : 1935 Acct:[id number] Age/Sex: 85 / M ADM Date: 09/15/21 [...] Teofilo Ennis M.D.09/15/2021 2:05 PM Dictation Location: [place] [address] Transcribed By: [facility] 09/15/21 1405 Dictated By: Teofilo Ennis II, MD 09/15/21 1400 Signed By: 09/15/21 1403 Normal [facility] Complete Blood Count Auto Di ffon 09-15-2021 Basophils (Bld) [#/Vol] 0.0 10*3/uL Normal 0.0-0.2 [facility] Comment on above: Result Comment: PERF ORMED BY: [place] [address] PATHOLOGIST SKEINS YARN EXAMINER TAMICA DUBOSE M.D. Performed By: #### B MP, CBC #### [address] Basophils/100 WBC (Bld) 0.2 % Normal . [facility] Comment on above: Performed By: #### B MP, CBC #### [address] Eosinophils (Bld) [#/Vol] 0.0 10*3/uL Normal 0.0-0.45 [facility] Comment on above: Performed By: #### B MP, CBC #### [facility] [address] Eosinophils/100 WBC (Bld) 0.0 % Normal . [facility] Comment on above: Performed By: #### B MP, CBC #### [facility] [address] Erythrocyte distribution width (RBC) [Ratio] 13.8 % Normal 12.0-14.8 [facility] Comment on above: Performed By: #### B MP, CBC #### [facility] [address] Hematocrit (Bld) [Volume fraction] 30.0 % Low 38.8-50.0 [facility] Comment on above: Performed By: #### B MP, CBC #### [address] Hemoglobin (Bld) [Mass/Vol] 10.0 g/dL Low 13.0-17.0 [facility] Comment on above: Performed By: #### B MP, CBC #### [address] Lymphocytes (Bld) [#/Vol] 0.6 10*3/uL Low 1.00-4.8 [facility] Comment on above: Performed By: #### B MP, CBC #### [place] [address] [place] Lymphocytes/100 WBC (Bld) 6.3 % Normal . [facility] Comment on above: Performed By: #### B MP, CBC #### [facility] [address] [place] [address] [place] MCH (RBC) [Entitic mass] 31.9 pg Normal 27.5-35.2 [facility] Comment on above: Performed By: #### B MP, CBC #### [address] MCV (RBC) [Entitic vol] 95.7 fL Normal 83.5-101 [facility] Comment on above: Performed By: #### B MP, CBC #### [facility] [address] [place] [address] [place] Mean Corpuscular HGB Conc 33.3 g/dL Normal 32.5-35.6 [facility] Comment on above: Performed By: #### B MP, CBC #### [facility] [address] [place] [address] [place] Monocytes (Bld) [#/Vol] 0.9 10*3/uL High 0.0-0.8 [facility] Comment on above: Performed By: #### B MP, CBC #### [facility] [address] [place] [address] [place] Monocytes/100 WBC (Bld) 9.1 % Normal . [facility] Comment on above: Performed By: #### B MP, CBC #### [facility] [address] [place] [address] [place] Neutrophils (Bld) [#/Vol] 8.1 10*3/uL High 1.8-7.7 [facility] Comment on above: Performed By: #### B MP, CBC #### [facility] [address] [place] [address] [place] Neutrophils/100 WBC (Bld) 84.4 % Normal . [facility] Comment on above: Performed By: #### B MP, CBC #### [facility] [address] [place] [address] [place] Nucleated RBC/100 WBC (Bld) [Ratio] 0.1 % Normal 0-0.5 [facility] Comment on above: Performed By: #### B MP, CBC #### [facility] [address] [place] [id number] [place] Platelet mean volume (Bld) [Entitic vol] 8.5 fL Normal 6.6-10.1 [facility] Comment on above: Performed By: #### B MP, CBC #### [facility] [address] [place] [id number] [place] Platelets (Bld) [#/Vol] 222 10*3/uL Normal 150-450 [facility] Comment on above: Performed By: #### B MP, CBC #### [facility] [address] [place] [address] [place] RBC (Bld) [#/Vol] 3.14 10*6/uL Low 3.90-5.60 [facility] Comment on above: Performed By: #### B MP, CBC #### [facility] [facility] [address] [id number] [place] WBC (Bld) [#/Vol] 9.6 10*3/uL Normal 4.5-11.0 [facility] Comment on above: Performed By: #### B MP, CBC #### [facility] [address] Creatine Kinaseon 09-15-2021 CK [Catalytic activity/Vol] 143 U/L Normal 22-269 [facility] Comment on above: Result Comment: PERF ORMED BY: [place] [address] PATHOLOGIST SKEINS YARN EXAMINER TAMICA DUBOSE M.D. Performed By: #### C K #### [facility] [address] Creatinine and Glomerular fi ltration rate.predicted panel (S/P/Bld)Ordered By: Ilana Martínez on 09-15-2021 Creatinine [Mass/Vol] 1.21 mg/dL 0.64-1.27 [facility] Eosinophils Auto (Bld) [#/Vo l]Ordered By: Ilana Martínez on 09-15-2021 Eosinophils (Bld) [#/Vol] 0.0 10*3/uL 0.0-0.45 [facility] Eosinophils/100 WBC Auto (Bl d)Ordered By: Ilana Martínez on 09-15-2021 Eosinophils/100 WBC (Bld) 0.0 % [facility] Erythrocyte distribution wid th Auto (RBC) [Ratio]Ordered By: Ilana Martínez on 09-15-2021 Erythrocyte distribution width (RBC) [Ratio] 13.8 % 12.0-14.8 [facility] Estimated glomerular filtrat ion rate (GFR) non- AmericanOrdered By: Ilana Martínez on 09-15-2021 GFR/1.73 sq M.predicted among non-blacks MDRD (S/P/Bld) [Vol rate/Area] 57 mL/Min [facility] Hematocrit Auto (Bld) [Volum e fraction]Ordered By: Ilana Martínez on 09-15-2021 Hematocrit (Bld) [Volume fraction] 30.0 % 38.8-50.0 [facility] Laboratory - CoagulationOrde red By: Ilana Martínez on 09-15-2021 PT Coag (PPP) [Time] 17.4 s 9.0-12.9 [facility] - Hematology and Cell countsOrdered By: Ilana Martínez on 09-15-2021 Nucleated RBC/100 WBC (Bld) [Ratio] 0.1 % 0-0.5 [facility] Lymphocytes Auto (Bld) [#/Vo l]Ordered By: Ilana Martínez on 09-15-2021 Lymphocytes (Bld) [#/Vol] 0.6 10*3/uL 1.00-4.8 [facility] Lymphocytes/100 WBC Auto (Bl d)Ordered By: Ilana Martínez on 09-15-2021 Lymphocytes/100 WBC (Bld) 6.3 % [facility] MCH Auto (RBC) [Entitic mass ]Ordered By: Ilana Martínez on 09-15-2021 MCH (RBC) [Entitic mass] 31.9 pg 27.5-35.2 [facility] MCHC Auto (RBC) [Mass/Vol]Or dered By: Ilana Martínez on 09-15-2021 MCHC (RBC) [Mass/Vol] 33.3 g/dL 32.5-35.6 [facility] MCV Auto (RBC) [Entitic vol] Ordered By: Ilana Martínez on 09-15-2021 MCV (RBC) [Entitic vol] 95.7 fL 83.5-101 [facility] Monocytes Auto (Bld) [#/Vol] Ordered By: Ilana Martínez on 09-15-2021 Monocytes (Bld) [#/Vol] 0.9 10*3/uL 0.0-0.8 [facility] Monocytes/100 WBC Auto (Bld) Ordered By: Ilana Martínez on 09-15-2021 Monocytes/100 WBC (Bld) 9.1 % [facility] Neutrophils Auto (Bld) [#/Vo l]Ordered By: Ilana Martínez on 09-15-2021 Neutrophils (Bld) [#/Vol] 8.1 10*3/uL 1.8-7.7 [facility] Neutrophils/100 WBC Auto (Bl d)Ordered By: Ilana Martínez on 09-15-2021 Neutrophils/100 WBC (Bld) 84.4 % [facility] No Panel InformationOrdered By: Ilana Martínez on 09-15-2021 Estimated GFR () > 60 mL/Min [facility] Comment on above: GFR estimated refere nce range: According to KDOQI guidelines, <60 ml/min/1.73m2 is sufficient to diagnose a patient with chronic kidney disease. Pharmacy Creatinine Clearance (Chem 50.41 [facility] SARS Antigen (LFIA) [facility] Partial Thromboplastin Timeo n 09-15-2021 aPTT Coag (Bld) [Time] 34.4 s Normal 25.1-36.5 [facility] Comment on above: Result Comment: PERF ORMED BY: [facility] [address] [place] [address] PATHOLOGIST SKEINS YARN EXAMINER TAMICA DUBOSE M.D. Performed By: #### P TT, PT ####[facility] [id number] [id number] [facility] Platelet mean volume Auto (B ld) [Entitic vol]Ordered By: Ilana Martínez on 09-15-2021 Platelet mean volume (Bld) [Entitic vol] 8.5 fL 6.6-10.1 [facility] Platelet poor plasma interna tional normalized ratio (INR) by coagulation assay (relatOrdered By: Ilana Martínez on 09-15-2021 INR Coag (PPP) [Relative time] 1.5 {INR} [facility] Comment on above: INR Therapeutic Rang [...] 09-15-2021 Platelets (Bld) [#/Vol] 222 10*3/uL 150-450 [facility] Prothrombin Time INRon 09-15 INR Coag (PPP) [Relative time] 1.5 {INR} Normal [facility] Comment on above: Result Comment: INR [...] 4.5 Performed By: #### P TT, PT ####[facility] [id number] PT Coag (PPP) [Time] 17.4 s High 9.0-12.9 [facility] Comment on above: Performed By: #### P TT, PT ####[facility] [id number] RBC Auto (Bld) [#/Vol]Ordere d By: Ilana Martínez on 09-15-2021 RBC (Bld) [#/Vol] 3.14 10*6/uL 3.90-5.60 [facility] Serum or plasma calcium gillian urement (mass/volume)Ordered By: Ilana Martínez on 09-15-2021 Calcium [Mass/Vol] 9.0 mg/dL 8.2-10.2 [facility] Serum or plasma chloride dinorah surement (moles/volume)Ordered By: Ilana Martínez on 09-15-2021 Chloride [Moles/Vol] 102 mmol/L 95-114 [facility] Serum or plasma glucose gillian urement (mass/volume)Ordered By: Ilana Martínez on 09-15-2021 Glucose [Mass/Vol] 126 mg/dL 70-100 [facility] Comment on above: ADA recommended refe rence range Random Glucose Reference Range is dependent on time and content of last meal. Glucose of more than 200 mg/dL in a nonstressed, ambulatory subject supports the diagnosis of Diabetes Mellitus. Serum or plasma potassium me asurement (moles/volume)Ordered By: Ilana [facility] on 09-15-2021 Potassium [Moles/Vol] 4.7 mmol/L 3.5-5.1 [facility] Serum or plasma sodium measu rement (moles/volume)Ordered By: Ilana [facility] on 09-15-2021 Sodium [Moles/Vol] 135 mmol/L 136-146 [facility] Serum or plasma total carbon dioxide measurement (moles/volume)Ordered By: Ilana [facility] on 09-15-2021 CO2 [Moles/Vol] 24.1 mmol/L 22.0-30.0 [facility] Serum or plasma urea nitroge n measurement (mass/volume)Ordered By: Ilana [facility] on 09-15-2021 Urea nitrogen [Mass/Vol] 28 mg/dL 9- [facility] Maisha Ag Negativeon 09-16-19 22 Maisha Ag Negative Negative Normal Negative [facility] Comment on above: Result Comment: This is a duplicate Maisha SARS Antigen (CONNIE) result to be used for statistical tracking purpose only. PERFORMED BY: [facility] [address] [place] [address] PATHOLOGIST SKEINS YARN EXAMINER TAMICA DUBOSE M.D. Performed By: #### S OFAVELINA COVID-19 MAISHA ####[facility] [address] [id number] [facility] BNPon 09-12-2021 Natriuretic peptide B (Bld) [Mass/Vol] 5766.0 pg/mL Critically high <=1,800.0 [facility] Comment on above: Result Comment: repe ated Performed By: #### U RCX #### [facility] [address] [address] [address] Brennan Crooks CBC AUTO DIFFon 09-12-2021 BASO # 0.0 103/ul Normal 0.0-0.1 [facility] Comment on above: Performed By: #### C BC #### [facility] [address] [address] [address] Brennan Crooks Basophils/100 WBC (Bld) 0.2 % Normal 0.2-2.0 [facility] Comment on above: Performed By: #### C BC #### [facility] [address] [place] [address] Dr. Brennan Crooks EO # 0.0 103/ul Normal 0.0-0.7 [facility] Comment on above: Performed By: #### C BC #### [facility] [address] [place] [address] Dr. Brennan Crooks Eosinophils/100 WBC (Bld) 0.2 % Critically low 0.9-7.0 [facility] Comment on above: Performed By: #### C BC #### [facility] [address] [place] [address] Dr. Brennan Crooks Erythrocyte distribution width (RBC) [Ratio] 13.3 % Normal 11.0-15.0 [facility] Comment on above: Performed By: #### C BC #### [facility] [address] [place] [address] Dr. Brennan Crooks Hematocrit (Bld) [Volume fraction] 35.2 % Critically low 42.0-54.0 [facility] Comment on above: Performed By: #### C BC #### [facility] [address] [place] [address] Dr. Brennan Crooks Hemoglobin (Bld) [Mass/Vol] 11.4 g/dL Critically low 14.0-18.0 [facility] Comment on above: Performed By: #### C BC #### [facility] [address] [place] [address] Dr. Brennan Crooks IG # 0.04 10e3/ul Critically high 0.00-0.03 [facility] Comment on above: Performed By: #### C BC #### [facility] [address] [place] [address] Dr. Brennan Crooks IG % 0.4 % Normal 0.0-0.5 [facility] Comment on above: Performed By: #### C BC #### [facility] [address] [place] [address] Dr. Brennan Crooks LYMPH # 1.3 103/ul Normal 1.2-3.8 [facility] Comment on above: Performed By: #### C BC #### [facility] [address] [place] [address] Dr. Brennan Crooks Lymphocytes/100 WBC (Bld) 13.7 % Critically low 20.5-60.0 [facility] Comment on above: Performed By: #### C BC #### [facility] [address] [place] [address] Dr. Brennan Crooks MANUAL DIFF REQ NO Normal [facility] Comment on above: Performed By: #### C BC #### [facility] [address] [place] [address] Dr. Brennan Crooks MCH (RBC) [Entitic mass] 31.5 pg Normal 25.9-34.0 [facility] Comment on above: Performed By: #### C BC #### [facility] [address] [place] [address] Dr. Brennan Crooks MCHC (RBC) [Mass/Vol] 32.4 g/dL Normal 29.9-35.2 [facility] Comment on above: Performed By: #### C BC #### [facility] [address] [place] [address] Dr. Brennan Crooks MCV (RBC) [Entitic vol] 97.2 fL Critically high 80.0-94.0 [facility] Comment on above: Performed By: #### C BC #### [facility] [address] [place] [address] Dr. Brennan Crooks MONO # 0.9 103/ul Critically high 0.3-0.8 [facility] Comment on above: Performed By: #### C BC #### [facility] [address] [address] [address] Brennan Crooks Monocytes/100 WBC (Bld) 10.1 % Normal 1.7-12.0 [facility] Comment on above: Performed By: #### C BC #### [facility] [address] [place] [address] Dr. Brennan Crooks NEUT # 7.0 103/ul Critically high 1.4-6.5 [facility] Comment on above: Performed By: #### C BC #### [facility] [address] [place] [address] Dr. Brennan Crooks Neutrophils/100 WBC (Bld) 75.4 % Critically high 43.0-75.0 [facility] Comment on above: Performed By: #### C BC #### [facility] [address] [place] [address] Dr. Brennan Crooks Platelet mean volume (Bld) [Entitic vol] 10.7 fL Normal 9.5-13.5 [facility] Comment on above: Performed By: #### C BC #### [facility] [address] [place] [address] Dr. Brennan Crooks PLT 170 103/ul Normal 150-450 [facility] Comment on above: Performed By: #### C BC #### [facility] [address] [place] [address] Dr. Brennan Crooks RBC 3.62 106/ul Critically low 4.70-6.10 [facility] Comment on above: Performed By: #### C BC #### [facility] [address] [place] [address] Dr. Brennan Crooks WBC 9.3 103/ul Normal 4.0-11.0 [facility] Comment on above: Performed By: #### C BC #### [facility] [address] [place] [address] Dr. Brennan Crooks CULTURE URINEon 09-12-2021 CULTURE URINE Culture Observations : NO GROWTH. Normal [facility] Comment on above: Performed By: #### U RCX #### [facility] [address] [place] [address] Dr. Brennan Crooks PROF 14(COMP METB)on 022 Albumin [Mass/Vol] 3.3 g/dL Critically low 3.4-5.0 [facility] Comment on above: Performed By: #### U RCX #### [facility] [address] [address] [address] Brennan Crooks Albumin/Globulin [Mass ratio] 1.1 {ratio} Normal [facility] Comment on above: Performed By: #### U RCX #### [facility] [address] [place] [address] Dr. Brennan Crooks ALP [Catalytic activity/Vol] 108 U/L Normal 46-116 [facility] Comment on above: Performed By: #### U RCX #### [facility] [address] [place] [address] Dr. Brennan Crooks ALT [Catalytic activity/Vol] 28 U/L Normal 16-63 [facility] Comment on above: Performed By: #### U RCX #### [facility] [address] [place] [address] Dr. Brennan Crooks Anion gap [Moles/Vol] 14.7 mmol/L Normal [facility] Comment on above: Performed By: #### U RCX #### [facility] [address] [place] [address] Dr. Brennan Crooks AST [Catalytic activity/Vol] 31 U/L Normal 15-37 [facility] Comment on above: Performed By: #### U RCX #### [facility] [address] [address] [address] Brennan Crooks Bilirubin [Mass/Vol] 1.5 mg/dL Critically high 0.2-1.0 [facility] Comment on above: Performed By: #### U RCX #### [facility] [address] [place] [address] Dr. Brennan Crooks Calcium [Mass/Vol] 9.1 mg/dL Normal 8.5-10.1 [facility] Comment on above: Performed By: #### U RCX #### [facility] [address] [place] [address] Dr. Brennan Crooks Chloride [Moles/Vol] 106 mmol/L Normal 98-107 [facility] Comment on above: Performed By: #### U RCX #### [facility] [address] [address] [address] Brennan Crooks CO2 [Moles/Vol] 24.4 mmol/L Normal 21.0-32.0 [facility] Comment on above: Performed By: #### U RCX #### [facility] [address] [place] [address] Dr. Brennan Crooks Creatinine [Mass/Vol] 1.23 mg/dL Normal 0.70-1.30 [facility] Comment on above: Performed By: #### U RCX #### [facility] [address] [place] [address] Dr. Brennan Crooks EGFR-AF [place] >60 Normal >=60 [facility] Comment on above: Performed By: #### U RCX #### [facility] [address] [place] [address] Dr. Brennan Crooks EGFR-NON AF [place] 56 mL/min/1.73m2 Critically low >=60 [facility] Comment on above: Performed By: #### U RCX #### [facility] [address] [place] [address] Dr. Brennan Crooks Globulin (S) [Mass/Vol] 3.0 g/dL Normal [facility] Comment on above: Performed By: #### U RCX #### [facility] [address] [place] [address] Dr. Brennan Crooks Glucose [Mass/Vol] 125 mg/dL Critically high 74-106 [facility] Comment on above: Performed By: #### U RCX #### [facility] [address] [place] [address] Dr. Brennan Crooks Potassium [Moles/Vol] 4.1 mmol/L Normal 3.5-5.1 [facility] Comment on above: Performed By: #### U RCX #### [facility] [address] [place] [address] Dr. Brennan Crooks Protein [Mass/Vol] 6.3 g/dL Critically low 6.4-8.2 [facility] Comment on above: Performed By: #### U RCX #### [facility] [address] [address] [address] Brennan Crooks Sodium [Moles/Vol] 141 mmol/L Normal 136-145 [facility] Comment on above: Performed By: #### U RCX #### [facility] [address] [address] [address] Brennan Crooks Urea nitrogen [Mass/Vol] 29.0 mg/dL Critically high 7.0-18.0 [facility] Comment on above: Performed By: #### U RCX #### [facility] [address] [place] [address] Dr. Brennan Crooks Urea nitrogen/Creatinine [Mass ratio] 23.6 mg/mg Normal [facility] Comment on above: Performed By: #### U RCX #### [facility] [address] [place] [address] Dr. Brennan Crooks UA RANDOM W/MICROSCOPICon BACTERIA NONE SEEN Normal NONE SEEN [facility] Comment on above: Performed By: #### U AMIC #### [facility] [address] [place] [address] Dr. Brennan Crooks Bilirubin Ql (U) Negative Normal NEGATIVE [facility] Comment on above: Performed By: #### U AMIC #### [facility] [address] [place] [address] Dr. Brennan Crooks CAST SEEN Abnormal NONE SEEN [facility] Comment on above: Performed By: #### U AMIC #### [facility] [address] [place] [address] Dr. Brennan Crooks Clarity (U) CLEAR Normal CLEAR [facility] Comment on above: Performed By: #### U AMIC #### [facility] [address] [place] [address] Dr. Brennan Crooks Color (U) YELLOW Normal YELLOW [facility] Comment on above: Performed By: #### U AMIC #### [facility] [address] [address] [address] Brennan Crooks Crystals LM Nom (Urine sed) NONE SEEN Normal NONE SEEN [facility] Comment on above: Performed By: #### U AMIC #### [facility] [address] [address] [address] Brennan Crooks Epithelial cells LM Ql (Urine sed) RARE Normal NONE SEEN /RARE [facility] Comment on above: Performed By: #### U AMIC #### [facility] [address] [address] [address] Brennan Crooks Glucose Ql (U) Negative Normal NEGATIVE [facility] Comment on above: Performed By: #### U AMIC #### [facility] [address] [place] [address] Dr. Brennan Crooks Hemoglobin Ql (U) Negative Normal NEGATIVE [facility] Comment on above: Performed By: #### U AMIC #### [facility] [address] [place] [address] Dr. Brennan Crooks Ketones Ql (U) Negative Normal NEGATIVE [facility] Comment on above: Performed By: #### U AMIC #### [facility] [address] [address] [address] Brennan Crooks LEUKOCYTES Negative Normal NEGATIVE [facility] Comment on above: Performed By: #### U AMIC #### [facility] [address] [address] [address] Brennan Crooks MUCOUS TRACE Abnormal NONE SEEN [facility] Comment on above: Performed By: #### U AMIC #### [facility] [address] [address] [address] Brennan Crooks Nitrite Ql (U) Negative Normal NEGATIVE [facility] Comment on above: Performed By: #### U AMIC #### [facility] [address] [place] [address] Dr. Brennan Crooks pH (U) 5.5 [pH] Normal 5-9 [facility] Comment on above: Performed By: #### U AMIC #### [facility] [address] [address] [address] Brennan Crooks RBC NONE SEEN Abnormal 0-2 [facility] Comment on above: Performed By: #### U AMIC #### [facility] [address] [place] [address] Dr. Brennan Crooks SPEC GRAVITY 1.020 Normal 1.005-<=1.02 5 [facility] Comment on above: Performed By: #### U AMIC #### [facility] [address] [place] [address] Dr. Brennan Crooks UA PROTEIN Negative Normal NEGATIVE/ TRACE [facility] Comment on above: Performed By: #### U AMIC #### [facility] [address] [place] [address] Dr. Brennan Crooks Urobilinogen Qn (U) 0.2 {Janes'U}/dL Normal 0.2 - 1. 0 [facility] Comment on above: Performed By: #### U AMIC #### [facility] [address] [place] [address] Dr. Brennan Crooks WBC NONE SEEN Normal NONE SEEN [facility] Comment on above: Performed By: #### U AMIC #### [facility] [address] [place] [address] Dr. Brennan Crooks CBC W MANUAL DIFFon 09-12-19 22 ATYPICAL LYMPH # Normal [facility] Comment on above: Performed By: #### C CHING #### [facility] [address] [place] [address] Dr. Brennan Crooks ATYPICAL LYMPH % Normal [facility] Comment on above: Performed By: #### C CHING #### [facility] [address] [place] [address] Dr. Brennan Crooks BAND # 0.1 103/ul Normal 0.0-0.3 [facility] Comment on above: Performed By: #### C CHING #### [facility] [address] [place] [address] Dr. Brennan Crooks BAND % 1 % Normal 0-5 [facility] Comment on above: Performed By: #### Bhumika FLOWER #### [facility] [address] [place] [address] Dr. Brennan Crooks BASOM # 0.00 103/ul Normal 0.00-0.10 [facility] Comment on above: Performed By: #### C BCMAN #### [facility] [address] [place] [address] Dr. Brennan Crooks BASOM % 0.0 % Critically low 0.2-2.0 [facility] Comment on above: Performed By: #### C BCMAN #### [facility] [address] [place] [address] Dr. Brennan Crooks BLAST # Normal [facility] Comment on above: Performed By: #### C BCANGELO #### [facility] [address] [place] [address] Dr. Brennan Crooks BLAST % Normal [facility] Comment on above: Performed By: #### C BCANGELO #### [facility] [address] [place] [address] Dr. Brennan Crooks CORRECTED WBC Normal 4.0-11.0 [facility] Comment on above: Performed By: #### C BCANGELO #### [facility] [address] [place] [address] Dr. Brennan Crooks EOS # 0.00 103/ul Normal 0.00-0.70 [facility] Comment on above: Performed By: #### C BCANGELO #### [facility] [address] [place] [address] Dr. Brennan Crooks EOS% 0.0 % Critically low 0.9-7.0 [facility] Comment on above: Performed By: #### C BCANGELO #### [facility] [address] [place] [address] Dr. Brennan Crooks HCT 35.0 % Critically low 42.0-54.0 [facility] Comment on above: Performed By: #### C BCMAN #### [facility] [address] [place] [address] Dr. Brennan Crooks HGB 11.6 g/dl Critically low 14.0-18.0 [facility] Comment on above: Performed By: #### C BCANGELO #### [facility] [address] [place], [place] [id number] Dr. Brennan Crooks LYMPHM # 0.83 103/ul Critically low 1.20-3.80 [facility] Comment on above: Performed By: #### C CHING #### [facility] [address] [place] [address] Dr. Brennan Crooks LYMPHM% 9.0 % Critically low 20.5-60.0 [facility] Comment on above: Performed By: #### C CHING #### [facility] [address] [place] [address] Dr. Brennan Crooks MCH 32.0 pg Normal 25.9-34.0 [facility] Comment on above: Performed By: #### C CHING #### [facility] [address] [place] [address] Dr. Brennan Crooks MCHC 33.1 g/dl Normal 29.9-35.2 [facility] Comment on above: Performed By: #### C CHING #### [facility] [address] [place] [address] Dr. Brennan Crooks MCV 96.4 fL Critically high 80.0-94.0 [facility] Comment on above: Performed By: #### Bhumika FLOWER #### [facility] [address] [place] [address] Dr. Brennan Crooks METAMYELOCYTE # Normal [facility] Comment on above: Performed By: #### Bhumika FLOWER #### [facility] [address] [place] [address] Dr. Brennan Crooks METAMYELOCYTE % Normal [facility] Comment on above: Performed By: #### C CHING #### [facility] [address] [place] [address] Dr. Brennan Crooks MONOM# 0.37 103/ul Normal 0.30-0.80 [facility] Comment on above: Performed By: #### C CHING #### [facility] [address] [place] [address] Dr. Brennan Crooks MONOM% 4.0 % Normal 1.7-12.0 [facility] Comment on above: Performed By: #### C CHING #### [facility] [address] [address] [address] Brennan Crooks MPV 10.2 fL Normal 9.5-13.5 [facility] Comment on above: Performed By: #### C CHING #### [facility] [address] [address] [address] Brennan Crooks MYELOCYTE # Normal [facility] Comment on above: Performed By: #### C CHING #### [facility] [address] [address] [address] Brennan Crooks MYELOCYTE % Normal [facility] Comment on above: Performed By: #### C CHING #### [facility] [address] [place] [address] Dr. Brennan Crooks NRBC Normal [facility] Comment on above: Performed By: #### C CHING #### [facility] [address] [place] [address] Dr. Brennan Crooks PLT 153 103/ul Normal 150-450 [facility] Comment on above: Performed By: #### C CHING #### [facility] [address] [address] [address] Brennan Crooks RBC 3.63 106/ul Critically low 4.70-6.10 [facility] Comment on above: Performed By: #### C CHING #### [facility] [address] [place] [address] Dr. Brennan Crooks RDW 13.2 % Normal 11.0-15.0 [facility] Comment on above: Performed By: #### C CHING #### [facility] [address] [address] [address] Brennan Crooks SEG # 7.91 103/ul Critically high 1.40-6.50 [facility] Comment on above: Performed By: #### C CHING #### [facility] [address] [address] [address] Brennan Crooks SEG % 86.0 % Critically high 43.0-75.0 [facility] Comment on above: Performed By: #### C CHING #### [facility] [address], [place] [address] Dr. Brennan Crooks WBC 9.2 103/ul Normal 4.0-11.0 [facility] Comment on above: Performed By: #### C CHING #### [facility] [address], [place] [address] PELVIS WO CONon [...] BO HURST Date: 2021-09-11 21:13 Normal [facility] Covid-19 PCR (CVDTB)on 09-02 SARS-CoV-2 (COVID-19) RNA NADIR+probe Ql (Unsp spec) Not detected Normal NOT DETECTED [facility] Comment on above: Result Comment: When [...] for this test is supported by the [place] of Health and Human Service's declaration that [...] used). Performed By: #### C VDTB #### [facility] [address] [place] [address] Dr. Brennan Crooks PROF CHEM 8 (BAS METB)on Anion gap [Moles/Vol] 13.3 mmol/L Normal [facility] Comment on above: Performed By: #### B MP #### [facility] [address] [place] [address] Dr. Brennan Crooks Calcium [Mass/Vol] 8.9 mg/dL Normal 8.5-10.1 [facility] Comment on above: Performed By: #### B MP #### [facility] [address] [place] [address] Dr. Brennan Crooks Chloride [Moles/Vol] 107 mmol/L Normal 98-107 [facility] Comment on above: Performed By: #### B MP #### [facility] [address] [place] [address] Dr. Brennan Crooks CO2 [Moles/Vol] 22.3 mmol/L Normal 21.0-32.0 [facility] Comment on above: Performed By: #### B MP #### [facility] [address] [place] [address] Dr. Brennan Crooks Creatinine [Mass/Vol] 1.37 mg/dL Critically high 0.70-1.30 [facility] Comment on above: Performed By: #### B MP #### [facility] [address] [address] [address] Brennan Crooks EGFR-[place] 60 mL/min/1.73m2 Normal >=60 Th [facility] Comment on above: Performed By: #### B MP #### [facility] [address] [address] [address] Brennan Crooks EGFR-NON AF [place]IZ[place] 50 mL/min/1.73m2 Critically low >=60 [facility] Comment on above: Performed By: #### B MP #### [facility] [address] [place] [address] Dr. Brennan Crooks Glucose [Mass/Vol] 165 mg/dL Critically high 74-106 [facility] Comment on above: Performed By: #### B MP #### [facility] [address] [place] [address] Dr. Brennan Crooks Potassium [Moles/Vol] 4.6 mmol/L Normal 3.5-5.1 [facility] Comment on above: Performed By: #### B MP #### [facility] [address] [place] [address] Dr. Brennan Crooks Sodium [Moles/Vol] 138 mmol/L Normal 136-145 [facility] Comment on above: Performed By: #### B MP #### [facility] [address] [address] [address] Brennan Crooks Urea nitrogen [Mass/Vol] 33.0 mg/dL Critically high 7.0-18.0 [facility] Comment on above: Performed By: #### B MP #### [facility] [address] [place] [address] Dr. Brennan Crooks Urea nitrogen/Creatinine [Mass ratio] 24.1 mg/mg Normal [facility] Comment on above: Performed By: #### B MP #### [facility] [address] [place] [address] Dr. Brennan Crooks XR HIP RT 2 [...] by: MAYA MOODY Date: 2021-09-11 13:47 Normal [facility] LIPID PROFILEon 07-13-2021 CHOL-HDL RATIO NORM SEE BELOW Normal [facility] Comment on above: Result Comment: 3.3 - 4.4 LOW RISK 4.4 - 7.1 AVERAGE RISK 7.1 - 11.0 MODERATE RISK >11.0 HIGH RISK Performed By: #### L IPID, CMP #### [facility] [address] [address] [address] Brennan Crooks Cholesterol [Mass/Vol] 111 mg/dL Normal <=200 Th [facility] Comment on above: Performed By: #### L IPID, CMP #### [facility] [address] [address] [address] Brennan Crooks Cholesterol in HDL [Mass/Vol] 62 mg/dL Critically high 40-60 [facility] Comment on above: Performed By: #### L IPID, CMP #### [facility] [address] [address] [address] Brennan Crooks Cholesterol in LDL [Mass/Vol] 41.2 mg/dL Normal [facility] Comment on above: Performed By: #### L IPID, CMP #### [facility] [address] [address] [address] Brennan Crooks Cholesterol.total/Chol esterol in HDL [Mass ratio] 1.8 {ratio} Normal [facility] Comment on above: Performed By: #### L IPID, CMP #### [facility] [address] [address] [address] Brennan Crooks HDL NORMAL > or = 60 mg/dl - LO W CARDIOVASCULAR RISK <40 mg/dl - HIGH CARDIOVASCULAR RISK Normal [facility] Comment on above: Performed By: #### L IPID, CMP #### [facility] [address] [address] [address] Brennan Crooks LDL CALC NORMAL SEE BELOW Normal [facility] Comment on above: Result Comment: <100 mg/dl OPTIMAL 100 - 129 mg/dl NEAR OR ABOVE OPTIMAL 130 - 159 mg/dl BORDERLINE HIGH 160 - 189 mg/dl HIGH >190 mg/dl VERY HIGH Performed By: #### L IPID, CMP #### [facility] [address] [address] [address] Brennan Crooks Triglyceride [Mass/Vol] 39 mg/dL Normal <=150 [facility] Comment on above: Performed By: #### L IPID, CMP #### [facility] [address] [place] [address] Dr. Brennan Crooks VLDL CALC 7.8 mg/dL Normal [facility] Comment on above: Performed By: #### L IPID, CMP #### [facility] [address] [address] [address] Brennan Crooks PROF 14(COMP METB)on 022 Albumin [Mass/Vol] 3.6 g/dL Normal 3.4-5.0 [facility] Comment on above: Performed By: #### L IPID, CMP #### [facility] [address] [address] [address] Brennan Crooks Albumin/Globulin [Mass ratio] 1.2 {ratio} Normal [facility] Comment on above: Performed By: #### L IPID, CMP #### [facility] [address] [address] [address] Brennan Crooks ALP [Catalytic activity/Vol] 111 U/L Normal 46-116 [facility] Comment on above: Performed By: #### L IPID, CMP #### [facility] [address] [address] [address] Brennan Crooks ALT [Catalytic activity/Vol] 39 U/L Normal 16-63 [facility] Comment on above: Performed By: #### L IPID, CMP #### [facility] [address] [address] [address] Brennan Crooks Anion gap [Moles/Vol] 12.4 mmol/L Normal Th [facility] Comment on above: Performed By: #### L IPID, CMP #### [facility] [address] [address] [address] Brennan Crooks AST [Catalytic activity/Vol] 39 U/L Critically high 15-37 [facility] Comment on above: Performed By: #### L IPID, CMP #### [facility] [address] [address] [address] Brennan Crooks Bilirubin [Mass/Vol] 1.6 mg/dL Critically high 0.2-1.0 [facility] Comment on above: Performed By: #### L IPID, CMP #### [facility] [address] [address] [address] Brennan Crooks Calcium [Mass/Vol] 9.3 mg/dL Normal 8.5-10.1 [facility] Comment on above: Performed By: #### L IPID, CMP #### [facility] [address] [address] [address] Brennan Crooks Chloride [Moles/Vol] 107 mmol/L Normal 98-107 [facility] Comment on above: Performed By: #### L IPID, CMP #### [facility] [address] [address] [address] Brennan Crooks CO2 [Moles/Vol] 24.9 mmol/L Normal 21.0-32.0 [facility] Comment on above: Performed By: #### L IPID, CMP #### [facility] [address] [address] [address] Brennan Crooks Creatinine [Mass/Vol] 1.34 mg/dL Critically high 0.70-1.30 [facility] Comment on above: Performed By: #### L IPID, CMP #### [facility] [address] [address] [address] Brennan Crooks EGFR-AF [place] >60 Normal >=60 [facility] Comment on above: Performed By: #### L IPID, CMP #### [facility] [address] [address] [address] Brennan Crooks EGFR-NON AF [place] 51 mL/min/1.73m2 Critically low >=60 [facility] Comment on above: Performed By: #### L IPID, CMP #### [facility] [address] [address] [address] Brennan Crooks Globulin (S) [Mass/Vol] 2.9 g/dL Normal [facility] Comment on above: Performed By: #### L IPID, CMP #### [facility] [address] [address] [address] Brennan Crooks Glucose [Mass/Vol] 95 mg/dL Normal 74-106 [facility] Comment on above: Performed By: #### L IPID, CMP #### [facility] [address] [place] [address] Dr. Brennan Crooks Potassium [Moles/Vol] 4.3 mmol/L Normal 3.5-5.1 [facility] Comment on above: Performed By: #### L IPID, CMP #### [facility] [address] [place] [address] Dr. Brennan Crooks Protein [Mass/Vol] 6.5 g/dL Normal 6.4-8.2 [facility] Comment on above: Performed By: #### L IPID, CMP #### [facility] [address] [place] [address] Dr. Brennan Crooks Sodium [Moles/Vol] 140 mmol/L Normal 136-145 [facility] Comment on above: Performed By: #### L IPID, CMP #### [facility] [address] [address] [address] Brennan Crooks Urea nitrogen [Mass/Vol] 31.0 mg/dL Critically high 7.0-18.0 [facility] Comment on above: Performed By: #### L IPID, CMP #### [facility] [address] [address] [address] Brennan Crooks Urea nitrogen/Creatinine [Mass ratio] 23.1 mg/mg Normal [facility] Comment on above: Performed By: #### L IPID, CMP #### [facility] [address], [place] [address] Dr[address] Brennan Crooks Ambulatory Clinical Summaryo n 12-31-2020 Ambulatory Clinical Summary {[id number] }[id number] Normal [facility] Patient Educationon 01-01-20 Patient Education Urology Benign Prostatic Hyperplasia Benign [...] Follow these instructions at home: ? Take kufw-eeg-odnotbh and prescription medicines only as told by [...] You d (more content not included)... Normal [facility] Urology Office/Clinic Noteon 12-31-2020 Urology Office/Clinic Note [...] Dr. Mcallister. Follow-up With When Contact Information Dixon MCALLISTER MD, URL [address] [place] [address] [place] [address]- [phone] Additional Instructions: prn Patient Education Benign Prostatic [...] Allergies pe (more content not included)... Normal [facility] Comment on above: Result Comment: Elec tronically Signed By: Dixon MCALLISTER MD\.br\Date and Time Signed: 12/31/20 09:32 EDT\.br\Electronically Co-Signed By: Bibiana Valadez MA\.br\Date and Time Co-Signed: 12/31/20 09:31 EDT US art pvr/post Nic 021 US art pvr/post [facility] Main [address] [address] Ultrasound Report Signed Patient: Duke Matson MR#: [id number] : 1935 Acct:[id number] Age/Sex: 84 / M ADM Date: 10/06/20 Loc: Room: Type: [facility] Attending Dr: Jeff Lucio MD Ordering Provider: [...] Jeff Lucio M.D.10/06/2020 4:30 PM [facility]: Mireille Gomes Transcribed By: JUSTINO 10/06/20 1630 Dictated By: Jeff Lucio MD 10/06/20 1627 Signed By: 10/06/20 1630 [facility] Ambulatory Clinical Summaryo n 04-12-2020 Ambulatory Clinical Summary {[id number] [facility] Patient Educationon 02-08-20 21 Patient Education Benign Prostatic Hyperplasia You have [...] Document Reviewed: 10/25/2007 ExitCare? Patient Information ?2013 [employer]. [facility] Urology Office/Clinic Noteon 04-12-2020 Urology Office/Clinic [...] done 09/30/2019 Follow-up With When Contact Information Dixon MCALLISTER MD In 6 months [facility] [address], [place] [address]- [phone] Additional Instructions: Patient Education Benign Prostatic Hyperplasia [...] Medications amiodaro (more content not included)... Normal [facility] Comment on above: Result Comment: Elec tronically Signed By: Dixon MCALLISTER MD\.br\Date and Time Signed: 04/12/20 09:22 EST\.br\Electronically Co-Signed By: Micheline Liu MA\.br\Date and Time Co-Signed: 04/12/20 09:20 EST Cardiovascular Lab Reporton 12-29-2019 Cardiovascular Lab Report [facility] Patient Name: [facility] Duke Bai MR #: [id number] Department of Physician: Juan Bhatt MD Medicine Service Date: 12/29/2019 Division of Birthdate: 1935 Cardiology Room #: [facility] [address] [place] [address] Cardiovascular Laboratory Report COMPREHENSIVE EP STUDY AND [...] the sternum on the left using the [employer] tool. The loop recorder was then injected [...] were immediately observed. LOOP details: Device Model: [employer] [id number] Seri (more content not included)... Normal [facility] BASIC METABOLIC PANELon 10-2 Calcium [Mass/Vol] 9.6 mg/dL Normal 8.6-10.3 [facility] Comment on above: Performed By: #### 0 0071 #### [facility] [address] [place] [address], [facility] Chloride [Moles/Vol] 109 mmol/L High 98-107 [facility] Comment on above: Performed By: #### 0 0071 #### [facility] [address] [place] [place] [address], [facility] CO2 [Moles/Vol] 25 mmol/L Normal 21-31 [facility] Comment on above: Performed By: #### 0 0071 #### [facility] [address] [place] [place] [address], [facility] Creatinine [Mass/Vol] 1.36 mg/dL High 0.70-1.30 [facility] Comment on above: Performed By: #### 0 0071 #### [facility] [address] [place] [address], [facility] eGFR- non- 50 ml/min/1.73sq m Abnormal >60 [facility] Comment on above: Result Comment: Calc ulation may not be valid for patients over 70 years Performed By: #### 0 0071 #### [facility] [address] [place] [address], [facility] GFR/1.73 sq M.predicted among blacks MDRD (S/P/Bld) [Vol rate/Area] mL/min/{1.73_m2} Normal >60 [facility] Comment on above: Result Comment: Calc ulation may not be valid for patients over 70 years Performed By: #### 0 0071 #### [facility] [address] [place] [address], [facility] Glucose [Mass/Vol] 85 mg/dL Normal 70-100 [facility] Comment on above: Performed By: #### 0 0071 #### [facility] [address] [place] [address], [facility] Potassium [Moles/Vol] 4.5 mmol/L Normal 3.5-5.1 [facility] Comment on above: Performed By: #### 0 0071 #### [facility] [address] [place] [address], [place] Sodium [Moles/Vol] 140 mmol/L Normal 136-145 [facility] Comment on above: Performed By: #### 0 0071 #### [facility] [address] [place] [address], [place] Urea nitrogen [Mass/Vol] 29 mg/dL High 7-25 [facility] Comment on above: Performed By: #### 0 0071 #### [facility] [address] CBC W/DIFFon 12-26-2019 ABS IMM GRANS 0.0 10*3/uL Normal 0.0-0.2 [facility] Comment on above: Performed By: #### 5 0103 #### [facility] [address] [place] [address], [facility] ABS NEUTROPHILS 3.9 10*3/uL Normal 1.6-7.6 [facility] Comment on above: Performed By: #### 5 0103 #### [facility] [address] [place] [address], [facility] Basophils (Bld) [#/Vol] 0.0 10*3/uL Normal 0.0-0.2 [facility] Comment on above: Performed By: #### 5 0103 #### [facility] [address] [place] [address], [facility] Basophils/100 WBC (Bld) 0.5 % Normal 0.0-1.0 [facility] Comment on above: Performed By: #### 5 0103 #### [facility] [address] [place] [address], [facility] Eosinophils (Bld) [#/Vol] 0.1 10*3/uL Normal 0.0-0.5 [facility] Comment on above: Performed By: #### 5 0103 #### [facility] [address] [facility] [place] [address], [facility] Eosinophils/100 WBC (Bld) 2.2 % Normal 0.0-6.0 [facility] Comment on above: Performed By: #### 5 0103 #### [facility] [address] [place] [address], [facility] Erythrocyte distribution width (RBC) [Ratio] 14.5 % Normal 11.5-15.0 [facility] Comment on above: Performed By: #### 5 0103 #### [facility] [address] Hematocrit (Bld) [Volume fraction] 42.2 % Normal 39.0-50.0 [facility] Comment on above: Performed By: #### 5 0103 #### [facility] [address] Hemoglobin (Bld) [Mass/Vol] 13.6 g/dL Normal 13.0-17.0 [facility] Comment on above: Performed By: #### 5 0103 #### [facility] [address] IMMATURE GRANS 0.5 % Normal 0.0-1.0 [facility] Comment on above: Performed By: #### 3 #### [facility] [address] Lymphocytes (Bld) [#/Vol] 1.2 10*3/uL Normal 1.2-4.0 [facility] Comment on above: Performed By: #### 3 #### [facility] [address] Lymphocytes/100 WBC (Bld) 20.7 % Normal 20.0-45.0 [facility] Comment on above: Performed By: #### 5 3 #### [facility] [address] [facility]. [address] MCH (RBC) [Entitic mass] 31.9 pg Normal 27.0-33.0 [facility] Comment on above: Performed By: #### 5 3 #### [facility] [address] MCHC (RBC) [Mass/Vol] 32.2 g/dL Normal 32.0-35.0 [facility] Comment on above: Performed By: #### 5 3 #### [facility] [address] [place] [address], [facility] MCV (RBC) [Entitic vol] 98.8 fL High 82.0-98.0 [facility] Comment on above: Performed By: #### 5 0103 #### [facility] [address] [place] [id number], [facility] Monocytes (Bld) [#/Vol] 0.6 10*3/uL Normal 0.1-1.0 [facility] Comment on above: Performed By: #### 5 0103 #### [facility] [address] [place] [address], [facility] MONOS 9.8 % Normal 5.0-12.0 [facility] Comment on above: Performed By: #### 3 #### [facility] [address] [place] [address], [facility] Neutrophils/100 WBC (Bld) 66.3 % Normal 40.0-72.0 [facility] Comment on above: Performed By: #### 102 #### [facility] [address] [place] [id number], [facility] Nucleated RBC/100 WBC (Bld) [Ratio] 0 % Normal 0-0 [facility] Comment on above: Performed By: #### 102 #### [facility] [address] [place] [id number], [facility] PLAT CNT 165 10*3/uL Normal 150-400 [facility] Comment on above: Performed By: #### 3 #### [facility] [address] [place] [id number], [facility] RBC (Bld) [#/Vol] 4.27 10*6/uL Normal 4.20-5.70 [facility] Comment on above: Performed By: #### 102 #### [facility] [address] [place] [id number], [facility] WBC (Bld) [#/Vol] 5.89 10*3/uL Normal 4.00-10.60 [facility] Comment on above: Performed By: #### 5 0103 #### [facility] [address] Vital Signs Date Time Vital Sign Value Performing Clinician Orin crenshaw 09-15-2021 17:50-0400 Body temperature 98 [degF] MD Stefano Rivera Work Phone: [facility] 09-15-2021 17:50-0400 Diastolic blood pressure 68 mm[Hg] MD Stefano Rivera Work Phone: [facility] 09-15-2021 17:50-0400 Heart rate 82 /min MD Stefano Rivera Work Phone: [facility] 09-15-2021 17:50-0400 Respiratory rate 17 /min MD Stefano Rivera Work Phone: [facility] 09-15-2021 17:50-0400 SaO2% (BldA) [Mass fraction] 99 % MD Stefano Rivera Work Phone: [facility] 09-15-2021 17:50-0400 Systolic blood pressure 116 mm[Hg] MD Stefano Rivera Work Phone: [facility] 09-15-2021 13:06-0400 Body height 170.18 cm MD Stefano Rivera Work Phone: [facility] 09-15-2021 13:06-0400 Body mass index (BMI) [Ratio] 33.4 kg/m2 MD Stefano Rivera Work Phone: [facility] 09-15-2021 13:06-0400 Body weight 96.9 kg MD Stefano Rivera Work Phone: [facility] Encounters Encounter Date Encounter Type Care Provider Facility Start: 11-14-2024 End: 11-14-2024 ambulatory [facility] Start: 09-18-2024 End: 09-21-2024 [facility] Result Encounter Generic External Data Provider [facility] External Department Unsolicited Start: 09-18-2024 End: 09-21-2024 [facility] Result Encounter Generic External Data Provider [facility] External Department Unsolicited Start: 08-20-2024 End: 08-20-2024 [facility] Start: 08-08-2024 End: 08-08-2024 [facility] Result Encounter Generic External Data Provider [facility] External Department Unsolicited Start: 08-08-2024 End: 08-08-2024 Clinisync Result Encounter Generic External Data Provider [facility] Unsolicited Start: 05-05-2024 End: 05-05-2024 [facility] Start: 05-02-2024 End: 05-02-2024 Clinisync Result Encounter [...] External Department Unsolicited Start: 04-08-2024 End: 04-08-2024 [facility] Start: 03-03-2024 End: 03-03-2024 [facility] Start: 02-28-2024 End: 02-28-2024 Clinisync Result Encounter Generic External Data Provider [facility] External Department Unsolicited Start: 02-28-2024 End: 02-28-2024 Clinisync Result Encounter Generic External Data Provider [facility] Unsolicited Start: 02-22-2024 End: 02-22-2024 [facility] Start: 10-09-2023 Patient encounter procedure Generic Provider [facility] Start: 10-09-2023 End: 10-09-2023 ambulatory STEFANO RIVERA Not Available Start: 05-08-2022 End: 05-09-2022 ambulatory NINO POWELL Facility:H1 Start: 03-06-2022 ambulatory NINO POWELL Facility:H 1 Start: 01-23-2022 End: 01-24-2022 ambulatory MICHELLE KELLY Facility:[facility]1 Start: 11-02-2021 End: 11-03-2021 ambulatory SHANA MCCORMICK Facility:[facility]1 Start: 09-20-[address] STEFANO RIVERA Facil ity:H1 Start: 09-15-2021 Evaluation and management of inpatient MD Stefano Rivera Work Phone: [facility] Start: 09-13-2021 End: 09-13-[address] STEFANO RIVERA Facility:[facility]1 Start: 09-12-2021 End: 09-12-[address] STEFANO RIVERA Facility:[facility]1 Start: 09-11-2021 End: 09-11-[address] STEFANO RIVERA Facility:[facility]1 Start: 07-13-2021 End: 07-14-2021 ambulatory MICHELLE BLAKELY Facility:[facility]1 Procedures Date Procedure Procedure Detail Performing Clinician Start: 09-18-2024 SEGMENTAL BLOOD PRESSURE Generic External Data Provider Start: 08-08-2024 CA ECHO DOPPLER COMPLETE Generic External Data Provider Start: 05-02-2024 ALL BASIC METABOLIC PANEL Generic External Data Provider Start: 04-15-2024 ALL BASIC METABOLIC PANEL Generic External Data Provider Start: 02-28-2024 ALL BASIC METABOLIC PANEL Generic External Data Provider Start: 09-15-2021 SARS Antigen (LFIA) MD Stefano Rivera Work Phone: Start: 09-15-2021 CT of right hip MD Stefano Rivera Work Phone: Plan of Treatment Date Care Activity Detail Author Start: 11-03-2024 Influenza vaccination [facility] Start: 10-08-2024 Medicare Annual Wellness (AWV) Medicare Annual Wellness (AWV) [facility] Start: 11-04-2023 Influenza vaccination Influenza Vaccine (#1) [facility] Start: [birth year]07-1954 Pneumococcal Vaccine: 65+ Years (1 of 2 - PCV) Pneumococcal Vaccine: 65+ Years (1 of 2 - PCV) [facility] Start: 1942 Pneumococcal Vaccine: 65+ Years (1 of 2 - PCV) Pneumococcal Vaccine: 65+ Years (1 of 2 - PCV) [facility] Creatine kinase [Enzymatic activity/volume] in Serum or Plasma [facility] Work Phone: Immunizations Immunization Date Immunization Notes Care Provider Lima silva 01-16-2023 influenza virus vacc ine, unspecified formulation Generic Provider [facility] Payers Date Payer Category Payer Medicare (Managed Care) [facility] [id number] 1959 Medicare [id number] 1959 Private Health Insurance [facility] [id number] 1958 Self-pay [id number] 1936 Unknown [id number]. 59 1936 Unknown [id number]. 59 1936 Unknown [id number] [id number]. 59 1936 Unknown [id number] [id number]. 593 1936 Unknown [id number] [id number]. 593 1936 Unknown [id number] [id number]. 593 1936 Unknown [id number] [id number]. 593 1936 Unknown [id number] 2.16.840.1.025430.3.579.2. 593 1936 Unknown [id number] [id number]. 593 1936 Unknown [id number]. 1259 Medicare Medicare [id number] Self-pay Self Pay [id number] Unknown Gopal BC/BS [id number] Social History Date Type Detail Facility Start: 09-15-2021 Tobacco smoking stat [facility] Ex-smoker (finding) [facility] Start: 1935 Sex Assigned At Male [facility] Start: 10-09-2023 Tobacco smoking stat [facility] Never smoked tobacco [facility] Start: 10-09-2023 Tobacco use and exposure Smokeless tobacco non-user [facility] Start: 10-09-2023 History of Social function [facility] Start: 10-09-2023 Tobacco use panel [facility] Start: 1935 Sex assigned at Not on file N [facility] Clinical Notes 01-23-2022 to 11-14-2024 Note Date & Type Note Facility 11-14-2024 Note [facility] Subjective Patient is here today for follow-up visit on chronic systolic heart failure, coronary artery disease, and atrial fibrillation Patient Active Problem List Diagnosis Benign hypertension Persistent atrial fibrillation (CMS/HCC) Stage 3 chronic kidney disease (CMS/HCC) Coronary artery disease involving p[place]enta coronary artery of p[place]enta heart without angina pectoris Anemia, unspecified Carpal [...] Primary osteoarthritis of right knee Sinus congestion S/P CABG (coronary artery bypass graft) Valvular heart disease Abnormal gait LVH (left ventricular hypertrophy) Pure hypercholesterolemia HPI 11/14/2024 Patient is here today for follow-up visit. He states that he still has shortness of breath with exertion he thinks is little better than the last time he saw me since he started taking his medications regularly. Also he reports tiredness of his legs when he start walking but after walking for a while it gets better, he had lower extremities MASON which came back to be normal. He reports occasional legs edema and that he takes Lasix as needed every once a while. He denies orthopnea or paroxysmal nocturnal dyspnea. Denies any chest discomfort at rest or with exertion. He denies dizziness or palpitations. 05/05/2024 Patient is here today for follow-up [...] Diagnosis Date Abnormal ECG Arrhythmia Atrial flutter ([facility]/HCC) CHF (congestive heart failure) ([facility]/HCC) Chronic kidney disease Coronary artery disease Hea (more content not included)... [facility] 09-25-2024 Note Please let him know his MASON's were normal. Please follow-up with him regarding amyloid testing. Thanks! [facility] 08-20-2024 Note Patient is here toda y for a 3 month follow up with ECHO. Patient states he was put on a2 new medication Farxiga and Metoprolol 3 months ago and took them for 2 months, patients states he started having mental problems so he stopped taking both medication due to not knowing which one was causing the problem. Patient states he is doing well, exercise every day, eats well and does his normal daily living, patient states still having leg fatigue. Review of Systems Musculoskeletal: Positive for muscle weakness (legs). [facility] 08-20-2024 Note Cardiovascular Medic [facility] SUBJECTIVE Chief Complaint Patient presents with Coronary Artery Disease Congestive Heart Failure Atrial Fibrillation Duke Matson is a 88 y.o. male here for routine follow-up. HPI PMHx: CAD s/p CABG x2 (01/2019), HFrEF (hx recovered to 50%, newly reduced again to 36%), ICMP, HTN, a.fib s/p ablation and loop recorder placement 12/2019, a.flutter, CKD stage 3 (he only has 1 functioning kidney), bradycardia while on BB. 08/20/2024 Patient is here today for a 3 month follow up with ECHO. Patient states he was put on 2 new medications, Farxiga and Metoprolol, 3 months ago and took them for 2 months, patients states he started having mental problems so he stopped taking both medication due to not knowing which one was causing the problem. Patient states he is doing well, exercise every day, eats well and does his normal daily living, patient states still having leg fatigue. He notes he was taking Farxiga daily back in May. He noticed no change in his leg fatigue when he took it for 2 months. However, he noticed that he was having balance problems, lightheadedness, confusion, and memory problems to the point where he didn't feel comfortable walking for very long or driving so he stopped taking it. He also stopped metoprolol as he was worried this may have caused it as well since he started it a few weeks prior. He has been off of both medications for the past 5 weeks and his sx's have improved. BP has been running 120-135/68-78 at home. He continues to exercise 2.5 hours 3 days a week and also walks on the other days. Leg fatigue has been on going. Occurs when he walks longer distances. He will stop and take a break and sx's improve and then he will start walking again. SHARPE has been stable. Leg swelling has been improved. He denies CP, orthopnea, PND, palpitations, syncope. 09/25/23 About 1 month ago he started [...] (CMS/HCC) Stage 3 chronic kidney disease (CMS/HCC) Coronary artery disease involving p[place]enta coronary artery of paskenta heart without angina pectoris Anemia, unspecified Carpal [...] (coronary artery bypass graft) Valvular heart disease Abnormal gait Past Medical History: Diagnosis Date Abnormal ECG Arrhythmia Atrial flutter (CMS/HCC) CHF (congestive heart failure) (CMS/HCC) Chronic kidney disease Coronary artery disease Heart valve disease Hyperlipidemia Hypertension Family History Problem Relation Name Age of Onset Heart attack Other Social History Tobacco Use Smoking status: Former Types: Cigarettes Smokeless tobacco: Never Substance Use Topics Alcohol use: Not Cur (more content not included)... 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 [facility] 03-03-2024 Note [facility] Subjective Is here today for follow-up visit on shortness of breath, tiredness, palpitation, and elevated blood pressure 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 (CMS/HCC) Benign hypertension Longstanding persistent atrial fibrillation (CMS/HCC) Stage 3 chronic kidney disease (CMS/HCC) Atrial flutter (CMS/HCC) Coronary artery disease involving p[place] coronary artery of p[place] heart without angina pectoris Anemia, unspecified Carpal [...] ABDOMEN: soft, nonten (more content not included)... [facility] 02-22-2024 Note [facility] Subjective Shortness of breath, tiredness, palpitation, and elevated blood pressure 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 (CMS/HCC) Benign hypertension Persistent atrial fibrillation (CMS/HCC) Stage 3 chronic kidney disease (CMS/HCC) Atrial flutter (CMS/HCC) Coronary artery disease involving p[place] coronary artery of p[place] heart without angina pectoris Anemia, unspecified Carpal [...] fibrillation with ventricul (more content not included)... [facility] 01-23-2022 Note CARDIAC STRESS TEST Requesting Physician: Procedure Date:01/23/2022 This was a Lexiscan Stress Test with myocardial perfusion imaging, performed at the [facility]. Informed consent was obtained. Intravenous line [...] perfusion images will be reported separately. [facility] Evaluation note Diagnosis Onset Date Hematoma of right hip acute Unable to ambulate acute [facility] Work Phone: History and physical note Author Venus Manjarrez [facility] September 15, 2021 6:53pm Note Date/Time September 15, 2021 6:33 pm [facility] [address] [place] [address] Hospitalist H&P Signed Patient: Duke Matson MR#: [id number] : 1935 Acct:[id number] Age/Sex: 85 / M Adm Date: 2 Loc: 4N Room: 8T4115-3 Type : ADM INOo Attending Dr: Venus [...] fall on Sunday, was initially evaluated at [facility] home. He had continued pain and be presented to [facility] where he was admitted with overnight observation [...] get in the car and came to [facility] ED. He denies new sensory deficit [...] % (Auto) 6.3 % (.) 09/15/21 17:07 Ashley % (Auto) 9.1 % (.) 09/15/21 17:07 Eos % (Auto) 0.0 % (.) 09/15/21 17:07 Baso % (Auto) 0.2 % (.) 09/15/21 17:07 Neut # (Auto) 8.1 x10E3/uL (1.8-7.7) H 09/15/21 17:07 Lymph # (Auto) 0.6 x10E3/uL (1.00-4.8) L 09/15/21 17:07 Ashley # (Auto) 0.9 x10E3/uL (0.0-0.8) H 09/15/21 [...] fall on Sunday and was seen at [facility] 2 times and discharged home with [...] appears similar to the last draw from [facility] -Given physical exam findings, rule out compartment syndrome of the right lower extremity. Orthopedics consult was requested and case was discussed with Dr. Bond states he will evaluate the patient in the a.m. and consider an MRI -Continue pain control with [place] and Dilaudid for breakthrough pain Permanent atrial fib -Not on rate control medications, continue Eliquis for now Hyperlipidemia: Continue statin Hypertension: Continue lisinopril CODE STATUS was confirmed in the ED as DNR Comfort Care arrest no intubation PT OT Case management consulted for placement Time Spent With Patient (min): 35 Documented By: Venus Manjarrez DO 09/15/211828 Signed By: <Electronically signed by Venus Manjarrez DO> 09/15/21 [address] [facility] Work Phone: Summary Purpose Family History [...] section and content) DATE CREATED AUTHOR 11/16/2020 [facility] DATE CREATED AUTHOR AUTHOR'S ORGANIZ ATION 01/01/2021 [facility] DATE CREATED AUTHOR AUTHOR'S ORGANIZ ATION 09/28/2021 [facility] DATE CREATED AUTHOR AUTHOR'S ORGANIZ ATION 05/10/2022 [facility] DATE CREATED AUTHOR AUTHOR'S ORGANIZ ATION 10/11/2023 [facility] EPIC DATE CREATED AUTHOR AUTHOR'S ORGANIZ ATION 11/17/2024 [facility] Care Teams (unrecognized sec tion and content) Team Status: Active Member Role Status Dates Stefano Rivera MD Primary Care Provider Active Benjy Gates DO RES Active Percy Swan MD Emergency Provider Active Venus Manjarrez DO Admit Provider, Attending Provider Ac tive Team Status: Active Member Role Status Dates Stefano Rivera MD Primary Care Provider Active Supervisor Fusing Room Relationship Specialty Start Date End Date Stefano Rivera MD [address] [place] [address] PCP - General Family Medicine 7/30/24 Goals (unrecognized section and content) Goals may [...] BE BASED ON THE PRIMARY CLINICAL RECORDS. [facility] [employer] [facility]. provides no warranty or guarantee of the accuracy or completeness of information in this document.
[2024-11-21 09:01] LABS: Alanine Aminotransferase 29 U/L (16-63); Anion Gap 13.6; Aspartate Amino Transferase 36 U/L (15-37); Blood Urea Nitrogen 43.0 mg/dL (7.0-18.0); Calcium 9.7 mg/dL (8.5-10.1); Carbon Dioxide 27.3 mmol/L (21.0-32.0); Chloride 107 mmol/L (98-107); Cholesterol 123 mg/dL (<=200); Estimated GFR (African America >60 (>=60 mL/min/1.73m^2); Estimated GFR (Non-African Ame 59 (>=60 mL/min/1.73m^2); Glucose 95 mg/dL (74-106); HDL Cholesterol 65 mg/dL (40-60); Potassium 3.9 mmol/L (3.5-5.1); Sodium 144 mmol/L (136-145); Triglycerides 68 mg/dL (<=150); VLDL CHOLESTEROL 13.6 mg/dL
== END 2024-11-21 08:19 | disposition home or self-care (01) ==
LOC: LAB 08:21
PROVIDERS: PCP Family Medicine; Visit Provider Internal Medicine Cardiovascular Disease
DX: E78.00 Pure hypercholesterolemia, unspecified (principal); I50.22 Chronic systolic (congestive) heart failure
CPT/HCPCS: 36415; 80048; 80061; 84450; 84460

== ENCOUNTER 2024-12-04 08:29 | Outpatient (OUT) | payer MEDICARE, SELFPAY ==
--- OUTSIDE RECORDS SUMMARY | 2024-11-28 07:55 | XMS_ITS ---
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) NA Active [facility] 11/14/2024 Admitting Diagnosis Pure hypercholesterolemia, unspecified / E78.00(ICD-10) MISAEL PRYOR Active [facility] 08/20/2024 Admitting Diagnosis Cardiomegaly / I51.7(ICD-10) [facility] Admitting Diagnosis Presence of aortocoronary bypass graft / Z95.1(ICD-10) [facility] 01/02[facility]22 Admitting Diagnosis Essential (primary) hypertension / I10(ICD-10) [facility]22 Admitting Diagnosis Chronic kidney disease, stage 3 unspecified / N18.30(ICD-10) [facility]24 Admitting Diagnosis Endocarditis, valve unspecified / I38(ICD-10) [facility] Ad[facility] Diagnosis Other persistent atrial fibrillation / I48.19(ICD-10) [facility] Ad[facility] Diagnosis Chronic systolic (congestive) heart failure / I50.22(ICD-10) [facility] Admitting Diagnosis Ischemic cardiomyopathy / I25.5(ICD-10) [facility] Admitting Diagnosis Hyperlipidemia, unspecified / E78.5(ICD-10) [facility]22 Admitting Diagnosis Atherosclerotic heart disease of point hope ir[place] coronary artery without angina pectoris / I25.10(ICD-10) [facility] Admitting Diagnosis Chronic kidney disease, stage 3a / N18.31(ICD-10) [facility]24 Admitting Diagnosis Congestive Heart Failure / 127() [facility] Admitting Diagnosis [facility]rial Fibrillation / 80() [facility] Admitting Diagnosis Coronary Artery Disease / 187() [facility] Active [facility] 03/03/2024 Admitting Diagnosis Hyperlipidemia / 182() [facility] Active [facility] 03/03/2024 Admitting Diagnosis Valve Disorder / 3372() [facility] Active [facility] 03/03/2024 Admitting Diagnosis Edema / [id number]() [facility] Active [facility] 02/22/2024 Admitting Diagnosis Longstanding persistent atrial fibrillation / I48.11(ICD-10) [facility] Active [facility] 02/22/2024 Admitting Diagnosis Acute combined systolic (congestive) and diastolic (congestive) heart failure / I50.41(ICD-10) [facility] Active [facility] 01/02/2022 Admitting Diagnosis Unspecified atrial flutter / I48.92(ICD-10) [facility] PROCEDURES No Procedure Records Found RESULTS ORDERS ONLY Observed: 12/01/2024 12:00 AM Status: COMPLETED Source: [facility] [id number] Chad Matson 1935 M Date Provider Department [place] 12/01/2024 Josh-TERESITA NEWBERRY [facility] [place] Family History Problem Relation Age of Onset Heart attack Other Family Status - Relation Status Age at Mother Father Other PROGRESS Observed: 11/14/2024 11:40 AM Status: COMPLETED Source: [facility] Cardiology - [place] [facility] Subjective Patient is here today for follow-up visit on chronic systolic heart failure, coronary artery disease, and atrial fibrillation Patient Active Problem List Diagnosis Benign hypertension Persistent atrial fibrillation (CMS/HCC) Stage 3 chronic kidney disease (CMS/HCC) Coronary artery disease involving point hope ira coronary artery of point [place] heart without angina pectoris Anemia, unspecified Carpal [...] at bedtime., Disp: 180 tablet, Rfl: 3 metoprolol succinate XL (Toprol-XL) 25 mg 24 hr tablet, Take 1 tablet (25 mg) by mouth in the morning. Do not crush or chew., Disp: , Rfl: rosuvastatin (Crestor) 10 mg tablet, Take 1 tablet (10 mg) by mouth every other day., Disp: 45 tablet, Rfl: 3 sacubitril-valsartan (Entresto) 24-26 mg tablet, Take 0.5 tablets by mouth two times daily., Disp: 90 tablet, Rfl: 3 furosemide (Lasix) 20 mg tablet, Take 1 tablet (20 mg) by mouth in the morning., Disp: 30 tablet, Rfl: 11 pantoprazole (ProtoNix) 40 mg EC tablet, Take 1 tablet (40 mg) by mouth in the morning. Do not crush, chew, or split. (Patient not taking: Reported on 11/14/2024), Disp: 90 tablet, Rfl: 3 Objective Visit Vitals BP 133/74 (BP Location: Right arm, Patient Position: Sitting) Pulse 77 Ht 1.727 m (5' 8 ) Wt 78.9 kg (174 lb) SpO2 98% BMI 26.46 kg/m??? Smoking Status Former BSA 1.95 m??? Physical exam: GENERAL: alert and oriented x3, well developed, in no acute distress. HEAD: atraumatic, normocephalic. EYES: ELY, EOMI. NECK: trachea midline, no JVD present, no carotid bruits present. CARDIAC: Irregular irregularity, S1, S2 present. No murmur, rubs, or gallops. RESPIRATORY: CTAB, no increased effort of breathing, no rales, rhonchi, or wheezing. ABDOMEN: soft, nontender, nondistended. EXTREMITIES: +1 edema bilateral. No rash/skin discoloration present. NEURO: strength/sensation equal [...] anterolateral infarct EK09/25/2023 showed atrial fibrillation with ventricular rate 80 bpm, old inferior infarct, right bundle branch block, possible anterior lateral old infarct Echo 08/08/2024 Echo 03/11/2024 Echo: 10/09/2022 LEELEE 04/01/2019 Global left ventricular systolic function is mildly reduced (Visually estimated EF 40-45%). The left ventricle is normal size. Normal right ventricular systolic function. The right ventricle is normal in size. The left atrium is severely enlarged. No thrombus seen in the left atrial appendage. Mild mitral regurgitation. - Biphasic cardioversion was performed at 200 J, the patient was converted to sinus rhythm 7-day event monitor 02/22/2024 - 02/29/2024 Persistent A-fib with ventricular rate 31(which was very transient) to 90 bpm. Average heart rate 62 bpm. 1 prolonged RR interval 3.2-second recorded at 11 PM PVCs less than 1%, mostly isolated, for NSVT 3-8 beats most likely A-fib with aberrancy, asymptomatic No symptoms reported by patient LEELEE 01/17/2019 Assessment/Plan Chronic systolic heart failure associated with worsening ejection fraction most likely due to recurrent A-fib and uncontrolled hypertension. He is on Toprol-XL and Entresto Most recent echo August 2024 showed improvement in ejection fraction to 35 to 40% but suspicion of cardiac amyloidosis Farxiga was added on prior visit but it caused him confusion, lightheadedness and memory problem and it was discontinued's visit with [employer] He feels better but he still has exertional dyspnea and occasional legs edema. 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 He was started on Toprol-XL and his ventricular rate appeared to be controlled on the 7-day event monitor. He was previously on amiodarone in 2020 which was stopped due to recurrent A-fib and having bradycardia while on it. The patient is not willing at this time to have cardioversion because he did not feel good with the previous CV. In any case on the last monitor his ventricular rate was well-controlled on Toprol-XL as mentioned above He is on Eliquis for anticoagulation and Toprol-XL for rate control doing well Coronary artery disease, status post CABG x 2 in January 2019 He is on Toprol-XL, Eliquis and Crestor. He is not on aspirin to reduce risk of bleeding. Clinically stable Ischemic cardiomyopathy with good recovery of left ventricle systolic function, ejection fraction 40 to 45% on echo October 2022. But recently his ejection fraction dropped again to 20-25% probably due to atrial fibrillation. It improved to 35 to 40% after getting ventricular rate better controlled He is on Toprol XL, and Entresto Valvular heart disease including moderate mitral regurgitation and moderate tricuspid regurgitation noted on echo 03/11/2024 Hyperlipidemia, on Crestor, well-controlled Chronic kidney disease Plan: Continue current medications including Entresto 24-26 mg half tablet twice daily, Toprol XL 25 mg daily, Eliquis 5 mg twice daily, and Crestor 10 mg daily I asked the patient to take Lasix 20 mg on daily basis because he still has legs edema and shortness of breath. He was advised again to follow low-salt diet and to check his weight daily. We will check BMP in 1 week We will obtain fasting lipids with AST ALT at the same time I had lengthy discussion with him regarding the findings on echo regarding suspicion of cardiac amyloidosis, I explained to him the pathology and the possibility of treatment. He is now willing to have the [facility] amyloid imaging at [facility]. He was also provided with a phone number to call for assistance with transportation Follow-up in about 3 month or sooner if needed Misael Pryor MD,[facility] OFFICE VISIT Observed: 11/14/2024 11:40 AM Status: COMPLETED Source: [facility] [id number] Chad Matson 1935 M Date Provider Department Center 11/14/2024 [id number] PRYOR [facility] Family History Problem Relation Age of Onset Heart attack Other Family Status - Relation Status Age at Mother Father Other Level of Service:42621 AR OFFICE/OUTPATIENT ESTABLISHED MOD MDM 30 MIN Reason for Visit and Comments: Follow-up [211660] - Patient is here per Juliann Blakely CNP to discuss Amyloid testing Multiple vessel coronary artery disease [Other] Ischemic congestive cardiomyopathy [Other] Hypertension [216829] Atrial Fibrillation [80] Coronary Artery Disease [187] Hyperlipidemia [182] Congestive Heart Failure [127] Valve Disorder [3372] LVH [Other] Stage 3 kindney disease [Other] Cardiomyopathy [104] - Previous IL [Other] ORDERS ONLY Observed: 11/14/2024 12:00 AM Status: COMPLETED Source: [facility] [id number] HuyenChad 1935 M Date Provider Department Center 11/14/2024 Silvio5YESSENIA SADLER Family History Problem Relation Age of Onset Heart attack Other Family Status - Relation Status Age at Mother Father Other 37 Observed: 10/08/2024 2:37 PM Status: COMPLETED Source: [facility] Per the patient he has not h ad the amyloid testing. Michelle Blakely CNP to Teresita Newberry MA (Selected Message) [place] 09/25/24 5:25 PM Note Please let him know his MASON's were normal. Please follow-up with him regarding amyloid testing. Thanks! Per the patient he has not had the amyloid testing. Advised patient his MASON's were normal per Juliann Blakely. Me to Michelle Blakely CNP [place] 10/10/24 1:48 PM Spoke to patient, patient states at this time he doesn't think he is interested in doing the test. Patient states he will speak with Dr. Pryor about this at his appointment in November. Michelle Blakely CNP to Ma (Selected Message) [place] 10/09/24 4:25 PM Is he willing to come to [place] to have it done? Me to Michelle Blakely CNP [place] 10/08/24 2:36 PM Per the patient he has not had the amyloid testing. View older events TELEPHONE Observed: 10/08/2024 12:00 AM Status: COMPLETED Source: [facility] [id number] Chad Matson 1935 M Date Provider Department Center 10/08/2024 ALAYNA GUTIERRZE Family History Problem Relation Age of Onset Heart attack Other Family Status - Relation Status Age at Mother Father Other PROGRESS Observed: 09/25/2024 5:25 PM Status: COMPLETED Source: [facility] Please let him know his MASON' s were normal. Please follow-up with him regarding amyloid testing. Thanks! RESULTS FOLLOW-UP Observed: 09/25/2024 12:00 AM Status: COMPLETED Source: [facility] [id number] HuyenChad 1935 Provider Department Center 09/25/2024 MICHELLE PARKER Family History Problem Relation Age of Onset Heart attack Other Family Status - Relation Status Age at Mother Father Other ORDERS ONLY Observed: 09/22/2024 12:00 AM Status: COMPLETED Source: [facility] [id number] Alek Matsonsimon Bai 1935 Date Provider Department Center 09/22/2024 [id number], DULCE MARIA Lopez Family History Problem Relation Age of Onset Heart attack Other Family Status - Relation Status Age at Mother Father Other 37 Observed: 08/20/2024 4:43 PM Status: COMPLETED Source: [facility] Called patient to give him i nfo about [employer] for transportation to [facility] for amyloid testing. He would prefer to wait until after he has result of MASON's first. Advised patient we'd call him with results and can rediscuss amyloid testing at that time. The number for [employer] is [phone]. He verbalized understanding. PROGRESS Observed: 08/20/2024 9:40 AM Status: COMPLETED Source: [facility] Patient is here today for a 3 [...] Systems Musculoskeletal: Positive for muscle weakness (legs). OFFICE VISIT Observed: 08/20/2024 9:40 AM Status: COMPLETED Source: [facility] [id number] HuyenChad 1935 Provider Department Center 08/20/2024 MICHELLE PARKER Family History Problem Relation Age of Onset Heart attack Other Family Status - Relation Status Age at Mother Father Other Level of Service:41687 AR OFFICE/OUTPATIENT ESTABLISHED MOD MDM 30 MIN Reason for Visit and Comments: Coronary Artery Disease [187] Congestive Heart Failure [127] Atrial Fibrillation [80] PROGRESS Observed: 08/20/2024 9:40 AM Status: COMPLETED Source: [facility] Cardiovascular Medicine [facility] SUBJECTIVE Chief Complaint Patient presents with Coronary Artery Disease Congestive Heart Failure Atrial Fibrillation Chad Matson is a 88 y.o. male here [...] kidney disease (CMS/HCC) Coronary artery disease involving point hope ira coronary artery of point hope ir[place] heart without angina pectoris Anemia, unspecified Carpal [...] Acute combined systolic and diastolic heart failure ([facility]/HCC) S/P CABG (coronary artery bypass graft) Valvular heart disease Abnormal gait Past Medical History: Diagnosis Date Abnormal ECG Arrhythmia Atrial flutter ([facility]/HCC) CHF (congestive heart failure) ([facility]) Chronic kidney disease Coronary artery disease Heart valve disease Hyperlipidemia Hypertension Family History Problem Relation Name Age of Onset Heart attack Other Social History Tobacco Use Smoking status: Former Types: Cigarettes Smokeless tobacco: Never Substance Use Topics Alcohol use: Not Currently Drug use: Never Allergies Allergen Reactions Penicillins Rash OBJECTIVE Visit Vitals BP 143/89 (BP Location: Right arm, Patient Position: Sitting) Pulse 76 Ht 1.727 m (5' 8 ) Wt 79.8 kg (176 lb) SpO2 97% BMI 26.76 kg/m??? Smoking Status Former BSA 1.96 m??? Medications: Current Outpatient Medications: apixaban (Eliquis) 5 mg tablet, Take 1 tablet (5 mg) by mouth in the morning and at bedtime., Disp: 180 tablet, Rfl: 3 metoprolol succinate XL (Toprol-XL) 25 mg 24 hr tablet, Take 1 tablet (25 mg) by mouth in the morning. Do not crush or chew., Disp: , Rfl: pantoprazole (ProtoNix) 40 mg EC tablet, Take [...] times daily., Disp: 90 tablet, Rfl: 3 Physical Exam Vitals reviewed. Constitutional: Appearance: Normal [...] Thought content normal. Judgment: Judgment normal. Labs 05/02/2024 Cr 1.47, BUN 43, K 4.7, Na 142, eGFR 45 05/23/2023 Cr 1.36, BUN 31, K 4.5, Na 143, eGFR 50 08/29/22 Cr 1.19, BUN 29, K 4.6, [...] 39, LDL 41 Testing/Procedures: Ancillary Procedure on 03/02/2023 Component Date Value Ref Range Status BSA 08/13/2023 1.95 m2 Final ECHO 08/08/2024 Echo 03/11/2024 ECHO (10/09/2022) Severe [b]iverticular concentric hypertrophy with mildly to moderately reduced systolic function. LVEF is 40-45%. Mildly dilated RV with mildly reduced systolic function Severe biatrial dilatation Mild to moderate mitral and mild tricuspid regurg Normal right-sided pressures. Cardiac phenotype is suggestive for possible infiltrative cardiomyopathy such as amyloid heart disease. Stress test (01/23/2022) ECHO (11/02/2021) 1. LV exhibits severe concentric hypertrophy, there is global hypokinesis with moderately reduce systolic function and a calculated EF of 36% 2. Grade 2 diastolic dysfunction 3. RV is normal in size and function 4. Mild MR and TR 5. Normal right sided pressures ECHO (11/03/2020): global LV systolic function is at low normal limits, EF 50-55%, +RWMA, severe LV hypertrophy, biatrial enlargement, RV is normal in size and function, RV hypertrophy seen, mild TR, mild pulm HTN, mild MR, mild pulmonic regurg, the ascending aorta is mildly enlarged 12/2019: A.flutter ablation s/p LOOP recorder placement LEELEE/CV 04/01/19 Global left ventricular systolic function is mildly reduced (Visually estimated EF 40-45%). The left ventricle is normal size. Normal right ventricular systolic function. The right ventricle is normal in size. The left atrium is severely enlarged. No thrombus seen in the left atrial appendage. Mild mitral regurgitation. - Biphasic cardioversion was performed at 200 J, the patient was converted to sinus rhythm DATE OF SURGERY: 01/17/2019 SURGEON: Paul Gilbert MD PREOPERATIVE DIAGNOSIS: Coronary artery disease. POSTOPERATIVE DIAGNOSIS: Coronary artery disease. OPERATION: 1. Coronary artery bypass grafting x2 FINK to LAD, saphenous vein graft to ramus intermedius. 2. Endoscopic vein harvesting of the right greater saphenous vein. 3. Independent interpretation of transesophageal echocardiogram. CARDIAC CATH: 01/07/[address] Mirlande Uribe FINAL IMPRESSIONS: 1. Severe 2-vessel disease including a chronic total occlusion of the mid left anterior descending, supplied by [id number]-nfte and uihrh-in-ljiw collaterals. 2. Severe ostial disease of the ramus intermedius. 3. Moderate disease of the left circumflex and right coronary artery. 4. Mildly reduced to normal global left ventricular systolic function by noninvasive imaging. 5. Mildly elevated right-sided heart pressures and wedge pressures. 6. Normal cardiac output/cardiac index. 7. 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 ASSESSMENT/PLAN: #Chronic combined systolic and diastolic heart failure (CMS/HCC) -ICM -NYHA II-III -ECHO 03/2024 showed EF dropped to 20-25 % -Most recent ECHO 08/08/24 showed improvement in EF to 35-40% -ECHO also shows concern for possible amyloidosis. Reviewed recent ECHO with Dr. Pryor. No coronary angiogram needed at this time but would like to obtain PYP imaging to assess for amyloidosis. He notes issues with transportation to [facility]. Will reach out to a geriatric social worker to see if there is anything we can help with. -He appears compensated/euvolemic on exam. -GDMT: stressed the importance of medication compliance. Continue Entresto 12/13mg BID. He is agreeable to resume Toprol 25mg daily. He was not able to tolerate Farxiga as it caused confusion, balance problems, lightheadedness, and memory problems - will discontinue. #Coronary artery disease involving point hope ira coronary artery of point hope ira heart without angina pectoris #Hx CABG 2018 -Stress test 01/2022 negative for ischemia -Denies chest pain or worsening dyspnea -Continue rosuvastatin. No ASA d/t also being on Eliquis to help reduce bleeding risk #HTN #LVH -Elevated today at 143/89 -He reports controlled readings at home -Will resume Toprol 25mg daily #A.fib, persistent #A.flutter -s/p a.flutter ablation 12/2019 with LOOP recorder implant -s/p CV'n with amio loading 02/2021, amio stopped due to patient reverting to a.fib and having bradycardia -On Eliquis -Resuming Toprol as noted above #Stage 3 chronic kidney disease #Leg fatigue -He c/o leg fatigue with walking longer distances. Last MASON's were in 2020. Will obtain follow-up MASON's. Follow up in about 3 months (around 11/20/2024). Michelle Blakely CNP [facility] Cardiovascular Medicine 37 Observed: 08/19/2024 11:27 AM Status: COMPLETED Source: [facility] Tried to contact patient. Hi s home number does not have a voicemail. His cell number does not have a voicemail set up either. Will try again tomorrow. 37 Observed: 08/18/2024 4:17 PM Status: COMPLETED Source: [facility] Regarding echo performed on 08/08/2024: MD Teresita Kumar MA Inform patient that his ejection fraction has improved but not totally back to normal. There was suggestion of possible amyloidosis which is an infiltrative disease, I recommend to obtain PYP amyloid nuclear images to be performed at [facility] TELEPHONE Observed: 08/18/2024 12:00 AM Status: COMPLETED Source: [facility] [id number] HuyenChad C 1935 [facility] Provider Department Center 08/18/2024 GermaniaTERESITA AGUDELO Family History Problem Relation Age of Onset Heart attack Other Family Status - Relation Status Age at Other ORDERS ONLY Observed: 08/17/2024 12:00 AM Status: COMPLETED Source: [facility] [id number] HuyenChad 1935 [facility] Provider Department Center 08/17/2024 [id number] AVINA TOSHIA Sabrina [facility] Family History Problem Relation Age of Onset Heart attack Other Family Status - Relation Status Age at Other OFFICE VISIT Observed: 05/05/2024 9:40 AM Status: COMPLETED Source: [facility] [id number] HuyenChad 1935 [facility] Provider Department Center 05/05/2024 MISAEL AMADOR TOSHIA Lopez Family History Problem Relation Age of Onset Heart attack Other Family Status - Relation Status Age at Other Level of Service:52151 AR OFFICE/OUTPATIENT ESTABLISHED MOD MDM 30 MIN Reason for Visit and Comments: Congestive Heart Failure [127] - He had repeat labs last week. Only taking lasix PRN, which has only been on 1 occasion. Valve Disorder [3372] Cardiomyopathy [104] Atrial Fibrillation [80] - Denies bleeding on Eliquis. PROGRESS Observed: 05/05/2024 9:40 AM Status: COMPLETED Source: [facility] Cardiology - [place] [facility] Subjective Is here today for follow-up visit on chronic systolic heart failure, coronary artery disease, and atrial fibrillation 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 (CMS/HCC) Benign hypertension Persistent atrial fibrillation (CMS/HCC) Stage 3 chronic kidney disease (CMS/HCC) Atrial flutter (CMS/HCC) Coronary artery disease involving point hope ira coronary artery of point hope [place] heart without angina pectoris Anemia, unspecified Carpal [...] at bedtime., Disp: 180 tablet, Rfl: 3 metoprolol succinate XL (Toprol-XL) 25 mg 24 hr tablet, Take 1 tablet (25 mg) by mouth once daily as directed. Do not crush or chew. (Patient taking differently: Take 25 mg by mouth if needed. Do not crush or chew.), Disp: 90 tablet, Rfl: 3 pantoprazole (ProtoNix) [...] the morning. (Patient not taking: Reported on 05/05/2024), Disp: 93 tablet, Rfl: 3 Objective Visit Vitals BP 112/68 (BP Location: Left arm, Patient Position: Sitting) Pulse 71 Ht 1.727 m (5' 8 ) Wt 80.3 kg (177 lb) SpO2 97% BMI 26.91 kg/m??? Smoking Status Former BSA 1.96 m??? [...] soft, nontender, nondistended. EXTREMITIES: no lower extremity edema,. No rash/skin discoloration present. NEURO: strength/sensation equal [...] anterolateral infarct EK09/25/2023 showed atrial fibrillation with ventricular rate 80 bpm, old inferior infarct, right bundle branch block, possible anterior lateral old infarct Echo 03/11/2024 Echo: 10/09/2022 LEELEE 04/01/2019 Global left ventricular systolic function is mildly reduced (Visually estimated EF 40-45%). The left ventricle is normal size. Normal right ventricular systolic function. The right ventricle is normal in size. The left atrium is severely enlarged. No thrombus seen in the left atrial appendage. Mild mitral regurgitation. - Biphasic cardioversion was performed at 200 J, the patient was converted to sinus rhythm 7-day event monitor 02/22/2024 - 02/29/2024 Persistent A-fib with ventricular rate 31(which was very transient) to 90 bpm. Average heart rate 62 bpm. 1 prolonged RR interval 3.2-second recorded at 11 PM PVCs less than 1%, mostly isolated, for NSVT 3-8 beats most likely A-fib with aberrancy, asymptomatic No symptoms reported by patient LEELEE 01/17/2019 Assessment/Plan Chronic systolic heart failure associated with worsening ejection fraction most likely due to recurrent A-fib and uncontrolled hypertension. He has dyspnea on exertion He is on Toprol-XL and Lasix which both of them he takes on a as needed basis despite my instruction last time to take them on regular basis Persistent atrial fibrillation, Status post cardioversion in 2019 He has been back in atrial fibrillation. He was started on Toprol-XL and his ventricular rate appeared to be controlled on the 7-day event monitor. But the patient has been taking it only when his blood pressure is above 140 He is on Eliquis for anticoagulation Coronary artery disease, status post CABG x 2 in January 2019 He is on Toprol-XL, Eliquis and Crestor. 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 But on most recent echo ejection fraction dropped again to 20-25% probably due to atrial fibrillation He is only on Toprol XL, Entresto, and Lasix. As mentioned above he has been taking Lasix and Toprol-XL only as needed Valvular heart disease including moderate mitral regurgitation and moderate tricuspid regurgitation noted on most recent echo 03/11/2024 Hyperlipidemia, on Crestor, well-controlled Chronic kidney disease Plan: Continue current medications including Entresto 24-26 mg half tablet twice daily, Toprol XL 25 mg daily, Eliquis 5 mg twice daily, and Crestor 10 mg daily I will add Farxiga 10 mg daily I advised the patient that he has to take all of his medications including Toprol-XL, Entresto, and Farxiga on daily basis. Will obtain an echo in 3 months to follow-up on ejection fraction and if no improvement in ejection fraction I will consider ischemic workup and also evaluation for ICD. The patient is not willing to have cardioversion because he did not feel good with the previous CV. In any case on the last monitor his ventricular rate was well-controlled on Toprol-XL Follow-up in about 3 month after the echo or sooner if needed Misael Pryor MD,[facility] 36 Observed: 04/18/2024 10:21 AM Status: COMPLETED Source: [facility] Regarding lab results from : MD Teresita Kumar MA His creatinine is higher than before. For now continue to take Toprol-XL, Entresto, and Lasix on daily basis. Recheck BMP in 2 weeks. Spoke with patient. He will have repeat labs in 2 weeks. Order faxed to [facility] and also printed for him. PROGRESS Observed: 04/08/2024 9:20 AM Status: COMPLETED Source: [facility] Cardiology [facility] Subjective Is here today for follow-up visit on shortness of breath, tiredness, palpitation, and elevated blood pressure 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 (CMS/HCC) Benign hypertension Longstanding persistent atrial fibrillation (CMS/HCC) Stage 3 chronic kidney disease (CMS/HCC) Atrial flutter (CMS/HCC) Coronary artery disease involving [place] coronary artery of [place] heart without angina pectoris Anemia, unspecified Carpal [...] chew.), Disp: 90 tablet, Rfl: 3 pantoprazole (ProtoNix) [...] times daily., Disp: 90 tablet, Rfl: 3 Objective Visit Vitals BP 126/72 (BP Location: Left arm, Patient Position: Sitting) Pulse 78 Ht 1.727 m (5' 8 ) Wt 80.7 kg (178 lb) SpO2 96% BMI 27.06 kg/m??? Smoking Status Former BSA 1.97 m??? Physical exam: GENERAL: alert and oriented x3, well developed, in no acute distress. HEAD: atraumatic, normocephalic. EYES: ELY, EOMI. NECK: trachea midline, no JVD present, no carotid bruits present. CARDIAC: Irregular irregularity, S1, S2 present. No murmur, rubs, or gallops. RESPIRATORY: CTAB, no increased effort of breathing, no rales, rhonchi, or wheezing. ABDOMEN: soft, nontender, nondistended. EXTREMITIES: no lower extremity edema,. No rash/skin discoloration present. NEURO: strength/sensation equal [...] anterolateral infarct EK09/25/2023 showed atrial fibrillation with ventricular rate 80 bpm, old inferior infarct, right bundle branch block, possible anterior lateral old infarct Echo 03/11/2024 Echo: 10/09/2022 LEELEE 04/01/2019 Global left ventricular systolic function is mildly reduced (Visually estimated EF 40-45%). The left ventricle is normal size. Normal right ventricular systolic function. The right ventricle is normal in size. The left atrium is severely enlarged. No thrombus seen in the left atrial appendage. Mild mitral regurgitation. - Biphasic cardioversion was performed at 200 J, the patient was converted to sinus rhythm 7-day event monitor 02/22/2024 - 02/29/2024 Persistent A-fib with ventricular rate 31(which was very transient) to 90 bpm. Average heart rate 62 bpm. 1 prolonged RR interval 3.2-second recorded at 11 PM PVCs less than 1%, mostly isolated, for NSVT 3-8 beats most likely A-fib with aberrancy, asymptomatic No symptoms reported by patient LEELEE 01/17/2019 Assessment/Plan Chronic systolic heart failure associated with worsening ejection fraction most likely due to recurrent A-fib and uncontrolled hypertension. He has dyspnea on exertion He did much better after adjusting his medications. But he has been taking Lasix only on as needed basis when he has left leg edema and taking Toprol-XL only when his blood pressure above 140 Persistent atrial fibrillation, Status post cardioversion in 2019 He has been back in atrial fibrillation. He was started on Toprol-XL and his ventricular rate appeared to be controlled on the 7-day event monitor. But the patient has been taking it only when his blood pressure is above 140 He is on Eliquis for anticoagulation Coronary artery disease, status post CABG x 2 in January 2019 He is on Toprol-XL, Eliquis and Crestor. 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 But on most recent echo ejection fraction dropped again to 20-25% probably due to atrial fibrillation He is only on Toprol XL, Entresto, and Lasix. As mentioned above he has been taking Lasix and Toprol-XL only as needed Valvular heart disease including moderate mitral regurgitation and moderate tricuspid regurgitation noted on most recent echo 03/11/2024 Hyperlipidemia, on Crestor, well-controlled Chronic kidney disease Plan: Continue current medications including Entresto 24-26 mg half tablet twice daily, Toprol XL 25 mg daily, Eliquis 5 mg twice daily, and Crestor 10 mg daily I advised the patient that he has to take all of his medications including Toprol-XL, Entresto, and Lasix on daily basis. Check BMP in 1 week I asked him to check his blood pressure twice daily for 2 weeks and bring me the log. If blood pressure tolerates that well and renal function is stable I will start him on spironolactone plus /minus Farxiga The plan is to repeat echo in 3 months of tolerated max guideline directed medical treatment and if no improvement in ejection fraction I will consider ischemic workup and also evaluation for ICD. The patient is not willing to have cardioversion because he did not feel good with the previous CV. In any case on the last monitor his ventricular rate was well-controlled on Toprol-XL Follow-up in about 1 month Misael Pryor MD,[facility] OFFICE VISIT Observed: 04/08/2024 9:20 AM Status: COMPLETED Source: [facility] [id number] Chad Matson 1935 M Date Provider Department Center 04/08/2024 [id number] PRYOR [facility] Family History Problem Relation Age of Onset Heart attack Other Family Status - Relation Status Age at Other Level of Service:71760 [place] OFFICE/OUTPATIENT ESTABLISHED MOD MDM 30 MIN Reason for Visit and Comments: Atrial Fibrillation [80] - Says he's only taking metoprolol PRN for SPB > 140, about 25% of the time he says. Coronary Artery Disease [187] Congestive Heart Failure [127] - Had echo last month. Valve Disorder [3372] Hyperlipidemia [182] Edema [[id number]] - Edema has been much better. Patient states he's getting back towards normal . Shortness of Breath [[id number]] 36 Observed: 03/27/2024 4:46 PM Status: COMPLETED Source: [facility] Regarding echo result from : MD Teresita Kumar MA Notify patient that his left [...] I LM on his brother Arnulfo's VM. OFFICE VISIT Observed: 03/03/2024 3:40 PM Status: COMPLETED Source: [facility] [id number] Chad Matson 1935 M Date Provider Department Center 03/03/2024 [id number] PRYOR [facility] [place] Family History Problem Relation Age of Onset Heart attack Other Family Status - Relation Status Age at Other Level of Service:15042 [place] OFFICE/OUTPATIENT ESTABLISHED MOD MDM 30 MIN Reason [...] [187] Hyperlipidemia [182] Valve Disorder [3372] Edema [[id number]] PROGRESS Observed: 03/03/2024 3:40 PM Status: COMPLETED Source: [facility] Cardiology - [place] [facility] Subjective Is here today for follow-up visit on shortness of breath, tiredness, palpitation, and elevated blood pressure 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 (CMS/HCC) Benign hypertension Longstanding persistent atrial fibrillation (CMS/HCC) Stage 3 chronic kidney disease (CMS/HCC) Atrial flutter (CMS/HCC) Coronary artery disease involving [place] coronary artery of [place] heart without angina pectoris Anemia, unspecified Carpal [...] soft, nontender, nondistended. EXTREMITIES: no lower extremity edema,. No rash/skin discoloration present. NEURO: strength/sensation equal [...] anterolateral infarct EK09/25/2023 showed atrial fibrillation with ventricular rate 80 bpm, old inferior infarct, right bundle branch block, possible anterior lateral old infarct Echo: 10/09/2022 LEELEE 04/01/2019 Global left ventricular systolic function is mildly reduced (Visually estimated EF 40-45%). The left ventricle is normal size. Normal right ventricular systolic function. The right ventricle is normal in size. The left atrium is severely enlarged. No thrombus seen in the left atrial appendage. Mild mitral regurgitation. - Biphasic cardioversion was performed at 200 J, the patient was converted to sinus rhythm 7-day event monitor 02/22/2024 - 02/29/2024 Persistent A-fib with ventricular rate 31(which was very transient) to 90 bpm. Average heart rate 62 bpm. 1 prolonged RR interval 3.2-second recorded at 11 PM PVCs less than 1%, mostly isolated, for NSVT 3-8 beats most likely A-fib with aberrancy, asymptomatic No symptoms reported by patient Assessment/Plan Acute on chronic systolic heart failure most likely due to recurrent A-fib and uncontrolled hypertension He did much better after adjusting his medications last visit starting him on metoprolol and Lasix. Persistent atrial fibrillation, Status post cardioversion in 2019 He seems to be back in atrial fibrillation and probably at times his heart rate on the high side because he reports palpitation. He was started on Toprol-XL last visit and his ventricular rate appears to be controlled on the 7-day event monitor. He is on Eliquis for anticoagulation Coronary artery disease, status post CABG x 2 in January 2019 He is on Toprol-XL, Eliquis and Crestor. Clinically stable Ischemic cardiomyopathy with good recovery of left ventricle systolic function, ejection fraction 40 to 45% on last echo October 2022 He is only on XL, Entresto, Lasix which he stopped he is tolerating beta-crescencio very well, bradycardia was reported in the past but on his event monitor there was only 1 event of transient bradycardia during sleeping hours Valvular heart disease including mild to moderate mitral regurgitation and mild tricuspid regurgitation Hyperlipidemia, on Crestor, well-controlled Chronic kidney disease Plan: Continue current medications including Entresto 24-26 mg half tablet twice daily, Toprol XL 25 mg daily, Eliquis 5 mg twice daily, and Crestor 10 mg daily I asked the patient to restart Lasix at small dose 20 mg daily with continuing low-salt diet and daily weight Still waiting for echocardiographic study Last visit the patient is not willing to have cardioversion because he did not feel good with the first 1 Follow-up in about 5 to 6 weeks Misael Pryor MD,[facility] 36 Observed: 02/25/2024 5:23 PM Status: COMPLETED Source: [facility] Entresto RX faxed in. 36 Observed: 02/25/2024 10:26 AM Status: COMPLETED Source: [facility] Pharmacy called needing a ne w scripted for patient Entresto. Patient stated he is taking 0.5mg twice a day, but the order says 4 times a month. Denise PRATHER OFFICE VISIT Observed: 02/22/2024 1:20 PM Status: COMPLETED Source: [facility] [id number] Chad Matson 1935 M Date Provider Department Center 02/22/2024 [id number] PRYOR Family History Problem Relation Age of Onset Heart attack Other Family Status - Relation Status Age at Other Level of Service:17500 [place] OFFICE/OUTPATIENT ESTABLISHED MOD MDM 30 MIN Reason for Visit and Comments: Hypertension [655746] - Says BP has been higher than normal for him lately. Coronary Artery Disease [187] Congestive Heart Failure [127] Palpitations [249363] - Occasional palpitations Shortness of Breath [724139] - Says he can tell he's been having apneic episodes at night and wakes up and has to kick start his breathing again. Edema [[id number]] - He is up 14# since September 2023. Says he weighed 170# last week. Atrial Flutter [101] - Denies bleeding on Eliquis. PROGRESS Observed: 02/22/2024 1:20 PM Status: COMPLETED Source: [facility] Cardiology - [facility] Subjective Shortness of breath, tiredness, palpitation, and elevated blood pressure 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 (CMS/HCC) Benign hypertension Persistent atrial fibrillation (CMS/HCC) Stage 3 chronic kidney disease (CMS/HCC) Atrial flutter (CMS/HCC) Coronary artery disease involving [place] coronary artery of [place] heart without angina pectoris Anemia, unspecified Carpal [...] anterolateral infarct EK09/25/2023 showed atrial fibrillation with ventricular rate 80 bpm, old inferior infarct, right bundle branch block, possible anterior lateral old infarct Echo: 10/09/2022 LEELEE 04/01/2019 Global left ventricular systolic function is mildly reduced (Visually estimated EF 40-45%). The left ventricle is normal size. Normal right ventricular systolic function. The right ventricle is normal in size. The left atrium is severely enlarged. No thrombus seen in the left atrial appendage. Mild mitral regurgitation. - Biphasic cardioversion was performed at 200 J, the patient was converted to sinus rhythm Assessment/Plan Acute on chronic systolic heart failure most likely due to recurrent A-fib and uncontrolled hypertension Persistent atrial fibrillation, Status post cardioversion in 2019 He seems to be back in atrial fibrillation and probably at times his heart rate on the high side because he reports palpitation. He is not on any medications that affect ventricular rate. He is on Eliquis Coronary artery disease, status post CABG x 2 in January 2019 He is on Eliquis and Crestor. He is not on beta-crescencio due to sinus bradycardia while he was on it. Clinically stable Ischemic cardiomyopathy with good recovery of left ventricle systolic function, ejection fraction 40 to 45% on last echo October 2022 He is only on Entresto, it was reported that he became bradycardic on beta-crescencio Valvular heart disease including mild to moderate mitral regurgitation and mild tricuspid regurgitation Hyperlipidemia, on Crestor, well-controlled Chronic kidney disease Plan: Continue current medications I will start him on Toprol-XL to control ventricular rate and also blood pressure. I will start him on Lasix to take 40 mg daily for 3 days followed by 20 mg daily BMP in about 5 days Low-salt diet I asked the patient to check his blood pressure twice daily and also to check his weight daily and bring it to the next visit Obtain echocardiographic study 7-day event monitor to evaluate ventricular rate control At this point the patient is not willing to have cardioversion because he did not feel good with the first 1 I will see him in a follow-up visit March 03, 2024 Misael Pryor MD,[facility] ALLERGIES DATE TYPE / CODE NAME / CODE REACTION SEVERITY SOURCE 01/02/2022 Drug Class/420915451(SNO MED CT) PENICILLINS Rash [facility] ENCOUNTERS ADMIT/DISCHARGE ACCOUNT NUMBER ADMITTING ENCOUNTER CLASS LOCATION SOURCE 11/28/2024/ 5 [id number] Ambulatory Building:[facility] 11/14/2024/ 5 [id number] Ambulatory Building:[facility] 08/20/2024/ 5 [id number] Ambulatory Building:[facility] 05/05/2024/ 5 [id number] Ambulatory Building:[facility] 04/08/2024/ 5 [id number] Ambulatory Building:[facility] 03/03/2024/ 4 [id number] Ambulatory Building:[facility] 02/22/2024/ 4 [id number] Ambulatory Building:[facility] PAYERS ENCOUNTER GUARANTOR PAYER SUBSCRIBER SOURCE 11/28/2024 Primary Insuranc e:[facility] MEDICAREPolicy Number: [id number] Date:2022-03-05 CHAD LARA: [id number] [address] [address] [facility] 11/14/2024 Primary Insuranc e:[facility] MEDICAREPolicy Number: [id number] Date:2022-03-05 CHAD MARINELLIB: [id number] STATE [address] [address] [facility] 08/20/2024 Primary Insuranc e:[facility] MEDICAREPolicy Number: [id number] Date:2022-03-05 CHAD LARA: [id number] [place] [address] [facility] 05/05/2024 Primary Insuranc e:[facility] MEDICAREPolicy Number: [id number] Date:2022-03-05 CHAD LARA: [id number] STATE [address] [place] [address] [facility] 04/08/2024 Primary Insuranc e:[facility] MEDICAREPolicy Number: [id number] Date:2022-03-05 CHAD LARA: [id number] [address] [place] [address] [facility] 03/03/2024 Primary Insuranc e:[facility] MEDICAREPolicy Number: [id number] Date:2022-03-05 CHAD LARA: [id number] STATE [address] [place] [address] [facility] 02/22/2024 Primary Insuranc e:[facility] MEDICAREPolicy Number: [id number] Date:2022-03-05 CHAD LARA: [id number] [address] [place] [address] [facility]
--- OUTSIDE RECORDS SUMMARY | 2024-11-28 07:55 | XMS_ITS | Encounter Summary ---
Author Organization [facility] Address [address] [address] Care Team Providers Care Enterprise Cloud Architect Name Role Phone Stefano Castellanos MD Primary Care Provider [phone] Reason for Visit * Hospital - Outpatient (Routine) - Authorized Specialty Diagnoses / Procedures Referred By Contac t Referred To Contact Cardiology Diagnoses Amyloidosis, unspecified type (CMS/HCC) Procedures PYP AMYLOID IMAGING CV PYP SCAN CARDIAC AMYLOID Misael Pryor MD [address] [place] [address] Phone: tel: fax: [facility] [address] [place] [address] Phone: tel: fax: Referral ID Status Reason Start Date Expiration Date V isits Requested Visits Authorized [id number] Authorized 11/28/2024 11/28/2025 1 1 Encounter Details Date Type Department Care Team (Latest Contact Info) Description 11/28/2024 7:55 AM EDT - 11/28/2024 11:59 PM EDT Hospital Encounter [facility] [address] [facility] [place] [address] Amyloidosis, unspecified type (CMS/HCC) Discharge Disposition: Home or Self Care () Social History Tobacco Use Types Packs/Day Years Used Date Smoking Tobacco: Former Cigarettes Smokeless Tobacco: Never Alcohol Use Standard Drinks/Week Comments Not Currently [...] Heterosexual or Straight 09/03 8:02 PM EDT documented as of this encounter Medications at Time of Discharge apixaban (Eliquis) 5 mg tabletIndications: Paroxysmal atrial fibrillation (CMS/HCC) Take 1 tablet (5 mg) by mouth in the morning and at bedtime. 180 tablet 3 03/27/2024 furosemide (Lasix) 20 mg tabletIndications: Chronic systolic heart failure (CMS/HCC) Take 1 tablet (20 mg) by mouth in the morning. 30 tablet 11 11/14/2024 6 metoprolol succinate XL (Toprol-XL) 25 mg 24 hr tabletIndications: Chronic systolic heart failure (CMS/HCC) Take 1 tablet (25 mg) by mouth in the morning. Do not crush or chew. 05/05/2024 pantoprazole (ProtoNix) 40 mg EC tabletIndications: Coronary artery disease involving [place] coronary artery of [place] heart without angina pectoris Take 1 tablet (40 mg) by mouth in the morning. Do not crush, chew, or split. 90 tablet 3 12/26/2023 rosuvastatin (Crestor) 10 mg tabletIndications: Coronary artery disease involving [place] coronary artery of [place] heart without angina pectoris Take 1 tablet (10 mg) by mouth every other day. 45 tablet 3 12/26/2023 5 sacubitril-valsart an (Entresto) 24-26 mg tabletIndications: Chronic systolic heart failure (CMS/HCC) Take 0.5 tablets by mouth two times daily. 90 tablet 3 02/25/2024 5 documented as of this encounter Plan of Treatment Upcoming Encounters Date Type Department Care Team (Late st Contact Info) Description 02/09/2025 9:40 AM EST Office Visit [facility] [address] [place] [address] Misael Pryor MD [address] [facility] [address] [place] [address] documented as of this encounter Procedures Procedure Name Priority Date/Time Associated Diagnosis Comments PYP AMYLOID IMAGING Routine 11/28/2024 1 2:31 PM EDT Amyloidosis, unspecified type (CMS/HCC) documented in this encounter Results * PYP Amyloid Imaging (11/28/2024 12:31 PM EDT) Anatomical Region Laterality Modality Other 11/28/2024 7:55 AM EDT Narrative 11/29/2024 1:46 PM EDT 1 1 [facility] [address] [place] [address] [phone] (fax) Amyloid Scan- [facility] Name: CHAD MATSON Study Date: 11/28/2024 07:55 AM B/P: / HR: Date of : 1935 Location: [facility] Height: 68 in. Age: 89 year(s) Patient Room: Weight: 174 lb. Gender: Male Patient Status: OutPt BSA: 1.93 m2 Indication: Nonvalvular Heart Disease Examination: Amyloid Scan Image Quality: Good Echo reveals 36% EF. Echo features raise the suspicion of infiltrative myocardial disease such as cardiac amyloidosis. Benign HTN, AFib, CAD involving [place] coronary artery of [place] heart without angina pectoris, history of myocardial infarction, chronic systolic HF, ischemic cardiomyopathy, LVH, Valvular heart disease Conclusions This 99mTc-PYP imaging test is strongly suggestive of ATTR cardiac amyloidosis with visually confirmed diffuse myocardial uptake and a semi-quantitative visual grade of 3. The Zbqch-fv-Hsafwukxxcpha Lung (H/CL) ratio is 2.0. This study does not exclude AL Amyloidosis. Serum free light chain assay with kappa/lambda ratio and urine immunofixation is recommended with this 99mTc-PYP imaging test. Findings Technique Planar and SPECT imaging was performed 3 hours after JW07f-Vqzbngjhwxxpl intravenous dltyvccojRT01z-MOA with a dose of 19.2 mCi injected intravenously. Patient had arms down during imaging acquisition due to lack of mobility. s sp@c Nuclear Protocol Details Procedure Staff Reading Group: [facility] Referring Physician: MISAEL PRYOR De Icer Element Winder: Felisha Multani Ordering Physician: MISAEL PRYOR Procedure Note Hector Roberts MD - 11/29/2024 1 1 [facility] Station [address] [place] [address] [phone] (fax) Amyloid Scan- [facility] Name: CHAD MATSON Study Date: 11/28/2024 07:55 AM B/P: / HR: Date of : 1935 Location: [facility] Height: 68 in. Age: 89 year(s) Patient Room: Weight: 174 lb. Gender: Male Patient Status: OutPt BSA: 1.93 m2 Indication: Nonvalvular Heart Disease Examination: Amyloid Scan Image Quality: Good Echo reveals 36% EF. Echo features raise the suspicion of infiltrative myocardial disease such as cardiac amyloidosis. Benign HTN, AFib, CAD involving [place] coronary artery of [place] heart without angina pectoris, history of myocardial infarction, chronic systolic HF, ischemic cardiomyopathy, LVH, Valvular heart disease Conclusions This 99mTc-PYP imaging test is strongly suggestive of ATTR cardiac amyloidosis with visually confirmed diffuse myocardial uptake and a semi-quantitative visual grade of 3. The Gjmrm-wq-Tzutkvtlksyqn Lung (H/CL) ratio is 2.0. This study does not exclude AL Amyloidosis. Serum free light chain assay with kappa/lambda ratio and urine immunofixation is recommended with this 99mTc-PYP imaging test. Findings Technique Planar and SPECT imaging was performed 3 hours after [id number]-Yghdfhnbmqygk intravenous iwhdxjgycYC31l-PRZ with a dose of 19.2 mCi injected intravenously. Patient had arms down during imaging acquisition due to lack of mobility. s sp@c Nuclear Protocol Details Procedure Staff Reading Group: [facility] Referring Physician: MISAEL PRYOR De Icer Element Winder: Felisha Multani Ordering Physician: MISAEL PRYOR Misael Pryor MD CV CARDIAC NUCLEAR PROCEDURES Fi nal Result documented in this encounter Visit Diagnoses Diagnosis Amyloidosis, unspecified type (CMS/HCC) documented in this encounter Administered Medications Inactive Administered Medications - up to 3 most recent administrations Medication Order MAR Action Action Date Dose Rate Site technetium Tc-99m pyrophosphate (Technescan PYP) radio-isotope injection 20 millicurie 20 millicurie, intravenous, Once in imaging, Starting on Sun11/28/24 at 0842, For 1 dose Given 11/28/2024 8:30 AM EDT 20 millicuries documented in this encounter Care Teams Enterprise Cloud Architect Relationship Specialty Start Date End Date Stefano Castellanos MD [address] [place] [address] PCP - General 02/28/22 documented as of this encounter
--- OUTSIDE RECORDS SUMMARY | 2024-12-04 08:32 | XMS_ITS | Encounter Summary ---
Author Organization [facility] Address [address] [place] [address] Care Team Providers Care Medical Psychotherapist Name Role Phone Stefano Castellanos MD Primary Care Provider [phone] Encounter Details Date Type Department Care Team (Late st Contact Info) Description 09/25/2024 Results Follow-Up [facility] Heart at [facility] [address] [place] [address] Keily Blakely, PLANT PHYSIOLOGIST [address] [place] [id number] Vascular US ankle brachial index (MASON) without exercise Social History Tobacco Use Types Packs/Day Years [...] PM EDT documented as of this encounter Functional Status * BP Answer Date of Assessment Author 133/74 11/14/2024 11:40 AM EDT Donna Ching am, [place] * Pulse Answer Date of Assessment Author 77 11/14/2024 11:40 AM EDT Donna Ching am, [place] * Patient Position Answer Date of Assessment Author Sitting 11/14/2024 11:40 AM EDT Donna Ching am, [place] * BP Answer Date of Assessment Author 133/74 11/14/2024 11:40 AM EDT Donna Ching am, [place] * Pulse Answer Date of Assessment Author 77 11/14/2024 11:40 AM EDT Donna Ching am, [place] * SpO2 Answer Date of Assessment Author 98 11/14/2024 11:40 AM EDT Donna Ching am, [place] * BP Location Answer Date of Assessment Author Right arm 11/14/2024 11:40 AM EDT Donna Ching am, [place] * Patient Position Answer Date of Assessment Author Sitting 11/14/2024 11:40 AM EDT Donna Ching am, [place] documented as of this encounter Miscellaneous Notes * Result Encounter Note - Keily Blakely CNP - 09/25/2024 5:25 PM EDT Please let him know his MASON's were normal. Please follow-up with him regarding amyloid testing. Thanks! documented in this encounter Plan of Treatment Upcoming Encounters Date Type Department Care Team (Late st Contact Info) Description 02/09/2025 9:40 AM EST Office Visit [facility] [address] [place] [address] Ghanshyam Pryor MD [address] [place] [address] documented as of this encounter Visit Diagnoses Not on filedocumented in this encounter Care Teams Medical Psychotherapist Relationship Specialty Start Date End Date Stefano Castellanos MD [address] [place] [address] PCP - General 02/28/22 documented as of this encounter
--- OUTSIDE RECORDS SUMMARY | 2024-12-04 08:32 | XMS_ITS | Clinical Summary ---
Author Organization [facility] Address [address] [place] [address] Care Team Providers Care Tank Terminal Gauger Name Role Phone Stefano Castellanos MD Primary Care Provider [phone] Allergies Active Allergy Reactions Criticality Noted Date [...] Diagnosed Date Resolved Date Coronary atherosclerosis of [place] coronary artery 10/09/2023 10/09/2023 Claudication, intermittent 10/09/2023 0 10/09/2023 Encounters Date Type Department Care Team Description 09/18/2024 Clinisync Result Encounter [facility] External Department Unsolicited [...] Pneumococcal Vaccine: 65+ Ye ars (1 of 1 - PCV) 1986 Influenza Vaccine (#1) 2024 3, 12/08/2020, 12/16/2019 Procedures Procedure Name Priority Date/Time Associated Diagnosis Comments SEGMENTAL BLOOD PRESSURE 09/18/2024 10:00 AM EDT from Last 3 Months Results * SEGMENTAL BLOOD PRESSURE (09/18/2024 10:00 AM EDT) Anatomical Region Laterality Modality Radiographic Eloise ging 09/18/2024 10:0 0 AM EDT Narrative 09/21/2024 4:12 [place] [id number] Cardiology Report Signed Patient: CHAD MATSON MR#: [id number] : 1935 Acct:[id number] Age/Sex: 88 / M ADM Date: 09/18/24 Loc: CARD Attending Dr: MICHELLE MENDOZA APRN Ordering Physician: MICHELLE MENDOZA APRN Date of Service: 09/18/24 Procedure(s): CA segmental UE or LE VERENA Accession Number(s): [id number] cc: Stefano Castellanos M.D.; MICHELLE MENDOZA APRN [facility] Test Date: 2024-09-18 Pat Name: CHAD MATSON Department: Room: - Gender: Male Multi Mission 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 Interpretive Statements [...] 09/21/24 1612 09/21/24 1612 DD/ 1000 TD/TT: Jig Boring Machine Operator For Metal: Procedure Note Radiology, Radiologist, - 09/21/2024 [place] [id number] Cardiology Report Signed Patient: CHAD MATSON CMR#: [id number] : 7Acct:[id number] Age/Sex: 88 / MADM Date: 09/18/24 Loc: CARD Attending Dr: MICHELLE MENDOZA APRN Ordering Physician: MICHELLE MENDOZA APRN Date of Service: 09/18/24 Procedure(s): CA segmental UE or LE VERENA Accession Number(s): [id number] cc: Stefano Castellanos M.D.; MICHELLE MENDOZA APRN [facility] Test Date: 2024-09-18 Pat Name: CHAD MATSON Department: Room: - Gender: Male [employer] Mission Helicopter Aircrewman: KIMBERLY SARKAR : 1935 Requested By: Michelle Mendoza Order Number: [id number] Reading MD: YENNY XAVIER M.D. Interpretive Statements Summary of the findings: Right leg: MASON= 1.09; TBI= 0.56. Doppler waveforms demonstrate biphasicflow at the posterior tibial and dorsalis pedis arteries. Left leg: MASON= 1.11; TBI= 0.74. Doppler waveforms demonstrate multiphasic flow at the posterior tibial artery, and biphasic flow at the dorsalispedis artery. Segmental pressures: Segmental pressures show calcified left femoralartery. Pulse volume recordings: PVRs at the high thigh, below knee, and anklelevels show normal waveforms. Conclusion: Right and left ankle-brachial indices are suggestive of normal overall arterial flow at rest. Toe-brachial indices are suggestive of possibleright sided PAD. Segmental pressures show no significant segmental disease.Pulse volume recordings indicate good overall resting arterial flow. The study shows no evidence of significant PAD with normal overallarterial flow at rest. Electronically Signed On 09-21-2024 16:12:06 EDT by YENNY XAVIER M.D. Dictated By: YENNY XAVIER Signed By:09/21/24 1612 09/21/24 1612 DD/ 1000 TD/TT: Jig Boring Machine Operator For Metal: us Generic External Data Provider IMG XR PROCEDURES Final Result from Last 3 Months Insurance [employer] MEDICARE Care Teams Tank Terminal Gauger Relationship Specialty Start Date End Date Stefano Castellanos MD PCP - General Family Medicine 10/02/23
--- OUTSIDE RECORDS SUMMARY | 2024-12-04 08:32 | XMS_ITS | Clinical Summary ---
Author Organization [facility] Address [address] [place] [address] Care Team Providers Care Tube Cutter Operator Name Role Phone Stefano Castellanos MD Primary Care Provider [phone] Allergies Active Allergy Reactions Criticality Noted Date Comments Penicillins Rash Medium 09/15/2021 Medications rosuvastatin (Crestor) 10 mg tabletIndication s:Coronary artery disease involving eek coronary artery of eek heart without angina pectoris Take 1 tablet (10 mg) by mouth every other day. 45 tablet 3 4 12/26/19 25 Active pantoprazole (ProtoNix) 40 mg EC tabletIndication s:Coronary artery disease involving eek coronary artery of eek heart without angina pectoris Take 1 tablet (40 mg) by mouth in the morning. Do not crush, chew, or split. 90 tablet 3 4 Active Additional Information Patient not taking.Reported on 11/14/2024 sacubitril-valsa rtan (Entresto) 24-26 mg tabletIndication s:Chronic systolic heart failure (CMS/HCC) Take 0.5 tablets by mouth two times daily. 90 tablet 3 4 02/20/20 25 Active apixaban (Eliquis) 5 mg tabletIndication s:Paroxysmal atrial fibrillation (CMS/HCC) Take 1 tablet (5 mg) by mouth in the morning and at bedtime. 180 tablet 3 5 Active metoprolol succinate XL (Toprol-XL) 25 mg 24 hr tabletIndication s:Chronic systolic heart failure (CMS/HCC) Take 1 tablet (25 mg) by mouth in the morning. Do not crush or chew. 5 05/06/19 26 Active furosemide (Lasix) 20 mg tabletIndication s:Chronic systolic heart failure (CMS/HCC) Take 1 tablet (20 mg) by mouth in the morning. 30 tablet 11 5 11/15/19 26 Active Active Problems Problem Noted Date Diagnosed Date Pure hypercholesterolemia 11/14/2024 LVH (left ventricular hypertrophy) 08/20/2024 S/P CABG (coronary artery bypass graft) 04/08/19 25 Valvular heart disease 04/08/2024 Dyslipidemia 10/09/2023 Encounter for long-term (current) use [...] and electrolytes- Coronary artery disease invo lving eek coronary artery of eek heart without angina pectoris 01/02/2022 Assessment & [...] Assessment & Plan (10/02/2022 12:25 PM EDT): [id number] Age, CAD, CHF, HTN Continue eliquis anticoagulation, denied any bleeding tendencies. Heart rate stable today Benign hypertension 02/05/2019 Assessment & Plan (03/06/2022 5:05 PM EST): Hypertension is stable -continue lisinopril, recommending increase to 10mg daily Stage 3 chronic kidney disease 02/05/2019 Assessment & Plan (10/02/2022 12:34 PM EDT): Renal condition is stable, CR reviewed with pt History of myocardial infarction 02/05/2019 09/28/2022 Resolved Problems Problem Noted Date Diagnosed Date Resolved Date Acute combined systolic and diastolic heart failure 02/22/2024 11/14/2024 Paroxysmal atrial fibrillation 10/09/2023 03/06/2024 Atrial flutter 01/02/2022 05/05/2024 Assessment & Plan (03/06/2022 5:04 PM EST): -he is rate controlled -he would benefit from an ablation but does not want to proceed with any interventions at this time -continue eliqius -[id number]: 4 Ischemic congestive cardiomyopathy 03/19/2019 11/14/2024 Assessment & Plan (10/02/2022 12:20 PM EDT): As above Assessment & Plan (03/06/2022 5:06 PM EST): Congestive heart failure worsening likely due to a-flutter -continue lisinopril, recommend adding farxiga despite reluctance Multiple vessel coronary artery disease 01/07/2019 11/14/2024 Assessment & Plan (10/02/2022 12:19 PM EDT): Coronary artery disease is stable without any concerning symptoms Continue GDMT- crestor, no ASA with eliquis anticoagulation and no beta crescencio r/t noted bradycardia on beta crescencio continue risk factor modifications- heart healthy diet, regular exercise as tolerated and continue all medications. Encounters Date Type Department Care Team Description 12/01/2024 Orders Only [address] [address] Tata Berry MA 11/30/2024 Results Follow-Up [address] [address] Misael Pryor MD [facility] Amyloid Imaging 11/28/2024 7:55 AM EDT - 11/28/2024 11:59 PM EDT Hospital Encounter [facility] Heart Station [address] [place] [address] Amyloidosis, unspecified type (CMS/HCC) Discharge Disposition: Home or Self Care (01) 11/14/2024 11:40 AM EDT Office Visit [address] [address] Misael Pryor MD Chronic systolic heart failure (CMS/HCC) (Primary Dx); Pure hypercholesterolemia; Coronary artery disease involving eek coronary artery of eek heart without angina pectoris; Ischemic cardiomyopathy; LVH (left ventricular hypertrophy); Persistent atrial fibrillation (CMS/HCC); S/P CABG (coronary artery bypass graft); Valvular heart disease; Benign hypertension; Stage 3 chronic kidney disease, unspecified whether stage 3a or 3b CKD (CMS/HCC) 11/14/2024 Orders Only [address] [address] Felicia Asif MA 10/08/[address] [address] Donna Martinez MA 09/25/2024 Results Follow-Up [facility] [address] [facility] [place] [address] Keily Blakely CNP Vascular US ankle brachial index (MASON) without exercise 09/22/2024 Orders Only [facility] [address] [facility] [place] [address] Provider, MD Nitza from Last 3 Months Immunizations Immunization Administration [...] Sign Reading Time Taken Comments Blood Pressure 133/74 11/14/2024 11:40 AM EDT Pulse 77 11/14/2024 11:40 AM EDT Temperature 36.6 C (97.8 F) 02/10/2019 9:41 AM EST Respiratory Rate 11 06/06/2023 9:18 AM EDT Oxygen Saturation 98% 11/14/2024 11:40 AM EDT Inhaled Oxygen Concentration - - Weight 78.9 kg (174 lb) 11/14/2024 11:40 AM EDT Height 172.7 cm (5' 8 ) 11/14/2024 11:40 AM EDT Body Mass Index 26.46 11/14/2024 11:40 AM EDT Plan of Treatment Upcoming Encounters Date Type Department Care Team (Late st Contact Info) Description 02/09/2025 9:40 AM EST Office Visit [facility] Heart at [facility] [address] [place] [address] Misael Pryor MD [address] [facility] [address] [place] [address] Health Maintenance Due Date Last Done Comments [...] this topic Medical Devices Implanted Type Area Nuclear Power Plant Engineer Device Identifier Shelf Expiration Date Model / Serial / Lot [id number] Reveal Linq [id number] Implanted:12/04 (Quantity not on file) Implantable Loop Recorder [id number] REVEAL LINQ / [id number] / Procedures Procedure Name Priority Date/Time Associated Diagnosis Comments [facility] AMYLOID IMAGING Routine 11/28/2024 1 2:31 PM EDT Amyloidosis, unspecified type (CMS/HCC) VASC ANKLE BRACHIAL INDEX (MASON) WITHOUT EXERCISE Routine 09/18/2024 12:13 PM EDT from Last 3 Months Results * [facility] Amyloid Imaging (11/28/2024 12:31 PM EDT) Anatomical Region Laterality Modality Other 11/28/2024 7:55 AM EDT Narrative 11/29/2024 1:46 PM EDT 1 1 [facility] Heart Station [address] [place] [address] [phone] (fax) Amyloid Scan- [facility] Name: CHAD MATSON Study Date: 11/28/2024 07:55 AM B/P: / HR: Date of : 1935 Location: [facility] Height: 68 in. Age: 89 year(s) Patient Room: Weight: 174 lb. Gender: Male Patient Status: OutPt BSA: 1.93 m2 Indication: Nonvalvular Heart Disease Examination: Amyloid Scan Image Quality: Good Echo reveals 36% EF. Echo features raise the suspicion of infiltrative myocardial disease such as cardiac amyloidosis. Benign HTN, AFib, CAD involving eek coronary artery of eek heart without angina pectoris, history of myocardial infarction, chronic systolic HF, ischemic cardiomyopathy, LVH, Valvular heart disease Conclusions This 99mTc-PYP imaging test is strongly suggestive of ATTR cardiac amyloidosis with visually confirmed diffuse myocardial uptake and a semi-quantitative visual grade of 3. The Zhllf-bi-Wtaizkgkajtpu Lung (H/CL) ratio is 2.0. This study does not exclude AL Amyloidosis. Serum free light chain assay with kappa/lambda ratio and urine immunofixation is recommended with this 99mTc-PYP imaging test. Findings Technique Planar and SPECT imaging was performed 3 hours after SN77x-Dkzeoyrigapka intravenous gmzrvyfazRS33d-WCY with a dose of 19.2 mCi injected intravenously. Patient had arms down during imaging acquisition due to lack of mobility. s sp@c Nuclear Protocol Details Procedure Staff Reading Group: [facility] Referring Physician: MISAEL PRYOR Tongue Carrier: Felisha Multani Ordering Physician: MISAEL PRYOR Procedure Note Hector Roberts MD - 11/29/2024 1 1 [facility] Heart Station [address] [place] [address] [phone] (fax) Amyloid Scan- [facility] Name: CHAD MATSON Study Date: 11/28/2024 07:55 AM B/P: / HR: Date of : 1935 Location: [facility] Height: 68 in. Age: 89 year(s) Patient Room: Weight: 174 lb. Gender: Male Patient Status: OutPt BSA: 1.93 m2 Indication: Nonvalvular Heart Disease Examination: Amyloid Scan Image Quality: Good Echo reveals 36% EF. Echo features raise the suspicion of infiltrative myocardial disease such as cardiac amyloidosis. Benign HTN, AFib, CAD involving eek coronary artery of eek heart without angina pectoris, history of myocardial infarction, chronic systolic HF, ischemic cardiomyopathy, LVH, Valvular heart disease Conclusions This 99mTc-PYP imaging test is strongly suggestive of ATTR cardiac amyloidosis with visually confirmed diffuse myocardial uptake and a semi-quantitative visual grade of 3. The Cpiwv-zl-Pyvvydoyebvta Lung (H/CL) ratio is 2.0. This study does not exclude AL Amyloidosis. Serum free light chain assay with kappa/lambda ratio and urine immunofixation is recommended with this 99mTc-PYP imaging test. Findings Technique Planar and SPECT imaging was performed 3 hours after MK09b-Vgdliczckeebv intravenous fstyuslbuOD31k-UTA with a dose of 19.2 mCi injected intravenously. Patient had arms down during imaging acquisition due to lack of mobility. s sp@c Nuclear Protocol Details Procedure Staff Reading Group: [facility] Referring Physician: MISAEL PRYOR Tongue Carrier: Felisha Multani Ordering Physician: MISAEL PRYOR Misael Pryor MD CV CARDIAC NUCLEAR PROCEDURES Fi nal Result * Vascular US ankle brachial index (MASON) without exercise (09/18/2024 12:13 PM EDT) Anatomical Region Laterality Modality Lower Extremities Ultrasound Historical Provider MD HUYNH CV VASCULAR PROCEDURE S Final Result from Last 3 Months Insurance [place] [address] Care Teams Tube Cutter Operator Relationship Specialty Start Date End Date Stefano Castellanos MD [address] [place] [address] PCP - General 02/28/22
--- OUTSIDE RECORDS SUMMARY | 2024-12-04 08:32 | XMS_ITS | Encounter Summary ---
Author Organization [facility] Address [address] [facility] [place] [address] Care Team Providers Care Economics Analyst Name Role Phone Stefano Castellanos MD Primary Care Provider [phone] Encounter Details Date Type Department Care Team ([facility] Contact Info) Description 11/30/2024 Results Follow-Up [facility] at [facility] [address] [place] [address] Ghanshyam Pryor MD [address] [place] [address] PYP Amyloid Imaging Social History Tobacco Use Types Packs/Day Years [...] PM EDT documented as of this encounter Plan of Treatment Upcoming Encounters Date Type Department Care Team (Late st Contact Info) Description 02/09/2025 9:40 AM EST Office Visit [facility] Heart at [facility] [address] [place] [address] Ghanshyam Pryor MD [address] [place] [address] Scheduled Orders Name Type Priority Associated Diagnoses Orde r Schedule IMMUNOFIXATION ELECTROPHORESIS & KAPPA/LAMBDA LIGHT CHAINS, BLOOD Lab Routine Cardiac amyloidosis (CMS/HCC) Expected: 11/30/2024 (Approximate), Expires: 11/30/2025 Protein electrophoresis, serum Lab Routine Cardiac amyloidosis (CMS/HCC) Expected: 11/30/2024 (Approximate), Expires: 11/30/2025 Immunofixation electrophoresis, urine 24 hour Lab Routine Cardiac amyloidosis (CMS/HCC) Expected: 11/30/2024 (Approximate), Expires: 11/30/2025 documented as of this encounter Visit Diagnoses Diagnosis Cardiac amyloidosis (CMS/HCC)- Primary Other amyloidosis documented in this encounter Care Teams Economics Analyst Relationship Specialty Start Date End Date Stefano Castellanos MD [address] [place] [address] PCP - General 02/28/22 documented as of this encounter
--- OUTSIDE RECORDS SUMMARY | 2024-12-04 08:32 | XMS_ITS | Encounter Summary ---
Author Organization [facility] Address [address] [place] [address] Care Team Providers Care Outside Plant Field Engineer Name Role Phone Stefano Castellanos MD Primary Care Provider Encounter Details Date Type Department Care Team [...] EST Narrative 03/12/2024 10:06 AM EST The [address] [address] Cardiology Report Signed Patient: CHAD MATSON MR#: [id number] : 1935 Acct:[id number] Age/Sex: 88 / M ADM Date: 03/11/24 Loc: CARD Attending Dr: Ghanshyam Pryor M.D. Ordering Physician: Ghanshyam Pryor M.D. Date of Service: 03/11/24 Procedure(s): CA echo doppler complete Accession Number(s): [id number] cc: Ghanshyam Pryor M.D.; Stefano Castellanos M.D. Patient Name: CHAD MATSON MR#: [id number] : 1935 Exam Date: 03/11/2024 Ordering Doctor: [...] Signed By: 03/12/24 1006 DD/ 1005 TD/TT: Finished Metal Repairer: Procedure Note Radiology, Radiologist, MD - 03/12/2024 The [place] [id number] Cardiology Report Signed Patient: CHAD MATSON CMR#: [id number] : 7Acct:[id number] Age/Sex: 88 / MADM Date: 03/11/24 Loc: CARD Attending Dr: Ghanshyam Pryor M.D. Ordering Physician: Ghanshyam Pryor M.D. Date of Service: 03/11/24 Procedure(s): CA echo doppler complete Accession Number(s): [id number] cc: Ghanshyam Pryor M.D.; Stefano Castellanos M.D. Patient Name: CHAD MATSON MR#: [id number] : 1935 Exam Date: 03/11/2024 Ordering Doctor: DR. Ghanshyam Proyr M.D. ECHOCARDIOGRAM REPORT PROCEDURE: CA ECHO DOPPLER [...] Uribe M.D. Signed By:03/12/246 DD/ 04 TD/TT: Finished Metal Repairer: us Generic External Data Provider [facility] Final Result documented in this encounter Visit Diagnoses Not on filedocumented in this encounter Additional Health Concerns Assessment Noted Time PHQ-9 Depression Total Score: 5 10/09/19 24 11:00 AM EDT documented as of this encounter Care Teams Outside Plant Field Engineer Relationship Specialty Start Date End Date Stefano Castellanos MD PCP - General Family Medicine 10/02/23 documented as of this encounter
[2024-12-08 13:08] LABS: Albumin 3.9 g/dL (2.9-4.4); Alpha-1-Globulin 0.2 g/dL (0.0-0.4); Alpha-2-Globulin 0.6 g/dL (0.4-1.0); Free Kappa Lt Chains,S 23.7 mg/L (3.3-19.4); Free Lambda Lt Chains,S 15.2 mg/L (5.7-26.3); Gamma Globulin 0.7 g/dL (0.4-1.8); Immunoglobulin A, Qn, Serum 244 mg/dL (61-437); Kappa/Lambda Ratio,S 1.56 (0.26-1.65)
== END 2024-12-04 08:30 | disposition home or self-care (01) ==
LOC: LAB 08:30
PROVIDERS: PCP Family Medicine; Visit Provider Internal Medicine Cardiovascular Disease
DX: E85.4 Organ-limited amyloidosis (principal); I43 Cardiomyopathy in diseases classified elsewhere
CPT/HCPCS: 36415; 82784; 83521; 84155; 84165; 86334

== ENCOUNTER 2024-12-06 08:06 | Outpatient (REF) | payer MEDICARE, SELFPAY ==
--- OUTSIDE RECORDS SUMMARY | 2024-12-06 08:08 | XMS_ITS | CCD ---
Author Organization [facility] Inform ion Partnership [facility] Care Team Providers Care Hvac Design Engineer Name Role Phone MD Stefano Rivera Primary Care Provider MD Percy Swan Emergency Provider DO Venus Manjarrez Admit Provider DO Venus Manjarrez Attending Provider SHANA MCCORMICK Admitting Unavailable SHANA MCCORMICK Attending Unavailable NICOLE, DR STEFANO Love Primary Care Unavailable JULIO MCCORMICKAMAJose Luis Consulting Unavailable MICHELLE BLAKELY Admitting Unavailable MICHELLE BLAKELY Attending Unavailable NICOLE, DR STEFANO Love Primary Care Unavailable BARBARA, DR PRISCILA Bravo Consulting Unavailable MICHELLE BLAKELY Consulting Unavailable NINO POWELL Admitting Unavailable NINO POWELL Attending Unavailable NICOLE, DR STEFANO Love Primary Care Unavailable NINO POWELL Consulting Unavailable NICOLE, DR STEFANO Love Admitting Unavailable NADERELawrence, DR STEFANO Love Attending Unavailable NICOLE, DR STEFANO Love Primary Care Unavailable KAYLEENERELawrence, DR STEFANO Love Primary Care Unavailable CACHORRO, DR VICENTE Crawley Admitting Unavailabl e REINHAYLEY, DR VICENTE Crawley Attending Unavailabl e REINHAYLEY, DR VICENTE Crawley Consulting Unavailabl e KAYLEENERELawrence, DR STEFANO Love Primary Care Unavailable TAYLOR ALCANTARA Admitting Unavailable TAYLOR ALCANTARA Attending Unavailable TAYLOR ALCANTARA Consulting Unavailable MAYA MOODY Consulting Unavailable NICOLE, DR STEFANO Love Primary Care Unavailable HOY ., DR ESPINOZA Consulting Unavailable NICOLE, DR STEFANO Love Admitting Unavailable NICOLE, DR STEFANO Love Attending Unavailable NICOLE, DR STEFANO Love Consulting Unavailable WILBERT RIVERA Consulting Unavailable BO HURST Consulting Unavailable NINO POWELL Admitting Unavailable NINO POWELL Attending Unavailable DR STEFANO RIVERA Primary Care Unavailable MICHELLE BLAKELY Admitting Unavailable MICHELLE BLAKELY Attending Unavailable DR STEFANO RIVERA Primary Care Unavailable MICHELLE BLAKELY Consulting Unavailable STEFANO RIVERA Attending Unavailable Stefano Rivera MD Primary Care Provider MISAEL GARCIA Attending Unavailable MICHELLE BLAKELY Attending Unavailable MISAEL GARCIA Attending Unavailable MISAEL GARCIA Referring Unavailable MISAEL GARCIA Attending Unavailable MISAEL GARCIA Attending Unavailable MISAEL GARCIA Attending Unavailable Allergies Allergy Classification Reported Allergen(s) Allergy Type Date of Onset Reaction(s) Facility (9 sources) Penicillins; Translations: [Penicillins] Allergy to substance 10-20-2013 [facility] Medications Current Medications Medication Drug [...] mg Tablet Active 20 MG PO Daily Nadia 14th, 2022 2:08pm take 1 tablet by mouth once [...] disease (20 sources) Atherosclerotic heart disease of [place] coronary artery without angina pectoris; Translations: [Ischemic [...] elsewhere classified; Translations: [Difficulty in walking] Chronic Other nutritional; endocrine; and metabolic disorders (2 sources) Amyloidosis, unspecified; 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, unspecified] 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-28-2024 Chronic Anitha-; endo-; and myocarditis; cardiomyopathy (except [...] 10-09-2023 10-09-2023 Other aftercare (1 source) 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; Translations: [OTH WALL AND FLOOR TILER CURRENT DRUG THERAPY] Onset: 09-14-2021 Episodic Other aftercare (1 source) 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; Translations: [HALFWAY CURRNT USE ANTICOAGULANTS] Onset: 09-14-2021 Episodic Other aftercare (5 sources) Long-term current use of drug therapy; Translations: [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] Onset: 10-09-2023 10-09-2023 Episodic [...] Test Name Value Interpretation Reference Range Facility Orders Onlyon 12-01-2024 Orders Only [id number] Duke Matson 1935 M Date Provider Department Center 12/01/2024 TATA JOHN TOSHIA Lopez Family History Problem Relation Age of Onset Heart attack Other Family Status - Relation Status Age at Mother Father Other Normal [facility] Office Visiton 11-14-2024 Follow-up visit [id number] Duke Matson 1935 M Date Provider Department Center 11/14/2024 MISAEL AMADOR [facility] Family History Problem Relation Age of Onset Heart attack Other Family Status - Relation Status Age at Mother Father Other Level of Service:24078 MO OFFICE/OUTPATIENT ESTABLISHED MOD MDM 30 MIN Reason for Visit and Comments: Follow-up [475645] - Patient is here per Juliann Blakely CNP to discuss Amyloid testing Multiple vessel coronary artery disease [Other] Ischemic congestive cardiomyopathy [Other] Hypertension [198384] Atrial Fibrillation [80] Coronary Artery Disease [187] Hyperlipidemia [182] Congestive Heart Failure [127] Valve Disorder [3372] LVH [Other] Stage 3 kindney disease [Other] Cardiomyopathy [104] - Previous MA [Other] Normal [facility] Orders Onlyon 11-14-2024 Orders Only [id number] Duke Matson 1935 M Date Provider Department Center 11/14/2024 YESSENIA FERNANDO TOSHIA Lopez Family History Problem Relation Age of Onset Heart attack Other Family Status - Relation Status Age at Mother Father Other Normal [facility] 36on 10-08-2024 36 Per the patient he h as not had the amyloid testing. Michelle Blakely CNP to Tata Newberry MA (Selected Message) MD 09/25/24 5:25 PM Note Please let him know his MASON's were normal. Please follow-up with him regarding amyloid testing. Thanks! Per the patient he has not had the amyloid testing. Advised patient his MASON's were normal per Juliann Blakely. Me to Michelle Blakely CNP [place] 10/10/24 1:48 PM Spoke to patient, patient states at this time he doesn't think he is interested in doing the test. Patient states he will speak with Dr. Garcia about this at his appointment in November. Michelle Blakely CNP to [place] (Selected Message) MD 10/09/24 4:25 PM Is he willing to come to [place] to have it done? Me to Michelle Blakely CNP [place] 10/08/24 2:36 PM Per the patient he has not had the amyloid testing. View older events Normal [facility] Telephoneon 10-08-2024 Telephone [id number] Duke Matson 1935 M Date Provider Department Center 10/08/2024 [id number] GARRETT TOSHIA Lopez Family History Problem Relation Age of Onset Heart attack Other Family Status - Relation Status Age at Mother Father Other Normal [facility] Results Follow-Upon 09-26-19 Results Follow-Up [id number] Duke Matson 1935 M Date Provider Department Center 09/25/2024 166-KELLYMICHELLE GONZALEZ CARD [facility] Family History Problem Relation Age of Onset Heart attack Other Family Status - Relation Status Age at Mother Father Other Normal [facility] Orders Onlyon 09-22-2024 Orders Only [id number] Duke Matson 1935 M Date Provider Department Center 09/22/2024 [id number], HISTORICAL CARD [facility] Family History Problem Relation Age of Onset Heart attack Other Family Status - Relation Status Age at Mother Father Other Normal [facility] SEGMENTAL BLOOD PRESSUREon 0 09-21-2024 [place] [address] Cardiology Report Signed Patient: DUKE MATSON MR#: [id number] : 1935 Acct:[id number] Age/Sex: 88 / M ADM Date: 09/18/24 Loc: CARD Attending Dr: MICHELLE BLAKELY APRN Ordering Physician: MICHELLE BLAKELY APRN Date of Service: 09/18/24 Procedure(s): CA segmental UE or LE VERENA Accession Number(s): [id number] cc: Stefano Rivera M.D.; MICHELLE BLAKELY APRN [facility] Test Date: 2024-09-18 Pat Name: DUKE MATSON Department: Room: - Gender: Male Amphibious Operations Officer: KIMBERLYSOURAV SARKAR : 1935 Requested By: Michelle Blakely Order Number: [id number] Marcie MD: YENNY XAVIER M.D. Interpretive Statements Summary [...] YENNY XAVIER Signed By: 09/21/24 1612 09/21/24 161 DD/ 1000 TD/TT: Spooler: [facility] Radiology, Radiologist, - 09/21/2024 [place] [address] Cardiology Report Signed Patient: DUKE MATSON MR#: [id number] : 1935 Acct:[id number] Age/Sex: 88 / M ADM Date: 09/18/24 Loc: CARD Attending Dr: MICHELLE BLAKELY APRN Ordering Physician: MICHELLE BLAKELY APRN Date of Service: 09/18/24 Procedure(s): CA segmental UE or LE VERENA Accession Number(s): [id number] cc: Stefano Rivera M.D.; MICHELLE BLAKELY APRN [facility] Test Date: 2024-09-18 Pat Name: DUKE MATSON Department: Room: - Gender: Male Amphibious Operations Officer: KIMBERLY MELLO : 1935 Requested By: Michelle Blakely Order Number: [id number] Reading MD: YENNY XAVIER M.D. Interpretive Statements [...] 09/21/24 1612 09/21/24 1612 DD/ 1000 TD/TT: Spooler: [facility] SEGMENTAL BLOOD PRESSUREOrde red By: Radiologist Radiology on 09-21-2024 [facility] Work Phone: SEGMENTAL BLOOD PRESSUREon 0 09-18-2024 Radiology Study observation (narrative) [facility] 36on 08-20-2024 36 Called patient to gi ve him info about [employer] for transportation to [facility] for amyloid testing. He would prefer to wait until after he has result of MASON's first. Advised patient we'd call him with results and can rediscuss amyloid testing at that time. The number for [employer] is [phone]. He verbalized understanding. Normal [facility] Office Visiton 08-20-2024 Follow-up visit [id number] Duke Matson 1935 Date Provider Department Center 08/20/2024 MICHELLE PARKER CARD [facility] Family History Problem Relation Age of Onset Heart attack Other Family Status - Relation Status Age at Mother Father Other Level of Service:47471 MO OFFICE/OUTPATIENT ESTABLISHED MOD MDM 30 MIN Reason for Visit and Comments: Coronary Artery Disease [187] Congestive Heart Failure [127] Atrial Fibrillation [80] Normal [facility] 36on 08-19-2024 36 Tried to contact patient. His home number does not have a voicemail. His cell number does not have a voicemail set up either. Will try again tomorrow. Normal [facility] 36on 08-18-2024 36 Regarding echo performed on 08/08/2024: MD Tata Kumar MA Inform patient that his ejection fraction has improved but not totally back to normal. There was suggestion of possible amyloidosis which is an infiltrative disease, I recommend to obtain PYP amyloid nuclear images to be performed at [facility] Normal [facility] Telephoneon 08-18-2024 Telephone [id number] Duke Matson 1935 M Date Provider Department Center 08/18/2024 Germania8-TATA NEWBERRY [facility] Family History Problem Relation Age of Onset Heart attack Other Family Status - Relation Status Age at Other Normal [facility] Orders Onlyon 08-17-2024 Orders Only [id number] Duke Matson 1935 M Date Provider Department Center 08/17/2024 [id number] GARCIA TOSHIA [facility] Family History Problem Relation Age of Onset Heart attack Other Family Status - Relation Status Age at Other Normal [facility] CA ECHO DOPPLER COMPLETEon 0 08-08-2024 [place] [address] Cardiology Report Signed Patient: DUKE MATSON MR#: [id number] : 1935 Acct:[id number] Age/Sex: 88 / M ADM Date: 08/08/24 Loc: CARD Attending Dr: Misael Garcia M.D. Ordering Physician: Misael Garcia M.D. Date of Service: 08/08/24 Procedure(s): CA echo doppler complete Accession Number(s): [id number] cc: Misael Garcia M.D.; Stefano Rivera M.D. Patient Name: DUKE MATSON MR#: [id number] : 1935 Exam Date: 08/08/2024 Ordering Doctor: [...] 2.69 m/s Pulmonic (more content not included)... [facility] Radiology, Radiologist, MD - 08/08/2024 [place] [address] Cardiology Report Signed Patient: DUKE MATSON MR#: [id number] : 1935 Acct:[id number] Age/Sex: 88 / M ADM Date: 08/08/24 Loc: CARD Attending Dr: Misael Garcia M.D. Ordering Physician: Misael Garcia M.D. Date of Service: 08/08/24 Procedure(s): CA echo doppler complete Accession Number(s): [id number] cc: Misael Garcia M.D.; Stefano Rivera M.D. Patient Name: DUKE MATSON MR#: [id number] : 1935 Exam Date: 08/08/2024 Ordering Doctor: [...] 17:42 Dictated By: YENNY XAVIER Signed By: 08/08/24 1744 DD/ 174 TD/TT: Spooler: [facility] Radiology Study observation (narrative) [facility] CA ECHO DOPPLER COMPLETEOrde red By: Radiologist Radiology on 08-08-2024 [facility] Work Phone: Office Visiton 05-05-2024 Follow-up visit [id number] Duke Matson 1935 M Date Provider Department Center 05/05/2024 [id number] HYLTON [facility] Family History Problem Relation Age of Onset Heart attack Other Family Status - Relation Status Age at Other Level of Service:70069 MO OFFICE/OUTPATIENT ESTABLISHED MOD [facility] 30 MIN Reason for Visit and Comments: Congestive Heart Failure [127] - He had repeat labs last week. Only taking lasix PRN, which has only been on 1 occasion. Valve Disorder [3372] Cardiomyopathy [104] Atrial Fibrillation [80] - Denies bleeding on Eliquis. Normal [facility] ALL BASIC METABOLIC PANELon 05-02-2024 Anion gap [Moles/Vol] 13.7 mmol/L [facility] Calcium [Mass/Vol] 9.8 mg/dL 8.5 - 10. 1 mg/dL [facility] Chloride [Moles/Vol] 107 mmol/L 98 - 10 7 mmol/L [facility] CO2 [Moles/Vol] 26 mmol/L 21.0 - 32.0 mmol/L [facility] Creatinine [Mass/Vol] 1.47 mg/dL High 0.70 - 1.30 mg/dL [facility] GFR/1.73 sq M.predicted CKD-EPI (S/P/Bld) [Vol rate/Area] 55 Low >=60 mL/min/1.73m 2 [facility] Glucose [Mass/Vol] 105 mg/dL 74 - 106 mg/dL [facility] Interpretation and review of laboratory results Abnormal [facility] Potassium [Moles/Vol] 4.7 mmol/L 3.5 - 5.1 mmol/L [facility] Sodium [Moles/Vol] 142 mmol/L 136 - 145 mmol/L [facility] EGFR-NON AF [place]IZ[place] 45 Low >=60 mL/min/1.73m 2 [facility] Urea nitrogen [Mass/Vol] 43 mg/dL High 7.0 - 18.0 mg/dL [facility] Urea nitrogen/Creatinine [Mass ratio] 29.3 mg/mg [facility] 36on 04-18-2024 36 Regarding lab result s from 04/15/2024: MD Tata Kumar MA His creatinine is higher than before. For now continue to take Toprol-XL, Entresto, and Lasix on daily basis. Recheck BMP in 2 weeks. Spoke with patient. He will have repeat labs in 2 weeks. Order faxed to [facility] and also printed for him. Normal [facility] ALL BASIC METABOLIC PANELon 04-15-2024 Anion gap [Moles/Vol] 13.7 mmol/L [facility] Calcium [Mass/Vol] 9.5 mg/dL 8.5 - 10. 1 mg/dL [facility] Chloride [Moles/Vol] 106 mmol/L 98 - 10 7 mmol/L [facility] CO2 [Moles/Vol] 26.9 mmol/L 21.0 - 32.0 mmol/L [facility] Creatinine [Mass/Vol] 1.66 mg/dL High 0.70 - 1.30 mg/dL [facility] GFR/1.73 sq M.predicted CKD-EPI (S/P/Bld) [Vol rate/Area] 48 Low >=60 mL/min/1.73m 2 [facility] Glucose [Mass/Vol] 96 mg/dL 74 - 106 mg/dL [facility] Interpretation and review of laboratory results Abnormal [facility] Potassium [Moles/Vol] 4.6 mmol/L 3.5 - 5.1 mmol/L [facility] Sodium [Moles/Vol] 142 mmol/L 136 - 145 mmol/L [facility] EGFR-NON AF CITIZ[place] 39 Low >=60 mL/min/1.73m 2 [facility] Urea nitrogen [Mass/Vol] 40 mg/dL High 7.0 - 18.0 mg/dL [facility] Urea nitrogen/Creatinine [Mass ratio] 24.1 mg/mg [facility] Office Visiton 04-08-2024 Follow-up visit [id number] Duke Matson 1935 M Date Provider Department Center 04/08/2024 41501-ULDJMMMISAEL GARCIA Family History Problem Relation Age of Onset Heart attack Other Family Status - Relation Status Age at Other Level of Service:72331 MO OFFICE/OUTPATIENT ESTABLISHED MOD MDM 30 MIN Reason for Visit and Comments: Atrial Fibrillation [80] - Says he's only taking metoprolol PRN for SPB > 140, about 25% of the time he says. Coronary Artery Disease [187] Congestive Heart Failure [127] - Had echo last month. Valve Disorder [3372] Hyperlipidemia [182] Edema [[id number]] - Edema has been much better. Patient states he's getting back towards normal . Shortness of Breath [104909] [facility] 36on 03-27-2024 36 Regarding echo resul [...] LM on his brother Arnulfo's VM. Normal [facility] Office Visiton 03-03-2024 Follow-up visit [id number] HuyenDuke Bhumika 1935 M Date Provider Department Center 03/03/2024 [id number]-RBKKETMISAEL GARCIA TOSHIA [facility] Family History Problem Relation Age of Onset Heart attack Other Family Status - Relation Status Age at Other Level of Service:08112 MO OFFICE/OUTPATIENT ESTABLISHED MOD MDM 30 MIN Reason [...] [187] Hyperlipidemia [182] Valve Disorder [3372] Edema [[id number]] [facility] ALL BASIC METABOLIC PANELon 02-28-2024 Anion gap [Moles/Vol] 10.6 mmol/L [facility] Calcium [Mass/Vol] 9.5 mg/dL 8.5 - 10. 1 mg/dL [facility] Chloride [Moles/Vol] 108 mmol/L High 98 - 10 7 mmol/L [facility] CO2 [Moles/Vol] 31.4 mmol/L 21.0 - 32.0 mmol/L [facility] Creatinine [Mass/Vol] 1.37 mg/dL High 0.70 - 1.30 mg/dL [facility] GFR/1.73 sq M.predicted CKD-EPI (S/P/Bld) [Vol rate/Area] 60 >=60 mL/min/1.73m 2 [facility] Glucose [Mass/Vol] 110 mg/dL High 74 - 106 mg/dL [facility] Interpretation and review of laboratory results Abnormal [facility] Potassium [Moles/Vol] 4 mmol/L 3.5 - 5.1 mmol/L [facility] Sodium [Moles/Vol] 146 mmol/L High 136 - 145 mmol/L [facility] EGFR-NON AF [place] 49 Low >=60 mL/min/1.73m 2 [facility] Urea nitrogen [Mass/Vol] 40 mg/dL High 7.0 - 18.0 mg/dL [facility] Urea nitrogen/Creatinine [Mass ratio] 29.2 mg/mg [facility] 36on 02-25-2024 36 Entresto RX faxed in. [facility] 36 Pharmacy called needing a new scripted for patient Entresto. Patient stated he is taking 0.5mg twice a day, but the order says 4 times a month. Denise PRATHER [facility] Office Visiton 02-22-2024 Follow-up visit [id number] Duke Matson 1935 [facility] Provider Department Center 02/22/2024 47706-POPIQVMISAEL GARCIA Family History Problem Relation Age of Onset Heart attack Other Family Status - Relation Status Age at Other Level of Service:79606 MO OFFICE/OUTPATIENT ESTABLISHED MOD MDM 30 MIN Reason for Visit and Comments: Hypertension [873603] - Says BP has been higher than normal for him lately. Coronary Artery Disease [187] Congestive Heart Failure [127] Palpitations [010855] - Occasional palpitations Shortness of Breath [] - Says he can tell he's been having apneic episodes at night and wakes up and has to kick start his breathing again. Edema [[id number]] - He is up 14# since September 2023. Says he weighed 170# last week. Atrial Flutter [101] - Denies bleeding on Eliquis. [facility] PROF CHEM 8 (BAS METB)on Anion gap [Moles/Vol] 13.7 mmol/L Normal [facility] Comment on above: Performed By: #### B MP #### [facility] [address] [address] [address] Brennan Crooks Calcium [Mass/Vol] 10.0 mg/dL Normal 8.5-10.1 [facility] Comment on above: Performed By: #### B MP #### [facility] [address] [address] [address] Brennan Crooks Chloride [Moles/Vol] 109 mmol/L Critically high 98-107 [facility] Comment on above: Performed By: #### B MP #### [facility] [address] [address] [address] Brennan Crooks CO2 [Moles/Vol] 24.9 mmol/L Normal 21.0-32.0 [facility] Comment on above: Performed By: #### B MP #### [facility] [address] [address] [address] Brennan Crooks Creatinine [Mass/Vol] 1.13 mg/dL Normal 0.70-1.30 [facility] Comment on above: Performed By: #### B MP #### [facility] [address] [place] [address] Dr. Brennan Crooks EGFR-AF CITIZ[place] >60 Normal >=60 [facility] Comment on above: Performed By: #### B MP #### [facility] [address] [address] [address] Brennan Crooks EGFR-NON AF CITIZ[place] >60 Normal >=60 [facility] Comment on above: Performed By: #### B MP #### [facility] [address] [address] [address] Brennan Crooks Glucose [Mass/Vol] 102 mg/dL Normal 74-106 [facility] Comment on above: Performed By: #### B MP #### [facility] [address] [address] [address] Brennan Crooks Potassium [Moles/Vol] 4.6 mmol/L Normal 3.5-5.1 [facility] Comment on above: Performed By: #### B MP #### [facility] [address] [address] [address] Brennan Crooks Sodium [Moles/Vol] 143 mmol/L Normal 136-145 [facility] Comment on above: Performed By: #### B MP #### [facility] [address] [address] [address] Brennan Crooks Urea nitrogen [Mass/Vol] 35.0 mg/dL Critically high 7.0-18.0 [facility] Comment on above: Performed By: #### B MP #### [facility] [address] [address] [address] Brennan Crooks Urea nitrogen/Creatinine [Mass ratio] 31.0 mg/mg Normal [facility] Comment on above: Performed By: #### B MP #### [facility] [address] [address] [address] Brennan Crooks NM STRESS/REST MULTIon 01-23 NM STRESS/REST MULTI Patient: DUKE MATSON Exam Date: 01/23/2022 : 1935 Gender:M Ordering : MICHELLE BLAKELY [facility] Admission #: [id number] Family : Order #: [id number] CLICK HERE TO VIEW EXAM RADIOLOGY REPORT [...] Mendoza M.D. on 01/24/2022 at 12:29 Normal [facility] ECHOCARDIO M/2D COMPLETEon 0 11-02-2021 ECHOCARDIO M/2D COMPLETE Patient: DUKE MATSON Exam Date: 11/02/2021 : 1935 Gender:M Ordering : SHANA MCCORMICK Admission #: [id number] Family : DR STEFANO RIVERA . Order #: [id number] CLICK HERE TO VIEW EXAM ECHOCARDIOGRAM REPORT [...] Xavier M.D. on 11/03/2021 at 20:34 Normal [facility] Hemogram CBC Without Diffon 09-19-2021 Erythrocyte distribution width (RBC) [Ratio] 14.1 % Normal 12.0-14.8 [facility] Comment on above: Performed By: #### C BCNO ####[place] [address] Hematocrit (Bld) [Volume fraction] 24.9 % Low 38.8-50.0 [facility] Comment on above: Performed By: #### C BCNO ####[facility] [id number] [facility] Hemoglobin (Bld) [Mass/Vol] 8.5 g/dL Low 13.0-17.0 [facility] Comment on above: Performed By: #### C BCNO ####[place] [address] MCH (RBC) [Entitic mass] 32.8 pg Normal 27.5-35.2 [facility] Comment on above: Performed By: #### C BCNO ####[address] MCV (RBC) [Entitic vol] 95.6 fL Normal 83.5-101 [facility] Comment on above: Performed By: #### C BCNO ####[address] Mean Corpuscular HGB Conc 34.3 g/dL Normal 32.5-35.6 [facility] Comment on above: Performed By: #### C BCNO ####[address] Platelet mean volume (Bld) [Entitic vol] 7.3 fL Normal 6.6-10.1 [facility] Comment on above: Result Comment: PERF ORMED BY: [facility] [address] [place] [address] PATHOLOGIST COMPUTER LANGUAGE CODER TAMICA DUBOSE M.D. Performed By: #### C BCNO ####[address] Platelets (Bld) [#/Vol] 240 10*3/uL Normal 150-450 [facility] Comment on above: Performed By: #### C BCNO ####[address] RBC (Bld) [#/Vol] 2.60 10*6/uL Low 3.90-5.60 [facility] Comment on above: Performed By: #### C BCNO ####[address] WBC (Bld) [#/Vol] 6.5 10*3/uL Normal 4.1-10.5 [facility] Comment on above: Performed By: #### C BCNO ####[facility] Hemogram CBC Without Diffon 09-18-2021 Erythrocyte distribution width (RBC) [Ratio] 13.8 % Normal 12.0-14.8 [facility] Comment on above: Performed By: #### C BCNO #### [facility] [address] Hematocrit (Bld) [Volume fraction] 26.6 % Low 38.8-50.0 [facility] Comment on above: Performed By: #### C BCNO #### [address] Hemoglobin (Bld) [Mass/Vol] 9.0 g/dL Low 13.0-17.0 [facility] Comment on above: Performed By: #### C BCNO #### [address] MCH (RBC) [Entitic mass] 32.4 pg Normal 27.5-35.2 [facility] Comment on above: Performed By: #### C BCNO #### [address] MCV (RBC) [Entitic vol] 95.5 fL Normal 83.5-101 [facility] Comment on above: Performed By: #### C BCNO #### [address] Mean Corpuscular HGB Conc 34.0 g/dL Normal 32.5-35.6 [facility] Comment on above: Performed By: #### C BCNO #### [address] Platelet mean volume (Bld) [Entitic vol] 7.7 fL Normal 6.6-10.1 [facility] Comment on above: Result Comment: PERF ORMED BY: [place] [address] PATHOLOGIST COMPUTER LANGUAGE CODER TAMICA DUBOSE M.D. Performed By: #### C BCNO #### [address] Platelets (Bld) [#/Vol] 232 10*3/uL Normal 150-450 [facility] Comment on above: Performed By: #### C BCNO #### [address] RBC (Bld) [#/Vol] 2.78 10*6/uL Low 3.90-5.60 [facility] Comment on above: Performed By: #### C BCNO #### [address] WBC (Bld) [#/Vol] 6.9 10*3/uL Normal 4.1-10.5 [facility] Comment on above: Performed By: #### C BCNO #### [address] Ferritinon 09-17-2021 Ferritin [Mass/Vol] 29.0 ng/mL Normal 23.9-336.2 [facility] Comment on above: Performed By: #### F E and TIBC, [id number], AJ ####[address] Hemoglobin and Hematocriton 09-17-2021 Hematocrit (Bld) [Volume fraction] 25.6 % Low 38.8-50.0 [facility] Comment on above: Result Comment: PERF ORMED BY: [place] [address] PATHOLOGIST COMPUTER LANGUAGE CODER TAMICA DUBOSE M.D. Performed By: #### H H #### [address] Hemoglobin (Bld) [Mass/Vol] 8.6 g/dL Low 13.0-17.0 [facility] Comment on above: Performed By: #### H H #### [address] Hemogram CBC Without Diffon 09-17-2021 Erythrocyte distribution width (RBC) [Ratio] 13.8 % Normal 12.0-14.8 [facility] Comment on above: Performed By: #### C BCNO #### [address] Hematocrit (Bld) [Volume fraction] 24.6 % Low 38.8-50.0 [facility] Comment on above: Performed By: #### C BCNO #### [address] Hemoglobin (Bld) [Mass/Vol] 8.4 g/dL Low 13.0-17.0 [facility] Comment on above: Performed By: #### C BCNO #### [address] MCH (RBC) [Entitic mass] 32.8 pg Normal 27.5-35.2 [facility] Comment on above: Performed By: #### C BCNO #### [address] MCV (RBC) [Entitic vol] 96.0 fL Normal 83.5-101 [facility] Comment on above: Performed By: #### C BCNO #### [address] Mean Corpuscular HGB Conc 34.2 g/dL Normal 32.5-35.6 [facility] Comment on above: Performed By: #### C BCNO #### [address] Platelet mean volume (Bld) [Entitic vol] 8.3 fL Normal 6.6-10.1 [facility] Comment on above: Result Comment: PERF ORMED BY: [place] [address] PATHOLOGIST COMPUTER LANGUAGE CODER TAMICA DUBOSE M.D. Performed By: #### C BCNO #### [address] Platelets (Bld) [#/Vol] 219 10*3/uL Normal 150-450 [facility] Comment on above: Performed By: #### C BCNO #### [facility] [address] RBC (Bld) [#/Vol] 2.57 10*6/uL Low 3.90-5.60 [facility] Comment on above: Performed By: #### C BCNO #### [facility] [address] WBC (Bld) [#/Vol] 6.8 10*3/uL Normal 4.1-10.5 [facility] Comment on above: Performed By: #### C BCNO #### [facility] [address] [place] [address] Iron and TIBC Profileon 09-02 % Iron Saturation 16.0 % Low 20-50 [facility] Comment on above: Performed By: #### F E and TIBC, [id number], AJ ####[facility] Iron [Mass/Vol] 55 ug/dL Normal 40-160 [facility] Comment on above: Performed By: #### F E and TIBC, [id number], AJ ####[address] Total Iron Binding Capacity 337 ug/dL Normal 255-450 [facility] Comment on above: Performed By: #### F E and TIBC, [id number], AJ ####[facility] Transferrin [Mass/Vol] 241 mg/dL Normal 180-380 [facility] Comment on above: Performed By: #### F E and TIBC, [id number], AJ ####[facility] [place] [address] Vit. B12/Folate Profileon Cobalamin (Vitamin B12) [Mass/Vol] 892 pg/mL Normal 180-914 [facility] Comment on above: Performed By: #### F E and TIBC, [id number], AJ ####[address] Folate 8.7 ng/mL Normal >5.9 [facility] Comment on above: Result Comment: Ting te reference range: >5.9 ng/ml The WHO technical consultation on folate and vitamin b12 deficiencies has determined that folate concentrations less than 4 ng/ml are considered deficient. PERFORMED BY: [place] [address] PATHOLOGIST COMPUTER LANGUAGE CODER TAMICA DUBOSE M.D. Performed By: #### F E and TIBC, [id number], AJ ####[address] Complete Blood Count Auto Di ffon 09-16-2021 Basophils (Bld) [#/Vol] 0.0 10*3/uL Normal 0.0-0.2 [facility] Comment on above: Result Comment: PERF ORMED BY: [place] [address] PATHOLOGIST COMPUTER LANGUAGE CODER TAMICA DUBOSE M.D. Performed By: #### C BC #### [address] Basophils/100 WBC (Bld) 0.4 % Normal . [facility] Comment on above: Performed By: #### C BC #### [place] [address] [place] Eosinophils (Bld) [#/Vol] 0.0 10*3/uL Normal 0.0-0.45 [facility] Comment on above: Performed By: #### C BC #### [address] Eosinophils/100 WBC (Bld) 0.5 % Normal . [facility] Comment on above: Performed By: #### C BC #### [address] Erythrocyte distribution width (RBC) [Ratio] 13.8 % Normal 12.0-14.8 [facility] Comment on above: Performed By: #### C BC #### [facility] [address] Hematocrit (Bld) [Volume fraction] 27.5 % Low 38.8-50.0 [facility] Comment on above: Performed By: #### C BC #### [facility] [address] Hemoglobin (Bld) [Mass/Vol] 9.3 g/dL Low 13.0-17.0 [facility] Comment on above: Performed By: #### C BC #### [facility] [address] Lymphocytes (Bld) [#/Vol] 0.9 10*3/uL Low 1.00-4.8 [facility] Comment on above: Performed By: #### C BC #### [facility] [address] Lymphocytes/100 WBC (Bld) 12.6 % Normal . [facility] Comment on above: Performed By: #### C BC #### [facility] [address] MCH (RBC) [Entitic mass] 32.5 pg Normal 27.5-35.2 [facility] Comment on above: Performed By: #### C BC #### [facility] [address] MCV (RBC) [Entitic vol] 95.9 fL Normal 83.5-101 [facility] Comment on above: Performed By: #### C BC #### [facility] [address] Mean Corpuscular HGB Conc 33.8 g/dL Normal 32.5-35.6 [facility] Comment on above: Performed By: #### C BC #### [facility] [address] Monocytes (Bld) [#/Vol] 0.9 10*3/uL High 0.0-0.8 [facility] Comment on above: Performed By: #### C BC #### [facility] [address] Monocytes/100 WBC (Bld) 13.5 % Normal . [facility] Comment on above: Performed By: #### C BC #### [facility] [address] Neutrophils (Bld) [#/Vol] 5.0 10*3/uL Normal 1.8-7.7 [facility] Comment on above: Performed By: #### C BC #### [facility] [address] Neutrophils/100 WBC (Bld) 73.0 % Normal . [facility] Comment on above: Performed By: #### C BC #### [address] Nucleated RBC/100 WBC (Bld) [Ratio] 0.0 % Normal 0-0.5 [facility] Comment on above: Performed By: #### C BC #### [facility] [address] Platelet mean volume (Bld) [Entitic vol] 8.0 fL Normal 6.6-10.1 [facility] Comment on above: Performed By: #### C BC #### [address] Platelets (Bld) [#/Vol] 218 10*3/uL Normal 150-450 [facility] Comment on above: Performed By: #### C BC #### [facility] 1[address] [place] [address] [place] RBC (Bld) [#/Vol] 2.86 10*6/uL Low 3.90-5.60 [facility] Comment on above: Performed By: #### C BC #### [facility] [address] WBC (Bld) [#/Vol] 6.9 10*3/uL Normal 4.5-11.0 [facility] Comment on above: Performed By: #### C BC #### [facility] [address] Activated partial thrombopla stin time (aPTT) in platelet poor plasma by coagulation aOrdered By: Ilana Martínez on 09-15-2021 aPTT Coag (PPP) [Time] 34.4 s 25.1-36.5 [facility] Basic Metabolic Panelon 09-02 Calcium [Mass/Vol] 9.0 mg/dL Normal 8.2-10.2 [facility] Comment on above: Performed By: #### B MP, CBC #### [address] Chloride [Moles/Vol] 102 mmol/L Normal 95-114 [facility] Comment on above: Performed By: #### B MP, CBC #### [address] CO2 [Moles/Vol] 24.1 mmol/L Normal 22.0-30.0 [facility] Comment on above: Performed By: #### B MP, CBC #### [address] Creatinine [Mass/Vol] 1.21 mg/dL Normal 0.64-1.[address] [facility] Comment on above: Performed By: #### B MP, CBC #### [address] Creatinine Clr Calc Pharmacy 50.41 [facility] Comment on above: Result Comment: PERF ORMED BY: [place] [address] PATHOLOGIST COMPUTER LANGUAGE CODER TAMICA DUBOSE M.D. Performed By: #### B MP, CBC #### [address] Estimated GFR ( Nasima > 60 Normal [facility] Comment on above: Result Comment: GFR estimated reference range: According to KDOQI guidelines, <60 ml/min/1.73m2 is sufficient to diagnose a patient with chronic kidney disease. Performed By: #### B MP, CBC #### [place] [address] [place] Estimated GFR (Non- Am 57 Normal [facility] Comment on above: Performed By: #### B MP, CBC #### [facility] [address] [place] [address] [place] Glucose [Mass/Vol] 126 mg/dL High 70-100 [facility] Comment on above: Result Comment: [place] Glucose Reference Range is dependent on time and content of last meal. Glucose of more than 200 mg/dL in a nonstressed, ambulatory subject supports the diagnosis of Diabetes Mellitus. ADA recommended reference range Performed By: #### B MP, CBC #### [facility] [address] Potassium [Moles/Vol] 4.7 mmol/L Normal 3.5-5.[address] [facility] Comment on above: Performed By: #### B MP, CBC #### [facility] [address] Sodium [Moles/Vol] 135 mmol/L Low 136-146 [facility] Comment on above: Performed By: #### B MP, CBC #### [facility] [address] [place] [address] [place] Urea nitrogen [Mass/Vol] 28 mg/dL High 9-23 [facility] Comment on above: Performed By: #### B MP, CBC #### [facility] [address] [place] [address] [place] Basophils Auto (Bld) [#/Vol] Ordered By: Ilana Martínez on 09-15-2021 Basophils (Bld) [#/Vol] 0.0 10*3/uL 0.0-0.2 [facility] Basophils/100 WBC Auto (Bld) Ordered By: Ilana Martínez on 09-15-2021 Basophils/100 WBC (Bld) 0.2 % [facility] Blood hemoglobin measurement (mass/volume)Ordered By: Ilana Martínez on 09-15-2021 Hemoglobin (Bld) [Mass/Vol] 10.0 g/dL 13.0-17.0 [facility] Blood leukocytes automated c ount (number/volume)Ordered By: Ilana Martínez on 09-15-2021 WBC (Bld) [#/Vol] 9.6 10*3/uL 4.5-11.0 [facility] COVID-19 Antigenon 2 COVID-19 Antigen Healthcare [...] developed and its performance characteristic determined by [employer] and validated at [facility]. This test has not been FDA [...] for SARS Antigen by CONNIE PERFORMED BY: [facility] [address] [place] [address] PATHOLOGIST COMPUTER LANGUAGE CODER TAMICA DUBOSE M.D. 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 This test has not been FDA [...] is terminated or revoked sooner. PERFORMED BY: [place] [address] PATHOLOGIST COMPUTER LANGUAGE CODER TAMICA DUBOSE M.D. Performed By: #### C OVID 19 [facility] [place] #### [address] COVID-19 SOFIAOrdered By: Nakia Martínez on 09-15-2021 SARS-CoV+SARS-CoV-2 (COVID-19) Ag IA.rapid Ql (Resp) Negative Negative [facility] Comment on above: This is a duplicate Maisha SARS Antigen (CONNIE) result to be used for statistical tracking purpose only. CT hip RT wo conon 2 CT hip RT wo con [facility] [place] [address] [place] [address] CT Scan Report Signed Patient: Duke Matson MR#: [id number] : 1935 Acct:[id number] Age/Sex: 85 / M ADM Date: 09/15/21 [...] Teofilo Ennis M.D.09/15/2021 2:05 PM Dictation Location: [place] [address] Transcribed By: [facility] 09/15/21 9543 Dictated By: Teofilo Ennis II, MD 09/15/21 1400 Signed By: 09/15/21 1405 Normal [facility] Complete Blood Count Auto Di ffon 09-15-2021 Basophils (Bld) [#/Vol] 0.0 10*3/uL Normal 0.0-0.2 [facility] Comment on above: Result Comment: PERF ORMED BY: [place] [address] PATHOLOGIST COMPUTER LANGUAGE CODER TAMICA DUBOSE M.D. Performed By: #### B MP, CBC #### [facility] [address] [place] [address] Basophils/100 WBC (Bld) 0.2 % Normal . [facility] Comment on above: Performed By: #### B MP, CBC #### [facility] [address] Eosinophils (Bld) [#/Vol] 0.0 10*3/uL Normal 0.0-0.45 [facility] Comment on above: Performed By: #### B MP, CBC #### [facility] [address] Eosinophils/100 WBC (Bld) 0.0 % Normal . [facility] Comment on above: Performed By: #### B MP, CBC #### [facility] [address] Erythrocyte distribution width (RBC) [Ratio] 13.8 % Normal 12.0-14.8 [facility] Comment on above: Performed By: #### B MP, CBC #### [facility] [address] [place] [address] [place] Hematocrit (Bld) [Volume fraction] 30.0 % Low 38.8-50.0 [facility] Comment on above: Performed By: #### B MP, CBC #### [facility] [address] Hemoglobin (Bld) [Mass/Vol] 10.0 g/dL Low 13.0-17.0 [facility] Comment on above: Performed By: #### B MP, CBC #### [facility] [address] [place] [address] [place] Lymphocytes (Bld) [#/Vol] 0.6 10*3/uL Low 1.00-4.8 [facility] Comment on above: Performed By: #### B MP, CBC #### [facility] [address] Lymphocytes/100 WBC (Bld) 6.3 % Normal . [facility] Comment on above: Performed By: #### B MP, CBC #### [facility] [address] [place] [address] [place] MCH (RBC) [Entitic mass] 31.9 pg Normal 27.5-35.2 [facility] Comment on above: Performed By: #### B MP, CBC #### [facility] [address] MCV (RBC) [Entitic vol] 95.7 fL Normal 83.5-101 [facility] Comment on above: Performed By: #### B MP, CBC #### [address] Mean Corpuscular HGB Conc 33.3 g/dL Normal 32.5-35.6 [facility] Comment on above: Performed By: #### B MP, CBC #### [place] [address] [place] Monocytes (Bld) [#/Vol] 0.9 10*3/uL High 0.0-0.8 [facility] Comment on above: Performed By: #### B MP, CBC #### [place] [address] [place] Monocytes/100 WBC (Bld) 9.1 % Normal . [facility] Comment on above: Performed By: #### B MP, CBC #### [place] [address] [place] Neutrophils (Bld) [#/Vol] 8.1 10*3/uL High 1.8-7.7 [facility] Comment on above: Performed By: #### B MP, CBC #### [address] Neutrophils/100 WBC (Bld) 84.4 % Normal . [facility] Comment on above: Performed By: #### B MP, CBC #### [address] Nucleated RBC/100 WBC (Bld) [Ratio] 0.1 % Normal 0-0.5 [facility] Comment on above: Performed By: #### B MP, CBC #### [address] Platelet mean volume (Bld) [Entitic vol] 8.5 fL Normal 6.6-10.1 [facility] Comment on above: Performed By: #### B MP, CBC #### [address] Platelets (Bld) [#/Vol] 222 10*3/uL Normal 150-450 [facility] Comment on above: Performed By: #### B MP, CBC #### [address] RBC (Bld) [#/Vol] 3.14 10*6/uL Low 3.90-5.60 [facility] Comment on above: Performed By: #### B MP, CBC #### [place] [address] [place] WBC (Bld) [#/Vol] 9.6 10*3/uL Normal 4.5-11.0 [facility] Comment on above: Performed By: #### B MP, CBC #### [place] [address] [place] Creatine Kinaseon 09-15-2021 CK [Catalytic activity/Vol] 143 U/L Normal 22-269 [facility] Comment on above: Result Comment: PERF ORMED BY: [place] [address] PATHOLOGIST COMPUTER LANGUAGE CODER TAMICA DUBOSE M.D. Performed By: #### C K #### [place] [address] [place] Creatinine and Glomerular fi ltration rate.predicted panel (S/P/Bld)Ordered By: Ilana Martínez on 09-15-2021 Creatinine [Mass/Vol] 1.21 mg/dL 0.64-1.[address] [facility] Eosinophils Auto (Bld) [#/Vo l]Ordered By: Ilana Martínez on 09-15-2021 Eosinophils (Bld) [#/Vol] 0.0 10*3/uL 0.0-0.45 [facility] Eosinophils/100 WBC Auto (Bl d)Ordered By: Ilana Martínez on 09-15-2021 Eosinophils/100 WBC (Bld) 0.0 % [facility] Erythrocyte distribution wid th Auto (RBC) [Ratio]Ordered By: Ilana Martínez on 09-15-2021 Erythrocyte distribution width (RBC) [Ratio] 13.8 % 12.0-14.8 [facility] Estimated glomerular filtrat ion rate (GFR) non- AmericanOrdered By: Ilana Martínez on 09-15-2021 GFR/1.73 sq M.predicted among non-blacks MDRD (S/P/Bld) [Vol rate/Area] 57 mL/Min [facility] Hematocrit Auto (Bld) [Volum e fraction]Ordered By: Ilana Martínez on 09-15-2021 Hematocrit (Bld) [Volume fraction] 30.0 % 38.8-50.0 [facility] Laboratory - CoagulationOrde red By: Ilana Martínez on 09-15-2021 PT Coag (PPP) [Time] 17.4 s 9.0-12.9 [facility] - Hematology and Cell countsOrdered By: Ilana Martínez on 09-15-2021 Nucleated RBC/100 WBC (Bld) [Ratio] 0.1 % 0-0.5 [facility] Lymphocytes Auto (Bld) [#/Vo l]Ordered By: Ilana Martínez on 09-15-2021 Lymphocytes (Bld) [#/Vol] 0.6 10*3/uL 1.00-4.8 [facility] Lymphocytes/100 WBC Auto (Bl d)Ordered By: Ilana Martínez on 09-15-2021 Lymphocytes/100 WBC (Bld) 6.3 % [facility] MCH Auto (RBC) [Entitic mass ]Ordered By: Ilana Martínez on 09-15-2021 MCH (RBC) [Entitic mass] 31.9 pg 27.5-35.2 [facility] MCHC Auto (RBC) [Mass/Vol]Or dered By: Ilana Martínez on 09-15-2021 MCHC (RBC) [Mass/Vol] 33.3 g/dL 32.5-35.[address] [facility] MCV Auto (RBC) [Entitic vol] Ordered By: Ilana Martínez on 09-15-2021 MCV (RBC) [Entitic vol] 95.7 fL 83.5-101 [facility] Monocytes Auto (Bld) [#/Vol] Ordered By: Ilana Martínez on 09-15-2021 Monocytes (Bld) [#/Vol] 0.9 10*3/uL 0.0-0.8 [facility] Monocytes/100 WBC Auto (Bld) Ordered By: Ilana Martínez on 09-15-2021 Monocytes/100 WBC (Bld) 9.1 % [facility] Neutrophils Auto (Bld) [#/Vo l]Ordered By: Ilana Martínez on 09-15-2021 Neutrophils (Bld) [#/Vol] 8.1 10*3/uL 1.8-7.7 [facility] Neutrophils/100 WBC Auto (Bl d)Ordered By: Ilana Martínez on 09-15-2021 Neutrophils/100 WBC (Bld) 84.4 % [facility] No Panel InformationOrdered By: Ilana Martínez on 09-15-2021 Estimated GFR () > 60 mL/Min [facility] Comment on above: GFR estimated refere nce range: According to KDOQI guidelines, <60 ml/min/1.73m2 is sufficient to diagnose a patient with chronic kidney disease. Pharmacy Creatinine Clearance (Chem 50.41 [facility] SARS Antigen (LFIA) [facility] Partial Thromboplastin Timeo n 09-15-2021 aPTT Coag (Bld) [Time] 34.4 s Normal 25.1-36.5 [facility] Comment on above: Result Comment: PERF ORMED BY: [facility] [address] [place] [address] PATHOLOGIST COMPUTER LANGUAGE CODER TAMICA DUBOSE M.D. Performed By: #### P TT, PT ####[facility] [id number] [place] [id number] [facility] Platelet mean volume Auto (B ld) [Entitic vol]Ordered By: Ilana Martínez on 09-15-2021 Platelet mean volume (Bld) [Entitic vol] 8.5 fL 6.6-10.1 [facility] Platelet poor plasma interna tional normalized ratio (INR) by coagulation assay (relatOrdered By: Ilana Martínez on 09-15-2021 INR Coag (PPP) [Relative time] 1.5 {INR} [facility] Comment on above: INR Therapeutic Rang [...] 09-15-2021 Platelets (Bld) [#/Vol] 222 10*3/uL 150-450 [facility] Prothrombin Time INRon 09-15 INR Coag (PPP) [Relative time] 1.5 {INR} Normal [facility] Comment on above: Result Comment: INR [...] 4.5 Performed By: #### P TT, PT ####[facility] [place] [id number] [place] PT Coag (PPP) [Time] 17.4 s High 9.0-12.9 [facility] Comment on above: Performed By: #### P TT, PT ####[facility] [id number] [place] [address] [facility] RBC Auto (Bld) [#/Vol]Ordere d By: Ilana Martínez on 09-15-2021 RBC (Bld) [#/Vol] 3.14 10*6/uL 3.90-5.60 [facility] Serum or plasma calcium gillian urement (mass/volume)Ordered By: Ilana Martínez on 09-15-2021 Calcium [Mass/Vol] 9.0 mg/dL 8.2-10.2 [facility] Serum or plasma chloride dinorah surement (moles/volume)Ordered By: Ilana Martínez on 09-15-2021 Chloride [Moles/Vol] 102 mmol/L 95-114 [facility] Serum or plasma glucose gillian urement (mass/volume)Ordered By: Ilana Martínez on 09-15-2021 Glucose [Mass/Vol] 126 mg/dL 70-100 [facility] Comment on above: ADA recommended refe rence range Random Glucose Reference Range is dependent on time and content of last meal. Glucose of more than 200 mg/dL in a nonstressed, ambulatory subject supports the diagnosis of Diabetes Mellitus. Serum or plasma potassium me asurement (moles/volume)Ordered By: Ilana Martínez on 09-15-2021 Potassium [Moles/Vol] 4.7 mmol/L 3.5-5.[address] [facility] Serum or plasma sodium measu rement (moles/volume)Ordered By: Ilana Martínez on 09-15-2021 Sodium [Moles/Vol] 135 mmol/L 136-146 [facility] Serum or plasma total carbon dioxide measurement (moles/volume)Ordered By: Ilana Martínez on 09-15-2021 CO2 [Moles/Vol] 24.1 mmol/L 22.0-30.0 [facility] Serum or plasma urea nitroge n measurement (mass/volume)Ordered By: Ilana Martínez on 09-15-2021 Urea nitrogen [Mass/Vol] 28 mg/dL 9- [facility] Maisha Ag Negativeon 09-16-19 22 Maisha Ag Negative Negative Normal Negative [facility] Comment on above: Result Comment: This is a duplicate Maisha SARS Antigen (CONNIE) result to be used for statistical tracking purpose only. PERFORMED BY: [facility] [address] [facility] [place] [id number] PATHOLOGIST COMPUTER [employer] CODER TAMICA DUBOSE M.D. Performed By: #### S OFIANEG, COVID-19 MAISHA ####[facility] [id number] [place] [address] [facility] BNPon 09-12-2021 Natriuretic peptide B (Bld) [Mass/Vol] 5766.0 pg/mL Critically high <=1,800.0 [facility] Comment on above: Result Comment: repe ated Performed By: #### U RCX #### [facility] [address] [place] [address] Dr. Brennan Crooks CBC AUTO DIFFon 09-12-2021 BASO # 0.0 103/ul Normal 0.0-0.1 [facility] Comment on above: Performed By: #### C BC #### [facility] [address] [place] [address] Dr. Brennan Crooks Basophils/100 WBC (Bld) 0.2 % Normal 0.2-2.0 [facility] Comment on above: Performed By: #### C BC #### [facility] [address] [place] [address] Dr. Brennan Crooks EO # 0.0 103/ul Normal 0.0-0.7 [facility] Comment on above: Performed By: #### C BC #### [facility] [address] [place] [address] Dr. Brennan Crooks Eosinophils/100 WBC (Bld) 0.2 % Critically low 0.9-7.0 [facility] Comment on above: Performed By: #### C BC #### [facility] [address] [place] [address] Dr. Brennan Crooks Erythrocyte distribution width (RBC) [Ratio] 13.3 % Normal 11.0-15.0 [facility] Comment on above: Performed By: #### C BC #### [facility] [address] [place] [address] Dr. Brennan Crooks Hematocrit (Bld) [Volume fraction] 35.2 % Critically low 42.0-54.0 [facility] Comment on above: Performed By: #### C BC #### [facility] [address] [place] [address] Dr. Brennan Crooks Hemoglobin (Bld) [Mass/Vol] 11.4 g/dL Critically low 14.0-18.0 [facility] Comment on above: Performed By: #### C BC #### [facility] [address] [place] [address] Dr. Brennan Crooks IG # 0.04 10e3/ul Critically high 0.00-0.03 [facility] Comment on above: Performed By: #### C BC #### [facility] [address] [place] [address] Dr. Brennan Crooks IG % 0.4 % Normal 0.0-0.5 [facility] Comment on above: Performed By: #### C BC #### [facility] [address] [place] [address] Dr. Brennan Crooks LYMPH # 1.3 103/ul Normal 1.2-3.8 [facility] Comment on above: Performed By: #### C BC #### [facility] [address] [place] [address] Dr. Brennan Crooks Lymphocytes/100 WBC (Bld) 13.7 % Critically low 20.5-60.0 [facility] Comment on above: Performed By: #### C BC #### [facility] [address] [place] [address] Dr. Brennan Crooks MANUAL DIFF REQ NO Normal [facility] Comment on above: Performed By: #### C BC #### [facility] [address] [place] [address] Dr. Brennan Crooks MCH (RBC) [Entitic mass] 31.5 pg Normal 25.9-34.0 [facility] Comment on above: Performed By: #### C BC #### [facility] [address] [address] [address] Brennan Crooks MCHC (RBC) [Mass/Vol] 32.4 g/dL Normal 29.9-35.2 [facility] Comment on above: Performed By: #### C BC #### [facility] [address] [address] [address] Brennan Crooks MCV (RBC) [Entitic vol] 97.2 fL Critically high 80.0-94.0 [facility] Comment on above: Performed By: #### C BC #### [facility] [address] [place] [address] Dr. Brennan Crooks MONO # 0.9 103/ul Critically high 0.3-0.8 [facility] Comment on above: Performed By: #### C BC #### [facility] [address] [place] [address] Dr. Brennan Crooks Monocytes/100 WBC (Bld) 10.1 % Normal 1.7-12.0 [facility] Comment on above: Performed By: #### C BC #### [facility] [address] [place] [address] Dr. Brennan Crooks NEUT # 7.0 103/ul Critically high 1.4-6.5 [facility] Comment on above: Performed By: #### C BC #### [facility] [address] [place] [address] Dr. Brennan Crooks Neutrophils/100 WBC (Bld) 75.4 % Critically high 43.0-75.0 [facility] Comment on above: Performed By: #### C BC #### [facility] [address] [place] [address] Dr. Brennan Crooks Platelet mean volume (Bld) [Entitic vol] 10.7 fL Normal 9.5-13.5 [facility] Comment on above: Performed By: #### C BC #### [facility] [address] [place] [address] Dr. Brennan Crooks PLT 170 103/ul Normal 150-450 [facility] Comment on above: Performed By: #### C BC #### [facility] [address] [address] [address] Brennan Crooks RBC 3.62 106/ul Critically low 4.70-6.10 [facility] Comment on above: Performed By: #### C BC #### [facility] [address] [address] [address] Brennan Crooks WBC 9.3 103/ul Normal 4.0-11.0 [facility] Comment on above: Performed By: #### C BC #### [facility] [address] [address] [address] Brennan Crooks CULTURE URINEon 09-12-2021 CULTURE URINE Culture Observations : NO GROWTH. Normal [facility] Comment on above: Performed By: #### U RCX #### [facility] [address] [place] [address] Dr. Brennan Crooks PROF 14(COMP METB)on 022 Albumin [Mass/Vol] 3.3 g/dL Critically low 3.4-5.0 [facility] Comment on above: Performed By: #### U RCX #### [facility] [address] [place] [address] Dr. Brennan Crooks Albumin/Globulin [Mass ratio] 1.1 {ratio} Normal [facility] Comment on above: Performed By: #### U RCX #### [facility] [address] [place] [address] Dr. Brennan Crooks ALP [Catalytic activity/Vol] 108 U/L Normal 46-116 [facility] Comment on above: Performed By: #### U RCX #### [facility] [address] [address] [address] Brennan Crooks ALT [Catalytic activity/Vol] 28 U/L Normal 16-63 [facility] Comment on above: Performed By: #### U RCX #### [facility] [address] [place] [address] Dr. Brennan Crooks Anion gap [Moles/Vol] 14.7 mmol/L Normal [facility] Comment on above: Performed By: #### U RCX #### [facility] [address] [address] [address] Brennan Crooks AST [Catalytic activity/Vol] 31 U/L Normal 15-37 [facility] Comment on above: Performed By: #### U RCX #### [facility] [address] [address] [address] Brennan Crooks Bilirubin [Mass/Vol] 1.5 mg/dL Critically high 0.2-1.0 [facility] Comment on above: Performed By: #### U RCX #### [facility] [address] [address] [address] Brennan Crooks Calcium [Mass/Vol] 9.1 mg/dL Normal 8.5-10.1 [facility] Comment on above: Performed By: #### U RCX #### [facility] [address] [address] [address] Brennan Crooks Chloride [Moles/Vol] 106 mmol/L Normal 98-107 [facility] Comment on above: Performed By: #### U RCX #### [facility] [address] [address] [address] Brennan Crooks CO2 [Moles/Vol] 24.4 mmol/L Normal 21.0-32.0 [facility] Comment on above: Performed By: #### U RCX #### [facility] [address] [address] [address] Brennan Crooks Creatinine [Mass/Vol] 1.23 mg/dL Normal 0.70-1.30 [facility] Comment on above: Performed By: #### U RCX #### [facility] [address] [address] [address] Brennan Crooks EGFR-AF [place] >60 Normal >=60 [facility] Comment on above: Performed By: #### U RCX #### [facility] [address] [address] [address] Brennan Crooks EGFR-NON AF [place] 56 mL/min/1.73m2 Critically low >=60 [facility] Comment on above: Performed By: #### U RCX #### [facility] [address] [address] [address] Brennan Crooks Globulin (S) [Mass/Vol] 3.0 g/dL Normal [facility] Comment on above: Performed By: #### U RCX #### [facility] [address] [address] [address] Brennan Crooks Glucose [Mass/Vol] 125 mg/dL Critically high 74-106 [facility] Comment on above: Performed By: #### U RCX #### [facility] [address] [address] [address] Brennan Crooks Potassium [Moles/Vol] 4.1 mmol/L Normal 3.5-5.1 [facility] Comment on above: Performed By: #### U RCX #### [facility] [address] [address] [address] Brennan Crooks Protein [Mass/Vol] 6.3 g/dL Critically low 6.4-8.2 [facility] Comment on above: Performed By: #### U RCX #### [facility] [address] [address] [address] Brennan Crooks Sodium [Moles/Vol] 141 mmol/L Normal 136-145 [facility] Comment on above: Performed By: #### U RCX #### [facility] [address] [address] [address] Brennan Crooks Urea nitrogen [Mass/Vol] 29.0 mg/dL Critically high 7.0-18.0 [facility] Comment on above: Performed By: #### U RCX #### [facility] [address] [address] [address] Brennan Crooks Urea nitrogen/Creatinine [Mass ratio] 23.6 mg/mg Normal [facility] Comment on above: Performed By: #### U RCX #### [facility] [address] [address] [address] Brennan Crooks UA RANDOM W/MICROSCOPICon BACTERIA NONE SEEN Normal NONE SEEN [facility] Comment on above: Performed By: #### U AMIC #### [facility] [address] [address] [address] Brennan Crooks Bilirubin Ql (U) Negative Normal NEGATIVE [facility] Comment on above: Performed By: #### U AMIC #### [facility] [address] [address] [address] Brennan Crooks CAST SEEN Abnormal NONE SEEN [facility] Comment on above: Performed By: #### U AMIC #### [facility] [address] [address] [address] Brennan Crooks Clarity (U) CLEAR Normal CLEAR [facility] Comment on above: Performed By: #### U AMIC #### [facility] [address] [address] [address] Brennan Crooks Color (U) YELLOW Normal YELLOW [facility] Comment on above: Performed By: #### U AMIC #### [facility] [address] [address] [address] Brennan Crooks Crystals LM Nom (Urine sed) NONE SEEN Normal NONE SEEN [facility] Comment on above: Performed By: #### U AMIC #### [facility] [address] [address] [address] Brennan Crooks Epithelial cells LM Ql (Urine sed) RARE Normal NONE SEEN /RARE [facility] Comment on above: Performed By: #### U AMIC #### [facility] [address] [address] [address] Brennan Crooks Glucose Ql (U) Negative Normal NEGATIVE [facility] Comment on above: Performed By: #### U AMIC #### [facility] [address] [address] [address] Brennan Crooks Hemoglobin Ql (U) Negative Normal NEGATIVE [facility] Comment on above: Performed By: #### U AMIC #### [facility] [address] [address] [address] Brennan Crooks Ketones Ql (U) Negative Normal NEGATIVE [facility] Comment on above: Performed By: #### U AMIC #### [facility] [address] [address] [address] Brennan Crooks LEUKOCYTES Negative Normal NEGATIVE [facility] Comment on above: Performed By: #### U AMIC #### [facility] [address] [place] [address] Dr. Brennan Crooks MUCOUS TRACE Abnormal NONE SEEN [facility] Comment on above: Performed By: #### U AMIC #### [facility] [address] [place] [address] Dr. Brennan Crooks Nitrite Ql (U) Negative Normal NEGATIVE [facility] Comment on above: Performed By: #### U AMIC #### [facility] [address] [place] [address] Dr. Brennan Crooks pH (U) 5.5 [pH] Normal 5-9 [facility] Comment on above: Performed By: #### U AMIC #### [facility] [address] [place] [address] Dr. Brennan Crooks RBC NONE SEEN Abnormal 0-2 [facility] Comment on above: Performed By: #### U AMIC #### [facility] [address] [place] [address] Dr. Brennan Crooks SPEC GRAVITY 1.020 Normal 1.005-<=1.02 5 [facility] Comment on above: Performed By: #### U AMIC #### [facility] [address] [place] [address] Dr. Brennan Crooks UA PROTEIN Negative Normal NEGATIVE/ TRACE [facility] Comment on above: Performed By: #### U AMIC #### [facility] [address] [place] [address] Dr. Brennan Crooks Urobilinogen Qn (U) 0.2 {Janes'U}/dL Normal 0.2 - 1. 0 [facility] Comment on above: Performed By: #### U AMIC #### [facility] [address] [place] [address] Dr. Brennan Crooks WBC NONE SEEN Normal NONE SEEN [facility] Comment on above: Performed By: #### U AMIC #### [facility] [address] [place] [address] Dr. Brennan Crooks CBC W MANUAL DIFFon 09-12-19 22 ATYPICAL LYMPH # Normal [facility] Comment on above: Performed By: #### C CHING #### [facility] [address] [place] [address] Dr. Brennan Crooks ATYPICAL LYMPH % Normal [facility] Comment on above: Performed By: #### C CHING #### [facility] [address] [place] [address] Dr. Brennan Crooks BAND # 0.1 103/ul Normal 0.0-0.3 [facility] Comment on above: Performed By: #### C CHING #### [facility] [address] [place] [address] Dr. Brennan Crooks BAND % 1 % Normal 0-5 [facility] Comment on above: Performed By: #### C CHING #### [facility] [address] [place] [address] Dr. Brennan Crooks BASOM # 0.00 103/ul Normal 0.00-0.10 [facility] Comment on above: Performed By: #### C CHING #### [facility] [address] [place] [address] Dr. Brennan Crooks BASOM % 0.0 % Critically low 0.2-2.0 [facility] Comment on above: Performed By: #### C CHING #### [facility] [address] [place] [address] Dr. Brennan Crooks BLAST # Normal [facility] Comment on above: Performed By: #### C CHING #### [facility] [address] [place] [address] Dr. Brennan Crooks BLAST % Normal [facility] Comment on above: Performed By: #### C CHING #### [facility] [address] [place] [address] Dr. Brennan Crooks CORRECTED WBC Normal 4.0-11.0 [facility] Comment on above: Performed By: #### C CHING #### [facility] [address] [place] [address] Dr. Brennan Crooks EOS # 0.00 103/ul Normal 0.00-0.70 [facility] Comment on above: Performed By: #### C BCANGELO #### [facility] [address] [address] [address] Brennan Crooks EOS% 0.0 % Critically low 0.9-7.0 [facility] Comment on above: Performed By: #### C BCANGELO #### [facility] [address] [address] [address] Brennan Crooks HCT 35.0 % Critically low 42.0-54.0 [facility] Comment on above: Performed By: #### C BCANGELO #### [facility] [address] [address] [address] Brennan Crooks HGB 11.6 g/dl Critically low 14.0-18.0 [facility] Comment on above: Performed By: #### C BCANGELO #### [facility] [address] [place] [address] Dr. Brennan Crooks LYMPHM # 0.83 103/ul Critically low 1.20-3.80 [facility] Comment on above: Performed By: #### C BCANGELO #### [facility] [address] [address] [address] Brennan Crooks LYMPHM% 9.0 % Critically low 20.5-60.0 [facility] Comment on above: Performed By: #### C CHING #### [facility] [address] [address] [address] Brennan Crooks MCH 32.0 pg Normal 25.9-34.0 [facility] Comment on above: Performed By: #### C BCANGELO #### [facility] [address] [address] [address] Brennan Crooks MCHC 33.1 g/dl Normal 29.9-35.2 [facility] Comment on above: Performed By: #### C BCANGELO #### [facility] [address] [address] [address] Brennan Crooks MCV 96.4 fL Critically high 80.0-94.0 [facility] Comment on above: Performed By: #### C CHING #### [facility] [address] [place] [address] Dr. Brennan Crooks METAMYELOCYTE # Normal [facility] Comment on above: Performed By: #### C CHING #### [facility] [address] [place] [address] Dr. Brennan Crooks METAMYELOCYTE % Normal [facility] Comment on above: Performed By: #### C SADEMAN #### [facility] [address] [place] [address] Dr. Brennan Crooks MONOM# 0.37 103/ul Normal 0.30-0.80 [facility] Comment on above: Performed By: #### C CHING #### [facility] [address] [place] [address] Dr. Brennan Crooks MONOM% 4.0 % Normal 1.7-12.0 [facility] Comment on above: Performed By: #### C CHING #### [facility] [address] [place] [address] Dr. Brennan Crooks MPV 10.2 fL Normal 9.5-13.5 [facility] Comment on above: Performed By: #### C CHING #### [facility] [address] [place] [address] Dr. Brennan Crooks MYELOCYTE # Normal [facility] Comment on above: Performed By: #### C CHING #### [facility] [address] [place] [address] Dr. Brennan Crooks MYELOCYTE % Normal [facility] Comment on above: Performed By: #### C CHING #### [facility] [address] [place] [address] Dr. Brennan Crooks NRBC Normal [facility] Comment on above: Performed By: #### C CHING #### [facility] [address] [place] [address] Dr. Brennan Crooks PLT 153 103/ul Normal 150-450 [facility] Comment on above: Performed By: #### C CHING #### [facility] [address] [place] [address] Dr. Brennan Crooks RBC 3.63 106/ul Critically low 4.70-6.10 [facility] Comment on above: Performed By: #### C CHING #### [facility] [address] [address] [address] Brennan Crooks RDW 13.2 % Normal 11.0-15.0 [facility] Comment on above: Performed By: #### C CHING #### [facility] [address] [address] [address] Brennan Crooks SEG # 7.91 103/ul Critically high 1.40-6.50 [facility] Comment on above: Performed By: #### C CHING #### [facility] [address] [address] [address] Brennan Crooks SEG % 86.0 % Critically high 43.0-75.0 [facility] Comment on above: Performed By: #### C CHING #### [facility] [address] [address] [address] Brennan Crooks WBC 9.2 103/ul Normal 4.0-11.0 [facility] Comment on above: Performed By: #### C CHING #### [facility] [address] [place] [address] PELVIS WO CONon [...] BO HURST Date: 2021-09-11 21:13 Normal [facility] Covid-19 PCR (CVDTB)on 09-02 SARS-CoV-2 (COVID-19) RNA NADIR+probe Ql (Unsp spec) Not detected Normal NOT DETECTED [facility] Comment on above: Result Comment: When diagnostic [...] for this test is supported by the Local Area [employer] Administrator of Health and Human Service's declaration that [...] used). Performed By: #### C VDTB #### [facility] [address] [address] [address] Brennan Crooks PROF CHEM 8 (BAS METB)on Anion gap [Moles/Vol] 13.3 mmol/L Normal [facility] Comment on above: Performed By: #### B MP #### [facility] [address] [address] [address] Brennan Crooks Calcium [Mass/Vol] 8.9 mg/dL Normal 8.5-10.1 [facility] Comment on above: Performed By: #### B MP #### [facility] [address] [address] [address] Brennan Crooks Chloride [Moles/Vol] 107 mmol/L Normal 98-107 [facility] Comment on above: Performed By: #### B MP #### [facility] [address] [address] [address] Brennan Crooks CO2 [Moles/Vol] 22.3 mmol/L Normal 21.0-32.0 [facility] Comment on above: Performed By: #### B MP #### [facility] [address] [address] [address] Brennan Crooks Creatinine [Mass/Vol] 1.37 mg/dL Critically high 0.70-1.30 [facility] Comment on above: Performed By: #### B MP #### [facility] [address] [address] [address] Brennan Crooks EGFR-AF [place] 60 mL/min/1.73m2 Normal >=60 [facility] Comment on above: Performed By: #### B MP #### [facility] [address] [address] [address] Brennan Crooks EGFR-NON AF [place] 50 mL/min/1.73m2 Critically low >=60 [facility] Comment on above: Performed By: #### B MP #### [facility] [address] [address] [address] Brennan Crooks Glucose [Mass/Vol] 165 mg/dL Critically high 74-106 [facility] Comment on above: Performed By: #### B MP #### [facility] [address] [address] [address] Brennan Crooks Potassium [Moles/Vol] 4.6 mmol/L Normal 3.5-5.1 [facility] Comment on above: Performed By: #### B MP #### [facility] [address] [address] [address] Brennan Crooks Sodium [Moles/Vol] 138 mmol/L Normal 136-145 [facility] Comment on above: Performed By: #### B MP #### [facility] [address] [address] [address] Brennan Crooks Urea nitrogen [Mass/Vol] 33.0 mg/dL Critically high 7.0-18.0 [facility] Comment on above: Performed By: #### B MP #### [facility] [address] [address] [address] Brennan Crooks Urea nitrogen/Creatinine [Mass ratio] 24.1 mg/mg Normal [facility] Comment on above: Performed By: #### B MP #### [facility] [address] [address] [address] Brennan Crooks XR HIP RT 2 [...] by: MAYA MOODY Date: 2021-09-11 13:47 Normal [facility] LIPID PROFILEon 07-13-2021 CHOL-HDL RATIO NORM SEE BELOW Normal [facility] Comment on above: Result Comment: 3.3 - 4.4 LOW RISK 4.4 - 7.1 AVERAGE RISK 7.1 - 11.0 MODERATE RISK >11.0 HIGH RISK Performed By: #### L IPID, CMP #### [facility] Laboratory [address] [address] [address] Brennan Crooks Cholesterol [Mass/Vol] 111 mg/dL Normal <=200 [facility] Comment on above: Performed By: #### L IPID, CMP #### [facility] [address] [address] [address] Brennan Crooks Cholesterol in HDL [Mass/Vol] 62 mg/dL Critically high 40-60 [facility] Comment on above: Performed By: #### L IPID, CMP #### [facility] [address] [address] [address] Brennan Crooks Cholesterol in LDL [Mass/Vol] 41.2 mg/dL Normal [facility] Comment on above: Performed By: #### L IPID, CMP #### [facility] [address] [address] [address] Brennan Crooks Cholesterol.total/Chol esterol in HDL [Mass ratio] 1.8 {ratio} Normal [facility] Comment on above: Performed By: #### L IPID, CMP #### [facility] [address] [address] [address] Brennan Crooks HDL NORMAL > or = 60 mg/dl - LO W CARDIOVASCULAR RISK <40 mg/dl - HIGH CARDIOVASCULAR RISK Normal [facility] Comment on above: Performed By: #### L IPID, CMP #### [facility] [address] [address] [address] Brennan Crooks LDL CALC NORMAL SEE BELOW Normal [facility] Comment on above: Result Comment: <100 mg/dl OPTIMAL 100 - 129 mg/dl NEAR OR ABOVE OPTIMAL 130 - 159 mg/dl BORDERLINE HIGH 160 - 189 mg/dl HIGH >190 mg/dl VERY HIGH Performed By: #### L IPID, CMP #### [facility] [address] [address] [address] Brennan Crooks Triglyceride [Mass/Vol] 39 mg/dL Normal <=150 [facility] Comment on above: Performed By: #### L IPID, CMP #### [facility] [address] [address] [address] Brennan Crooks VLDL CALC 7.8 mg/dL Normal [facility] Comment on above: Performed By: #### L IPID, CMP #### [facility] [address] [address] [address] Brennan Crooks PROF 14(COMP METB)on 022 Albumin [Mass/Vol] 3.6 g/dL Normal 3.4-5.0 [facility] Comment on above: Performed By: #### L IPID, CMP #### [facility] [address] [address] [address] Brennan Crooks Albumin/Globulin [Mass ratio] 1.2 {ratio} Normal [facility] Comment on above: Performed By: #### L IPID, CMP #### [facility] [address] [address] [address] Brennan Crooks ALP [Catalytic activity/Vol] 111 U/L Normal 46-116 [facility] Comment on above: Performed By: #### L IPID, CMP #### [facility] [address] [address] [address] Brennan Crooks ALT [Catalytic activity/Vol] 39 U/L Normal 16-63 [facility] Comment on above: Performed By: #### L IPID, CMP #### [facility] [address] [address] [address] Brennan Crooks Anion gap [Moles/Vol] 12.4 mmol/L Normal [facility] Comment on above: Performed By: #### L IPID, CMP #### [facility] [address] [address] [address] Brennan Crooks AST [Catalytic activity/Vol] 39 U/L Critically high 15-37 [facility] Comment on above: Performed By: #### L IPID, CMP #### [facility] [address] [address] [address] Brennan Crooks Bilirubin [Mass/Vol] 1.6 mg/dL Critically high 0.2-1.0 [facility] Comment on above: Performed By: #### L IPID, CMP #### [facility] [address] [address] [address] Brennan Crooks Calcium [Mass/Vol] 9.3 mg/dL Normal 8.5-10.1 [facility] Comment on above: Performed By: #### L IPID, CMP #### [facility] [address] [address] [address] Brennan Crooks Chloride [Moles/Vol] 107 mmol/L Normal 98-107 [facility] Comment on above: Performed By: #### L IPID, CMP #### [facility] [address] [address] [address] Brennan Crooks CO2 [Moles/Vol] 24.9 mmol/L Normal 21.0-32.0 [facility] Comment on above: Performed By: #### L IPID, CMP #### [facility] [address] [address] [address] Brennan Crooks Creatinine [Mass/Vol] 1.34 mg/dL Critically high 0.70-1.30 [facility] Comment on above: Performed By: #### L IPID, CMP #### [facility] [address] [address] [address] Brennan Crooks EGFR-AF CITIZ[place] >60 Normal >=60 [facility] Comment on above: Performed By: #### L IPID, CMP #### [facility] [address] [place] [address] Dr. Brennan Crooks EGFR-NON AF CITIZEN OF [place] 51 mL/min/1.73m2 Critically low >=60 [facility] Comment on above: Performed By: #### L IPID, CMP #### [facility] [address] [address] [address] Brennan Crooks Globulin (S) [Mass/Vol] 2.9 g/dL Normal [facility] Comment on above: Performed By: #### L IPID, CMP #### [facility] [address] [place] [address] Dr. Brennan Crooks Glucose [Mass/Vol] 95 mg/dL Normal 74-106 [facility] Comment on above: Performed By: #### L IPID, CMP #### [facility] [address] [address] [address] Brennan Crooks Potassium [Moles/Vol] 4.3 mmol/L Normal 3.5-5.1 [facility] Comment on above: Performed By: #### L IPID, CMP #### [facility] [address] [address] [address] Brennan Crooks Protein [Mass/Vol] 6.5 g/dL Normal 6.4-8.2 [facility] Comment on above: Performed By: #### L IPID, CMP #### [facility] [address] [address] [address] Brennan Crooks Sodium [Moles/Vol] 140 mmol/L Normal 136-145 [facility] Comment on above: Performed By: #### L IPID, CMP #### [facility] [address] [address] [address] Brennan Crooks Urea nitrogen [Mass/Vol] 31.0 mg/dL Critically high 7.0-18.0 [facility] Comment on above: Performed By: #### L IPID, CMP #### [facility] [address] [place] [address] Dr. Brennan Crooks Urea nitrogen/Creatinine [Mass ratio] 23.1 mg/mg Normal [facility] Comment on above: Performed By: #### L IPID, CMP #### [facility] [address] [place] [address] Dr. Brennan Crooks Ambulatory Clinical Summaryo 12-31-2020 Ambulatory Clinical Summary {[id number] }[id number] Normal [facility] Patient Education 01-01-20 21 Patient Education Urology Benign Prostatic [...] Follow these instructions at home: ? Take [id number] and prescription medicines only as told by [...] You d (more content not included)... Normal [facility] Urology Office/Clinic Noteon 12-31-2020 Urology Office/Clinic Note [...] Information DMITRY HURD, Dixon Bravo, URL [address] [place] [address]- [phone] Additional Instructions: prn Patient Education Benign Prostatic [...] Allergies pe (more content not included)... Normal [facility] Comment on above: Result Comment: Elec tronically Signed By: Dixon MCALLISTER MD\.br\Date and Time Signed: 12/31/20 09:32 EDT\.br\Electronically Co-Signed By: Bibiana Valadez MA\.br\Date and Time Co-Signed: 12/31/20 09:31 EDT US art pvr/post Nic 021 US art pvr/post [facility] [place] [address] Ultrasound Report Signed Patient: Duke Matson MR#: [id number] : 1935 Acct:[id number] Age/Sex: 84 / M ADM Date: 10/06/20 Loc: Room: Type: [facility] Attending Dr: Jeff Lucio MD Ordering [...] Jeff Lucio M.D.10/06/2020 4:30 PM Dictation Location: [address] [address] Tech: Mireille Gomes Transcribed By: JUSTINO 10/06/20 1630 Dictated By: Jeff Lucio MD 10/06/20 1627 Signed By: 10/06/20 1630 [facility] Ambulatory Clinical Summaryo n 04-12-2020 Ambulatory Clinical Summary {[id number] Normal [facility] Patient Educationon 04-12-19 Patient Education Benign Prostatic [...] Document Reviewed: 10/25/2007 ExitCare? Patient Information ?2013 [employer]. [facility] Urology Office/Clinic Noteon 04-12-2020 Urology Office/Clinic [...] months [facility] [address], [place] [address]- [phone] Additional Instructions: Patient Education Benign Prostatic Hyperplasia I, Micheline Liu personally scribed for Dr. Mcallister on 04/12/2020 [...] Medications amiodaro (more content not included)... Normal [facility] Comment on above: Result Comment: Elec tronically Signed By: Dixon MCALLISTER MD\.br\Date and Time Signed: 04/12/20 09:22 EST\.br\Electronically Co-Signed By: Micheline Liu MA\.br\Date and Time Co-Signed: 04/12/20 09:20 EST Cardiovascular Lab Report 12-29-2019 Cardiovascular Lab Report [facility] Patient Name: [facility] Duke Bai MR #: [id number] Department of Physician: Juan Bhatt MD Medicine Service Date: 12/29/2019 Division of Birthdate: 1935 Cardiology Room #: Adult Cardiovascular Services [address] [address] Cardiovascular Laboratory Report COMPREHENSIVE EP STUDY AND [...] the sternum on the left using the FiberSensingtronic tool. The loop recorder was then injected [...] were immediately observed. LOOP details: Device Model: Bharat Matrimony [id number] Seri (more content not included)... Normal [facility] BASIC METABOLIC PANELon 10-2 Calcium [Mass/Vol] 9.6 mg/dL Normal 8.6-10.3 [facility] Comment on above: Performed By: #### 0 0071 #### [facility] [address] [place] [address], [place] Chloride [Moles/Vol] 109 mmol/L High 98-107 [facility] Comment on above: Performed By: #### 0 0071 #### [facility] [address] [place] [address], [place] CO2 [Moles/Vol] 25 mmol/L Normal 21-31 [facility] Comment on above: Performed By: #### 0 0071 #### [facility] [address] [place] [address], [place] Creatinine [Mass/Vol] 1.36 mg/dL High 0.70-1.30 [facility] Comment on above: Performed By: #### 0 0071 #### [facility] [address] [place] [address], [place] eGFR- non- 50 ml/min/1.73sq m Abnormal >60 [facility] Comment on above: Result Comment: Calc ulation may not be valid for patients over 70 years Performed By: #### 0 0071 #### [facility] [address] [place] [address], [place] GFR/1.73 sq M.predicted among blacks MDRD (S/P/Bld) [Vol rate/Area] mL/min/{1.73_m2} Normal >60 [facility] Comment on above: Result Comment: Calc ulation may not be valid for patients over 70 years Performed By: #### 0 0071 #### [facility] [address] [place] [address], [place] Glucose [Mass/Vol] 85 mg/dL Normal 70-100 [facility] Comment on above: Performed By: #### 0 0071 #### [facility] [address] Potassium [Moles/Vol] 4.5 mmol/L Normal 3.5-5.1 [facility] Comment on above: Performed By: #### 0 1 #### [facility] [address] Sodium [Moles/Vol] 140 mmol/L Normal 136-145 [facility] Comment on above: Performed By: #### 0 1 #### [facility] [address] Urea nitrogen [Mass/Vol] 29 mg/dL High 7-25 [facility] Comment on above: Performed By: #### 0 1 #### [facility] [address] CBC W/DIFFon 12-26-2019 ABS IMM GRANS 0.0 10*3/uL Normal 0.0-0.2 [facility] Comment on above: Performed By: #### 5 102 #### [facility] [address] ABS NEUTROPHILS 3.9 10*3/uL Normal 1.6-7.6 [facility] Comment on above: Performed By: #### 5 102 #### [facility] [address] Basophils (Bld) [#/Vol] 0.0 10*3/uL Normal 0.0-0.2 [facility] Comment on above: Performed By: #### 5 102 #### [facility] [address] Basophils/100 WBC (Bld) 0.5 % Normal 0.0-1.0 [facility] Comment on above: Performed By: #### 5 102 #### [facility] [address] Eosinophils (Bld) [#/Vol] 0.1 10*3/uL Normal 0.0-0.5 [facility] Comment on above: Performed By: #### 5 0103 #### [facility] [address] Eosinophils/100 WBC (Bld) 2.2 % Normal 0.0-6.0 [facility] Comment on above: Performed By: #### 102 #### [facility] [address] Erythrocyte distribution width (RBC) [Ratio] 14.5 % Normal 11.5-15.0 [facility] Comment on above: Performed By: #### 102 #### [facility] [address] Hematocrit (Bld) [Volume fraction] 42.2 % Normal 39.0-50.0 [facility] Comment on above: Performed By: #### 3 #### [facility] [address] Hemoglobin (Bld) [Mass/Vol] 13.6 g/dL Normal 13.0-17.0 [facility] Comment on above: Performed By: #### 3 #### [facility] [address] IMMATURE GRANS 0.5 % Normal 0.0-1.0 [facility] Comment on above: Performed By: #### 5 3 #### [facility] [address] [place] [address], [facility] Lymphocytes (Bld) [#/Vol] 1.2 10*3/uL Normal 1.2-4.0 [facility] Comment on above: Performed By: #### 3 #### [facility] [address] [place] [address], [facility] Lymphocytes/100 WBC (Bld) 20.7 % Normal 20.0-45.0 [facility] Comment on above: Performed By: #### 5 0103 #### [facility] [address] [place] [address], [facility] MCH (RBC) [Entitic mass] 31.9 pg Normal 27.0-33.0 [facility] Comment on above: Performed By: #### 5 0103 #### [facility] [address] [facility] [address], [facility] MCHC (RBC) [Mass/Vol] 32.2 g/dL Normal 32.0-35.0 [facility] Comment on above: Performed By: #### 5 0103 #### [facility] [address] [place] [address], [facility] MCV (RBC) [Entitic vol] 98.8 fL High 82.0-98.0 [facility] Comment on above: Performed By: #### 5 0103 #### [facility] [address] [place] [address], [facility] Monocytes (Bld) [#/Vol] 0.6 10*3/uL Normal 0.1-1.0 [facility] Comment on above: Performed By: #### 5 0103 #### [facility] [address] [facility] [address], [facility] MONOS 9.8 % Normal 5.0-12.0 [facility] Comment on above: Performed By: #### 5 0103 #### [facility] [address] [place] [address], [facility] Neutrophils/100 WBC (Bld) 66.3 % Normal 40.0-72.0 [facility] Comment on above: Performed By: #### 5 0103 #### [facility] [address] [facility] [address] Nucleated RBC/100 WBC (Bld) [Ratio] 0 % Normal 0-0 [facility] Comment on above: Performed By: #### 5 0103 #### [facility] [address] [facility] [address], [facility] PLAT CNT 165 10*3/uL Normal 150-400 [facility] Comment on above: Performed By: #### 5 0103 #### [facility] [address] [facility] [address], [facility] RBC (Bld) [#/Vol] 4.27 10*6/uL Normal 4.20-5.70 [facility] Comment on above: Performed By: #### 5 0103 #### [facility] [address] [place] [address], [facility] WBC (Bld) [#/Vol] 5.89 10*3/uL Normal 4.00-10.60 [facility] Comment on above: Performed By: #### 5 0103 #### [facility] [address] [facility]. [address] Vital Signs Date Time Vital Sign Value Performing Clinician Orin crenshaw 09-15-2021 17:50-0400 Body temperature 98 [degF] MD Stefano Rivera Work Phone: [facility] 09-15-2021 17:50-0400 Diastolic blood pressure 68 mm[Hg] MD Stefano Rivera Work Phone: [facility] 09-15-2021 17:50-0400 Heart rate 82 /min MD Stefano Rivera Work Phone: [facility] 09-15-2021 17:50-0400 Respiratory rate 17 /min MD Stefano Rivera Work Phone: [facility] 09-15-2021 17:50-0400 SaO2% (BldA) [Mass fraction] 99 % MD Stefano Rivera Work Phone: [facility] 09-15-2021 17:50-0400 Systolic blood pressure 116 mm[Hg] MD Stefano Rivera Work Phone: [facility] 09-15-2021 13:06-0400 Body height 170.18 cm MD Stefano Rivera Work Phone: [facility] 09-15-2021 13:06-0400 Body mass index (BMI) [Ratio] 33.4 kg/m2 MD Stefano Rivera Work Phone: [facility] 09-15-2021 13:06-0400 Body weight 96.9 kg MD Stefano Rivera Work Phone: [facility] Encounters Encounter Date Encounter Type Care Provider Facility Start: 11-28-2024 End: 11-28-2024 [facility] Start: 11-14-2024 End: 11-14-2024 [facility] Start: 09-18-2024 End: 09-21-2024 [facility] Result Encounter Generic External Data Provider [facility] Unsolicited Start: 09-18-2024 End: 09-21-2024 [facility] Result Encounter Generic External Data Provider [facility] Unsolicited Start: 08-20-2024 End: 08-20-2024 [facility] Start: 08-08-2024 End: 08-08-2024 [facility] Result Encounter Generic External Data Provider [facility] Unsolicited Start: 08-08-2024 End: 08-08-2024 [facility] Result Encounter Generic External Data Provider [facility] Unsolicited Start: 05-05-2024 End: 05-05-2024 [facility] Start: 05-02-2024 End: 05-02-2024 [facility] Result [...] Department Unsolicited Start: 04-08-2024 End: 04-08-2024 ambulatory [facility] Start: 03-03-2024 End: 03-03-2024 ambulatory [facility] Start: 02-28-2024 End: 02-28-2024 [facility] Result Encounter Generic External Data Provider [facility] Unsolicited Start: 02-28-2024 End: 02-28-2024 [facility] Result Encounter Generic External Data Provider [facility] Unsolicited Start: 02-22-2024 End: 02-22-2024 ambulatory [facility] Start: 10-09-2023 Patient encounter procedure Generic Provider [facility] Start: 10-09-2023 End: 10-09-2023 ambulatory STEFANO RIVERA Not Available Start: 05-08-2022 End: 05-09-2022 ambulatory NINO LINDQUISTI Facility:[facility] Start: 03-06-2022 ambulatory NINO LINDQUISTI Facility:[facility] 1 Start: 01-23-2022 End: 01-24-2022 ambulatory MICHELLE BLAKELY Facility:[facility] Start: 11-02-2021 End: 11-03-2021 ambulatory SHANA MCCORMICK Facility:[facility] Start: 09-20-[address] STEFANO RIVERA [facility] ity:H1 Start: 09-15-2021 Evaluation and management of inpatient MD Stefano Rivera Work Phone: [facility] Start: 09-13-2021 End: 09-13-2021 ambulatory [...] 65+ Years (1 of 2 - PCV) [facility] Creatine kinase [Enzymatic activity/volume] in Serum or Plasma [facility] Work Phone: Immunizations Immunization Date Immunization Notes Care Provider [facility] 01-16-2023 influenza virus vacc ine, unspecified formulation Generic Provider [facility] Payers Date Payer Category Payer Medicare (Managed Care) [facility] [id number] 1958 Medicare [id number] 1959 Private Health Insurance [facility] [id number] 1958 Self-pay [id number] 1935 Unknown [id number] [id number]. 593 1935 Unknown [id number] 2.16.840.1.128110.3.579.2. 593 1935 Unknown [id number] [id number]. 593 1936 Unknown [id number] 2.16.840.1.337141.3.579.2. 593 1936 Unknown [id number] 2.16.840.1.480748.3.579.2. 593 1936 Unknown [id number] 2.16.840.1.497598.3.579.2. 593 1936 Unknown [id number] 2.16.840.1.883901.3.579.2. 593 1936 Unknown [id number] 2.16.840.1.325650.3.579.2. 593 1936 Unknown [id number] 2.16.840.1.125023.3.579.2. 593 1935 Unknown [id number] [id number]. 1259 Medicare Medicare [id number] Self-pay Self Pay [id number] Unknown Gopal BC/BS [id number] Social History Date Type Detail Facility [facility]: [facility] Start: 1935 Sex Assigned At Male F [facility] Start: 10-09-[address] [facility] Never smoked tobacco [facility] Start: 10-09-2023 Tobacco use and exposure Smokeless tobacco non-user [facility] Start: 10-09-2023 History of Social function [facility] Start: 10-09-2023 Tobacco use panel [facility] Start: 1935 Sex assigned at Not on file N [facility] Clinical Notes 01-23-2022 to 11-14-2024 Note Date & Type Note Facility 11-14-2024 Note [facility] Subjective Patient is here today for follow-up visit on chronic systolic heart failure, coronary artery disease, and atrial fibrillation Patient Active Problem List Diagnosis Benign hypertension Persistent atrial fibrillation (CMS/HCC) Stage 3 chronic kidney disease (CMS/HCC) Coronary artery 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 [facility] 09-25-2024 Note Please let him know his MASON's were normal. Please follow-up with him regarding amyloid testing. Thanks! [facility] 08-20-2024 Note Patient is here toda y [...] Systems Musculoskeletal: Positive for muscle weakness (legs). [facility] 08-20-2024 Note Cardiovascular Medic [facility] SUBJECTIVE Chief Complaint Patient presents [...] kidney disease (CMS/HCC) Coronary artery disease involving lovelock coronary artery of lo[place]ock heart without angina pectoris Anemia, unspecified Carpal [...] use: Not Cur (more content not included)... [facility] 05-05-2024 Note [facility] Subjective Is here today for follow-up visit on chronic systolic heart failure, coronary artery disease, and atrial fibrillation 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 (CMS/HCC) Benign hypertension Persistent atrial fibrillation (CMS/HCC) Stage 3 chronic kidney disease (CMS/HCC) Atrial flutter (CMS/HCC) Coronary artery disease involving lovelock coronary artery of lo[place]ock heart without angina pectoris Anemia, unspecified Carpal [...] use: Never A (more content not included)... [facility] 04-08-2024 Note [facility] Subjective Is here today for follow-up visit on shortness of breath, tiredness, palpitation, and elevated blood pressure 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 (CMS/HCC) Benign hypertension Longstanding persistent atrial fibrillation (CMS/HCC) Stage 3 chronic kidney disease (CMS/HCC) Atrial flutter (CMS/HCC) Coronary artery disease involving lovelock coronary artery of lovelock heart without angina pectoris Anemia, unspecified Carpal [...] Rfl: 3 pantoprazole (more content not included)... [facility] 03-03-2024 Note [place] [facility] Subjective Is here today for follow-up visit on shortness of breath, tiredness, palpitation, and elevated blood pressure 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 (CMS/HCC) Benign hypertension Longstanding persistent atrial fibrillation (CMS/HCC) Stage 3 chronic kidney disease (CMS/HCC) Atrial flutter (CMS/HCC) Coronary artery disease involving lovelock coronary artery of lovelock heart without angina pectoris Anemia, unspecified Carpal [...] ABDOMEN: soft, nonten (more content not included)... [facility] 02-22-2024 Note [place] [facility] Subjective Shortness of breath, tiredness, palpitation, and elevated blood pressure 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 (CMS/HCC) Benign hypertension Persistent atrial fibrillation (CMS/HCC) Stage 3 chronic kidney disease (CMS/HCC) Atrial flutter (CMS/HCC) Coronary artery disease involving lovelock coronary artery of lovelock heart without angina pectoris Anemia, unspecified Carpal [...] fibrillation with ventricul (more content not included)... [facility] 01-23-2022 Note CARDIAC STRESS TEST Requesting Physician: Procedure Date:01/23/2022 This was a Lexiscan Stress Test with myocardial perfusion imaging, performed at the [facility]. Informed consent was obtained. Intravenous line was [...] perfusion images will be reported separately. The [facility] Evaluation note Diagnosis Onset Date Hematoma of right hip acute Unable to ambulate acute [facility] Work Phone: History and physical note Author Venus Manjarrez [facility] September 15, 2021 6:53pm Note Date/Time September 15, 2021 6:33 pm [facility] [address] [place] [address] Hospitalist H&P Signed Patient: Duke Matson MR#: [id number] : 1935 Acct:[id number] Age/Sex: 85 / M Adm Date: 2 Loc: 4N Room: 1R0144-4 Type : ADM INOo Attending Dr: Venus [...] fall on Sunday, [facility]. He had continued pain and be presented to [facility] where he was admitted with overnight observation [...] get in the car and came to [facility] ED. He denies new sensory deficit [...] % (Auto) 6.3 % (.) 09/15/21 17:07 [place] % (Auto) 9.1 % (.) 09/15/21 17:07 Eos % (Auto) 0.0 % (.) 09/15/21 17:07 Baso % (Auto) 0.2 % (.) 09/15/21 17:07 Neut # (Auto) 8.1 x10E3/uL (1.8-7.7) H 09/15/21 17:07 Lymph # (Auto) 0.6 x10E3/uL (1.00-4.8) L 09/15/21 17:07 [place] # (Auto) 0.9 x10E3/uL (0.0-0.8) H 09/15/21 [...] fall on Sunday and was seen at [facility] 2 times and discharged home with pain [...] appears similar to the last draw from [facility] -Given physical exam findings, rule out compartment syndrome of the right lower extremity. Orthopedics consult was requested and case was discussed with Dr. Bond states he will evaluate the patient in the a.m. and consider an MRI -Continue pain control with [place] and Dilaudid for breakthrough pain Permanent atrial fib -Not on rate control medications, continue Eliquis for now Hyperlipidemia: Continue statin Hypertension: Continue lisinopril CODE STATUS was confirmed in the ED as DNR Comfort Care arrest no intubation PT OT Case management consulted for placement Time Spent With Patient (min): 35 Documented By: Venus Manjarrez DO 09/15/21 299 Signed By: <Electronically signed by Venus Manjarrez DO> 09/15/21 2840 [facility] Work Phone: Summary Purpose Family History No [...] section and content) DATE CREATED AUTHOR 11/16/2020 [facility] DATE CREATED AUTHOR AUTHOR'S ORGANIZ ATION 01/01/2021 [facility] DATE CREATED AUTHOR AUTHOR'S ORGANIZ ATION 09/28/[address] [facility] DATE CREATED AUTHOR AUTHOR'S ORGANIZ ATION 05/10/2022 [facility] DATE CREATED AUTHOR AUTHOR'S ORGANIZ ATION 10/11/2023 [facility] EPIC DATE CREATED AUTHOR AUTHOR'S ORGANIZ ATION 12/05/2024 [facility] Care Teams (unrecognized sec tion and content) Team Status: Active Member Role Status Dates Stefano Rivera MD Primary Care Provider Active Benjy Gates DO RES Active Percy Swan MD Emergency Provider Active Venus Manjarrez DO Admit Provider, Attending Provider Ac tive Team Status: Active Member Role Status Dates Stefano Rivera MD 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 [facility] [employer] provides no warranty or guarantee of the accuracy or completeness of information in this document.
== END 2024-12-06 08:07 | disposition home or self-care (01) ==
LOC: LAB 08:06
PROVIDERS: PCP Family Medicine; Visit Provider Internal Medicine Cardiovascular Disease
DX: E85.4 Organ-limited amyloidosis (principal); I43 Cardiomyopathy in diseases classified elsewhere
CPT/HCPCS: 84156; 84166; 86335